=== PATIENT | male | born 1950 | race Caucasian/White ===

== ENCOUNTER → 2017-01-01 | Outpatient (CLI) | payer BC ==
[~2017-01-01] MED LIST: ASPI81TA21 PO; ATEN-173 PO; LITH300T2 PO; NITR0.4S UT; SIMV40TA4 PO
[2017-01-01 09:48] LABS: BLOOD UREA NITROGEN 15 mg/dl (7-18)
== END | disposition home or self-care (01) ==
LOC: C.LAB1850 08:12
PROVIDERS: ATTEND Internal Medicine Cardiovascular Disease
DX: R97.20 Elevated prostate specific antigen [PSA] (principal); Z51.81 Encounter for therapeutic drug level monitoring; Z79.899 Other long term (current) drug therapy

== ENCOUNTER → 2017-08-20 | Day surgery (SDC) | payer BC ==
[2017-07-25 10:05] VITALS: Ht 180.3 cm; Wt 113.6 kg
[~2017-08-20] VITALS: Ht 180.3 cm; Wt 113.6 kg
[~2017-08-20] MED LIST changes: +500ML BSS 0.3ML EPI 1:1000PF IRRIG ONE; +ACETAMINOPHEN 325 MG TAB PO PRN; +AMVISC PLUS 0.8ML SYRINGE INT OCU ONE; -ATEN-173 PO; +ATROPINE SULFATE 0.1 MG/ML 5ML SYR IV PRN; +AcetaZOLAMIDE 250 MG TAB ONE; +BETAXOLOL HCL 0.25% OP SUSP PER DROP CHARGE OPR SCH; +BRIMONIDINE TART 0.2% OP SOLN PER DROP CHARGE ONE; +BRIMONIDINE TARTRATE 0.2% 5ML ONE; +BSS FLUSH ONE; +ENDOCOAT 0.85ML SYRINGE INT OCU ONE; +EpHEDrine SULFATE INJ 50 MG/ML AMP IV PRN; +EpINEphrine INJ 1MG/ML AMP 1 MG/ML AMP ONE; +LACTATED RINGER'S 1000ML 500 ML IV SCH; +LIDOCAINE 4% OP SOLN DROP CHARGE ONE; +LIDOCAINE 4% OP SOLN DROP CHARGE OPR SCH; +LIDOCAINE HCL 1% MPF 2 ML VIAL ONE; +MIDAZOLAM HCL 1 MG/ML 2ML VIAL ONE; +MIX: 4ML BSS 1ML EPI 1:1000 PF INSTIL ONE; +MOXIFLOXACIN OPH SOLN PER DROP CHARGE ONE; +OCUCOAT 1 ML SOLN IO ONE; +POVIDONE-IODINE OP SOLN 30 ML BTL ONE; +PROPARACAINE 0.5% OP SOLN PER DROP CHARGE OPR SCH; +TOBRAMYCIN/DEXAMETHASONE OPH OINT PER APPLN CHARGE ONE
[2017-08-20] MEDS: PHENYLEPHRINE HCL 2.5% OP SOLN PER DROP CHARGE OPR SCH ×2 (06:37→06:42)
[2017-08-20] MEDS: CYCLOPENTOLATE HCL 1% OP SOLN PER DROP CHARGE OPR SCH ×2 (06:39→06:45)
[2017-08-20] MEDS: TROPICAMIDE 1% OP SOLN PER DROP CHARGE OPR SCH ×2 (06:39→06:44)
[2017-08-20] MEDS: MOXIFLOXACIN OPH SOLN PER DROP CHARGE OPR SCH ×2 (06:41→06:47)
--- NOTE | 2017-08-20 06:43 | History & Physical Bridge - SC ---
H&P Re-Evaluation Bridge Note: I have examined the patient, reviewed the History & Physical and in the interval since the performance of the History & Physical I have noted the following changes of clinical significance: No changes noted
--- NOTE | 2017-08-20 07:18 | [facility] Operative Report ---
Operative Report Date of Service Aug 20, 2017. Operative Report 1. PREOPERATIVE DIAGNOSIS: Senile nuclear cataract, right eye. 2. POSTOPERATIVE DIAGNOSIS: Senile nuclear cataract, right eye. 3. PROCEDURE: Phacoemulsification of right cataract with posterior chamber lens implant, type Dino, model SN6AT4, power +14.5 diopters. ANESTHESIA: Local standby. SURGEON: Dr. Biggs. COMPLICATIONS: None. OPERATING TIME: 10 minutes. 4. OPERATION AND FINDINGS: DESCRIPTION OF PROCEDURE: The right pupil was dilated. The anesthetic was administered using a topical technique. The right eye was prepped and draped. A speculum was placed. A clear corneal incision was formed. The chamber was filled with Amvisc Plus and Endocoat. Epinephrine solution was used. A paracentesis was placed. A capsulorrhexis was performed. The nucleus was hydrodissected. The lens was removed with phacoemulsification. Time was 3.51 seconds. The aspiration unit was used to remove the cortex. The capsule was filled with Amvisc Plus. The lens implant was folded and placed into the capsule. The lens implant was rotated to the correct position. The incision was hydrated. The Amvisc was aspirated. The wound was secure. The chamber was deep. The pupil was round. Brimonidine, TobraDex ointment and Vigamox solution were placed. The speculum was removed. The patient was returned to the Recovery Room in stable condition. I attest to the content of the Intraoperative Record and any orders documented therein. Any exceptions are noted below. The scribe's documentation has been prepared in my presence, under my direction and personally reviewed by me in its entirety. I confirm that the note above accurately reflects all work, treatment, procedures, and medical decision making performed by me. I personally scribed for Manuelito Biggs M.D. ([email or web address]) on 08/20/17 at 07:18. Electronically submitted by Bernie CIFUENTES).
--- NOTE | 2017-08-20 07:20 | Discharge Instructions-SurgCtr ---
Discharge Instructions Date of Service Aug 20, 2017. Visit Reason for Visit: Cataract Right Eye Discharge Discharge Diagnosis / Problem: lens implant right eye Discharge Goals Goal(s): Improve function Activity Recommendations Activity Limitations: resume your previous activity Lifting Limitations: no more than 10 pounds Exercise/Sports Limitations: gradually increase as tolerated May Resume Sexual Activity: when tolerated Shower/Bathe: tomorrow Driving or Machine Use: resume 1 day after discharge Anesthesia . Post Anesthesia Instructions: If you have had General Anesthesia or IV Sedation: * Do not drive today. * Resume driving when surgeon permits. * Do not make important decisions or sign legal documents today. * Call surgeon for: 1. Temperature elevations greater than 101 degrees F. 2. Uncontrollable pain. 3. Excessive bleeding. 4. Persistent nausea and vomiting. 5. Medication intolerance (nausea, vomiting or rash). * For nausea and vomiting use only clear liquids such as: tea, soda, bouillon until nausea subsides, then gradually increase diet as tolerated. * If you have any concerns or questions, call your surgeon's office. If physician is unavailable and it is an emergency, call 911 or go to the nearest emergency room. . Instructions / Follow-Up Instructions / Follow-Up ACTIVITY RECOMMENDATIONS: * Light activities. * Mild irritation and blurred vision are common for the first few days. * You may walk outside, read, watch television. * Redness around the white part of the eye is common. MEDICATIONS: Resume previous medications unless instructed otherwise by your surgeon. * Take white Diamox (Acetazolamide) tablet at 1 pm today. Start all eye drops at 1 pm today: * Eye drops (today and tomorrow): Prednisone - one drop in operative eye every 3 hours while awake Ofloxacin - one drop in operative eye every 3 hours while awake SPECIAL CARE INSTRUCTIONS: * Tape plastic shield over eye to sleep at night. Call your doctor at with any concerns or problems. FOLLOW UP VISIT: Follow-up with Dr Biggs at [facility] as scheduled. Diet Recommendations Home Diet: no limitations Procedures Procedures Performed: Right Cataract Phacoemulsification With Intraocular Lens Implant; Toric Lens Pending Studies Studies pending at discharge: no Medical Emergencies . Who to Call and When: Medical Emergencies: If at any time you feel your situation is an emergency, please call 911 immediately. . Non-Emergent Contact Non-Emergency issues call your: [employer] Dipper Call Non-Emergent contact if: your pain is not controlled [phone] . . "Provider Documentation" section prepared by Manuelito Biggs. .
[2017-08-20 07:26] VITALS: TEMP 36.9
--- NOTE | 2017-08-20 07:42 | Anesthesia Progress Nt - [facility] ---
Anesthesia Post Op Note Date & Time Aug 20, 2017 at 07:41 Vital Signs Pain Intensity: 0 Vital Signs Past 12 Hours Date Time Temp Pulse Resp B/P (MAP) Pulse Ox O2 Delivery O2 Flow Rate FiO2 08/20/17 06:27 36.3 52 18 170/89 (116) 96 Room Air Notes Mental Status: alert / awake / arousable, participated in evaluation Pt Amnestic to Procedure: Yes Nausea / Vomiting: adequately controlled Pain: adequately controlled Airway Patency, RR, SpO2: stable & adequate BP & HR: stable & adequate Hydration State: stable & adequate Anesthetic Complications: no major complications apparent
[2017-08-20 07:57] VITALS: BP 152/72; PULSE 60; O2SAT 97
== END | disposition home or self-care (01) ==
LOC: X.SURG 06:11
PROVIDERS: ATTEND Specialist
DX: H25.11 Age-related nuclear cataract, right eye (principal); I10 Essential (primary) hypertension; G47.33 Obstructive sleep apnea (adult) (pediatric); J44.9 Chronic obstructive pulmonary disease, unspecified; E66.9 Obesity, unspecified; Z68.35 Body mass index [BMI] 35.0-35.9, adult; Z79.82 Long term (current) use of aspirin; Z87.891 Personal history of nicotine dependence; Z90.89 Acquired absence of other organs; Z98.890 Other specified postprocedural states

== ENCOUNTER → 2017-09-10 | Day surgery (SDC) | payer BC ==
[2017-08-25 10:22] VITALS: BMI 35.0
[2017-08-29 09:36] VITALS: Ht 180.3 cm; Wt 113.6 kg
[~2017-09-10] VITALS: Ht 180.3 cm; Wt 113.6 kg
[~2017-09-10] MED LIST changes: +AMLO2.5T PO; +ATOR-24 PO; -AcetaZOLAMIDE 250 MG TAB ONE; +AcetaZOLAMIDE 250 MG TAB PO SCH; +BETAXOLOL HCL 0.25% OP SUSP PER DROP CHARGE OPL SCH; -BETAXOLOL HCL 0.25% OP SUSP PER DROP CHARGE OPR SCH; -BRIMONIDINE TARTRATE 0.2% 5ML ONE; +CYCLOPENTOLATE HCL 1% OP SOLN PER DROP CHARGE OPL SCH; +LIDOCAINE 4% OP SOLN DROP CHARGE OPL SCH; -LIDOCAINE 4% OP SOLN DROP CHARGE OPR SCH; +MOXIFLOXACIN OPH SOLN PER DROP CHARGE OPL SCH; +PHENYLEPHRINE HCL 2.5% OP SOLN PER DROP CHARGE OPL SCH; +PROPARACAINE 0.5% OP SOLN PER DROP CHARGE OPL SCH; -PROPARACAINE 0.5% OP SOLN PER DROP CHARGE OPR SCH; +TROPICAMIDE 1% OP SOLN PER DROP CHARGE OPL SCH
[2017-09-10] MEDS: PHENYLEPHRINE HCL 2.5% OP SOLN PER DROP CHARGE OPL SCH ×2 (09:40→09:45)
[2017-09-10] MEDS: TROPICAMIDE 1% OP SOLN PER DROP CHARGE OPL SCH ×2 (09:41→09:46)
[2017-09-10] MEDS: CYCLOPENTOLATE HCL 1% OP SOLN PER DROP CHARGE OPL SCH ×2 (09:42→09:47)
[2017-09-10] MEDS: MOXIFLOXACIN OPH SOLN PER DROP CHARGE OPL SCH ×2 (09:43→09:53)
--- NOTE | 2017-09-10 10:50 | [facility] Operative Report ---
Operative Report Date of Service Sep 10, 2017. Operative Report 1. PREOPERATIVE DIAGNOSIS: Senile nuclear cataract, left eye. 2. POSTOPERATIVE DIAGNOSIS: Senile nuclear cataract, left eye. 3. PROCEDURE: Phacoemulsification of left cataract with posterior chamber lens implant, type Dino, model SN6AT3, power +15 diopters. ANESTHESIA: Local standby. SURGEON: Dr. Biggs. COMPLICATIONS: None. OPERATING TIME: 10 minutes. 4. OPERATION AND FINDINGS: DESCRIPTION OF PROCEDURE: The left pupil was dilated. The anesthetic was administered using a topical technique. The left eye was prepped and draped. A speculum was placed. A clear corneal incision was formed. The chamber was filled with Amvisc Plus and Endocoat. Epinephrine solution was used. A paracentesis was placed. A capsulorrhexis was performed. The nucleus was hydrodissected. The lens was removed with phacoemulsification. Time was 1.25 seconds. The aspiration unit was used to remove the cortex. The capsule was filled with Amvisc Plus. The lens implant was folded and placed into the capsule. The lens implant was rotated to the correct position. The incision was hydrated. The Amvisc was aspirated. The wound was secure. The chamber was deep. The pupil was round. Brimonidine, TobraDex ointment and Vigamox solution were placed. The speculum was removed. The patient was returned to the Recovery Room in stable condition. I attest to the content of the Intraoperative Record and any orders documented therein. Any exceptions are noted below. The scribe's documentation has been prepared in my presence, under my direction and personally reviewed by me in its entirety. I confirm that the note above accurately reflects all work, treatment, procedures, and medical decision making performed by me. I personally scribed for Manuelito Biggs M.D. ([email or web address]) on 09/10/17 at 10:50. Electronically submitted by Bernie Driver ([email or web address]).
--- NOTE | 2017-09-10 10:54 | Discharge Instructions-SurgCtr ---
Discharge Instructions Date of Service Sep 10, 2017. Visit Reason for Visit: Cataract Left Eye Discharge Discharge Diagnosis / Problem: lens implant left eye Discharge Goals Goal(s): Improve function Activity Recommendations Activity Limitations: resume your previous activity Lifting Limitations: no more than 10 pounds Exercise/Sports Limitations: gradually increase as tolerated May Resume Sexual Activity: when tolerated Shower/Bathe: tomorrow Driving or Machine Use: resume 1 day after discharge Anesthesia . Post Anesthesia Instructions: If you have had General Anesthesia or IV Sedation: * Do not drive today. * Resume driving when surgeon permits. * Do not make important decisions or sign legal documents today. * Call surgeon for: 1. Temperature elevations greater than 101 degrees F. 2. Uncontrollable pain. 3. Excessive bleeding. 4. Persistent nausea and vomiting. 5. Medication intolerance (nausea, vomiting or rash). * For nausea and vomiting use only clear liquids such as: tea, soda, bouillon until nausea subsides, then gradually increase diet as tolerated. * If you have any concerns or questions, call your surgeon's office. If physician is unavailable and it is an emergency, call 911 or go to the nearest emergency room. . Instructions / Follow-Up Instructions / Follow-Up ACTIVITY RECOMMENDATIONS: * Light activities. * Mild irritation and blurred vision are common for the first few days. * You may walk outside, read, watch television. * Redness around the white part of the eye is common. MEDICATIONS: Resume previous medications unless instructed otherwise by your surgeon. * Take white Diamox (Acetazolamide) tablet at 2 pm today. Start all eye drops at 2 pm today: * Eye drops (today and tomorrow): Prednisone - one drop in operative eye every 3 hours while awake Ofloxacin - one drop in operative eye every 3 hours while awake SPECIAL CARE INSTRUCTIONS: * Tape plastic shield over eye to sleep at night. Call your doctor at with any concerns or problems. FOLLOW UP VISIT: Follow-up with Dr Biggs at [facility] as scheduled. Diet Recommendations Home Diet: no limitations Procedures Procedures Performed: Left Cataract Phacoemulsification With Intraocular Lens Implant; Toric Lens Pending Studies Studies pending at discharge: no Medical Emergencies . Who to Call and When: Medical Emergencies: If at any time you feel your situation is an emergency, please call 911 immediately. . Non-Emergent Contact Non-Emergency issues call your: Front End Java Developer Call Non-Emergent contact if: your pain is not controlled [phone] . . "Provider Documentation" section prepared by Manuelito Biggs. .
[2017-09-10 11:06] VITALS: TEMP 36.6
--- NOTE | 2017-09-10 11:17 | Anesthesia Progress Nt - [facility] ---
Anesthesia Post Op Note Date & Time Sep 10, 2017 at 11:17 Vital Signs Pain Intensity: 0 Vital Signs Past 12 Hours Date Time Temp Pulse Resp B/P (MAP) Pulse Ox O2 Delivery O2 Flow Rate FiO2 09/10/17 11:06 36.6 62 16 138/90 (106) 95 Room Air 09/10/17 09:25 36.4 42 20 131/68 (89) 96 Room Air Notes Mental Status: alert / awake / arousable, participated in evaluation Pt Amnestic to Procedure: Yes Nausea / Vomiting: adequately controlled Pain: adequately controlled Airway Patency, RR, SpO2: stable & adequate BP & HR: stable & adequate Hydration State: stable & adequate Anesthetic Complications: no major complications apparent
[2017-09-10 11:25] VITALS: BP 132/80; PULSE 42; O2SAT 98
== END | disposition home or self-care (01) ==
LOC: X.SURG 09:05
PROVIDERS: ATTEND Specialist
DX: H25.12 Age-related nuclear cataract, left eye (principal); I10 Essential (primary) hypertension; E66.9 Obesity, unspecified

== ENCOUNTER → 2017-10-07 | Outpatient (CLI) | payer BC ==
[~2017-10-07] MED LIST changes: -500ML BSS 0.3ML EPI 1:1000PF IRRIG ONE; -ACETAMINOPHEN 325 MG TAB PO PRN; -AMVISC PLUS 0.8ML SYRINGE INT OCU ONE; -ATROPINE SULFATE 0.1 MG/ML 5ML SYR IV PRN; -AcetaZOLAMIDE 250 MG TAB PO SCH; -BETAXOLOL HCL 0.25% OP SUSP PER DROP CHARGE OPL SCH; -BRIMONIDINE TART 0.2% OP SOLN PER DROP CHARGE ONE; -BSS FLUSH ONE; -CYCLOPENTOLATE HCL 1% OP SOLN PER DROP CHARGE OPL SCH; -ENDOCOAT 0.85ML SYRINGE INT OCU ONE; -EpHEDrine SULFATE INJ 50 MG/ML AMP IV PRN; -EpINEphrine INJ 1MG/ML AMP 1 MG/ML AMP ONE; -LACTATED RINGER'S 1000ML 500 ML IV SCH; -LIDOCAINE 4% OP SOLN DROP CHARGE ONE; -LIDOCAINE 4% OP SOLN DROP CHARGE OPL SCH; -LIDOCAINE HCL 1% MPF 2 ML VIAL ONE; -MIDAZOLAM HCL 1 MG/ML 2ML VIAL ONE; -MIX: 4ML BSS 1ML EPI 1:1000 PF INSTIL ONE; -MOXIFLOXACIN OPH SOLN PER DROP CHARGE ONE; -MOXIFLOXACIN OPH SOLN PER DROP CHARGE OPL SCH; -OCUCOAT 1 ML SOLN IO ONE; -PHENYLEPHRINE HCL 2.5% OP SOLN PER DROP CHARGE OPL SCH; -POVIDONE-IODINE OP SOLN 30 ML BTL ONE; -PROPARACAINE 0.5% OP SOLN PER DROP CHARGE OPL SCH; -SIMV40TA4 PO; -TOBRAMYCIN/DEXAMETHASONE OPH OINT PER APPLN CHARGE ONE; -TROPICAMIDE 1% OP SOLN PER DROP CHARGE OPL SCH
[2017-10-07 13:04] LABS: BASO % 0.5 %; BASO ABS # 0.04 K/uL (0-0.2); EOS % 2.1 %; EOS ABS # 0.16 K/uL (0-0.5); HEMATOCRIT 40.1 % (42-52); HEMOGLOBIN 14.5 g/dL (14.0-18.0); IG# 0.03 K/uL (0.00-0.02); LYMPH % 15.3 %; LYMPH ABS # 1.18 K/uL (1.2-3.4); MEAN CELL VOLUME 89.9 fL (80-100); MEAN CORPUSCULAR HEMOGLOBIN 32.5 pg (25-34); MEAN CORPUSCULAR HGB CONC 36.2 g/dl (32-36); MEAN PLATELET VOLUME 10.3 fL (7.4-10.4); MONO % 9.9 %; MONO ABS # 0.76 K/uL (0.11-0.59); NEUT % 71.8 %; NEUT ABS # 5.52 K/uL (1.4-6.5); PLATELET COUNT 145 K/uL (130-400); RED CELL DISTRIBUTION WIDTH CV 13.4 % (11.5-14.5); RED CELL DISTRIBUTION WIDTH SD 44.2 fL (36.4-46.3); WHITE BLOOD COUNT 7.69 K/uL (4.8-10.8)
[2017-10-07 13:31] LABS: ALBUMIN 3.7 gm/dl (3.4-5.0); ALT/SGPT 48 U/L (12-78); BLOOD UREA NITROGEN 17 mg/dl (7-18); CALCIUM 8.3 mg/dl (8.5-10.1); CARBON DIOXIDE 21 mmol/L (21-32); CREATININE 0.98 mg/dl (0.60-1.40); GLUCOSE 101 mg/dl (70-99); POTASSIUM 3.9 mmol/L (3.5-5.1); SODIUM 140 mmol/L (136-145)
[2017-10-07 13:42] LABS: ALKALINE PHOSPHATASE 71 U/L (45-117); AST/SGOT 24 U/L (15-37); TOTAL PROTEIN 7.5 gm/dl (6.4-8.2)
== END | disposition home or self-care (01) ==
LOC: C.LABBC 11:04
PROVIDERS: ATTEND Psychiatry & Neurology Psychiatry
DX: F31.76 Bipolar disorder, in full remission, most recent episode depressed (principal)

== ENCOUNTER → 2017-11-14 | Outpatient (CLI) | payer BC ==
[~2017-11-14] MED LIST changes: +ASPI-319 PO; -ASPI81TA21 PO
--- NOTE | 2017-11-14 12:32 | DIAGNOSTIC IMAGING REPORT ---
RIGHT GROIN ULTRASOUND CLINICAL HISTORY: Melanoma. Palpable right groin abnormality. COMPARISON STUDY: No previous studies for comparison. FINDINGS: Targeted sonography of the right groin revealed several benign-appearing inguinal lymph nodes that measure up to 1.6 x 0.9 x 0.6 cm. Each lymph node demonstrated a thin cortex with fatty hilum. IMPRESSION: Several morphologically benign right inguinal lymph nodes. Clinical follow up to ensure stability is recommended. If progressive enlargement, repeat ultrasound is recommended. Electronically signed by: Benton Moreno M.D. 11/14/2017 12:31 PM Dictated Date/Time: 11/14/2017 12:29 PM
== END | disposition home or self-care (01) ==
LOC: C.ULTR 12:03
PROVIDERS: ATTEND Dermatology
DX: R59.9 Enlarged lymph nodes, unspecified (principal); Z85.820 Personal history of malignant melanoma of skin

== ENCOUNTER 2019-05-10 18:51 | Inpatient (IN) ==
[2019-05-10] MEDS ORDERED: fentaNYL citrate 100 MCG/2 ML VIAL IV STA (19:25)
[2019-05-10] MEDS ORDERED: ONDANSETRON INJ 2 MG/ML 2 ML VIAL IV STA (19:25)
[2019-05-10 20:40] LABS: Basophils # (auto) 0.03 K/uL (0-0.2); Basophils % (auto) 0.3 %; Eosinophils # (auto) 0.15 K/uL (0-0.5); Eosinophils % (auto) 1.3 %; Hematocrit (blood only) 39.4 % (42-52); Hemoglobin 13.7 g/dL (14.0-18.0); Immature Granulocytes # (auto) 0.05 K/uL (0.00-0.02); Immature Granulocytes % (auto) 0.4 %; Lymphocytes # (auto) 1.37 K/uL (1.2-3.4); Mean Corpuscular Hemoglobin 31.9 pg (25-34); Mean Corpuscular Hgb Conc 34.8 g/dL (32-36); Mean Corpuscular Volume 91.6 fL (80-100); Mean Platelet Volume 10.7 fL (7.4-10.4); Monocytes # (auto) 0.81 K/uL (0.11-0.59); Monocytes % (auto) 7.1 %; Neutrophils # (auto) 9.03 K/uL (1.4-6.5); Neutrophils % (auto) 78.9 %; Platelet Count 145 K/uL (130-400); RDW Coefficient of Variation 14.1 % (11.5-14.5); RDW Standard Deviation 46.4 fL (36.4-46.3); White Blood Count 11.44 K/uL (4.8-10.8)
[2019-05-10 21:00] LABS: Albumin Level 3.8 gm/dl (3.4-5.0); BUN Creatinine Ratio 12.6 (10-20); Calcium 8.9 mg/dl (8.5-10.1); Creatinine Clr Calc Pharmacy 78.5 ml/min; Est GFR (African American) 75.1; Est GFR (Non-African American) 64.8
[2019-05-10 21:10] LABS: Bilirubin,Total 0.8 mg/dl (0.2-1); Globulin 3.9 gm/dl (2.5-4.0); Total Protein 7.7 gm/dl (6.4-8.2); Troponin I 0.149 ng/ml (0-0.045)
[2019-05-10] MEDS ORDERED: NITROGLYCERIN SL 0.4 MG/TAB TAB SL STA ×3 (21:18→22:26)
[2019-05-10] MEDS ORDERED: NITROGLYCERIN 2% OINTMENT 30GM TUBE EXT ONE (21:18)
[2019-05-10] MEDS ORDERED: ASPIRIN 81 MG CHEW PO STA (21:20)
--- NOTE | 2019-05-10 21:22 | XRay Report ---
SINGLE VIEW CHEST CLINICAL HISTORY: Atypical chest pain. FINDINGS: An AP, portable, upright chest radiograph is compared to study dated 02/11/2019. The examina tion is degraded by portable technique and patient rotation. The heart is enlarged noting atheroscl erotic calcification of the thoracic aorta. There is pulmonary vascular congestion. There is bibasila r atelectasis. No large pleural effusion or pneumothorax is seen. The skeletal structures are osteope felipe. The bony thorax is grossly intact. IMPRESSION: Cardiomegaly with evidence of congestive failure. Electronically signed by: Saad Garcia M.D. 05/10/2019 9:21 PM
[2019-05-10] MEDS ORDERED: METOPROLOL TARTRATE 25 MG TAB PO STA (22:13)
[2019-05-10] MEDS ORDERED: Heparin IV Low Dose WITH Bolus IV STA (22:13)
[2019-05-10] MEDS ORDERED: HEPARIN SODIUM/DEXTROSE 25,000 UNITS/500 ML BAG IV SCH (22:15)
[2019-05-10] MEDS ORDERED: TICAGRELOR 90 MG TAB PO ONE (22:29)
[2019-05-10] MEDS ORDERED: MoRPHine SULFATE 2 MG/ML CARP IV STA ×2 (22:33→23:44)
[2019-05-10 23:18] LABS: Partial Thromboplastin Time 26.9 Seconds (21.0-31.0)
[2019-05-10] MEDS ORDERED: HEPARIN SOD (PORCINE) 1000 UNIT/ML 10 ML VIAL ONE (23:35)
[2019-05-10] MEDS ORDERED: METOPROLOL TARTRATE 1 MG/ML VIAL IV STA (23:51)
--- NOTE | 2019-05-11 | Emergency Department Note ---
Entered by Qing Morris acting as a scribe for History of Present Illness General Chief complaint: Shortness of Breath/Dyspnea Stated complaint: ANGINA, SOB Source: patient History of Present Illness Provider complaint: Chest Pain Onset (ago): day(s) 1 Location: chest (Middle) Maximum Pain Intensity: 3 Quality: + dull and + other (Tightness) Exacerbated By: + movement (Exertion) Associated symptoms: + shortness of breath; no cough and no fever/chills The patient is a 68 year old male who presents to the Emergency Room with complaints of dull middle chest pain that began this morning. The patient states the pain is exacerbated by exertion and he notes the pain in his chest also feels very tight. The patient reports being short of breath even when at rest. The patient denies experiencing a cough or fever/chills. The patient notes that he took Nitro and Aspirin today. He states that the nitro will help for about an hour but then the pain will come back. He states that he took about 10-15 nitroglycerin tablets today. He currently rates his pain a 1 out of 10 in severity. He also saw his office system analyst recently who increased his isosorbide to 60 mg. He denies being on a beta-bennett because he was told that his heart rate went too low. He also has a history of frequent PVCs and recently had a Holter monitor but does not know the results. Home Medications Home Medications Medication Instructions Recorded Confirmed Type amlodipine 2.5 mg tablet 2.5 mg PO QAM #90 tab 02/09/19 05/10/19 History aspirin 81 mg tablet,delayed 81 mg PO QAM tab 02/09/19 05/10/19 History release atorvastatin 40 mg tablet 40 mg PO QAM #1 tab 02/09/19 05/10/19 History finasteride 5 mg tablet 5 mg PO QAM #30 tab 02/09/19 05/10/19 History lithium carbonate ER 300 mg 300 mg PO BID tab 02/09/19 05/10/19 History tablet,extended release tamsulosin 0.4 mg capsule 0.4 mg PO HS #30 cap 02/09/19 05/10/19 History isosorbide mononitrate 60 mg PO QAM 05/10/19 05/10/19 History nitroglycerin 0.4 mg SL ONCE PRN 05/10/19 05/10/19 History Allergies Allergy/AdvReac Type Severity Reaction Status Date / Time No Known Allergies Allergy Verified 05/10/19 19:34 Past Med/Surg History Medical History Obstructive sleep apnea Obesity Inhibited sexual excitement HTN (hypertension) (Chronic) Hyperglycemia Gross hematuria (Resolved) Former smoker Elevated PSA Diverticulosis Depression CAD in [place] artery (Chronic) Bipolar I disorder, single manic episode (Chronic) Benign prostatic hyperplasia with urinary obstruction Angina, class II Surgical History History of surgery on arm S/P cardiac catheterization Family History Mother Hypertension Other Cardiac disorder Social History Preferred Language: Gabonese Communication Ability: Effective Visual Impairment: No Limitations Hearing Ability: Normal marital status: current occupational status: retired Feels Safe at Home: Yes Smoking Status: Never smoker Hx Alcohol Use: Yes Review of Systems See HPI for pertinent positives & negatives. and A total of 10 systems reviewed and were otherwise negative Physical Exam Vital Signs Vital Signs - 24 hr 05/10/19 19:00 05/10/19 19:13 05/10/19 19:30 Temperature 36.4 C L Temperature Source Oral Sepsis Recent Fever Within 48 Hours No Sepsis Action Taken by Nursing No Action Required Pulse Rate 98 H 72 70 Pulse Rate [Right Finger] Pulse Rate from SpO2 Sensor 36 L Pulse Rhythm Regular Pulse Rhythm [Right Finger] Pulse Strength Normal Respiratory Rate 20 9 L 15 Respiratory Effort / Characteristics Non-Labored Spontaneous Respiratory Depth Normal Respiratory Pattern Regular Blood Pressure 170/105 H Blood Pressure [Right Arm] Blood Pressure Mean 126 Blood Pressure Mean [Right Arm] Blood Pressure Position Sitting Blood Pressure Position [Right Arm] Pulse Oximetry 100 95 Oxygen Delivery Method Room Air 05/10/19 19:51 05/10/19 20:00 05/10/19 20:08 Temperature Temperature Source Sepsis Recent Fever Within 48 Hours Sepsis Action Taken by Nursing Pulse Rate 74 Pulse Rate [Right Finger] Pulse Rate from SpO2 Sensor Pulse Rhythm Pulse Rhythm [Right Finger] Pulse Strength Respiratory Rate 21 Respiratory Effort / Characteristics Respiratory Depth Respiratory Pattern Blood Pressure Blood Pressure [Right Arm] Blood Pressure Mean Blood Pressure Mean [Right Arm] Blood Pressure Position Blood Pressure Position [Right Arm] Pulse Oximetry 93 95 Oxygen Delivery Method Room Air Room Air 05/10/19 20:30 05/10/19 20:45 05/10/19 20:55 Temperature Temperature Source Sepsis Recent Fever Within 48 Hours Sepsis Action Taken by Nursing Pulse Rate 75 71 Pulse Rate [Right Finger] 74 Pulse Rate from SpO2 Sensor 58 L Pulse Rhythm Pulse Rhythm [Right Finger] Regular Pulse Strength Respiratory Rate 19 25 H 20 Respiratory Effort / Characteristics Respiratory Depth Normal Respiratory Pattern Blood Pressure 156/61 H Blood Pressure [Right Arm] 155/61 H Blood Pressure Mean 92 Blood Pressure Mean [Right Arm] 92 Blood Pressure Position Blood Pressure Position [Right Arm] Lying Pulse Oximetry 85 L 94 Oxygen Delivery Method Room Air 05/10/19 21:00 05/10/19 21:34 05/10/19 21:41 Temperature Temperature Source Sepsis Recent Fever Within 48 Hours Sepsis Action Taken by Nursing Pulse Rate 76 80 76 Pulse Rate [Right Finger] Pulse Rate from SpO2 Sensor Pulse Rhythm Pulse Rhythm [Right Finger] Pulse Strength Respiratory Rate 21 22 17 Respiratory Effort / Characteristics Respiratory Depth Respiratory Pattern Blood Pressure 159/77 H Blood Pressure [Right Arm] Blood Pressure Mean 104 Blood Pressure Mean [Right Arm] Blood Pressure Position Blood Pressure Position [Right Arm] Pulse Oximetry Oxygen Delivery Method 05/10/19 21:50 05/10/19 22:00 05/10/19 22:04 Temperature Temperature Source Sepsis Recent Fever Within 48 Hours Sepsis Action Taken by Nursing Pulse Rate 73 71 75 Pulse Rate [Right Finger] Pulse Rate from SpO2 Sensor Pulse Rhythm Pulse Rhythm [Right Finger] Pulse Strength Respiratory Rate 20 24 19 Respiratory Effort / Characteristics Respiratory Depth Respiratory Pattern Blood Pressure 162/82 H 164/90 H Blood Pressure [Right Arm] Blood Pressure Mean 108 114 Blood Pressure Mean [Right Arm] Blood Pressure Position Blood Pressure Position [Right Arm] Pulse Oximetry Oxygen Delivery Method 05/10/19 23:05 05/10/19 23:46 Temperature Temperature Source Sepsis Recent Fever Within 48 Hours Sepsis Action Taken by Nursing Pulse Rate 72 Pulse Rate [Right Finger] 74 Pulse Rate from SpO2 Sensor Pulse Rhythm Pulse Rhythm [Right Finger] Pulse Strength Respiratory Rate 22 18 Respiratory Effort / Characteristics Respiratory Depth Respiratory Pattern Blood Pressure 163/73 H Blood Pressure [Right Arm] 137/93 Blood Pressure Mean 103 Blood Pressure Mean [Right Arm] 107 Blood Pressure Position Blood Pressure Position [Right Arm] Lying Pulse Oximetry 96 Oxygen Delivery Method Room Air Constitutional: Vital signs reviewed. Eyes: Pupils are equal round reactive to light. Conjunctiva are noninjected. ENT: Pharynx is clear without erythema or exudate. Mucous membranes are moist. Neck supple without meningeal signs. Respiratory: Clear to auscultation bilaterally. Breath sounds are equal bilaterally. Cardiovascular: Regular rate and regularly irregular rhythm consistent with bigeminy. No rubs or gallops. GI: Soft, nondistended and nontender. Bowel sounds are present. Musculoskeletal: No peripheral edema. No lower extremity tenderness. Integumentary: No cyanosis. Neurological: The patient is awake and alert. No focal deficits. Psychiatric: Normal affect. Course 1909: Past medical records reviewed. The patient was evaluated in room B12A. A complete history and physical exam was performed. 2007: I reevaluated the patient and he still does not have IV access. The patient is waiting for the IV team. 2116: I reevaluated the patient and he still has 1/10 chest pain. 2119: I spoke with Dr. Early- Cardiology about the patient's case and he recommends giving him some nitro to try and get him pain free. If the patient's pain does not subside he wants the patient to go to the roofing laborer. He agreed with heparin. 2139: I reevaluated the patient and his pain is now a .5/10. 2153: I reevaluated the patient and his pain is now a 1/10. He was given his 3rd nitroglycerin. 4: I spoke with Dr. Early again and he said to give him low presser 25 orally and to check a 2nd Troponin and start the Heparin. 2218: I spoke with Dr. Adele Cruz- Hospitalist about the patient's case and she will accept the patient for further evaluation. 2229: I spoke with Dr. Early again and he spoke directly to Dr. Adele Cruz about the patient's case. Administered Medications Heparin Sodium/Dextrose (Heparin Sodium/Dextrose) 25,000 units in 500 mls @ 20 mls/hr IV .Q24H [facility]; Protocol Stop: 06/09/19 22:14 Last Admin: 05/10/19 23:54 Dose: 1,000 units/hr, 20 mls/hr Documented by: [id number] Cosigned by: [id number] Discontinued Medications Aspirin (Aspirin Chew) 324 mg PO NOW STA Stop: 05/10/19 21:21 Last Admin: 05/10/19 21:31 Dose: 324 mg Documented by: [id number] Fentanyl Citrate (Fentanyl Citrate) 50 mcg IV NOW STA Stop: 05/10/19 19:26 Last Admin: 05/10/19 20:56 Dose: 50 mcg Documented by: [id number] Heparin Sodium (Porcine) (Heparin Iv Bolus) Confirm Administered Dose 10,000 units .ROUTE .STK-MED ONE Stop: 05/10/19 23:36 Last Admin: 05/10/19 23:53 Dose: 4,000 units Documented by: [id number] Cosigned by: [id number] Heparin Sodium/Dextrose () 1 ea IV NOW STA; Protocol Stop: 05/10/19 22:14 Last Admin: 05/10/19 23:54 Dose: Not Given Documented by: [id number] Metoprolol Tartrate (Lopressor) 25 mg PO NOW STA Stop: 05/10/19 22:14 Last Admin: 05/10/19 22:34 Dose: 25 mg Documented by: [id number] Morphine Sulfate (Morphine Sulfate) 2 mg IV NOW STA Stop: 05/10/19 22:34 Last Admin: 05/10/19 22:38 Dose: 2 mg Documented by: [id number] Nitroglycerin (Nitrostat) 0.4 mg SL NOW STA Stop: 05/10/19 21:19 Last Admin: 05/10/19 21:32 Dose: 0.4 mg Documented by: [id number] Nitroglycerin (Nitro-Bid 2%) 1 inch EXT NOW ONE Stop: 05/10/19 21:19 Last Admin: 05/10/19 21:31 Dose: 1 inch Documented by: [id number] Nitroglycerin (Nitrostat) 0.4 mg SL NOW STA Stop: 05/10/19 21:57 Last Admin: 05/10/19 21:54 Dose: 0.4 mg Documented by: [id number] Nitroglycerin (Nitrostat) 0.4 mg SL NOW STA Stop: 05/10/19 22:27 Last Admin: 05/10/19 21:43 Dose: 0.4 mg Documented by: [id number] Ondansetron HCl (Zofran) 4 mg IV NOW STA Stop: 05/10/19 19:26 Last Admin: 05/10/19 20:56 Dose: 4 mg Documented by: [id number] Ticagrelor (Brilinta) 180 mg PO ONE ONE Stop: 05/10/19 22:30 Last Admin: 05/10/19 22:38 Dose: 180 mg Documented by: [id number] Medical Decision Making Differential Diagnosis Differential diagnosis includes: Unstable angina, ME, GERD, Pleurisy, Pneumonia. Medical Records Attestation: I reviewed the patient's medical records. The patient was seen by cardiology on May 04 and has a known history of borderline occlusive CAD and his Nitro was increased. Warehouse Forklift Operator said if patient's symptoms progressed they would consider catheterization. Cardiology also notes that the patient has had frequent ventricular ectopy. Home Medications Current Medication List: was personally reviewed by me Laboratory Data Attestation: I reviewed the patient's lab results. Result diagrams: 05/10/19 20:20 05/10/19 20:20 Lab Results 05/10/19 05/10/19 05/10/19 Range/Units 20:20 20:20 22:23 WBC 11.44 H (4.8-10.8) K/uL RBC 4.30 L (4.7-6.1) M/uL Hgb 13.7 L (14.0-18.0) g/dL Hct 39.4 L (42-52) % MCV 91.6 (80-100) fL MCH 31.9 (25-34) pg MCHC 34.8 (32-36) g/dL RDW Std Deviation 46.4 H (36.4-46.3) fL RDW Coeff of Marie 14.1 (11.5-14.5) % Plt Count 145 (130-400) K/uL MPV 10.7 H (7.4-10.4) fL Immature Gran % (Auto) 0.4 % Neut % (Auto) 78.9 % Lymph % (Auto) 12.0 % [place] % (Auto) 7.1 % Eos % (Auto) 1.3 % Baso % (Auto) 0.3 % Immature Gran # (Auto) 0.05 H (0.00-0.02) K/uL Neut # (Auto) 9.03 H (1.4-6.5) K/uL Lymph # (Auto) 1.37 (1.2-3.4) K/uL [place] # (Auto) 0.81 H (0.11-0.59) K/uL Eos # (Auto) 0.15 (0-0.5) K/uL Baso # (Auto) 0.03 (0-0.2) K/uL APTT (21.0-31.0) Seconds PTT Ratio Sodium 139 (136-145) mmol/L Potassium 4.0 (3.5-5.1) mmol/L Chloride 108 H (98-107) mmol/L Carbon Dioxide 22 (21-32) mmol/L Anion Gap 9.0 (3-11) BUN 14 (7-18) mg/dl Creatinine 1.14 (0.6-1.4) mg/dl Est Cr Clr Drug Dosing 78.5 ml/min Est GFR ( Amer) 75.1 Est GFR (Non-Af Amer) 64.8 BUN/Creatinine Ratio 12.6 (10-20) Glucose 114 H (70-99) mg/dl Calcium 8.9 (8.5-10.1) mg/dl Total Bilirubin 0.8 (0.2-1) mg/dl AST 24 (15-37) U/L ALT 39 (12-78) U/L Alkaline Phosphatase 78 (45-117) U/L Troponin I 0.149 H* 0.180 H* (0-0.045) ng/ml Total Protein 7.7 (6.4-8.2) gm/dl Albumin 3.8 (3.4-5.0) gm/dl Globulin 3.9 (2.5-4.0) gm/dl Albumin/Globulin Ratio 1.0 (0.9-2) 05/10/19 Range/Units 22:56 WBC (4.8-10.8) K/uL RBC (4.7-6.1) M/uL Hgb (14.0-18.0) g/dL Hct (42-52) % MCV (80-100) fL MCH (25-34) pg MCHC (32-36) g/dL RDW Std Deviation (36.4-46.3) fL RDW Coeff of Marie (11.5-14.5) % Plt Count (130-400) K/uL MPV (7.4-10.4) fL Immature Gran % (Auto) % Neut % (Auto) % Lymph % (Auto) % [place] % (Auto) % Eos % (Auto) % Baso % (Auto) % Immature Gran # (Auto) (0.00-0.02) K/uL Neut # (Auto) (1.4-6.5) K/uL Lymph # (Auto) (1.2-3.4) K/uL [place] # (Auto) (0.11-0.59) K/uL Eos # (Auto) (0-0.5) K/uL Baso # (Auto) (0-0.2) K/uL APTT 26.9 (21.0-31.0) Seconds PTT Ratio 1.0 Sodium (136-145) mmol/L Potassium (3.5-5.1) mmol/L Chloride (98-107) mmol/L Carbon Dioxide (21-32) mmol/L Anion Gap (3-11) BUN (7-18) mg/dl Creatinine (0.6-1.4) mg/dl Est Cr Clr Drug Dosing ml/min Est GFR ( Amer) Est GFR (Non-Af Amer) BUN/Creatinine Ratio (10-20) Glucose (70-99) mg/dl Calcium (8.5-10.1) mg/dl Total Bilirubin (0.2-1) mg/dl AST (15-37) U/L ALT (12-78) U/L Alkaline Phosphatase (45-117) U/L Troponin I (0-0.045) ng/ml Total Protein (6.4-8.2) gm/dl Albumin (3.4-5.0) gm/dl Globulin (2.5-4.0) gm/dl Albumin/Globulin Ratio (0.9-2) Imaging Data Radiologist's Impression: Radiology results as stated below per my review and the radiologist's interpretation: SINGLE VIEW CHEST CLINICAL HISTORY: Atypical chest pain. FINDINGS: An AP, portable, upright chest radiograph is compared to study dated 02/11/2019. The examination is degraded by portable technique and patient rotation. The heart is enlarged noting atherosclerotic calcification of the thoracic aorta. There is pulmonary vascular congestion. There is bibasilar atelectasis. No large pleural effusion or pneumothorax is seen. The skeletal structures are osteopenic. The bony thorax is grossly intact. IMPRESSION: Cardiomegaly with evidence of congestive failure. Electronically signed by: Saad Garcia M.D. 05/10/2019 9:21 PM ECG Data Attestation: I personally reviewed and interpreted this ECG as follows: Indication: chest pain Rate (beats per minute): 78 Rhythm: sinus rhythm Findings: + other (Bigeminy) and + LBBB Comparison ECG Date: from (10/2015) Change: no significant change Additional Comments: Repeat EKG done at 20:21: Sinus rhythm with a rate of 78. Frequent PVC's. LBBB. No significant change from EKG done on 05/10/2019 at 19:09. Blood Pressure Blood Pressure Findings: Elevated blood pressure Blood Pressure Disposition: further management by hospitalist TEVIN Guo I did evaluate the patient as noted above. The patient is presenting with chest pain intermittently all day. He took about 10-15 nitroglycerin tablets as well as his increased dose of isosorbide. He currently states he has a 1 out of 10 chest pain. As noted above he was seen by cardiology recently and it was mentioned that he would likely require a cath if he had worsening chest discomfort. IV access was established. The patient was placed on a continuous manager monitoring. I did treat him with IV fentanyl and Zofran. I did order and personally review the patient's 12-lead EKG as described above. He has bigeminy and a left bundle branch block which is old. I did order and personally reviewed the images of the patient's chest x-ray as described above. Chest x- ray demonstrates cardiomegaly without failure. I did order and review the patient's blood work as noted in the electronic medical record. He has mild anemia. White count is slightly elevated. Electrolytes are unremarkable. His troponin is elevated at 0.149. I did reassess patient. He is still having chest discomfort. I did discuss the case with the office system analyst on-call who recommended treating it with nitroglycerin as well as beta-blockers and heparin. I did order an IV heparin drip with bolus. I also treat the patient with nitroglycerin sublingually x3 and nitroglycerin paste 1 inch to the anterior chest wall. He was also given aspirin and metoprolol 25 mg orally. The patient continued to have chest pain he rated about a 1 out of 10 in severity. I talked to cardiology again who stated he would recommend aggressive blood pressure control and IV morphine. He did talk to Dr. Ashley who stated that he would likely take him to the Steam Setter tonight should his chest pain did not go away. Repeat troponin was 0.180. I did discuss the case with Dr. Cruz who then assumed care of the patient. Impression & Plan Non-ST elevation ME (NSTEMI) Critical Care Time Critical Care Time: Yes Total Critical Care Time: 40 I have personally spent approximately 40 minutes of critical care time in the direct management of this patient. This includes bedside care, interpretation of diagnostic studies, and testing, discussion with consultants, patient, and family members, and other required patient management activities. This approxima te 40 minutes is in excess of all separately billable procedures. Discharge Plan Visit Data Chief Complaint: Shortness of Breath/Dyspnea Stated Complaint: ANGINA, SOB ED Provider: Vinod Olivo Discharge Problem: Non-ST elevation ME (NSTEMI) Forms Stand Alone Forms: My [facility] Prescriptions Prescriptions: No Action amlodipine 2.5 mg tablet 2.5 mg PO QAM Qty: 90 RF: 0 aspirin 81 mg tablet,delayed release (DR/EC) 81 mg PO QAM RF: 0 atorvastatin 40 mg tablet 40 mg PO QAM Qty: 1 RF: 0 finasteride 5 mg tablet 5 mg PO QAM Qty: 30 RF: 0 lithium carbonate 300 mg tablet extended release 300 mg PO BID RF: 0 tamsulosin 0.4 mg capsule 0.4 mg PO HS Qty: 30 RF: 0 isosorbide mononitrate 30 mg tablet extended release 24 hr 60 mg PO QAM RF: 0 nitroglycerin 0.4 mg tablet, sublingual 0.4 mg SL ONCE PRN (Reason: Chest Pain) RF: 0 The scribe's documentation has been prepared under my direction and personally reviewed by me in its entirety. I confirm that the note above accurately reflec ts all work, treatment, procedures, and medical decision making performed by me.
[2019-05-11] MEDS ORDERED: MoRPHine SULFATE 2 MG/ML CARP IV PRN (01:25)
[2019-05-11] MEDS ORDERED: NITROGLYCERIN SL 0.4 MG/TAB TAB SL PRN ×2 (01:25)
--- NOTE | 2019-05-11 01:39 | History & Physical Report ---
Date of Service May 11, 2019 Assessment & Plan (1) Non-ST elevation DE (NSTEMI): 68-year-old male with past medical history of CAD, hypertension, bipolar, BPH presents with worsening anginal symptoms over the past week. Found in the emergency room to have an NSTEMI. Case was discussed with on-call die maker. The patient was started on a heparin drip and symptoms were controlled with nitroglycerin, morphine and blood pressure control. Considering resolution of chest pain, the patient was admitted to PCU with plan to be evaluated by garment parts cutter machine in the morning. NSTEMI, unstable angina Consult cardiology, appreciate recommendations Admit to PCU, EKG with chest pain, notify physician patient has chest pain Continue heparin drip, nitro, blood pressure control Continue home atorvastatin, amlodipine, aspirin, Imdur BPH Continue finasteride, continue tamsulosin Bipolar Continue lithium CODE STATUSfull Dietn.p.o. DVT prophylaxisheparin drip (2) Obstructive sleep apnea: (3) HTN (hypertension): (4) CAD in [place] artery: (5) Bipolar I disorder, single manic episode: (6) Benign prostatic hyperplasia with urinary obstruction: (7) Depression: History of Present Illness Primary Care Provider: Zeke Ellison MD 68-year-old male with past medical history of CAD, hypertension, bipolar, BPH presents with worsening anginal symptoms over the past week. Patient states that he is recently had fluctuations in heart rate, with bradycardia and his metoprolol was recently discontinued. He describes having daily anginal symptoms, requiring a couple nitro per day and an increase in his imdur. Prior to the recent increase in anginal symptoms, the patient would have a couple episodes throughout the month. He describes being deconditioned at baseline, but over the past week he has had an increase in shortness of breath with ambulation. He has a known history of coronary disease with stent placement in the late . Allergies Allergy/AdvReac Type Severity Reaction Status Date / Time No Known Allergies Allergy Verified 05/10/19 19:34 Home Medications Home Medications Medication Instructions Recorded Confirmed Type amlodipine 2.5 mg tablet 2.5 mg PO QAM #90 tab 02/09/19 05/10/19 History aspirin 81 mg tablet,delayed 81 mg PO QAM tab 02/09/19 05/10/19 History release atorvastatin 40 mg tablet 40 mg PO QAM #1 tab 02/09/19 05/10/19 History finasteride 5 mg tablet 5 mg PO QAM #30 tab 02/09/19 05/10/19 History lithium carbonate ER 300 mg 300 mg PO BID tab 02/09/19 05/10/19 History tablet,extended release tamsulosin 0.4 mg capsule 0.4 mg PO HS #30 cap 02/09/19 05/10/19 History isosorbide mononitrate 60 mg PO QAM 05/10/19 05/10/19 History nitroglycerin 0.4 mg SL ONCE PRN 05/10/19 05/10/19 History Past Med/Surg History Medical History Obstructive sleep apnea Obesity Inhibited sexual excitement HTN (hypertension) (Chronic) Hyperglycemia Gross hematuria (Resolved) Former smoker Elevated PSA Diverticulosis Depression CAD in [place] artery (Chronic) Bipolar I disorder, single manic episode (Chronic) Benign prostatic hyperplasia with urinary obstruction Angina, class II Surgical History History of surgery on arm S/P cardiac catheterization Family History Mother Hypertension Other Cardiac disorder Social History Preferred Language: [place] Communication Ability: Effective Visual Impairment: No Limitations Hearing Ability: Normal Cad Design Engineer Required: No Beliefs That Will Affect Care: None marital status: Current Living Situation: Spouse current occupational status: retired Other Information That Helps Us Care for You: No Feels Safe at Home: Yes Safety Concerns: Feels Safe At This Time Smoking Status: Former smoker Do You Dip or Chew Tobacco: No ; Second Hand Exposure: No ; Hx Alcohol Use: Yes Alcohol type: beer, wine and hard liquor Hx Substance Use: No Review of Systems Constitutional: no fever, no chills and no sweats Eyes: no worsening vision Ear, Nose, Mouth, Throat: no ear pain, no nasal congestion, no sinus pain/pressure and no sore throat Respiratory: + dyspnea and + dyspnea on exertion; no cough and no chest congestion Cardiovascular: + chest pain; no palpitations and no edema Gastrointestinal: no abdominal pain, no nausea, no vomiting and no diarrhea/loose stools Genitourinary: no dysuria and no urinary hesitancy Physical Exam Constitutional: WD/WN, vitals as above Eyes: PERRL, conjunctivae normal, anicteric sclerae ENMT: external ear and nose normal, oropharynx normal Neck: trachea midline, no thyromegaly Respiratory: normal respiratory effort, lungs clear to auscultation Cardiovascular: RRR, no murmur, no edema Gastrointestinal (Abdomen): normal bowel sounds, soft, nontender, no hepatosplenomegaly Musculoskeletal: no cyanosis or clubbing, extremities motor strength 5/5 Skin: no rashes, warm and dry Neurologic: PERRL, EOMI, accommodation nl, no face palsy, no dysarthria Psychiatric: A+Ox3, euthymic affect Results & Data Vital Signs (Past 12 Hours) Vital Signs Temp Pulse Pulse Resp BP BP Pulse Ox 05/11/19 01:00 57 L 16 05/11/19 00:30 57 L 20 05/11/19 00:18 60 58 L 24 128/80 128/80 05/11/19 00:00 65 19 137/93 05/10/19 23:46 69 74 22 137/93 137/93 96 05/10/19 23:30 69 23 05/10/19 23:05 72 22 163/73 H 05/10/19 22:04 75 19 164/90 H 05/10/19 22:00 71 24 05/10/19 21:50 73 20 162/82 H 05/10/19 21:41 76 17 159/77 H 05/10/19 21:34 80 22 05/10/19 21:00 76 21 05/10/19 20:55 74 20 155/61 H 94 05/10/19 20:45 71 25 H 156/61 H 85 L 05/10/19 20:30 75 19 05/10/19 20:08 95 05/10/19 20:00 74 21 05/10/19 19:51 93 05/10/19 19:30 70 15 05/10/19 19:13 72 9 L 95 05/10/19 19:00 36.4 C L 98 H 20 170/105 H 100 Code Status & VTE Plan Code Status Full code VTE Prophylaxis Plan VTE Prophylaxis will be ordered: Yes Supervising Physician Co-Signing Physician Notes Patient seen and examined, chart reviewed, case discussed with Dr. Felix and I agree with his assessment and plan as documented above. Briefly, patient is a 68yo C male with history of CAD s/p LAD stent with nearly occlusive CAD presenting with CP. +Troponin On exam he is afebrile, bradycardic and HTN at times Skin - warm, dry, intact HEENT - NC/AT, PERRL, MMM, Neck supple, no JVD Heart - +S1/S2, regularly irregular, bradycardic Lungs - diminished in bases Abd - obsese, soft, NT/ND Ext - warm, well perfused, 2+ pulses, no edema Labs and images reviewed, +troponin Assessment/Plan: 68yo C male with CAD s/p stent, nearly occluseive CAD presenting with symptoms consistent with UA, +troponin, NSTEMI. Patient presently CP free after receiving Nitro, BP more appropriately controlled -Admit to PCU, telemetry monitoring -Heparin gtt -Received Brillinta load in ER, Metoprolol and ASA -Morphine PRN -NPO for cath today (urgent if CP returns) -Check CXR and BNP for persistent SOB which started after patient went to the bathroom -Consider Lasix pending results of above -He remains CP free. HD stable. No respiratory distress. Adequate oxygenation on 2L NC -Remainder of plan as above PG Care Time/CCT Total # of Minutes Spent Total Time Spent with Patient: Total time spent is greater than 50% in coordination of care (as documented) at patient's floor/unit and/or counseling patient: Resident Activity Tracking Resident Involvement: Resident Care Provided Care Provided: Adult Hospital Medicine
[2019-05-11 04:56] LABS: Basophils # (auto) 0.02 K/uL (0-0.2); Basophils % (auto) 0.1 %; Eosinophils % (auto) 0.7 %; Hematocrit (blood only) 38.9 % (42-52); Hemoglobin 13.7 g/dL (14.0-18.0); Immature Granulocytes # (auto) 0.05 K/uL (0.00-0.02); Immature Granulocytes % (auto) 0.4 %; Lymphocytes % (auto) 11.9 %; Mean Corpuscular Hgb Conc 35.2 g/dL (32-36); Mean Corpuscular Volume 90.9 fL (80-100); Mean Platelet Volume 10.7 fL (7.4-10.4); Monocytes # (auto) 1.07 K/uL (0.11-0.59); Neutrophils # (auto) 10.57 K/uL (1.4-6.5); Neutrophils % (auto) 78.9 %; Platelet Count 152 K/uL (130-400); RDW Coefficient of Variation 14.3 % (11.5-14.5); RDW Standard Deviation 46.9 fL (36.4-46.3); Red Blood Count 4.28 M/uL (4.7-6.1); White Blood Count 13.41 K/uL (4.8-10.8)
[2019-05-11 05:09] LABS: Partial Thromboplastin Ratio 1.3; Partial Thromboplastin Time 36.5 Seconds (21.0-31.0)
[2019-05-11 05:37] LABS: Calcium 8.6 mg/dl (8.5-10.1); Creatinine Clr Calc Pharmacy 71.3 ml/min; Est GFR (African American) 67.2; Potassium 4.3 mmol/L (3.5-5.1)
[2019-05-11] MEDS ORDERED: HEPARIN (PORCINE) 1000 UNIT/ML 10 ML (CATH LAB USE ONLY) ONE (06:28)
[2019-05-11] MEDS ORDERED: NiCARDipine HCL INJ 2.5 MG/ML 10 ML AMP ONE (06:28)
[2019-05-11] MEDS ORDERED: fentaNYL citrate 100 MCG/2 ML VIAL ONE (06:29)
[2019-05-11] MEDS ORDERED: MIDAZOLAM HCL 1 MG/ML 2ML VIAL ONE (06:30)
[2019-05-11] MEDS ORDERED: NITROGLYCERIN/D5W 100MCG/ML 20ML SYR ONE (06:30)
[2019-05-11 06:45] LABS: Partial Thromboplastin Ratio 1.3; Partial Thromboplastin Time 34.1 Seconds (21.0-31.0)
[2019-05-11] MEDS ORDERED: INFLUENZA ADMINISTRATION CHARGE ONE (08:00)
[2019-05-11] MEDS ORDERED: INFLUENZA VACCINE HIGH DOSE 65+ 0.5 ML SYR IM ONE (08:00)
[2019-05-11] MEDS ORDERED: FUROSEMIDE 40 MG/4 ML VIAL IV ONE (08:32)
--- NOTE | 2019-05-11 08:53 | Cardiology Consultation ---
Date of Consultation May 11, 2019 Assessment & Plan (1) Non-ST elevation NC (NSTEMI): 2. Acute systolic heart failure 3. Hypertension 4. Bipolar disease Patient here with NSTEMI in the setting of known multivessel disease and prior positive stress test showing a large amount of inferior lateral ischemia. Recommend proceeding with cardiac catheterization to further assess coronary anatomy. Discussed risk, benefits, alternatives of procedure with patient and willing to proceed. Loaded with ticagrelor overnight. Plan to perform via left radial artery. History of Present Illness Attending Physician: Etienne Diggs History of Present Illness Mr. Vanegas is a 68-year-old man with a history of coronary artery disease post remote LAD stenting, known severe LAD disease on last cath 2007 managed medically, hypertension, bipolar disease admitted with NSTEMI. Patient is followed by Dr. Ellison as an outpatient. Most recent cardiac imaging in December 2018 at which time nuclear SPECT showed a small amount of apical ischemia and a large amount of inferolateral ischemia. EF 41% with inferolateral hypokinesis. Has been on increasing antianginal since that time. Yesterday developed stuttering chest pain requiring 10-15 nitroglycerin throughout the day. Upon arrival to ED hypertensive to the 150s given sublingual nitroglycerin, topical nitrates, metoprolol, heparin, Brilinta and chest pain-free. This morning endorsed increasing shortness of breath. Initial troponin 0 0.149, this morning 7.91. Allergies Allergy/AdvReac Type Severity Reaction Status Date / Time No Known Allergies Allergy Verified 05/10/19 19:34 Home Medications Home Medications Medication Instructions Recorded Confirmed Type amlodipine 2.5 mg tablet 2.5 mg PO QAM #90 tab 02/09/19 05/10/19 History aspirin 81 mg tablet,delayed 81 mg PO QAM tab 02/09/19 05/10/19 History release atorvastatin 40 mg tablet 40 mg PO QAM #1 tab 02/09/19 05/10/19 History finasteride 5 mg tablet 5 mg PO QAM #30 tab 02/09/19 05/10/19 History lithium carbonate ER 300 mg 300 mg PO BID tab 02/09/19 05/10/19 History tablet,extended release tamsulosin 0.4 mg capsule 0.4 mg PO HS #30 cap 02/09/19 05/10/19 History isosorbide mononitrate 60 mg PO QAM 05/10/19 05/10/19 History nitroglycerin 0.4 mg SL ONCE PRN 05/10/19 05/10/19 History Patient History Medical History Obstructive sleep apnea Obesity Inhibited sexual excitement HTN (hypertension) (Chronic) Hyperglycemia Gross hematuria (Resolved) Former smoker Elevated PSA Diverticulosis Depression CAD in [place] artery (Chronic) Bipolar I disorder, single manic episode (Chronic) Benign prostatic hyperplasia with urinary obstruction Angina, class II Surgical History History of surgery on arm S/P cardiac catheterization Family History Mother Hypertension Other Cardiac disorder Social History Preferred Language: [place] Communication Ability: Effective Visual Impairment: No Limitations Hearing Ability: Normal Boiling House Hand Required: No Beliefs That Will Affect Care: None marital status: Current Living Situation: Spouse current occupational status: retired Other Information That Helps Us Care for You: No Feels Safe at Home: Yes Safety Concerns: Feels Safe At This Time Smoking Status: Former smoker Do You Dip or Chew Tobacco: No ; Second Hand Exposure: No ; Hx Alcohol Use: Yes Alcohol type: beer, wine and hard liquor Hx Substance Use: No Review of Systems Review of Systems: All systems reviewed & are unremarkable except as noted in HPI & below Physical Exam Physical Exam: General: Comfortable, no acute distress Eyes: Sclerae anicteric, extraocular movements intact HENT: Oropharynx clear mucous membranes moist Lungs: Crackles at bases bilaterally Cardiac: Regular rate and rhythm, no murmur Vascular: 2+ radial on left Abdomen: Soft, nontender, positive bowel sounds Extremities: Well perfused, trace edema, signs of chronic venous stasis. Post traumatic accident to right upper extremity with healed surgical scar. Skin: No rashes or lesions. Neuro: Nonfocal Psych: Alert orient x3, normal affect and mood Results & Data Vital Signs (Past 12 Hours) Vital Signs Temp Pulse Pulse Resp BP BP BP 05/11/19 04:18 58 L 20 136/81 05/11/19 03:55 97.5 F L 58 L 18 96/49 L 05/11/19 02:06 58 L 05/11/19 01:36 97.7 F 60 16 116/73 05/11/19 01:00 57 L 16 05/11/19 00:30 57 L 20 05/11/19 00:18 60 58 L 24 128/80 128/80 05/11/19 00:00 65 19 137/93 05/10/19 23:46 69 74 22 137/93 137/93 05/10/19 23:30 69 23 05/10/19 23:05 72 22 163/73 H 05/10/19 22:04 75 19 164/90 H 05/10/19 22:00 71 24 05/10/19 21:50 73 20 162/82 H 05/10/19 21:41 76 17 159/77 H 05/10/19 21:34 80 22 05/10/19 21:00 76 21 05/10/19 20:55 74 20 155/61 H Pulse Ox 05/11/19 04:18 96 05/11/19 03:55 95 05/11/19 02:06 05/11/19 01:36 95 05/11/19 01:00 05/11/19 00:30 05/11/19 00:18 05/11/19 00:00 05/10/19 23:46 96 05/10/19 23:30 05/10/19 23:05 05/10/19 22:04 05/10/19 22:00 05/10/19 21:50 05/10/19 21:41 05/10/19 21:34 05/10/19 21:00 05/10/19 20:55 94 PG Care Time/CCT Total # of Minutes Spent Total Time Spent with Patient: Total time spent is greater than 50% in coordination of care (as documented) at patient's floor/unit and/or counseling patient:
--- NOTE | 2019-05-11 08:54 | Pre Anesthesia Assessment ---
Date of Service May 11, 2019 Pre Sedation Assessment Vital Signs Temp Pulse Pulse Resp BP BP BP 05/11/19 08:49 97.7 F 53 L 22 129/74 05/11/19 04:18 58 L 20 136/81 05/11/19 03:55 97.5 F L 58 L 18 96/49 L 05/11/19 02:06 58 L 05/11/19 01:36 97.7 F 60 16 116/73 05/11/19 01:00 57 L 16 05/11/19 00:30 57 L 20 05/11/19 00:18 60 58 L 24 128/80 128/80 05/11/19 00:00 65 19 137/93 05/10/19 23:46 69 74 22 137/93 137/93 05/10/19 23:30 69 23 05/10/19 23:05 72 22 163/73 H 05/10/19 22:04 75 19 164/90 H 05/10/19 22:00 71 24 05/10/19 21:50 73 20 162/82 H 05/10/19 21:41 76 17 159/77 H 05/10/19 21:34 80 22 05/10/19 21:00 76 21 05/10/19 20:55 74 20 155/61 H 05/10/19 20:45 71 25 H 156/61 H 05/10/19 20:30 75 19 05/10/19 20:08 05/10/19 20:00 74 21 05/10/19 19:51 05/10/19 19:30 70 15 05/10/19 19:13 72 9 L 05/10/19 19:00 97.5 F L 98 H 20 170/105 H Pulse Ox 05/11/19 08:49 94 05/11/19 04:18 96 05/11/19 03:55 95 05/11/19 02:06 05/11/19 01:36 95 05/11/19 01:00 05/11/19 00:30 05/11/19 00:18 05/11/19 00:00 05/10/19 23:46 96 05/10/19 23:30 05/10/19 23:05 05/10/19 22:04 05/10/19 22:00 05/10/19 21:50 05/10/19 21:41 05/10/19 21:34 05/10/19 21:00 05/10/19 20:55 94 05/10/19 20:45 85 L 05/10/19 20:30 05/10/19 20:08 95 05/10/19 20:00 05/10/19 19:51 93 05/10/19 19:30 05/10/19 19:13 95 05/10/19 19:00 100 Cardiovascular RRR, no murmur, no edema Respiratory normal respiratory effort, lungs clear to auscultation Pre-Sedation Airway Assessment Smoking Status: Former smoker Hx Sleep Apnea: No Hx Difficult Intubation: No Short, Thick Neck: No Thyromental Distance: > or= 3.5 Finger Breadths Oral Cavity: + WNL Mallampati Class: III ASA: ASA4 Procedure Planning Contraindications for Sedation: none Current Medications Reviewed: Yes Notes The planned sedation has been discussed with the patient. Informed Consent was obtained. I have identified the patient, determined the appropriateness of sedation and have assessed the patient immediately prior to the procedure. All medicine(s) and interventions are by my order.
--- NOTE | 2019-05-11 08:55 | Post Anesthesia Assessment ---
Date of Service May 11, 2019 Post Sedation Assessment Vital Signs Temp Pulse Pulse Resp BP BP BP 05/11/19 08:49 97.7 F 53 L 22 129/74 05/11/19 04:18 58 L 20 136/81 05/11/19 03:55 97.5 F L 58 L 18 96/49 L 05/11/19 02:06 58 L 05/11/19 01:36 97.7 F 60 16 116/73 05/11/19 01:00 57 L 16 05/11/19 00:30 57 L 20 05/11/19 00:18 60 58 L 24 128/80 128/80 05/11/19 00:00 65 19 137/93 05/10/19 23:46 69 74 22 137/93 137/93 05/10/19 23:30 69 23 05/10/19 23:05 72 22 163/73 H 05/10/19 22:04 75 19 164/90 H 05/10/19 22:00 71 24 05/10/19 21:50 73 20 162/82 H 05/10/19 21:41 76 17 159/77 H 05/10/19 21:34 80 22 05/10/19 21:00 76 21 05/10/19 20:55 74 20 155/61 H 05/10/19 20:45 71 25 H 156/61 H 05/10/19 20:30 75 19 05/10/19 20:08 05/10/19 20:00 74 21 05/10/19 19:51 05/10/19 19:30 70 15 05/10/19 19:13 72 9 L 05/10/19 19:00 97.5 F L 98 H 20 170/105 H Pulse Ox 05/11/19 08:49 94 05/11/19 04:18 96 05/11/19 03:55 95 05/11/19 02:06 05/11/19 01:36 95 05/11/19 01:00 05/11/19 00:30 05/11/19 00:18 05/11/19 00:00 05/10/19 23:46 96 05/10/19 23:30 05/10/19 23:05 05/10/19 22:04 05/10/19 22:00 05/10/19 21:50 05/10/19 21:41 05/10/19 21:34 05/10/19 21:00 05/10/19 20:55 94 05/10/19 20:45 85 L 05/10/19 20:30 05/10/19 20:08 95 05/10/19 20:00 05/10/19 19:51 93 05/10/19 19:30 05/10/19 19:13 95 05/10/19 19:00 100 Recovery Score Activity: Moves 4 extremities Respiration: Deep Breath/Cough Circulation: +/-20% PreAnes Value Oxygen Saturation: > 92% On Room Air Discharge Sedation Level of Care: Fast Track Phase II Post Sedation Plan On clinical assessment, the patient appears to have tolerated the sedation without complications. Patient is recovering as anticipated. Patient will continue to be monitored by nursing and may be discharged when sedation discharge criteria are met per below protocol. Upon Completions of procedure and additional 15 minutes continue every 5 minute vital signs and the P.A.R. score; then discharge to a Phase I or Fast Track to Phase II per the following guidelines: * Discharge Patient to appropriate Phase II area if PAR is 8 or greater or return to pre- procedure baseline. The post - procedure orders will be as directed. * If PAR score is less than 8 or not return to pre-procedure baseline then patient will follow Phase I monitoring till PAR is reached for Phase II. The Phase I may be done in procedure room or may call to secure a Phase I area. * If naloxone or flumazenil are used for reversal, hold in Phase I for continued monitoring from when last reversal dose was given for a minimum of 60 minutes or longer pending the nurse and/or physician discretion of patient condition before discharge to Phase II. Please call the Sedation Physician to re-evaluate and complete post-note for discharge to Phase II area. Do NOT discharge from procedure sedation or Phase 1 until post- sedation evaluation note is complete by procedure /sedation MD Sedation Discharge Instructions to be given to the patient at discharge to home.
--- NOTE | 2019-05-11 09:13 | Cardiac Catheterization ---
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 Cardiac Status Clinical evaluation leading to the procedure CAD Presenation: Non STEMI Anginal Classification: CCS IV Heart Failure: NYHA Class: CCS III Cardiogenic Shock within 24 Hours: No Cardiac Arrest within 24 Hours: No Imaging Studies Past 6 Months: Yes Stress Studies Past 6 Months: Yes Stress Testing w/SPECT MPI: Yes - Positive and Risk/Extent of Ischemia (High) Diagnostic Physicians Name: Robert Ashley MD Status: Urgent Closure Device Percutaneous Entry Location: Radial Closure Device: Radial Band Recommendations: Medical Therapy and/or Counseling PCI Indication: PCI for high risk Non-BC Lesion Segment Name: OM2 Culprit Artery: Yes Stenosis Prior to Rx (%): 95 Chronic Total Occlusion: No IVUS: No FFR: No Pre-Procedure IVELISSE Flow: 3 Previously Treated Lesion: No Lesion Complexity: High/C Lesion Length (mm): 30 Thrombus Present: No Bifurcation Lesion: Yes Guidewire Across Lesion: Stenosis Post-Procedure (%): 90 Post-Procedure IVELISSE Flow: 3 Devices(s) Deployed: No Yes Intraprocedure Events Significant Disection: No Perforation: No Cardiac Cath Procedure Full Procedure Date May 11, 2019 Pre-Procedure Diagnosis Pre-Procedure Diagnosis: Non STEMI AUC Score AUC Score: 8 Post-Procedure Diagnosis Post-Procedure Diagnosis: Severe CAD, Unsuccessful PCI and Elevated Intracardiac Pressures Procedure(s) Performed Procedure(s) Performed: Coronary Angiography and PTCA Peripheral Edp Equipment Operator Robert Ashley MD Housecleaner(s) Kelsey Estimated Blood Loss Estimated Blood Loss: 15 Medication(s) Medication(s): Fentanyl, Heparin, Lidocaine 1%, Nicardipine, Nitroglycerin and Versed Summary of Findings Indication: High risk NSTEMI, prior positive stress test Access: 6 Fr left radial artery Catheters: JL4, JR 4, EBU 3.75 Findings: LM -large caliber vessel without significant disease. LAD -moderate caliber vessel, patent proximal stent with 40 to 50% diffuse in- stent restenosis, 40% mid segment disease. Distal LAD small vessel with 95+% diffuse disease beginning in the early portion of the vessel just after takeoff of second septal. LAD wraps around apex. Small third diagonal with 90% proximal stenosis Circumflex -dominant, large caliber vessel, proximal 20%, distal 40-50 % prior to left PDA. Large OM 2 diffuse 90+% disease extending across takeoff of the inferior branch. Inferior branch with 95% ostial stenosis. RCA -small, nondominant, 80 to 90% proximal stenosis LVEDP -33 OM 2 in particular inferior branch thought to be likely culprit for acute presentation. PCI attempted. -- PCI -- Antithrombotic therapy: Heparin Procedure: LM cannulated with EBU 3.75 Whisper wire passed across lesion into distal OM 2 Whisper wire passed across lesion into inferior branch off OM 2 OM 2 lesion predilated with 2.5 compliant balloon. Distal aspect OM 2 after inferior branch would not expand to balloon inflation to high atmospheres Inferior branch of OM 2 dilated with 2.5 balloon and expanded appropriately Attempted to dilate distal OM 2 with NC balloon but unable to pass balloon. Post procedure IVELISSE-3 flow throughout OM 2 and inferior branch. Severe residual distal OM 2 stenosis. No apparent cardiac complications. Arterial Closure: TR band Summary: 1. Severe multi-vessel coronary artery disease -Patent proximal LAD stent with 40% in-stent restenosis, diffuse 95+% small mid to distal LAD. Small third diagonal with 90% proximal stenosis Diffuse 90+% OM 2 disease with 95% ostial stenosis of the inferior branch of OM 2 Small nondominant RCA with 80% proximal stenosis 2. Elevated intracardiac filling pressure 3. PTCA of OM 2. Unsuccessful expansion of calcified, distal aspect despite balloon inflation to high atmospheres. -PTCA of inferior branch of OM 2 with minimal residual stenosis Recommendations: To PCU for continued monitoring Loaded previously with ticagrelor 180mg twice daily and will continue Trend troponin until peak Check echocardiogram IV diuresis Further discussion regarding options for long-term management, continued medical therapy versus PCI with atherectomy versus consideration of CABG. Hemodynamics Rest Ao:: 130/63/87 Final Ao: 131/75/98 LV: 137/33 Recommendations Recommendations: Medical Therapy and/or Counseling Specimens Specimens: None Radiation Exposure (mGy) 3853 Contrast (mls) 150 Fluids (cc crystalloids) Fluids (cc crystalloids): 126 Drains Drains: none Anesthesia moderate Procedural Complication(s) None Disposition PCU I attest to the content of the Intraoperative Record and any orders documented therein. Any exceptions are noted below.
[2019-05-11] MEDS: ASPIRIN 81 MG ECTAB PO SCH (10:10)
[2019-05-11] MEDS: ATORVASTATIN 40 MG TAB PO SCH (10:10)
[2019-05-11] MEDS: ISOSORBIDE MONO EXTENDED REL 30 MG TABCR PO SCH (10:10)
[2019-05-11] MEDS: FINASTERIDE 5 MG TAB PO SCH (10:11)
[2019-05-11] MEDS: AMLODIPINE BESYLATE 5 MG TAB PO SCH (10:11)
[2019-05-11] MEDS: METOPROLOL TARTRATE 25 MG TAB PO SCH (10:11)
[2019-05-11] MEDS: LITHIUM CARBONATE SLOW REL 300 MG TAB PO SCH ×2 (10:11→20:32)
[2019-05-11] MEDS: TICAGRELOR 90 MG TAB PO SCH ×2 (13:10→21:03)
--- NOTE | 2019-05-11 13:14 | XRay Report ---
XR chest 1V portable CLINICAL HISTORY: sob dyspnea COMPARISON STUDY: 05/10/2019 FINDINGS: Stable cardiomegaly. Unchanging parenchymal and bronchovascular prominence consistent with a component of mild congestive failure. This is similar to minimally improved compared to the prior s tudy. Diaphragms are smooth. IMPRESSION: Congestive heart failure minimally improved from the prior study. The above report was generated using voice recognition software. It may contain grammatical, syntax or spelling errors. Electronically signed by: Ricky Worley M.D. 05/11/2019 1:13 PM
[2019-05-11] MEDS: TAMSULOSIN HCL 0.4 MG CAP PO SCH (20:32)
[2019-05-11] MEDS ORDERED: TICAGRELOR 90 MG TAB PO SCH (21:00)
[2019-05-12] MEDS: AMLODIPINE BESYLATE 5 MG TAB PO SCH (07:54)
[2019-05-12] MEDS: LITHIUM CARBONATE SLOW REL 300 MG TAB PO SCH ×2 (07:54→20:12)
[2019-05-12] MEDS: METOPROLOL TARTRATE 25 MG TAB PO SCH (07:54)
[2019-05-12] MEDS: ISOSORBIDE MONO EXTENDED REL 30 MG TABCR PO SCH (07:54)
[2019-05-12] MEDS: FINASTERIDE 5 MG TAB PO SCH (07:55)
[2019-05-12] MEDS: TICAGRELOR 90 MG TAB PO SCH ×2 (07:55→20:13)
[2019-05-12] MEDS: ASPIRIN 81 MG ECTAB PO SCH (07:55)
[2019-05-12] MEDS: ATORVASTATIN 40 MG TAB PO SCH (07:55)
[2019-05-12 14:24] LABS: BUN Creatinine Ratio 16.6 (10-20); Calcium 8.4 mg/dl (8.5-10.1); Est GFR (African American) 69.2; Est GFR (Non-African American) 59.7; Potassium 3.6 mmol/L (3.5-5.1)
--- NOTE | 2019-05-12 16:19 | Cardiology Progress Note ---
Date of Service May 12, 2019 Assessment & Plan (1) Non-ST elevation DC (NSTEMI): 2. Acute systolic heart failure/ischemic cardiomyopathy EF 30 to 35% with inferolateral akinesis 3. Hypertension 4. Bipolar disease 5. Bradycardia Patient chest pain-free overnight. Troponin peaked. -1800 yesterday with stable renal function Well-perfused today with mild residual congestion and persistent rest symptoms Continue IV diuresis with 40 IV Lasix today. Continue aspirin, ticagrelor Continue current metoprolol Replace amlodipine with lisinopril Continue high intensity statin We will review coronary angiography images with [facility] cardiac surgery/interventional cardiology. Suspect likely not a candidate for bypass due to diminutive LAD. Likely will require complex PCI with atherectomy. Per patient preference, goal will be to treat acute heart failure, titrate guideline directed medical therapy/antianginal therapy and arrange intervention as an outpatient pending clinical course. Subjective No recurrent chest pain. Still endorses shortness of breath at rest worse when lying flat. Able to walk the halls earlier today felt better afterwards. -1800 yesterday. Renal function stable. Review of Systems Review of Systems: All systems reviewed & are unremarkable except as noted in HPI & below Physical Exam Physical Exam: General: Comfortable, no acute distress HEENT: Sclerae anicteric, mucous membranes moist Lungs: Few crackles at bases bilaterally Cardiac: Regular rate and rhythm, no murmurs. Unable to assess JVD Abdomen: Soft, nontender, nondistended, positive bowel sounds. Extremities: Warm, well perfused, no edema. Left radial artery pulse intact. Skin: No rashes or lesions. Neuro: Nonfocal Psych: Alert orient x3, normal affect and mood Results & Data Vital Signs (Past 12 Hours) Vital Signs Temp Pulse Pulse Resp BP BP Pulse Ox 05/12/19 15:29 98.1 F 53 L 19 101/65 97 05/12/19 12:07 98.4 F 51 L 95/58 L 05/12/19 08:03 98.1 F 64 18 131/73 97 05/12/19 08:00 65 PG Care Time/CCT Total # of Minutes Spent Total Time Spent with Patient: Total time spent is greater than 50% in coordination of care (as documented) at patient's floor/unit and/or counseling patient:
[2019-05-12] MEDS ORDERED: FUROSEMIDE 40 MG in SYRINGE 0 ML IV ONE (16:30)
[2019-05-12] MEDS ORDERED: FUROSEMIDE 40 MG/4 ML VIAL IV STA (17:28)
[2019-05-12] MEDS ORDERED: POTASSIUM CHLORIDE 20 MEQ TABCR PO STA (17:29)
[2019-05-12] MEDS: TAMSULOSIN HCL 0.4 MG CAP PO SCH (20:12)
--- NOTE | 2019-05-12 23:28 | Hospitalist Progress Note ---
Date of Service May 12, 2019 Assessment & Plan (1) Non-ST elevation DC (NSTEMI): 68-year-old male with past medical history of CAD, hypertension, bipolar, BPH presents with worsening anginal symptoms over the past week. Found in the emergency room to have an NSTEMI. Case was discussed with on-call law writer. The patient was started on a heparin drip and symptoms were controlled with nitroglycerin, morphine and blood pressure control. Considering resolution of chest pain, the patient was admitted to PCU with plan to be evaluated by physician support coordinator in the morning. NSTEMI, unstable angina Consult cardiology, appreciate recommendations Admit to PCU, EKG with chest pain, notify physician patient has chest pain Continue heparin drip, nitro, blood pressure control Continue home atorvastatin, amlodipine, aspirin, Imdur -Top peaked above 30. CODE STATUSfull Dietn.p.o. DVT prophylaxisheparin drip (2) Acute systolic (congestive) heart failure: Due to problem one. Iscemic cardiomyopathy. EF 35% recommend to continue lasix. will need to be careful with patient being on lithium. may require switching to different med for psych conditon due to lasix possible interaction Patient is off oxygen. will monitor. (3) Obstructive sleep apnea: continue home treatment. (4) HTN (hypertension): B/P appears at goal. will continue amlodipine lisinopril (5) CAD in [place] artery: On aspirin, isosorbide metorporolol (6) Bipolar I disorder, single manic episode: Bipolar Continue lithium (7) Benign prostatic hyperplasia with urinary obstruction: BPH Continue finasteride, continue tamsulosin (8) Depression: continue lithium Subjective Patient reports feeling better. He currently denies any chest pain. He also reports that he is breathing better. Patient states that he required oxygen via NC earlier, but now is tolerating room air. Patient currently denies orthopnea. Review of Systems Review of Systems: All systems reviewed & are unremarkable except as noted in HPI & below Physical Exam Physical Exam: Constitutional: WD/WN, vitals as above Eyes: PERRL, conjunctivae normal, anicteric sclerae ENMT: external ear and nose normal, oropharynx normal Neck: trachea midline, no thyromegaly Respiratory: normal respiratory effort, lungs clear to auscultation Cardiovascular: RRR, no murmur, no edema Gastrointestinal (Abdomen): normal bowel sounds, soft, nontender, no hepatosplenomegaly Musculoskeletal: no cyanosis or clubbing, extremities motor strength 5/5 Skin: no rashes, warm and dry Neurologic: PERRL, EOMI, accommodation nl, no face palsy, no dysarthria Psychiatric: A+Ox3, euthymic affect Results & Data Vital Signs (Past 12 Hours) Vital Signs Temp Pulse Resp BP Pulse Ox 05/12/19 19:23 36.5 C 62 19 109/72 93 05/12/19 15:29 36.7 C 53 L 19 101/65 97 05/12/19 12:07 36.9 C 51 L 95/58 L PG Care Time/CCT Total # of Minutes Spent Total Time Spent with Patient: Total time spent is greater than 50% in coordination of care (as documented) at patient's floor/unit and/or counseling patient:
[2019-05-13 07:17] LABS: BUN Creatinine Ratio 19.9 (10-20); Calcium 8.6 mg/dl (8.5-10.1); Creatinine Clr Calc Pharmacy 73.8 ml/min; Est GFR (African American) 71.3; Est GFR (Non-African American) 61.5; Potassium 3.7 mmol/L (3.5-5.1)
[2019-05-13] MEDS ORDERED: FUROSEMIDE 40 MG/4 ML VIAL IV STA (08:55)
--- NOTE | 2019-05-13 08:59 | Cardiology Progress Note ---
Date of Service May 13, 2019 Assessment & Plan (1) Non-ST elevation [place] (NSTEMI): 2. Acute systolic heart failure/ischemic cardiomyopathy EF 30 to 35% with inferolateral akinesis 3. Hypertension 4. Bipolar disease 5. Bigeminy, bradycardia Patient remains chest pain-free. Recent congestion is improved, but mild persistent dyspnea at rest Responded well to IV Lasix, renal function stable Continue IV diuresis with 40 IV Lasix today. Goal net -1 L today. Additional IV Lasix afternoon if urine output limited. Continue aspirin, ticagrelor Continue current metoprolol and lisinopril Continue high intensity statin We will review coronary angiography images with [facility] cardiac surgery/interventional cardiology. Suspect likely not a candidate for bypass due to diminutive LAD. Likely will require complex PCI with atherectomy. Per patient preference, goal will be to treat acute heart failure, titrate guideline directed medical therapy/antianginal therapy and arrange intervention as an outpatient pending clinical course. Hopeful can be transition to maintenance diuretics tomorrow with possible discharge in the next day or 2. Subjective No recurrent chest pain. Breathing slightly improved today. Good urine output after afternoon IV Lasix. +300 for the day Renal function stable Telemetryprimarily in bigeminy Review of Systems Review of Systems: All systems reviewed & are unremarkable except as noted in HPI & below Physical Exam Physical Exam: General: Comfortable, looks well HEENT: Sclerae anicteric, mucous membranes moist Lungs: Few crackles at bases, no wheezes Cardiac: Bigeminy, bradycardic, no murmurs unable to assess JVD Abdomen: Soft, nontender, nondistended, positive bowel sounds. Extremities: Warm, well perfused, no edema. 2+ radial pulses Skin: No rashes or lesions. Neuro: Nonfocal Psych: Alert orient x3, normal affect and mood Results & Data Vital Signs (Past 12 Hours) Vital Signs Temp Pulse Resp BP BP Pulse Ox 05/13/19 08:49 97.5 F L 62 14 125/59 L 94 05/13/19 03:55 97.7 F 59 L 20 121/54 L 98 05/12/19 23:25 97.7 F 89 18 122/49 L 96 PG Care Time/CCT Total # of Minutes Spent Total Time Spent with Patient: Total time spent is greater than 50% in coordination of care (as documented) at patient's floor/unit and/or counseling patient:
[2019-05-13] MEDS ORDERED: lisinopriL 5 MG TAB PO SCH (09:00)
[2019-05-13] MEDS ORDERED: METOPROLOL TARTRATE 25 MG TAB PO SCH (09:15)
[2019-05-13] MEDS ORDERED: FUROSEMIDE 40 MG in SYRINGE 0 ML IV ONE (09:15)
[2019-05-13] MEDS: TICAGRELOR 90 MG TAB PO SCH (09:30)
[2019-05-13] MEDS: ASPIRIN 81 MG ECTAB PO SCH (09:31)
[2019-05-13] MEDS: ISOSORBIDE MONO EXTENDED REL 30 MG TABCR PO SCH (09:31)
[2019-05-13] MEDS: ATORVASTATIN 40 MG TAB PO SCH (09:32)
[2019-05-13] MEDS: LITHIUM CARBONATE SLOW REL 300 MG TAB PO SCH (09:32)
[2019-05-13] MEDS: FINASTERIDE 5 MG TAB PO SCH (09:33)
[2019-05-13 11:47] VITALS: TEMP 97.7; O2SAT 97
[2019-05-13 11:59] VITALS: PULSE 59
[2019-05-13 12:57] VITALS: BP 125/59
--- NOTE | 2019-05-19 14:38 | Discharge Summary ---
Date of Service May 13, 2019 Admission HPI Per Admitting Provider 68-year-old male with past medical history of CAD, hypertension, bipolar, BPH presents with worsening anginal symptoms over the past week. Patient states that he is recently had fluctuations in heart rate, with bradycardia and his metoprolol was recently discontinued. He describes having daily anginal symptoms, requiring a couple nitro per day and an increase in his imdur. Prior to the recent increase in anginal symptoms, the patient would have a couple episodes throughout the month. He describes being deconditioned at baseline, but over the past week he has had an increase in shortness of breath with ambu lation. He has a known history of coronary disease with stent placement in the late . Principal Diagnosis NSTEMI Discharge Exam Constitutional: WD/WN, vitals as above Eyes: PERRL, conjunctivae normal, anicteric sclerae ENMT: external ear and nose normal, oropharynx normal Neck: trachea midline, no thyromegaly Respiratory: normal respiratory effort, lungs clear to auscultation Cardiovascular: RRR, no murmur, no edema Gastrointestinal (Abdomen): normal bowel sounds, soft, nontender, no hepatosplenomegaly Musculoskeletal: no cyanosis or clubbing, extremities motor strength 5/5 Skin: no rashes, warm and dry Neurologic: PERRL, EOMI, accommodation nl, no face palsy, no dysarthria Psychiatric: A+Ox3, euthymic affect Discharge Data Allergies Allergy/AdvReac Type Severity Reaction Status Date / Time No Known Allergies Allergy Verified 05/10/19 19:34 Consultations 05/10/19 21:20 ED Decision to Admit Stat 05/11/19 01:25 Consult Cardiology Routine Consult Case Management - Discharge Planning Routine Procedures Performed Operation Date: 05/11/19 06:45 Actual Procedures p Cath, Left with Cors and Vent - Leighton Ashley MD s Cineradiography w/Routine Exam - Leighton Ashley MD s POBA SGL Vessel - Leighton Ashley MD Ordered Studies 05/11/19 06:44 CL Cath Imgs for PACS use only Urgent Hospital Course (1) Non-ST elevation [place] (NSTEMI): 68-year-old male with past medical history of CAD, hypertension, bipolar, BPH presents with worsening anginal symptoms over the past week. Found in the emergency room to have an NSTEMI. Case was discussed with on-call washing tub operator. The patient was started on a heparin drip and symptoms were controlled with nitroglycerin, morphine and blood pressure control. Considering resolution of chest pain, the patient was admitted to PCU with plan to be evaluated by counselor nurses' association in the morning. NSTEMI, unstable angina Consult cardiology, appreciate recommendations Admit to PCU, EKG with chest pain, notify physician patient has chest pain Continue heparin drip, nitro, blood pressure control Continue home atorvastatin, amlodipine, aspirin, Imdur -Trop peaked above 30. 2. Acute systolic heart failure/ischemic cardiomyopathy EF 30 to 35% with inferolateral akinesis On day of discharge, patient was chest free, asymptomatic. He had responded to IV lasix. Continue aspirin, ticagrelor Continue current metoprolol and lisinopril Continue high intensity statin -Continue with PO LASIX as an outpatient. Had discussion with cardiology who was ok with discharging patient today. Patient was also in agreement. We will review coronary angiography images with [facility] cardiac surgery/interventional cardiology. Suspect likely not a candidate for bypass due to diminutive LAD. Likely will require complex PCI with atherectomy. Per patient preference, goal will be to treat acute heart failure, titrate guideline directed medical therapy/antianginal therapy and arrange intervention as an outpatient pending clinical course. CODE STATUSfull Dietn.p.o. DVT prophylaxisheparin drip (2) Acute systolic (congestive) heart failure: Due to problem one. Acute systolic heart failure/ischemic cardiomyopathy EF 30 to 35% with inferolateral akinesis recommend to continue lasix. will need to be careful with patient being on lithium. may require switching to different med for psych conditon due to lasix possible interaction Patient is off oxygen. will discharge patient and check lithium leel in about 1 week. Patient states his lithium level has been decreased as his stress levels in his life has decreased given that he no longer works. He states he ay consider stopping the lithium (3) Obstructive sleep apnea: continue home treatment. (4) HTN (hypertension): B/P appears at goal. will continue amlodipine lisinopril (5) CAD in [place] artery: On aspirin, isosorbide metorporolol (6) Bipolar I disorder, single manic episode: Bipolar Continue lithium (7) Benign prostatic hyperplasia with urinary obstruction: BPH Continue finasteride, continue tamsulosin (8) Depression: continue lithium Total Time Total Time Spent Total Time Spent (In Minutes): 34 Total Time Includes: Examination of the Patient, Discharge Planning and Medication Reconciliation Discharge Plan Discharge Items Patient Disposition: Home - Self-Care Reason For Visit: NSTEMI, UNSTABLE ANGINA Discharge Diagnosis: NSTEMI Activity: Resume your previous activity Non-emergency contact: Primary Care Provider Call non-emergency contact if: you have any medication questions Follow-up/Referrals: Zeke Ellison MD [Primary Care Provider] - (Please, follow up at the [facility] Cardiology Office with Dr. Ellison. *A nurse will contact you with the appointment information. If you have any questions, call the office at [phone].) Shayan Kebede MD [Family Provider] - 05/21/19 8:00 am (Please, follow up with Dr. Kebede on FridayMay 21 at 8:00 am. *If you need to change this appointment, call the office at [phone].) Diet: Regular and Heart Healthy Addtl Attending Provider Instructions: Recommend followup with cardiology within 1 month. Also recommend PCP followup within 1-2 weeks Followup with Heart failure clinic within 1-2 weeks. recommend to do blood work: bmp and lithium level in 5 days. Pending Studies at Discharge: No Stand-Alone Forms: My [facility] [employer], Smoking Cessation Medications and DC Order Prescriptions: New Brilinta 90 mg Tablet 90 mg PO BID Qty: 60 RF: 0 lisinopril 5 mg tablet 5 mg PO QAM Qty: 30 RF: 0 metoprolol tartrate 25 mg Tablet 37.5 mg PO QAM Qty: 45 RF: 0 potassium chloride 10 mEq tablet extended release 10 meq PO DAILY Qty: 30 RF: 0 Continued aspirin 81 mg tablet,delayed release (DR/EC) 81 mg PO QAM RF: 0 atorvastatin 40 mg tablet 40 mg PO QAM Qty: 1 RF: 0 finasteride 5 mg tablet 5 mg PO QAM Qty: 30 RF: 0 lithium carbonate 300 mg tablet extended release 300 mg PO BID RF: 0 tamsulosin 0.4 mg capsule 0.4 mg PO HS Qty: 30 RF: 0 isosorbide mononitrate 30 mg tablet extended release 24 hr 60 mg PO QAM RF: 0 nitroglycerin 0.4 mg tablet, sublingual 0.4 mg SL ONCE PRN (Reason: Chest Pain) RF: 0 Discontinued amlodipine 2.5 mg tablet 2.5 mg PO QAM Qty: 90 RF: 0 No Action furosemide 40 mg tablet 20 mg PO DAILY Qty: 30 RF: 0 Discharge Orders: Discharge Order (Routine); Ordered 05/13/19 Ordered By: Etienne Venegas/Other Patient Handouts: Ticagrelor Oral tablet, Metoprolol Tartrate Oral tablet, Lisinopril Oral tablet, Furosemide Oral tablet, Heart Failure Admission Data Admit Date/Time: 05/11/19 00:47 Attending Provider: Etienne Diggs Admit Provider: Shayan Felix Primary Care Provider: Zeke Ellison Other Providers: Anitra Cruz Alexander W. Other Interventions: Discharge Summary Assessment (RN) Last Done: 05/13/19 12:54 DC Date/Time DO NOT enter until pt leaves facility: 05/13/19 14:13
== END 2019-05-13 14:13 | disposition home or self-care (01) | DRG 250 ==
LOC: ED 18:51 → 2S 05-11 00:47 → SUATTDRO 05-11 00:47 → 2S 05-11 01:05

== ENCOUNTER 2021-11-06 10:11 | Inpatient (IN) ==
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
--- NOTE | 2021-11-06 11:45 | Communication Note ---
Date of Service: November 06, 2021 Pt presents for colonoscopy as o/p. Pt has sig. CAD Hx.upkeep mechanic shows pt. in & out of complete HB. Printed several rhythm strips. Discussed w/ Dr Mitchell, he agrees w/ my decision to cancel case and consult hospitalist to admit pt and have cardiology consulted.
[2021-11-06] MEDS ORDERED: ONDANSETRON INJ 2 MG/ML 2 ML VIAL IV PRN (11:56)
[2021-11-06] MEDS ORDERED: ACETAMINOPHEN 325 MG TAB PO PRN (11:56)
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
[2021-11-06] MEDS ORDERED: NITROGLYCERIN SL 0.4 MG/TAB TAB SL PRN (12:11)
[2021-11-06 13:20] LABS: Basophils # (auto) 0.02 K/uL (0-0.2); Basophils % (auto) 0.2 %; Eosinophils # (auto) 0.11 K/uL (0-0.5); Eosinophils % (auto) 1.3 %; Hematocrit (blood only) 43.8 % (42-52); Hemoglobin 15.6 g/dL (14.0-18.0); Immature Granulocytes # (auto) 0.01 K/uL (0.00-0.02); Immature Granulocytes % (auto) 0.1 %; Lymphocytes # (auto) 1.21 K/uL (1.2-3.4); Lymphocytes % (auto) 14.3 %; Mean Corpuscular Hemoglobin 33.3 pg (25-34); Mean Corpuscular Hgb Conc 35.6 g/dL (32-36); Mean Corpuscular Volume 93.4 fL (80-100); Mean Platelet Volume 9.9 fL (7.4-10.4); Monocytes # (auto) 0.77 K/uL (0.11-0.59); Monocytes % (auto) 9.1 %; Neutrophils # (auto) 6.36 K/uL (1.4-6.5); Platelet Count 148 K/uL (130-400); RDW Coefficient of Variation 13.7 % (11.5-14.5); RDW Standard Deviation 46.8 fL (36.4-46.3); Red Blood Count 4.69 M/uL (4.7-6.1); White Blood Count 8.48 K/uL (4.8-10.8)
--- NOTE | 2021-11-06 14:15 | XRay Report ---
XR chest 1V portable HISTORY: 71 years-old Male evaluate for effusion, opacities, screening pre COMPARISON: Chest and rib radiographs 09/01/2019 TECHNIQUE: Portable AP view of the chest FINDINGS: Cardiomediastinal and hilar silhouettes are within normal limits. Atherosclerosis of the thoracic aor ta. No pneumothorax, pleural effusion, airspace consolidation or overt pulmonary edema. Degenerative changes of the shoulders and spine. IMPRESSION: No acute process. ACT 112: Negative or not required by law. The above report was generated using voice recognition software. It may contain grammatical, syntax o r spelling errors. Electronically signed by: Christiano Kraft M.D. 11/06/2021 2:13 PM
--- NOTE | 2021-11-06 14:22 | Electrocardiogram Report ---
Test Reason : Blood Pressure : / mmHG Vent. Rate : 061 BPM Atrial Rate : 061 BPM P-R Int : 194 ms QRS Dur : 166 ms QT Int : 462 ms P-R-T Axes : 061 023 157 degrees QTc Int : 465 ms Sinus rhythm with frequent Premature ventricular complexes Left bundle branch block Abnormal ECG When compared with ECG of 13-MAY-2019 06:31, T wave inversion less evident in Inferior leads QT has shortened Confirmed by Robert Mitchell ([id number]) on 11/06/2021 2:22:36 PM Referred By: Michele Jones Confirmed By:Golden Mitchell
[2021-11-06 15:53] LABS: Troponin I High Sensitivity 25.5 pg/ml (0-20)
[2021-11-06 16:11] LABS: BUN Creatinine Ratio 15.4 (10-20); Calcium 9.4 mg/dl (8.5-10.1); Creatinine Clr Calc Pharmacy 79.6 ml/min; Est GFR (African American) 82.2 ml/min; Est GFR (Non-African American) 70.9 ml/min; Potassium 4.7 mmol/L (3.5-5.1)
--- NOTE | 2021-11-06 16:37 | XCELERA ---
[id number]
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
[2021-11-06 18:19] LABS: Magnesium 2.4 mg/dl (1.7-2.4)
[2021-11-06] MEDS: VALSARTAN/SACUBITRIL 51/49 MG TAB PO SCH (20:02)
[2021-11-06] MEDS: TICAGRELOR 90 MG TAB PO SCH (20:02)
[2021-11-07 06:29] LABS: Basophils # (auto) 0.02 K/uL (0-0.2); Basophils % (auto) 0.3 %; Eosinophils # (auto) 0.17 K/uL (0-0.5); Eosinophils % (auto) 2.2 %; Hematocrit (blood only) 40.7 % (42-52); Hemoglobin 14.5 g/dL (14.0-18.0); Immature Granulocytes # (auto) 0.01 K/uL (0.00-0.02); Immature Granulocytes % (auto) 0.1 %; Lymphocytes # (auto) 1.56 K/uL (1.2-3.4); Lymphocytes % (auto) 19.8 %; Mean Corpuscular Hemoglobin 32.9 pg (25-34); Mean Corpuscular Hgb Conc 35.6 g/dL (32-36); Mean Corpuscular Volume 92.3 fL (80-100); Monocytes # (auto) 0.91 K/uL (0.11-0.59); Monocytes % (auto) 11.5 %; Neutrophils # (auto) 5.22 K/uL (1.4-6.5); Neutrophils % (auto) 66.1 %; Platelet Count 148 K/uL (130-400); RDW Coefficient of Variation 13.4 % (11.5-14.5); RDW Standard Deviation 45.4 fL (36.4-46.3); Red Blood Count 4.41 M/uL (4.7-6.1); White Blood Count 7.89 K/uL (4.8-10.8)
[2021-11-07 06:48] LABS: Albumin Level 3.6 gm/dl (3.4-5.0); BUN Creatinine Ratio 18.4 (10-20); Calcium 8.4 mg/dl (8.5-10.1); Creatinine Clr Calc Pharmacy 83.8 ml/min; Est GFR (African American) 88.3 ml/min; Est GFR (Non-African American) 76.2 ml/min; Phosphorus 3.8 mg/dl (2.5-4.9); Potassium 3.7 mmol/L (3.5-5.1)
[2021-11-07] MEDS: ISOSORBIDE MONO EXTENDED REL 30 MG TABCR PO SCH (08:03)
[2021-11-07] MEDS: TICAGRELOR 90 MG TAB PO SCH ×2 (08:03→20:46)
[2021-11-07] MEDS: ATORVASTATIN 40 MG TAB PO SCH (08:03)
[2021-11-07] MEDS: VALSARTAN/SACUBITRIL 51/49 MG TAB PO SCH ×2 (08:03→20:46)
[2021-11-07] MEDS: ASPIRIN 81 MG ECTAB PO SCH (08:03)
[2021-11-07] MEDS: FINASTERIDE 5 MG TAB PO SCH (08:03)
[2021-11-07 11:00] LABS: Lyme Ab IgG w/WB Rflx Negative (Negative); Lyme Ab IgM w/WB Rflx Negative (Negative)
--- NOTE | 2021-11-07 11:23 | Pre Anesthesia Assessment ---
Date of Service November 07, 2021 Pre Sedation Assessment Vital Signs Temp Pulse Pulse Resp BP BP Pulse Ox 11/07/21 07:25 36.5 C 34 L 19 110/75 96 11/07/21 03:49 36.6 C 56 L 16 111/69 97 11/07/21 00:00 36.5 C 60 16 126/73 97 11/06/21 23:04 67 11/06/21 19:41 36.5 C 65 16 121/70 97 11/06/21 17:46 79 11/06/21 15:33 36.4 C L 58 L 18 11/06/21 14:43 36.4 C L 43 L 18 114/69 98 Cardiovascular + regular rate Pre-Sedation Airway Assessment Smoking Status: Former smoker Hx Sleep Apnea: No Hx Difficult Intubation: No Short, Thick Neck: No Thyromental Distance: > or= 3.5 Finger Breadths Mallampati Class: II Procedure Planning Contraindications for Sedation: none Current Medications Reviewed: Yes Notes The planned sedation has been discussed with the patient. Informed Consent was obtained. I have identified the patient, determined the appropriateness of sedation and have assessed the patient immediately prior to the procedure. All medicine(s) and interventions are by my order.
[2021-11-07] MEDS ORDERED: MIDAZOLAM HCL 5 MG/ML 1 ML VIAL ONE (11:30)
[2021-11-07] MEDS ORDERED: LIDOCAINE 1% LOCAL 20 ML VIAL ONE (11:31)
[2021-11-07] MEDS ORDERED: fentaNYL citrate 100 MCG/2 ML VIAL ONE (11:31)
[2021-11-07] MEDS ORDERED: VANCOMYCIN HCL 1000MG/20ML VIAL ONE (11:31)
[2021-11-07] MEDS ORDERED: WATER, STERILE FOR INJ 10 ML VIAL ONE (11:31)
[2021-11-07] MEDS ORDERED: ceFAZolin 330 MG/ML 1 GM VIAL ONE (11:31)
[2021-11-07] MEDS ORDERED: BUPIVACAINE 0.25% 30 ML VIAL ONE (11:31)
[2021-11-07] MEDS ORDERED: oxyCODONE HCL IR 5 MG TAB (IMMEDIATE RELEASE) PO PRN (13:08)
--- NOTE | 2021-11-07 13:08 | Post Anesthesia Assessment ---
Date of Service November 07, 2021 Post Sedation Assessment Vital Signs Temp Pulse Pulse Resp BP BP Pulse Ox 11/07/21 11:11 27 L 16 126/40 L 96 11/07/21 07:25 36.5 C 34 L 19 110/75 96 11/07/21 03:49 36.6 C 56 L 16 111/69 97 11/07/21 00:00 36.5 C 60 16 126/73 97 11/06/21 23:04 67 11/06/21 19:41 36.5 C 65 16 121/70 97 11/06/21 17:46 79 11/06/21 15:33 36.4 C L 58 L 18 11/06/21 14:43 36.4 C L 43 L 18 114/69 98 Recovery Score Activity: Moves 4 extremities Respiration: Deep Breath/Cough Circulation: +/-20% PreAnes Value Consciousness: Fully Awake Oxygen Saturation: > 92% On Room Air Discharge Sedation Level of Care: Fast Track Phase II Post Sedation Plan On clinical assessment, the patient appears to have tolerated the sedation with out complications. Patient is recovering as anticipated. Patient will continue to be monitored by nursing and may be discharged when sedation discharge criteria are met per below protocol. Upon Completions of procedure up to 15 minutes continue every 5 minute vital signs and the P.A.R. score; then discharge to a Phase I or Fast Track to Phase II per the following guidelines: * Discharge Patient to appropriate Phase II area if PAR is 8 or greater or return to pre- procedure baseline. The post - procedure orders will be as directed. * If PAR score is less than 8 or not return to pre-procedure baseline then patient will follow Phase I monitoring till PAR is reached for Phase II. The Phase I may be done in procedure room or may call to secure a Phase I area. * If naloxone or flumazenil are used for reversal, hold in Phase I for continued monitoring from when last reversal dose was given for a minimum of 60 minutes or longer pending the nurse and/or physician discretion of patient condition before discharge to Phase II. Please call the Sedation Physician to re-evaluate and complete post-note for discharge to Phase II area. Do NOT discharge from procedure sedation or Phase 1 until post- sedation evaluation note is complete by procedure /sedation MD Sedation Discharge Instructions to be given to the patient at discharge to home.
--- NOTE | 2021-11-07 13:08 | Electrophysiology Report ---
Date of Service November 07, 2021 Electrophysiology Procedure Electrophysiology Procedure Report Procedure performed: Implantation of dual-chamber permanent pacemaker with left bundle pacing lead Staff supervisor opening and picking: Robert Mitchell MD Indication: The patient is a 71-year-old gentleman with a history of conduction disease who presented for routine procedure yesterday and was noted to have transient periods of complete heart block. He was felt to be a good candidate for permanent pacemaker due to symptomatic nonreversible AV node dysfunction. Procedure in detail: The patient was informed of the risks benefits and alternatives to the intended procedure and she wished to proceed. He was taken to the electrophysiology suite in a fasting state. A preoperative antibiotic had been administered. The patient was monitored electrocardiographically throughout today's procedure and conscious sedation was administered per protocol. The left upper pectoral area is prepped and draped in usual sterile fashion. This area was anesthetized using subcutaneous administration of a xylocaine solution. An incision was made at this site and carried down to the prepectoralis fascia using sharp dissection. Electrocautery was also employed for dissection as well as for hemostasis. A device pocket was fashioned tissues above the pectoralis muscle. Limited left axillary venography was then performed in order to identify the target vessel. Subsequent to this maneuver the left axillary vein was accessed using modified Seldinger technique. The first guidewire was used to facilitate passage of a venous sheath and then a guiding catheter for placement of the right ventricular lead on the interventricular septum. Pace mapping was performed and the lead was advanced into place. The guiding catheter was subsequently removed. The second guidewire was used to facilitate passage of a sheath for placement of the right atrial lead. This was performed on fluoroscopic guidance. Adequate sensing and threshold parameters were obtained prior to active fixation of this lead to the endocardial surface. The proximal portion of the leads were then sutured to the prepectoralis fascia using nonabsorbable suture. The device pocket was irrigated with antibiotic solution. The leads were then attached to the device. The device and leads were then placed in the pocket and pocket was closed in 3 layers of absorbable suture. Steri-Strips and sterile dressing were applied. The device was tested noninvasively prior to conclusion the procedure. The patient tolerated procedure well there no immediate complications. Equipment used: New pulse generator: [employer] Model number: [id number] serial number [id number] Right atrial lead: [employer]. Model number: [id number] serial number [id number] Right ventricular lead: [employer]. Model number: 3830 serial number [id number] Measured data: Right atrial lead: P waves measured 0.8 mV. Pacing threshold was 2.75 V at 0.4 ms with a pacing impedance of 513 ohms Right ventricular lead: R waves measured 8.3 mV. Pacing threshold was 0.5 V at 0.4 ms with a pacing impedance of 912 ohms Impression: Successful implantation of dual-chamber permanent pacemaker with left bundle pacing lead [facility] Electrophysiology codes Pacing Procedure 1: Pacin Insert/Replace Pacer A & V PG Moderate Sedation Codes Moderate Sedation Codes Procedure 1: Sedation/Anesthesia: 37731 Mod Sedation by the same physician;Init15 Min Child Age 5 & Up Procedure 2: Sedation/Anesthesia: 60457 Mod Sedation by the same physician; Ea Azeregnhem50 Minutes
--- NOTE | 2021-11-07 15:42 | Electrocardiogram Report ---
Test Reason : Blood Pressure : / mmHG Vent. Rate : 056 BPM Atrial Rate : 056 BPM P-R Int : 206 ms QRS Dur : 168 ms QT Int : 486 ms P-R-T Axes : 069 036 178 degrees QTc Int : 468 ms Sinus bradycardia with frequent Premature ventricular complexes in a pattern of bigeminy Left bundle branch block Abnormal ECG When compared with ECG of 06-NOV-2021 10:54, No significant change was found Confirmed by Robert Mitchell ([id number]) on 11/07/2021 3:41:36 PM Referred By: Yoel Shah Confirmed By:Golden Mitchell
--- NOTE | 2021-11-07 16:19 | Hospitalist Progress Note ---
Date of Service November 07, 2021 Assessment & Plan (1) Third degree heart block: Plan: Presented with asymptomatic 3rd degree HB for preop for a colonoscopy on the day of admission Lyme titer negative, high sensitivity trop minimally elevated x 2 at Was not on beta bennett at time of admission-previously stopped for bradycardia Now s/p PPM with Dr. Mitchell on 11/07, doing well post-op plan for CXR and pacer interrogation in the AM tylenol and oxycodone prn pain (2) HTN (hypertension): Plan: BPs controlled continue home ENtresto, isosorbide (3) CAD in upper [place] artery: Plan: with h/o LAD stent, otherwise inoperable disease, previous ischemic CM which is now resolved continue ASA, Brilinta, atorvastatin, Entresto is not on beta bennett due to previous bradycardia, but now may be able ot add this on with pacer in place (4) Heart failure with reduced ejection fraction: Plan: See above, now resolved, EF here on ECHO normal with mild , AI (5) Bipolar I disorder, single manic episode: Plan: not on meds (6) Benign prostatic hyperplasia with urinary obstruction: Plan: Continue finasteride, watch for retention post op Plan: DVT poroph-SCDs Dispo-continued stay on PCU, likely dc to home tomorrow if doing well Admission and Anticipated Discharge Date Admission Date: November 06, 2021 Subjective Pt seen after return from pacer placement. Denies pain anywhere, no SOB, no nausea. He ate since the procedure. Has been moving his bowels regularly, making urine. Has no concerns. ECG reviewed after pacer placement and is AV paced. Review of Systems Review of Systems: All systems reviewed & are unremarkable except as noted in HPI & below Physical Exam Constitutional: WD/WN, vitals as above Eyes: + anicteric sclerae Neck: trachea midline, no thyromegaly Respiratory: normal respiratory effort, lungs clear to auscultation Cardiovascular: RRR, no murmur, no edema Chest (Breasts): Chest: + pacemaker (left anterior chest wall with dressing c/d/i) Gastrointestinal (Abdomen): normal bowel sounds, soft, nontender, no hepatosplenomegaly Musculoskeletal: Extremities: + extremities abnormal to inspection (right fo rearm scarring,muscle atrophy), no cyanosis and no clubbing Skin: no rashes, warm and dry Neurologic: moves all extremities, + focal motor deficit (right hand weakness due to previous injury) and awake Psychiatric: A+Ox3, euthymic affect Lymphatic: no lymphedema Results & Data Results & Data ([facility]) Vital Signs (Past 12 Hours) Vital Signs Temp Pulse Resp BP BP Pulse Ox 11/07/21 15:23 36.6 C 80 19 95/56 L 99 11/07/21 14:20 36.7 C 78 20 100/68 97 11/07/21 13:43 63 16 89/65 L 96 11/07/21 13:30 78 16 97/65 L 96 11/07/21 13:10 75 16 112/68 95 11/07/21 13:08 36.8 C 79 20 100/68 97 11/07/21 11:11 27 L 16 126/40 L 96 11/07/21 07:25 36.5 C 34 L 19 110/75 96 Laboratory Results 11/07/21 11/07/21 11/07/21 Range/Units Unknown 09:59 09:59 WBC (4.8-10.8) K/uL RBC (4.7-6.1) M/uL Hgb (14.0-18.0) g/dL Hct (42-52) % MCV (80-100) fL MCH (25-34) pg MCHC (32-36) g/dL RDW Std Deviation (36.4-46.3) fL RDW Coeff of Marie (11.5-14.5) % Plt Count (130-400) K/uL MPV (7.4-10.4) fL Immature Gran % (Auto) % Neut % (Auto) % Lymph % (Auto) % Rogers % (Auto) % Eos % (Auto) % Baso % (Auto) % Neut # (Auto) (1.4-6.5) K/uL Lymph # (Auto) (1.2-3.4) K/uL Rogers # (Auto) (0.11-0.59) K/uL Eos # (Auto) (0-0.5) K/uL Baso # (Auto) (0-0.2) K/uL Immature Gran # (Auto) (0.00-0.02) K/uL Sodium (136-145) mmol/L Potassium (3.5-5.1) mmol/L Chloride (98-107) mmol/L Carbon Dioxide (21-32) mmol/L Anion Gap (3-11) BUN (6-23) mg/dl Creatinine (0.6-1.4) mg/dl Est Cr Clr Drug Dosing ml/min Est GFR ( Amer) ml/min Est GFR (Non-Af Amer) ml/min BUN/Creatinine Ratio (10-20) Glucose (70-99(Fasting)) mg/dl Calcium (8.5-10.1) mg/dl Phosphorus (2.5-4.9) mg/dl Magnesium (1.7-2.4) mg/dl Troponin I High Sens 21.6 H (0-20) pg/ml Albumin (3.4-5.0) gm/dl Lyme Disease IgG Ab Negative (Negative) Lyme Disease IgM Ab Negative (Negative) SARS-CoV-2, RNA, NAAT NEGATIVE (NEGATIVE) 11/07/21 11/07/21 11/06/21 Range/Units 05:35 05:35 13:04 WBC 7.89 (4.8-10.8) K/uL RBC 4.41 L (4.7-6.1) M/uL Hgb 14.5 (14.0-18.0) g/dL Hct 40.7 L (42-52) % MCV 92.3 (80-100) fL MCH 32.9 (25-34) pg MCHC 35.6 (32-36) g/dL RDW Std Deviation 45.4 (36.4-46.3) fL RDW Coeff of Marie 13.4 (11.5-14.5) % Plt Count 148 (130-400) K/uL MPV 10.0 (7.4-10.4) fL Immature Gran % (Auto) 0.1 % Neut % (Auto) 66.1 % Lymph % (Auto) 19.8 % Rogers % (Auto) 11.5 % Eos % (Auto) 2.2 % Baso % (Auto) 0.3 % Neut # (Auto) 5.22 (1.4-6.5) K/uL Lymph # (Auto) 1.56 (1.2-3.4) K/uL Rogers # (Auto) 0.91 H (0.11-0.59) K/uL Eos # (Auto) 0.17 (0-0.5) K/uL Baso # (Auto) 0.02 (0-0.2) K/uL Immature Gran # (Auto) 0.01 (0.00-0.02) K/uL Sodium 139 (136-145) mmol/L Potassium 3.7 D (3.5-5.1) mmol/L Chloride 111 H (98-107) mmol/L Carbon Dioxide 22 (21-32) mmol/L Anion Gap 6 (3-11) BUN 18 (6-23) mg/dl Creatinine 0.98 (0.6-1.4) mg/dl Est Cr Clr Drug Dosing 83.8 ml/min Est GFR ( Amer) 88.3 ml/min Est GFR (Non-Af Amer) 76.2 ml/min BUN/Creatinine Ratio 18.4 (10-20) Glucose 95 (70-99(Fasting)) mg/dl Calcium 8.4 L (8.5-10.1) mg/dl Phosphorus 3.8 (2.5-4.9) mg/dl Magnesium 2.4 (1.7-2.4) mg/dl Troponin I High Sens (0-20) pg/ml Albumin 3.6 (3.4-5.0) gm/dl Lyme Disease IgG Ab (Negative) Lyme Disease IgM Ab (Negative) SARS-CoV-2, RNA, NAAT (NEGATIVE) PG Care Time/CCT Total # of Minutes Spent Total Time Spent with Patient: Total time spent is greater than 50% in coordination of care (as documented) at patient's floor/unit and/or counseling patient: Coding Level of Care Code 14004 Subseq Hosp Care Lvl 3 Diagnoses Third degree heart block I44.2 HTN (hypertension) I10 CAD in upper [place] artery I25.10 Heart failure with reduced ejection fraction I50.20 Bipolar I disorder, single manic episode F30.9 Benign prostatic hyperplasia with urinary obstruction N40.1; N13.8
[2021-11-07] MEDS: ceFAZolin 1000MG 1,000 MG/7.5 ML SYR IV SCH (20:56)
--- NOTE | 2021-11-07 22:27 | Communication Note ---
Date of Service: November 07, 2021 Notified by nursing of HR 160s-160s. Called telemetry. Patient was in svt for 7 minutes but broke out of it. Now 80s paced. Checking Mg, K. Brief episode SVT. broke after vagal maneuver (bearing down). Patient has not yet restarted beta blockade.
[2021-11-08 00:48] LABS: Calcium 8.5 mg/dl (8.5-10.1); Est GFR (African American) 75.9 ml/min; Est GFR (Non-African American) 65.5 ml/min
[2021-11-08] MEDS: ceFAZolin 1000MG 1,000 MG/7.5 ML SYR IV SCH (03:01)
[2021-11-08 07:44] LABS: Basophils # (auto) 0.03 K/uL (0-0.2); Basophils % (auto) 0.3 %; Eosinophils # (auto) 0.16 K/uL (0-0.5); Eosinophils % (auto) 1.7 %; Hematocrit (blood only) 42.5 % (42-52); Hemoglobin 15.2 g/dL (14.0-18.0); Immature Granulocytes # (auto) 0.02 K/uL (0.00-0.02); Immature Granulocytes % (auto) 0.2 %; Lymphocytes # (auto) 1.25 K/uL (1.2-3.4); Lymphocytes % (auto) 13.1 %; Mean Corpuscular Hemoglobin 32.9 pg (25-34); Mean Corpuscular Hgb Conc 35.8 g/dL (32-36); Mean Platelet Volume 10.1 fL (7.4-10.4); Monocytes # (auto) 1.09 K/uL (0.11-0.59); Monocytes % (auto) 11.4 %; Neutrophils % (auto) 73.3 %; Platelet Count 160 K/uL (130-400); RDW Coefficient of Variation 13.5 % (11.5-14.5); RDW Standard Deviation 44.5 fL (36.4-46.3); Red Blood Count 4.62 M/uL (4.7-6.1); White Blood Count 9.55 K/uL (4.8-10.8)
[2021-11-08] MEDS: TICAGRELOR 90 MG TAB PO SCH ×2 (08:04→20:08)
[2021-11-08] MEDS: FINASTERIDE 5 MG TAB PO SCH (08:04)
[2021-11-08] MEDS: ASPIRIN 81 MG ECTAB PO SCH (08:04)
[2021-11-08] MEDS: ATORVASTATIN 40 MG TAB PO SCH (08:04)
[2021-11-08] MEDS: VALSARTAN/SACUBITRIL 51/49 MG TAB PO SCH ×2 (08:04→20:08)
[2021-11-08] MEDS: ISOSORBIDE MONO EXTENDED REL 30 MG TABCR PO SCH (08:04)
[2021-11-08 08:11] LABS: Albumin Level 3.9 gm/dl (3.4-5.0); BUN Creatinine Ratio 16.5 (10-20); Calcium 8.7 mg/dl (8.5-10.1); Creatinine Clr Calc Pharmacy 84.7 ml/min; Est GFR (African American) 89.4 ml/min; Est GFR (Non-African American) 77.1 ml/min; Phosphorus 2.9 mg/dl (2.5-4.9)
--- NOTE | 2021-11-08 09:45 | XRay Report ---
XR chest 2V PA/lateral CLINICAL HISTORY: EXACT TIME ORDERED Evaluate for pneumothorax and l TECHNIQUE: 2 views of the chest were obtained. Comparison: Comparison is made to chest radiograph 11/06/2021 FINDINGS: Dual lead pacemaker is seen. Calcified aortic knob is seen. The lungs are clear. No evidence of pleur al effusion or pneumothorax. IMPRESSION: Interval placement of dual-lead pacemaker without evidence of pneumothorax. ACT 112: Negative or not required by law. Electronically signed by: Sherman Waldrop M.D. 11/08/2021 9:43 AM
--- NOTE | 2021-11-08 11:55 | Discharge Summary ---
Date of Service November 08, 2021 Admission HPI Per Admitting Provider The patient is a 71-year-old male with a past medical history including angina class II, dysphagia, erectile dysfunction, bradycardia, hypertension, CAD in [place] artery, HFrEF, hyperglycemia, obesity, BPH with LUTS and bipolar 1 disorder. He presents as noted above. Patient was recently seen by his courtroom deputy or calendar clerk, and had his metoprolol discontinued. He thinks he may have had an episode of angina a few days ago, but is experiencing no symptoms at this time. Plans to admit patient to telemetry, check CBC, chemistry profile, PT/PT/INR/troponin/lithium levels, and consult cardiology for possible pacer. Discharge Exam Constitutional WD/WN, vitals as above Eyes + anicteric sclerae Neck trachea midline, no thyromegaly Respiratory normal respiratory effort, lungs clear to auscultation Cardiovascular RRR, no murmur, no edema Chest (Breasts) Chest: + pacemaker (left anterior chest wall with dressing c/d/i) Gastrointestinal (Abdomen) normal bowel sounds, soft, nontender, no hepatosplenomegaly Musculoskeletal Extremities: + extremities abnormal to inspection (right forearm scarring,muscle atrophy), no cyanosis and no clubbing Skin no rashes, warm and dry Neurologic moves all extremities, + focal motor deficit (right hand weakness due to previous injury) and awake Psychiatric A+Ox3, euthymic affect Lymphatic no lymphedema Discharge Data Allergies Allergy/AdvReac Type Severity Reaction Status Date / Time No Known Drug Allergies Allergy Verified 11/01/21 14:40 Consultations 11/06/21 12:06 Consult Cardiology Routine Procedures Performed Operation Date: 11/06/21 10:50 <No data on this case meets the specified criteria> Operation Date: 11/07/21 11:00 Actual Procedures p Pacer with A/V Leads (Dual) - Robert Mitchell MD s Venogram Extremity Unilateral - Robert Mitchell MD Ordered Studies 11/07/21 07:30 EP Lab Images for PACS ONCE Hospital Course (1) Third degree heart block: Presented with asymptomatic 3rd degree HB for preop for a colonoscopy on the day of admission Lyme titer negative, high sensitivity trop minimally elevated x 2 at Was not on beta bennett at time of admission-previously stopped for bradycardia Now s/p PPM with Dr. Mitchell on 11/07, doing well post-op plan for CXR and pacer interrogation in the AM tylenol and oxycodone prn pain (2) HTN (hypertension): BPs controlled continue home ENtresto, isosorbide (3) CAD in [place] artery: with h/o LAD stent, otherwise inoperable disease, previous ischemic CM which is now resolved continue ASA, Brilinta, atorvastatin, Entresto is not on beta bennett due to previous bradycardia, but now may be able ot add this on with pacer in place (4) Heart failure with reduced ejection fraction: See above, now resolved, EF here on ECHO normal with mild , AI (5) Bipolar I disorder, single manic episode: not on meds (6) Benign prostatic hyperplasia with urinary obstruction: Continue finasteride, watch for retention post op DVT poroph-SCDs Dispo-continued stay on PCU, likely dc to home tomorrow if doing well Discharge Plan Discharge Items Patient Disposition: Home - Self-Care Reason For Visit: 3RD DEGREE HEART BLOCK Discharge Diagnosis: 3rd degree/Complete Heart Block, status post permanent pacemaker Condition on Discharge: Good Activity: As commented below Lifting: Wait until after follow-up appointment Bathing: Keep incision dry Exercise Comment: Do not raise your left arm above your head Non-emergency contact: Primary Care Provider and Front Desk Officer Call non-emergency contact if: you have any medication questions and your symptoms worsen Follow-up/Referrals: Frederic Pena, [Primary Care Provider] - Diet: Heart Healthy Addtl Attending Provider Instructions: You were admitted for a complete heart block and had a pacemaker placed to keep your heart rate from dropping too low. You were restarted on your metoprolol to keep you from having a rapid heart rate as well. Please keep an eye on your blood pressures once daily at home. As long as the top number stays above 90 and you are not feeling lightheaded, you can keep taking the metoprolol. Please follow up with Dr. Mitchell within 1 week-this appointment will be scheduled for you. Please also follow up with your PCP within 1-2 weeks. Pending Studies at Discharge: No Stand-Alone Forms: My [facility] Medications and DC Order Prescriptions: New acetaminophen 325 mg Tablet 650 mg PO Q4H PRN (Reason: pain) Qty: 30 RF: 0 metoprolol succinate 25 mg Tablet Extended Release 24 Hr 25 mg PO QAM Qty: 30 RF: 0 Continued Brilinta 90 mg tablet 90 mg PO BID Qty: 180 RF: 3 isosorbide mononitrate 30 mg tablet extended release 24 hr 90 mg PO QAM Qty: 270 RF: 3 Sutab 1.479-0.188- 0.225 gram tablet See Rx Instructions .Route .COMPLEX Qty: 24 RF: 0 aspirin 81 mg tablet,delayed release (DR/EC) 81 mg PO QAM RF: 0 Entresto 49-51 mg tablet 1 tab PO BID Qty: 180 RF: 3 sildenafil 100 mg tablet 100 mg PO DAILY PRN (Reason: sexual activity) Qty: 18 RF: 5 atorvastatin 40 mg tablet 40 mg PO QAM Qty: 90 RF: 3 nitroglycerin 0.4 mg tablet, sublingual 0.4 mg SL ONCE PRN (Reason: Chest Pain) Qty: 25 RF: 5 finasteride 5 mg tablet 5 mg PO QAM RF: 0 Admission Data Admit Date/Time: 11/06/21 11:58 Attending Provider: Celine Hamm Admit Provider: Yoel Shah Primary Care Provider: Frederic Pena Other Providers: Robert Mitchell Coding Diagnoses Third degree heart block I44.2 HTN (hypertension) I10 CAD in [place] artery I25.10 Heart failure with reduced ejection fraction I50.20 Bipolar I disorder, single manic episode F30.9 Benign prostatic hyperplasia with urinary obstruction N40.1; N13.8
[2021-11-08] MEDS: METOPROLOL SUCC 25MG EXT REL TAB PO SCH (13:02)
--- NOTE | 2021-11-08 13:06 | Hospitalist Progress Note ---
Date of Service November 08, 2021 Assessment & Plan (1) Third degree heart block: Plan: Presented with asymptomatic 3rd degree HB for preop for a colonoscopy on the day of admission Lyme titer negative, high sensitivity trop minimally elevated x 2 at Was not on beta bennett at time of admission-previously stopped for bradycardia Now s/p PPM with Dr. 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 daily and continue observation on telemetry to see if this helps to decrease the episodes Could consider adding amiodarone as a temporizing measure to ablation if ep isodes persist despite starting beta-bennett (3) CAD in tribal artery: Plan: with h/o LAD stent, otherwise inoperable disease, previous ischemic CM which is now resolved continue ASA, Brilinta, atorvastatin, Entresto Was not on beta bennett due to previous bradycardia, but now adding back on as above With angina as above associated with prolonged SVT (4) HTN (hypertension): Plan: BPs controlled to low normal continue home ENtresto, isosorbide, and adding on metoprolol as above (5) Heart failure with reduced ejection fraction: Plan: See above, now resolved, EF here on ECHO normal with mild , AI (6) Bipolar I disorder, single manic episode: Plan: not on meds (7) Benign prostatic hyperplasia with urinary obstruction: Plan: Continue finasteride, watch for retention post op-none noted Plan: DVT poroph-SCDs Dispo-continued stay on PCU, likely dc to home tomorrow if doing well Admission and Anticipated Discharge Date Admission Date: November 06, 2021 Subjective Patient is feeling well, had some SVT overnight which he felt as palpitations and then had another episode just as I was about to discharge him today but did go on for several minutes and caused him some angina. The angina went away when the tachycardia improved. I discussed his care with [employer] at the bedside. Otherwise, he is eating and drinking, making urine, no other complaints. Decision was made to cancel the discharge after recurrent SVT caused angina. Starting beta bennett and will continue to observe on tele. Review of Systems Review of Systems: All systems reviewed & are unremarkable except as noted in HPI & below Physical Exam Constitutional: WD/WN, vitals as above Eyes: + anicteric sclerae Neck: trachea midline, no thyromegaly Respiratory: normal respiratory effort, lungs clear to auscultation Cardiovascular: RRR, no murmur, no edema Chest (Breasts): Chest: + pacemaker (left anterior chest wall with dressing c/d/i) Gastrointestinal (Abdomen): normal bowel sounds, soft, nontender, no hepatosplenomegaly Musculoskeletal: Extremities: + extremities abnormal to inspection (right forearm scarring,muscle atrophy), no cyanosis and no clubbing Skin: no rashes, warm and dry Neurologic: moves all extremities, + focal motor deficit (right hand weakness due to previous injury) and awake Psychiatric: A+Ox3, euthymic affect Lymphatic: no lymphedema Results & Data Results & Data ([facility]) Vital Signs (Past 12 Hours) Vital Signs Temp Pulse Resp BP Pulse Ox 11/08/21 11:13 36.5 C 80 19 107/58 L 95 11/08/21 06:43 36.8 C 79 18 106/66 95 11/08/21 03:01 36.9 C 80 16 116/75 95 Laboratory Results 11/08/21 11/08/21 11/08/21 Range/Units 08:17 07:05 07:05 WBC 9.55 (4.8-10.8) K/uL RBC 4.62 L (4.7-6.1) M/uL Hgb 15.2 (14.0-18.0) g/dL Hct 42.5 (42-52) % MCV 92.0 (80-100) fL MCH 32.9 (25-34) pg MCHC 35.8 (32-36) g/dL RDW Std Deviation 44.5 (36.4-46.3) fL RDW Coeff of Marie 13.5 (11.5-14.5) % Plt Count 160 (130-400) K/uL MPV 10.1 (7.4-10.4) fL Immature Gran % (Auto) 0.2 % Neut % (Auto) 73.3 % Lymph % (Auto) 13.1 % [place] % (Auto) 11.4 % Eos % (Auto) 1.7 % Baso % (Auto) 0.3 % Neut # (Auto) 7.00 H (1.4-6.5) K/uL Lymph # (Auto) 1.25 (1.2-3.4) K/uL [place] # (Auto) 1.09 H (0.11-0.59) K/uL Eos # (Auto) 0.16 (0-0.5) K/uL Baso # (Auto) 0.03 (0-0.2) K/uL Immature Gran # (Auto) 0.02 (0.00-0.02) K/uL Sodium 135 L (136-145) mmol/L Potassium 3.9 (3.5-5.1) mmol/L Chloride 108 H (98-107) mmol/L Carbon Dioxide 19 L (21-32) mmol/L Anion Gap 8 (3-11) BUN 16 (6-23) mg/dl Creatinine 0.97 (0.6-1.4) mg/dl Est Cr Clr Drug Dosing 84.7 ml/min Est GFR ( Amer) 89.4 ml/min Est GFR (Non-Af Amer) 77.1 ml/min BUN/Creatinine Ratio 16.5 (10-20) Glucose 116 H (70-99(Fasting)) mg/dl Calcium 8.7 (8.5-10.1) mg/dl Phosphorus 2.9 (2.5-4.9) mg/dl Magnesium (1.7-2.4) mg/dl Albumin 3.9 (3.4-5.0) gm/dl 11/08/21 Range/Units 00:06 WBC (4.8-10.8) K/uL RBC (4.7-6.1) M/uL Hgb (14.0-18.0) g/dL Hct (42-52) % MCV (80-100) fL MCH (25-34) pg MCHC (32-36) g/dL RDW Std Deviation (36.4-46.3) fL RDW Coeff of Marie (11.5-14.5) % Plt Count (130-400) K/uL MPV (7.4-10.4) fL Immature Gran % (Auto) % Neut % (Auto) % Lymph % (Auto) % [place] % (Auto) % Eos % (Auto) % Baso % (Auto) % Neut # (Auto) (1.4-6.5) K/uL Lymph # (Auto) (1.2-3.4) K/uL [place] # (Auto) (0.11-0.59) K/uL Eos # (Auto) (0-0.5) K/uL Baso # (Auto) (0-0.2) K/uL Immature Gran # (Auto) (0.00-0.02) K/uL Sodium 137 (136-145) mmol/L Potassium 4.0 (3.5-5.1) mmol/L Chloride 107 (98-107) mmol/L Carbon Dioxide 23 (21-32) mmol/L Anion Gap 7 (3-11) BUN 20 (6-23) mg/dl Creatinine 1.11 (0.6-1.4) mg/dl Est Cr Clr Drug Dosing 74.0 ml/min Est GFR ( Amer) 75.9 ml/min Est GFR (Non-Af Amer) 65.5 ml/min BUN/Creatinine Ratio 18.0 (10-20) Glucose 107 H (70-99(Fasting)) mg/dl Calcium 8.5 (8.5-10.1) mg/dl Phosphorus (2.5-4.9) mg/dl Magnesium 2.0 (1.7-2.4) mg/dl Albumin (3.4-5.0) gm/dl Diagnostic Findings Chest x-ray image personally reviewed: Chest X-Ray 11/08/21 07:00 XR chest 2V PA/lateral CLINICAL HISTORY: EXACT TIME ORDERED Evaluate for pneumothorax and l TECHNIQUE: 2 views of the chest were obtained. Comparison: Comparison is made to chest radiograph 11/06/2021 FINDINGS: Dual lead pacemaker is seen. Calcified aortic knob is seen. The lungs are clear. No evidence of pleural effusion or pneumothorax. IMPRESSION: Interval placement of dual-lead pacemaker without evidence of pneumothorax. ACT 112: Negative or not required by law. Electronically signed by: Sherman Waldrop M.D. 11/08/2021 9:43 AM PG Care Time/CCT Total # of Minutes Spent Total Time Spent with Patient: Total time spent is greater than 50% in coordination of care (as documented) at patient's floor/unit and/or counseling patient: Coding Level of Care Code 38965 Subseq Hosp Care Lvl 3 Diagnoses Third degree heart block I44.2 HTN (hypertension) I10 CAD in tribal artery I25.10 Heart failure with reduced ejection fraction I50.20 Bipolar I disorder, single manic episode F30.9 Benign prostatic hyperplasia with urinary obstruction N40.1; N13.8 SVT (supraventricular tachycardia) I47.1
--- NOTE | 2021-11-08 14:12 | Cardiology Progress Note ---
Date of Service November 08, 2021 Assessment & Plan (1) Third degree heart block: (2) Bradycardia: (3) HTN (hypertension): (4) Aortic stenosis: (5) SVT (supraventricular tachycardia): Plan: 1. Third-degree heart block: He underwent successful implantation of a dual- chamber permanent pacemaker. Normal device function. He will need to keep the wound dry for a week. He can leave the Steri-Strips intact and removed the outer bulky dressing tomorrow morning. He should refrain from lifting left arm above the shoulder behind the neck for 6 weeks. 2. Aortic stenosis: Very mild. No symptoms. 3. Coronary artery disease: He has some symptoms of angina with sustained high heart rates associated with his SVT. We will reinstitute his beta blockade. Continue other aggressive secondary prevention. 4. SVT: The patient has a wide complex tachycardia that starts spontaneously. He seems unaware of the tachy arrhythmia, but with an extended episode lasting a few minutes he does develop some typical angina. 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 This was deduced with intracardiac tracings, program stimulation for initiation and vagal maneuvers such as carotid massage and Valsalva for termination. While this is generally a benign phenomenon, the high heart rates associated with the SVT do cause angina in this individual with known significant coronary disease. As such, we have elected to reinstitute his beta blockade and we will titrate the dose depending on recurrent symptoms and blood pressure. Admission and Anticipated Discharge Date Admission Date: November 06, 2021 Subjective Saw the patient this morning that again this afternoon. He did have a few episodes of tachycardia last evening in this afternoon. He was only aware of some chest discomfort that he characterizes angina. Minimal pain at the implant site. No other symptoms. Review of Systems Review of Systems: Per HPI Physical Exam Physical Exam: Evaluation of the device implant site did not reveal any evidence of hematoma. No significant erythema. Dry blood but no active bleeding. Results & Data ([facility]) Vital Signs (Past 12 Hours) Vital Signs Temp Pulse Resp BP Pulse Ox 11/08/21 11:13 36.5 C 80 19 107/58 L 95 11/08/21 06:43 36.8 C 79 18 106/66 95 11/08/21 03:01 36.9 C 80 16 116/75 95 Laboratory Results Abnormal Lab Results 0411/08/21 11/08/21 00:06 07:05 07:05 WBC 9.55 RBC 4.62 L Hgb 15.2 Hct 42.5 MCV 92.0 MCH 32.9 MCHC 35.8 RDW Std Deviation 44.5 RDW Coeff of Marie 13.5 Plt Count 160 MPV 10.1 Immature Gran % (Auto) 0.2 Neut % (Auto) 73.3 Lymph % (Auto) 13.1 [place] % (Auto) 11.4 Eos % (Auto) 1.7 Baso % (Auto) 0.3 Neut # (Auto) 7.00 H Lymph # (Auto) 1.25 [place] # (Auto) 1.09 H Eos # (Auto) 0.16 Baso # (Auto) 0.03 Immature Gran # (Auto) 0.02 Sodium 137 135 L Potassium 4.0 Chloride 107 108 H Carbon Dioxide 23 19 L Anion Gap 7 8 BUN 20 16 Creatinine 1.11 0.97 Est Cr Clr Drug Dosing 74.0 84.7 Est GFR ( Amer) 75.9 89.4 Est GFR (Non-Af Amer) 65.5 77.1 BUN/Creatinine Ratio 18.0 16.5 Glucose 107 H 116 H Calcium 8.5 8.7 Phosphorus 2.9 Magnesium 2.0 Albumin 3.9 11/08/21 08:17 WBC RBC Hgb Hct MCV MCH MCHC RDW Std Deviation RDW Coeff of Marie Plt Count MPV Immature Gran % (Auto) Neut % (Auto) Lymph % (Auto) [place] % (Auto) Eos % (Auto) Baso % (Auto) Neut # (Auto) Lymph # (Auto) [place] # (Auto) Eos # (Auto) Baso # (Auto) Immature Gran # (Auto) Sodium Potassium 3.9 Chloride Carbon Dioxide Anion Gap BUN Creatinine Est Cr Clr Drug Dosing Est GFR ( Amer) Est GFR (Non-Af Amer) BUN/Creatinine Ratio Glucose Calcium Phosphorus Magnesium Albumin Diagnostic Findings Chest x-ray demonstrated good lead position without pneumothorax Device interrogation revealed normal function of both atrial ventricular leads. PG Care Time/CCT Total # of Minutes Spent Total Time Spent with Patient: Total time spent is greater than 50% in coordination of care (as documented) at patient's floor/unit and/or counseling patient: Coding Level of Care Code 63298 Subseq Hosp Care Lvl 3 Diagnoses Third degree heart block I44.2 Bradycardia R00.1 HTN (hypertension) I10 Aortic stenosis I35.0 SVT (supraventricular tachycardia) I47.1
--- NOTE | 2021-11-08 17:56 | Electrocardiogram Report ---
Test Reason : Blood Pressure : / mmHG Vent. Rate : 082 BPM Atrial Rate : 234 BPM P-R Int : 186 ms QRS Dur : 158 ms QT Int : 430 ms P-R-T Axes : 000 132 095 degrees QTc Int : 502 ms AV dual-paced rhythm Abnormal ECG When compared with ECG of 07-NOV-2021 07:32, Electronic ventricular pacemaker has replaced Sinus rhythm Confirmed by Robert Mitchell ([id number]) on 11/08/2021 5:56:21 PM Referred By: Yoel Shah Confirmed By:Golden Mitchell
--- NOTE | 2021-11-08 18:00 | Electrocardiogram Report ---
Test Reason : Blood Pressure : / mmHG Vent. Rate : 080 BPM Atrial Rate : 076 BPM P-R Int : 182 ms QRS Dur : 164 ms QT Int : 380 ms P-R-T Axes : 000 134 109 degrees QTc Int : 438 ms AV dual-paced rhythm Abnormal ECG When compared with ECG of 07-NOV-2021 16:07, (unconfirmed) Vent. rate has decreased BY 2 BPM Confirmed by Robert Mitchell ([id number]) on 11/08/2021 5:59:41 PM Referred By: Yoel Shah Confirmed By:Golden Mitchell
--- NOTE | 2021-11-08 18:01 | Electrocardiogram Report ---
Test Reason : Blood Pressure : / mmHG Vent. Rate : 080 BPM Atrial Rate : 080 BPM P-R Int : 184 ms QRS Dur : 158 ms QT Int : 440 ms P-R-T Axes : 000 133 108 degrees QTc Int : 507 ms AV dual-paced rhythm with occasional PVCs Abnormal ECG When compared with ECG of 07-NOV-2021 22:04, (unconfirmed) No significant change was found Confirmed by Robert Mitchell ([id number]) on 11/08/2021 6:01:22 PM Referred By: Yoel Shah Confirmed By:Golden Mitchell
[2021-11-08] MEDS ORDERED: METOPROLOL TARTRATE 1 MG/ML VIAL IV STA (23:36)
[2021-11-08] MEDS ORDERED: POTASSIUM CHLORIDE CRTAB 20 MEQ TABCR PO STA (23:36)
--- NOTE | 2021-11-08 23:40 | Communication Note ---
Date of Service: November 08, 2021 Informed of afib since 2229. Current rate 99. New onset afib? Repleting K w/ 20meq PO. Providing 1 dose of IV metoprolol. Reviewed AM labs. Chadsvasc 4. Day shift to determine if anticoagulation appropriate. Defer to cardiology as had recent pacemaker placement.
[2021-11-09] MEDS: FINASTERIDE 5 MG TAB PO SCH (08:09)
[2021-11-09] MEDS: VALSARTAN/SACUBITRIL 51/49 MG TAB PO SCH (08:09)
[2021-11-09] MEDS: ASPIRIN 81 MG ECTAB PO SCH (08:09)
[2021-11-09] MEDS: ATORVASTATIN 40 MG TAB PO SCH (08:09)
[2021-11-09] MEDS: TICAGRELOR 90 MG TAB PO SCH (08:10)
[2021-11-09] MEDS: METOPROLOL SUCC 25MG EXT REL TAB PO SCH (08:10)
[2021-11-09] MEDS: ISOSORBIDE MONO EXTENDED REL 30 MG TABCR PO SCH (08:10)
[2021-11-09 08:25] LABS: Basophils # (auto) 0.03 K/uL (0-0.2); Basophils % (auto) 0.3 %; Eosinophils # (auto) 0.19 K/uL (0-0.5); Eosinophils % (auto) 1.7 %; Hematocrit (blood only) 45.1 % (42-52); Hemoglobin 16.3 g/dL (14.0-18.0); Immature Granulocytes # (auto) 0.03 K/uL (0.00-0.02); Immature Granulocytes % (auto) 0.3 %; Lymphocytes # (auto) 1.74 K/uL (1.2-3.4); Lymphocytes % (auto) 15.6 %; Mean Corpuscular Hemoglobin 33.2 pg (25-34); Mean Corpuscular Hgb Conc 36.1 g/dL (32-36); Mean Corpuscular Volume 91.9 fL (80-100); Mean Platelet Volume 9.9 fL (7.4-10.4); Monocytes # (auto) 1.26 K/uL (0.11-0.59); Monocytes % (auto) 11.3 %; Neutrophils % (auto) 70.8 %; Platelet Count 161 K/uL (130-400); RDW Coefficient of Variation 13.4 % (11.5-14.5); RDW Standard Deviation 45.1 fL (36.4-46.3); Red Blood Count 4.91 M/uL (4.7-6.1); White Blood Count 11.15 K/uL (4.8-10.8)
[2021-11-09 09:01] LABS: BUN Creatinine Ratio 13.8 (10-20); Creatinine Clr Calc Pharmacy 75.6 ml/min; Est GFR (African American) 77.6 ml/min; Magnesium 2.1 mg/dl (1.7-2.4); Phosphorus 2.6 mg/dl (2.5-4.9); Potassium 4.2 mmol/L (3.5-5.1)
--- NOTE | 2021-11-09 12:12 | Electrocardiogram Report ---
Test Reason : Blood Pressure : / mmHG Vent. Rate : 107 BPM Atrial Rate : 078 BPM P-R Int : 000 ms QRS Dur : 164 ms QT Int : 342 ms P-R-T Axes : 000 001 179 degrees QTc Int : 456 ms Atrial fibrillation with rapid ventricular response with occasional ventricular-paced complexes Left bundle branch block Abnormal ECG When compared with ECG of 08-NOV-2021 12:44, (unconfirmed) Premature ventricular complexes are no longer Present Vent. rate has increased BY 34 BPM Confirmed by Robert Mitchell ([id number]) on 11/09/2021 12:11:46 PM Referred By: Yoel Shah Confirmed By:Golden Mitchell
--- NOTE | 2021-11-09 12:13 | Electrocardiogram Report ---
Test Reason : Blood Pressure : / mmHG Vent. Rate : 073 BPM Atrial Rate : 070 BPM P-R Int : 186 ms QRS Dur : 158 ms QT Int : 414 ms P-R-T Axes : 102 -40 108 degrees QTc Int : 456 ms AV dual-paced rhythm with occasional Premature ventricular complexes Abnormal ECG When compared with ECG of 08-NOV-2021 05:30, Premature ventricular complexes are now Present Vent. rate has decreased BY 7 BPM Confirmed by Robert Mitchell ([id number]) on 11/09/2021 12:13:07 PM Referred By: Yoel Shah Confirmed By:Golden Mitchell
--- NOTE | 2021-11-09 13:34 | Cardiology Progress Note ---
Date of Service November 09, 2021 Assessment & Plan (1) Third degree heart block: (2) Bradycardia: (3) HTN (hypertension): (4) Aortic stenosis: (5) SVT (supraventricular tachycardia): (6) Atrial fibrillation: Plan: 1. Third-degree heart block: He underwent successful implantation of a dual- chamber permanent pacemaker. Normal device function. He will need to keep the wound dry for a week. He can leave the Steri-Strips intact and removed the outer bulky dressing tomorrow morning. He should refrain from lifting left arm above the shoulder behind the neck for 6 weeks. 2. Aortic stenosis: Very mild. No symptoms. 3. Coronary artery disease: He has some symptoms of angina with sustained high heart rates associated with his SVT. We will reinstitute his beta blockade. Continue other aggressive secondary prevention. 4. SVT: No recurrent SVT. 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 We restarted his metoprolol yesterday. With his development of atrial fibrillation will also start amiodarone. 5. Atrial fibrillation: Unclear if he has been having occult atrial fibrillation all along or if this was precipitated by the device implant. Did not appear to be very symptomatic from the atrial fibrillation. This is likely due to the lower heart rates than the SVT. No symptoms suggestive of angina. In the hopes that this is related to the implant, I think a short course of amiodarone would be reasonable. We can stop this in a few weeks and monitor him for recurrences through his device. He can continue on his current dose of metoprolol. More metoprolol would be a good option as well, but I am worried that his blood pressures are on the lower side and we may elicit more orthostatic symptoms. With respect to anticoagulation, he had a long enough episode of atrial fibrillation that he should be prescribed anticoagulation. I think any of the novel agents would suffice. He should stop his aspirin and continue Brilinta. He should not start anticoagulation until FridayNovember 11. This would reduce his chance of developing hematoma at the implant site. Admission and Anticipated Discharge Date Admission Date: November 06, 2021 Subjective This morning patient claimed he feeling well. Very minor tenderness at the device implant site with palpation. He did not report any palpitations last night. He did not have any chest pain last night with his documented arrhythmia. No dizziness or lightheadedness. Review of Systems Review of Systems: Per HPI Physical Exam Physical Exam: The patient is alert and oriented. Mood and affect appeared normal. He answered all questions appropriately. HEENT: Pupils are equal and reactive to light and accommodation. Extraocular movements are intact. The sclerae are anicteric. Neuro: Cranial nerves intact Lungs: Normal respiratory effort Chest: Device implant site without evidence of active bleeding, hematoma or erythema. Extremities: There was no evidence of hypoperfusion. Skin: I did not appreciate any rashes on examination today. Results & Data ([facility]) Vital Signs (Past 12 Hours) Vital Signs Temp Pulse Pulse Resp BP Pulse Ox 11/09/21 11:46 36.6 C 75 18 97/61 L 97 11/09/21 07:29 36.6 C 80 17 118/76 98 11/09/21 05:00 105/61 11/09/21 04:45 36.8 C 82 16 83/52 L 96 Laboratory Results Abnormal Lab Results 11/09/21 11/09/21 07:53 07:53 WBC 11.15 H RBC 4.91 Hgb 16.3 Hct 45.1 MCV 91.9 MCH 33.2 MCHC 36.1 H RDW Std Deviation 45.1 RDW Coeff of Marie 13.4 Plt Count 161 MPV 9.9 Immature Gran % (Auto) 0.3 Neut % (Auto) 70.8 Lymph % (Auto) 15.6 Delta % (Auto) 11.3 Eos % (Auto) 1.7 Baso % (Auto) 0.3 Neut # (Auto) 7.90 H Lymph # (Auto) 1.74 [place] # (Auto) 1.26 H Eos # (Auto) 0.19 Baso # (Auto) 0.03 Immature Gran # (Auto) 0.03 H Sodium 137 Potassium 4.2 Chloride 107 Carbon Dioxide 23 Anion Gap 7 BUN 15 Creatinine 1.09 Est Cr Clr Drug Dosing 75.6 Est GFR ( Amer) 77.6 Est GFR (Non-Af Amer) 67.0 BUN/Creatinine Ratio 13.8 Glucose 136 H Calcium 9.0 Phosphorus 2.6 Magnesium 2.1 Albumin 4.0 PG Care Time/CCT Total # of Minutes Spent Total Time Spent with Patient: Total time spent is greater than 50% in coordination of care (as documented) at patient's floor/unit and/or counseling patient: Coding Level of Care Code None Diagnoses Third degree heart block I44.2 Bradycardia R00.1 HTN (hypertension) I10 Aortic stenosis I35.0 SVT (supraventricular tachycardia) I47.1 Atrial fibrillation I48.91
[2021-11-09] MEDS ORDERED: AMIODARONE 200 MG TAB PO SCH (13:40)
--- NOTE | 2021-11-09 13:52 | Discharge Summary ---
Date of Service November 09, 2021 Discharge Exam WD/WN, vitals as above Eyes: + anicteric sclerae Neck: trachea midline, no thyromegaly Respiratory: normal respiratory effort, lungs clear to auscultation Cardiovascular: RRR, no murmur, no edema Chest (Breasts): Chest: + pacemaker (left anterior chest wall with dressing c/d/i) Gastrointestinal (Abdomen): normal bowel sounds, soft, nontender, no hepatosplenomegaly Musculoskeletal: Extremities: + extremities abnormal to inspection (right forearm scarring,muscle atrophy), no cyanosis and no clubbing Skin: no rashes, warm and dry Neurologic: moves all extremities, + focal motor deficit (right hand weakness due to previous injury) and awake Psychiatric: A+Ox3, euthymic affect Lymphatic: no lymphedema Discharge Data Allergies Allergy/AdvReac Type Severity Reaction Status Date / Time No Known Drug Allergies Allergy Verified 11/01/21 14:40 Consultations 11/06/21 12:06 Consult Cardiology Routine Procedures Performed Operation Date: 11/06/21 10:50 <No data on this case meets the specified criteria> Operation Date: 11/07/21 11:00 Actual Procedures p Pacer with A/V Leads (Dual) - Robert Mitchell MD s Venogram Extremity Unilateral - Robert Mitchell MD Ordered Studies 11/07/21 07:30 EP Lab Images for PACS ONCE Hospital Course (1) Third degree heart block: Presented with asymptomatic 3rd degree HB for preop for a colonoscopy on the day of admission Lyme titer negative, high sensitivity trop minimally elevated x 2 at Was not on beta bennett at time of admission-previously stopped for bradycardia Now s/p PPM with Dr. Mitchell on 11/07, doing well post-op but with recurrent SVT as below causing angina Postop chest x-ray negative tylenol and oxycodone prn pain although he is not requiring anything at this point (2) SVT (supraventricular tachycardia): Had several episodes of SVT lasting 3 to 7 minutes in the last 24 hours with rates in the 160s, which is causing angina with known underlying severe CAD These episodes resolve with vagal maneuvers and carotid massage Cardiology was able to induce the episodes with manipulation of the pacemaker and thinks it is AVNRT It is a wide-complex tachycardia due to underlying LBBB but is not ventricular tachycardia -Start Toprol-XL 25 mg p.o. daily and continue observation on telemetry to see if this helps to decrease the episodes Could consider adding amiodarone as a temporizing measure to ablation if episodes persist despite starting beta-bennett (3) CAD in [place] artery: with h/o LAD stent, otherwise inoperable disease, previous ischemic CM which is now resolved continue ASA, Brilinta, atorvastatin, Entresto Was not on beta bennett due to previous bradycardia, but now adding back on as above With angina as above associated with prolonged SVT (4) HTN (hypertension): BPs controlled to low normal continue home ENtresto, isosorbide, and adding on metoprolol as above (5) Heart failure with reduced ejection fraction: See above, now resolved, EF here on ECHO normal with mild , AI (6) Bipolar I disorder, single manic episode: not on meds (7) Benign prostatic hyperplasia with urinary obstruction: Continue finasteride, watch for retention post op-none noted DVT poroph-SCDs Dispo-continued stay on PCU, likely dc to home tomorrow if doing well Discharge Plan Discharge Items Patient Disposition: Home - Self-Care Reason For Visit: 3RD DEGREE HEART BLOCK Discharge Diagnosis: 3rd degree/Complete Heart Block, status post permanent pacemaker Condition on Discharge: Good Activity: As commented below Lifting: Wait until after follow-up appointment Bathing: Keep incision dry Exercise Comment: Do not raise your left arm above your head Non-emergency contact: Primary Care Provider and Mental Health Tech Call non-emergency contact if: you have any medication questions and your symptoms worsen Follow-up/Referrals: Frederic Pena, [Primary Care Provider] - Diet: Heart Healthy Addtl Attending Provider Instructions: You were admitted for a complete heart block and had a pacemaker placed to keep your heart rate from dropping too low. You were restarted on your metoprolol to keep you from having a rapid heart rate as well. Please keep an eye on your blood pressures once daily at home. As long as the top number stays above 90 and you are not feeling lightheaded, you can keep taking the metoprolol. You then developed Supraventricular tachycardia (SVT) and Atrial flutter. You will be started on amiodarone 400mg twice a day x 10 days, then decrease down to 200mg once daily. This is a medication that helps to keep you from going into these fast arrhythmias. You will also be started on a blood thinner to prevent stroke that can be caused by atrial flutter. This blood thinner is called Jeny jaren and is to be taken twice a day. Please do not start taking the Eliquis until Friday11/11/21. You should STOP taking your aspirin once you start taking the Eliquis because you should not be on three blood thinners at the same time. Please follow up with Dr. Mitchell within 1 week-this appointment will be scheduled for you. Please also follow up with your PCP within 1-2 weeks. Pending Studies at Discharge: No Stand-Alone Forms: My [facility] Medications and DC Order Prescriptions: New acetaminophen 325 mg Tablet 650 mg PO Q4H PRN (Reason: pain) Qty: 30 RF: 0 metoprolol succinate 25 mg Tablet Extended Release 24 Hr 25 mg PO QAM Qty: 30 RF: 0 amiodarone 200 mg Tablet 400 mg PO BIDM Qty: 60 RF: 0 Eliquis 5 mg tablet 5 mg PO BID Qty: 60 RF: 0 Continued Brilinta 90 mg tablet 90 mg PO BID Qty: 180 RF: 3 isosorbide mononitrate 30 mg tablet extended release 24 hr 90 mg PO QAM Qty: 270 RF: 3 Sutab 1.479-0.188- 0.225 gram tablet See Rx Instructions .Route .COMPLEX Qty: 24 RF: 0 Entresto 49-51 mg tablet 1 tab PO BID Qty: 180 RF: 3 sildenafil 100 mg tablet 100 mg PO DAILY PRN (Reason: sexual activity) Qty: 18 RF: 5 atorvastatin 40 mg tablet 40 mg PO QAM Qty: 90 RF: 3 nitroglycerin 0.4 mg tablet, sublingual 0.4 mg SL ONCE PRN (Reason: Chest Pain) Qty: 25 RF: 5 finasteride 5 mg tablet 5 mg PO QAM RF: 0 Discontinued aspirin 81 mg tablet,delayed release (DR/EC) 81 mg PO QAM RF: 0 Discharge Orders: Discharge Order (Routine); Ordered 11/09/21 Ordered By: Celine Hamm Admission Data Admit Date/Time: 11/06/21 11:58 Attending Provider: Celine Hamm Admit Provider: Yoel Shah Primary Care Provider: Frederic Pena Other Providers: Robert Mitchell Coding Diagnoses Third degree heart block I44.2 SVT (supraventricular tachycardia) I47.1 CAD in [place] artery I25.10 HTN (hypertension) I10 Heart failure with reduced ejection fraction I50.20 Bipolar I disorder, single manic episode F30.9 Benign prostatic hyperplasia with urinary obstruction N40.1; N13.8
== END 2021-11-09 14:25 | disposition home or self-care (01) | DRG 243 ==
LOC: ENDO 10:11 → 2S 11:58 → SUATTDRO 11:58

== ENCOUNTER 2022-09-17 12:06 | Observation (INO) ==
[2022-09-17] MEDS ORDERED: SODIUM CHLORIDE 0.9% 500 ML IV ONE (12:43)
--- NOTE | 2022-09-17 13:03 | XRay Report ---
XR chest 1V portable CLINICAL HISTORY: Chest pain, nonspecific TECHNIQUE: Single frontal radiograph of the chest was obtained. Comparison: Comparison is made to chest radiograph 11/08/2021 FINDINGS: Dual lead pacemaker is seen. Cardiomegaly is noted. The lungs are clear. No evidence of pleural effus ion or pneumothorax. IMPRESSION: No acute chest disease. ACT 112: Negative or not required by law. Electronically signed by: Sherman Waldrop M.D. 09/17/2022 1:02 PM
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
--- NOTE | 2022-09-17 13:17 | CT Scan Report ---
CT cervical spine wo con CLINICAL HISTORY: neck pain TECHNIQUE: Multidetector row helical CT of the cervical spine was performed without administration of intravenous contrast. Coronal and sagittal reformations were obtained. Automated dose lowering techn iques and/or adjustment according to patient size were utilized for this exam. Comparison: Comparison is made to CT cervical spine 09/01/2019 FINDINGS: No acute fractures or subluxations are identified. Degenerative changes are seen in the visualized sp ine. The alignment is normal. Soft tissues are unremarkable. IMPRESSION: Degenerative changes without evidence of acute bony injury. ACT 112: Negative or not required by law. Electronically signed by: Sherman Waldrop M.D. 09/17/2022 1:15 PM
--- NOTE | 2022-09-17 13:22 | CT Scan Report ---
CT head/brain wo con CLINICAL HISTORY: blue Technique: Contiguous axial CT images of the head were acquired from the base of the skull to the myra sandi without intravenous contrast administration. Images were viewed in brain, subdural and bone [facility] . Automated dose lowering techniques and/or adjustment according to patient size were utilized for this exam. Comparison: Comparison is made to CT head 09/01/2019 Findings: Areas of decreased attenuation are present in the periventricular and subcortical white matter bilate rally consistent with small vessel ischemic disease. Generalized cerebral atrophy with commensurate e nlargement of the ventricles, sulci, and cisterns is also present. There is no acute intracranial hem orrhage or evidence of acute territorial infarction. No shift of the midline structures, mass effect, or extra-axial abnormalities are shown. Atherosclerotic calcifications are present in the intracran ial segments of the internal carotid arteries. Right maxillary sinus disease is seen. The orbits appear normal. There are no acute fractures of the calvaria or scalp swelling. Impression: No acute intracranial hemorrhage, no evidence of acute territorial infarction or other acute intracra nial disease process. ACT 112: Negative or not required by law. Electronically signed by: Sherman Waldrop M.D. 09/17/2022 1:21 PM
[2022-09-17 13:35] LABS: Basophils # (auto) 0.04 K/uL (0-0.2); Basophils % (auto) 0.4 %; Eosinophils # (auto) 0.17 K/uL (0-0.50); Eosinophils % (auto) 1.9 %; Hematocrit (blood only) 38.5 % (42.0-52.0); Hemoglobin 13.2 g/dl (14.0-18.0); Immature Granulocytes # (auto) 0.04 K/uL (0.01-0.20); Immature Granulocytes % (auto) 0.4 %; Lymphocytes # (auto) 0.79 K/uL (1.2-3.4); Lymphocytes % (auto) 8.8 %; Mean Corpuscular Hemoglobin 31.8 pg (25.0-34.0); Mean Corpuscular Hgb Conc 34.3 g/dL (32.0-36.0); Mean Corpuscular Volume 92.8 fL (80.0-100.0); Mean Platelet Volume 9.8 fL (9.4-12.4); Monocytes # (auto) 0.71 K/uL (0.11-0.59); Monocytes % (auto) 7.9 %; Neutrophils % (auto) 80.6 %; Platelet Count 142 K/uL (130-400); RDW Coefficient of Variation 13.6 % (11.5-14.5); RDW Standard Deviation 46.4 fL (36.4-46.3); Red Blood Count 4.15 M/uL (4.70-6.10); White Blood Count 8.95 K/ul (4.8-10.8)
[2022-09-17 13:45] LABS: Troponin I High Sensitivity 12.2 pg/ml (0-20)
[2022-09-17 13:47] LABS: Albumin Globulin Ratio 1.3 (0.9-2); BUN Creatinine Ratio 25.2 (10-20); Bilirubin,Total 0.9 mg/dl (0.2-1.0); Calcium 9.1 mg/dl (8.5-10.1); Creatinine Clr Calc Pharmacy 73.5 ml/min; Est GFR (African American) 72.8 ml/min; Est GFR (Non-African American) 62.8 ml/min; Globulin 3.1 gm/dl (2.5-4.0); Potassium 4.3 mmol/L (3.5-5.1); Total Protein 7.1 gm/dl (6.0-8.3)
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
--- NOTE | 2022-09-17 14:49 | Electrocardiogram Report ---
Test Reason : Blood Pressure : / mmHG Vent. Rate : 076 BPM Atrial Rate : 076 BPM P-R Int : 320 ms QRS Dur : 170 ms QT Int : 436 ms P-R-T Axes : 000 003 167 degrees QTc Int : 490 ms Atrial-paced rhythm with prolonged AV conduction Left bundle branch block Abnormal ECG When compared with ECG of 08-NOV-2021 23:39, Electronic atrial pacemaker has replaced Electronic ventricular pacemaker Confirmed by Manuelito Bertrand ([id number]) on 09/17/2022 2:49:08 PM Referred By: REFERRED SELF Confirmed By:Manuelito Bertrand
[2022-09-17] MEDS ORDERED: ACETAMINOPHEN 500 MG TAB PO STA (14:53)
[2022-09-17] MEDS ORDERED: ONDANSETRON INJ 2 MG/ML 2 ML VIAL IV PRN (16:18)
[2022-09-17] MEDS ORDERED: PHARMACIST DISCHARGE MED REC CONSULT PRN (18:20)
--- NOTE | 2022-09-17 20:05 | XRay Report ---
XR shoulder LT min 2V routine CLINICAL HISTORY: ?left axillary nerve injury ?underlying bone # COMPARISON: None FINDINGS: Dual lead left subclavian pacer is partially imaged. Alignment of the left shoulder is juhi tomic. There is no acute fracture. There is no osseous lesion. Moderate AC joint osteoarthritis is pr esent. IMPRESSION: 1. No acute fracture or dislocation within the left shoulder. 2. Moderate osteoarthritis of the left acromioclavicular joint. ACT 112: Negative or not required by law. Electronically signed by: Benton Moreno M.D. 09/17/2022 8:03 PM
[2022-09-17] MEDS: VALSARTAN/SACUBITRIL 51/49 MG TAB PO SCH (20:26)
[2022-09-17] MEDS: METOPROLOL SUCC 25MG EXT REL TAB PO SCH (20:27)
[2022-09-17] MEDS: TICAGRELOR 90 MG TAB PO SCH (20:27)
[2022-09-17] MEDS ORDERED: SERTRALINE HCL 50 MG TABLET PO SCH (21:00)
[2022-09-17] MEDS ORDERED: SERTRALINE HCL 100 MG TABLET PO SCH (21:00)
[2022-09-17] MEDS ORDERED: TAMSULOSIN HCL 0.4 MG CAP PO SCH (21:00)
[2022-09-17] MEDS: ACETAMINOPHEN 325 MG TAB PO PRN (23:02)
[2022-09-17] MEDS ORDERED: DICLOFENAC SOD 1% GEL 100 GM TUBE EXT PRN (23:38)
[2022-09-18] MEDS: ACETAMINOPHEN 325 MG TAB PO PRN (06:02)
[2022-09-18 06:36] LABS: Basophils # (auto) 0.02 K/uL (0-0.2); Basophils % (auto) 0.2 %; Eosinophils # (auto) 0.09 K/uL (0-0.50); Hematocrit (blood only) 35.9 % (42.0-52.0); Hemoglobin 12.8 g/dl (14.0-18.0); Immature Granulocytes # (auto) 0.03 K/uL (0.01-0.20); Immature Granulocytes % (auto) 0.3 %; Lymphocytes # (auto) 0.75 K/uL (1.2-3.4); Lymphocytes % (auto) 8.7 %; Mean Corpuscular Hemoglobin 32.2 pg (25.0-34.0); Mean Corpuscular Hgb Conc 35.7 g/dL (32.0-36.0); Mean Corpuscular Volume 90.4 fL (80.0-100.0); Mean Platelet Volume 9.9 fL (9.4-12.4); Monocytes # (auto) 0.78 K/uL (0.11-0.59); Monocytes % (auto) 9.1 %; Neutrophils # (auto) 6.91 K/uL (1.40-6.50); Neutrophils % (auto) 80.7 %; Platelet Count 137 K/uL (130-400); RDW Coefficient of Variation 13.3 % (11.5-14.5); RDW Standard Deviation 44.4 fL (36.4-46.3); Red Blood Count 3.97 M/uL (4.70-6.10); White Blood Count 8.58 K/ul (4.8-10.8)
[2022-09-18 06:56] LABS: BUN Creatinine Ratio 22.8 (10-20); Calcium 8.8 mg/dl (8.5-10.1); Chol HDL Ratio 2.6 (0-5); Est GFR (African American) 85.1 ml/min; Est GFR (Non-African American) 73.4 ml/min
[2022-09-18] MEDS: TICAGRELOR 90 MG TAB PO SCH (07:02)
[2022-09-18] MEDS: VALSARTAN/SACUBITRIL 51/49 MG TAB PO SCH (07:02)
[2022-09-18] MEDS: METOPROLOL SUCC 25MG EXT REL TAB PO SCH (07:02)
[2022-09-18 08:12] LABS: Estimated Average Glucose 105 mg/dl; Hemoglobin A1C 5.3 % (4.5-5.6)
[2022-09-18] MEDS ORDERED: FINASTERIDE 5 MG TAB PO SCH (09:00)
[2022-09-18] MEDS ORDERED: ATORVASTATIN 40 MG TAB PO SCH (09:00)
[2022-09-18] MEDS ORDERED: ASPIRIN 81 MG ECTAB PO SCH (09:00)
[2022-09-18] MEDS ORDERED: ISOSORBIDE MONO EXTENDED REL 30 MG TABCR PO SCH (09:00)
--- NOTE | 2022-09-18 12:21 | Hospitalist Progress Note ---
Date of Service September 18, 2022 Assessment & Plan (1) Left-sided weakness: Plan: Patient still unable to actively abduct his left shoulder, but able to do it passively Denies tingling sensation shoulder x ray did not suggest dislocation or fracture, only signs of osteo aarthritis Occurred after initial fall. Possibly concerning for TIA. Brain MRI, neck mri pending (2) HTN (hypertension): Plan: Continue home meds, metoprolol succinate, Entresto (3) Aortic stenosis: (4) CAD in [place] artery: Plan: Continue aspirin, Brillinta, metoprolol, ISMN, Entresto, atorvastatin Plan VTE Prophylaxis - dual antiplatelets, will defer further anticoagulation on admission Diet - heart healthy Disposition - observation status to med/tele Admission and Anticipated Discharge Date Admission Date: September 17, 2022 Subjective patient seen and examined, still unable to actively elevate his left shoulder Review of Systems Review of Systems: All systems reviewed are negative, apart from the ones contained in the history. Physical Exam Physical Exam: The patient is awake, alert and oriented 3, well developed and well nourished, normocephalic and atraumatic, lying in bed and in no acute distress. HEENT--PERRL, EOMI, mucous membranes and oropharynx mildly dry Neck--supple. No JVD. No bruits. Thyroid normal, trachea midline, no adenopathy. Heart--normal S1 and S2. No murmurs, rubs or gallops. Lungs--clear bilaterally, no respiratory distress, no accessory muscle use. Abdomen--normal bowel sounds and soft. Mild epigastric and left sided abdominal pain Extremities--no cyanosis or clubbing. No edema. Dermatologic--normal skin turgor, normal color, no abnormal lymph nodes, no rash. Neurologic--cranial nerves II through XII grossly intact. unable to actively abduct left shoulder Rheumatologic--normal range of motion. Psychiatric--normal affect. Results & Data Results & Data ([facility]) Vital Signs (Past 12 Hours) Vital Signs Temp Pulse Pulse Resp BP Pulse Ox O2 Del Method 09/18/22 08:00 97.9 F 75 18 123/79 96 Room Air 09/18/22 06:56 79 09/18/22 04:13 98.1 F 74 18 117/75 95 Room Air PG Care Time/CCT Total # of Minutes Spent Total Time Spent with Patient: Total time spent is greater than 50% in coordination of care (as documented) at patient's floor/unit and/or counseling patient: Coding Level of Care Code 35456 SUB INP/OBS CARE 2/35MIN Diagnoses Left-sided weakness R53.1 HTN (hypertension) I10 Aortic stenosis I35.0 CAD in [place] artery I25.10 Time Spent (min) 35
--- NOTE | 2022-09-18 12:47 | Magnetic Resonance Report ---
MR brain wo con HISTORY: 71 years-old Male left sided weakness acute strokelike symptoms COMPARISON: Head CT 09/17/2022 TECHNIQUE: Multiplanar multisequence MRI of the brain was obtained without the use of IV contrast. FINDINGS: No restricted diffusion. Midline structures appear unremarkable. Partially empty sella. Degenerative changes of the imaged cervical spine. No acute intracranial hemorrhage, midline shift, abnormal extra axial collection, hydrocephalus or in tracranial mass. No pathologic blooming artifact. Mild involutional changes with mild to moderate T2/ FLAIR hyperintense foci throughout the white matter. Cerebral venous sinuses and major arterial flow voids appear patent. Skull, orbits and soft tissues are unremarkable. Prior bilateral lens repair. Mi ld polypoid mucosal thickening of the right ethmoid and maxillary sinuses with small right maxillary air-fluid level. IMPRESSION: 1. No acute intracranial abnormality. No acute or subacute infarct. 2. Involutional changes with chronic microvascular ischemic disease. 3. Mild paranasal sinus disease. ACT 112: Negative or not required by law. The above report was generated using voice recognition software. It may contain grammatical, syntax o r spelling errors. Electronically signed by: Christiano Kraft M.D. 09/18/2022 12:44 PM
--- NOTE | 2022-09-18 13:11 | Magnetic Resonance Report ---
CLINICAL HISTORY: left upper extremity weakness TECHNIQUE: MRI of the cervical spine is performed utilizing various T1 and T2 sequences in the axial and sagittal planes. IV contrast was not administered for this examination. Comparison: Comparison is made to cervical spine 09/09/2022 FINDINGS: The alignment is anatomical. C2-C3: Mild posterior osteophyte formation results in mild bilateral neuroforaminal stenosis without significant canal stenosis. C3-C4: Posterior osteophyte and degenerative changes result in moderate right neuroforaminal stenosis and moderate canal stenosis, AP diameter 7 mm. C4-C5: Posterior osteophyte formation is seen with mild canal stenosis and severe right and moderate left neural foraminal stenosis. C5-C6: Unremarkable. C6-C7: Unremarkable. C7-T1: Unremarkable. The spinal ligaments are intact, without evidence of disruption or abnormal signal intensity. The spi nal cord is normal in signal intensity and there is no evidence of cord edema. There is no evidence o f an extradural, intradural, extramedullary or intramedullary lesion. Visualized soft tissues are nor mal. Visualized brain parenchyma is normal. IMPRESSION: Degenerative changes with up to moderate canal stenosis, AP diameter 7 mm, and severe right and moder ate left neural foraminal stenosis. ACT 112: Negative or not required by law. Electronically signed by: Sherman Waldrop M.D. 09/18/2022 1:09 PM
--- NOTE | 2022-09-18 13:48 | XCELERA ---
[id number]
[2022-09-18] MEDS ORDERED: KETOROLAC TROMETHAMINE 15 MG/ML VIAL IV ONE (14:50)
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
--- NOTE | 2022-09-18 17:53 | Discharge Summary ---
Date of Service September 18, 2022 Admission HPI Per Admitting Provider Robert Vanegas is a 71 year old male who presents to the ER following a fall. He was at a friends house and missed a step whil coming down stairs. Hit his head on the sideboard next to the stairs. Fall @ 10:30am. He initially felt ok afterwards although a little foggy in his head. When he went home however he felt a left sided weakness with left sided facial droop. No change in vision, speech or hearing. His left sided weakness has since improved. On trying to ambulate in the ER he reports still feeling unsteady on his feet although he puts this down to his neck muscles feeling sore. No change in sensation. Principal Diagnosis possible rotator cuff injury Discharge Exam The patient is awake, alert and oriented 3, well developed and well nourished, normocephalic and atraumatic, lying in bed and in no acute distress. HEENT--PERRL, EOMI, mucous membranes and oropharynx mildly dry Neck--supple. No JVD. No bruits. Thyroid normal, trachea midline, no adenopathy. Heart--normal S1 and S2. No murmurs, rubs or gallops. Lungs--clear bilaterally, no respiratory distress, no accessory muscle use. Abdomen--normal bowel sounds and soft. Mild epigastric and left sided abdominal pain Extremities--no cyanosis or clubbing. No edema. Dermatologic--normal skin turgor, normal color, no abnormal lymph nodes, no r trin[place]. Neurologic--cranial nerves II through XII grossly intact. unable to actively abduct left shoulder Rheumatologic--normal range of motion. Psychiatric--normal affect. Discharge Data Allergies Allergy/AdvReac Type Severity Reaction Status Date / Time No Known Drug Allergies Allergy Unknown Verified 09/17/22 15:25 Consultations 09/17/22 13:55 ED Decision to Admit Stat 09/18/22 02:56 Consult Orthopedic Surgery Routine Ordered Studies 09/17/22 12:43 CT cervical spine wo con Stat CT head/brain wo con Stat 09/18/22 00:00 MR cervical spine wo con Urgent 09/18/22 15:13 MR brain wo con Routine Hospital Course (1) Left-sided weakness: Patient still unable to actively abduct his left shoulder, but able to do it passively Denies tingling sensation shoulder x ray did not suggest dislocation or fracture, only signs of osteoaarthritis Occurred after initial fall. Possibly concerning for TIA. Brain MRI, neck mri did not show any acute pathology Evaluated by Ortho, who thinks patient may have had a rotator cuff damage following his fall Patient declined shoulder MRI and opted for outpatient PT instead He asked to be discharged to follow up with PT (2) HTN (hypertension): Continue home meds, metoprolol succinate, Entresto (3) Aortic stenosis: (4) CAD in [place] artery: Continue aspirin, Brillinta, metoprolol, ISMN, Entresto, atorvastatin Plan VTE Prophylaxis - dual antiplatelets, will defer further anticoagulation on admission Diet - heart healthy Disposition - observation status to med/tele Total Time Total Time Spent Total Time Spent (In Minutes): 35 Discharge Plan Discharge Items Patient Disposition: Home - Self-Care Reason For Visit: FALL,PRESYNCOPE Discharge Diagnosis: Fall, possible rotator cuff injury Activity: Per Instructions section Non-emergency contact: Primary Care Provider Call non-emergency contact if: you have any medication questions and your symptoms worsen Follow-up/Referrals: Frederic Pena DO [Primary Care Provider] - Diet: Regular Addtl Attending Provider Instructions: Please schedule outpatient physical therapy visits for your shoulder weakness Pending Studies at Discharge: No Stand-Alone Forms: My [employer], Smoking Cessation Medications and DC Order Prescriptions: Continued atorvastatin 40 mg tablet 40 mg PO QAM Qty: 90 3RF Brilinta 90 mg tablet 90 mg PO BID Qty: 180 3RF isosorbide mononitrate 30 mg tablet extended release 24 hr 90 mg PO QAM Qty: 270 3RF Entresto 49-51 mg tablet 1 tab PO BID Qty: 180 3RF sildenafil 100 mg tablet 100 mg PO DAILY PRN (Reason: sexual activity) Qty: 18 5RF Rx Instructions: administer 30 minutes to 4 hours before activity> Stop Isordil 48 hours before using. finasteride 5 mg tablet 5 mg PO DAILY Qty: 90 3RF tamsulosin 0.4 mg capsule 0.4 mg PO HS Qty: 90 3RF metoprolol succinate 25 mg tablet extended release 24 hr 25 mg PO BID Qty: 180 3RF nitroglycerin 0.4 mg tablet, sublingual 0.4 mg SL ONCE PRN (Reason: Chest Pain) Qty: 25 5RF Rx Instructions: Can take before exercising also. aspirin 81 mg Tablet,Delayed Release (Dr/Ec) 81 mg PO DAILY sertraline 100 mg tablet 100 mg PO QPM Rx Instructions: Take with 50mg tablet for 150mg total dose. sertraline 50 mg tablet 50 mg PO QPM Rx Instructions: Take with 100mg tablet for 150mg total dose. Discharge Orders: Discharge Order (Routine); Ordered 09/18/22 Ordered By: Leila Gooden Admission Data Admit Date/Time: 09/17/22 14:41 Attending Provider: Leila Gooden Admit Provider: John Dawkins Primary Care Provider: Frederic Pena Other Providers: John Dawkins ; Hiram Garcia Coding Level of Care Code 44928 INP/OBS DISCH >30 MIN Diagnoses Left-sided weakness R53.1 HTN (hypertension) I10 Aortic stenosis I35.0 CAD in [place] artery I25.10 Time Spent (min) 35
== END 2022-09-18 18:24 | disposition home or self-care (01) ==
LOC: ED 12:06 → 2W 12:06 → SUATTDRO 14:41 → 2W 16:35

== ENCOUNTER 2024-07-29 07:01 | Observation (INO) ==
--- NOTE | 2024-07-29 08:12 | History & Physical Report ---
Date of Service July 29, 2024 Assessment & Plan (1) Cardiomyopathy: (2) Pacemaker: Plan 1. Plan BiV ICD upgrade. History of Present Illness Chief Complaint: dyspnea Primary Care Provider: Frederic Pena DO Patient with PAF and an ischemic CM. History of CHB and 100% pacing lately. Here for ICD upgrade and addition of CS lead. Allergies Allergy/AdvReac Type Severity Reaction Status Date / Time No Known Drug Allergies Allergy Unknown Verified 07/29/24 07:41 Home Medications Medication Instructions Recorded Confirmed Type aspirin 81 mg tablet,delayed 81 mg PO QAM 09/17/22 07/29/24 History release atorvastatin 40 mg tablet 40 mg PO QAM #90 tabs 08/07/23 07/29/24 Rx potassium chloride 20 mEq 20 meq PO DAILY PRN Edema #90 tabs 08/07/23 07/29/24 Rx tablet,extended release sertraline 100 mg tablet 100 mg PO QPM #90 tabs 08/07/23 07/29/24 Rx sacubitril 24 mg-valsartan 26 mg 1 tab PO BID #180 tabs 09/11/23 07/29/24 Rx tablet (Entresto) empagliflozin 10 mg tablet 10 mg PO DAILY #90 tabs 09/12/23 07/29/24 Rx (Jardiance) finasteride 5 mg tablet 5 mg PO DAILY #90 tabs 09/30/23 07/29/24 Rx sildenafil 100 mg tablet 100 mg PO DAILY PRN sexual 10/09/23 07/29/24 Rx activity #18 tabs nitroglycerin 0.4 mg sublingual 0.4 mg sublingual ONCE PRN Chest 12/16/23 07/29/24 Rx tablet Pain #25 tabs sertraline 50 mg tablet See Rx Instructions .Route 02/09/24 07/29/24 Rx .COMPLEX #90 tabs tamsulosin 0.4 mg capsule (Flomax) 0.4 mg PO HS #90 caps 03/04/24 07/29/24 Rx pantoprazole 40 mg tablet,delayed 40 mg PO DAILY #30 tabs 05/21/24 07/29/24 Rx release apixaban 5 mg tablet (Eliquis) 5 mg PO BID #60 tabs 06/07/24 07/29/24 Rx ferrous sulfate 325 mg (65 mg 325 mg PO Q OTHER DAY #30 tabs 07/20/24 07/29/24 Rx iron) tablet furosemide 40 mg tablet (Lasix) 40 mg PO DAILY PRN Edema #90 tabs 07/26/24 07/29/24 Rx metoprolol succinate 25 mg 25 mg PO BID #180 tabs 07/26/24 07/29/24 Rx tablet,extended release 24 hr Past Med/Surg History Problem List (Updated 04/13/24 @ 10:04 by Frederic Pena, DO) Cardiomyopathy HTN (hypertension) (Chronic) CAD in [place] artery (Chronic) Pacemaker Medtronic > placed for heart block > placed October 2021 > follows with Dr. Ellison > last checked approx 8 mos ago HFrEF (heart failure with reduced ejection fraction) Paroxysmal A-fib Lymphopenia Mild lymphopenia since 2021. PCP monitoring with q6m CBC Parageusia Esophageal dysphagia Erectile dysfunction Abnormal TSH Orthostatic hypotension Paralysis of right upper extremity Bilateral arm weakness H/O cervical spinal arthrodesis (~09/2022) hx of central cord syndrome s/p fall with c2-6 laminectomy and arthrodesis performed at [facility] [place], see NSG Notes > ROM limited all directions Obesity Benign prostatic hyperplasia with urinary obstruction Elevated PSA Followed by Urology Bipolar I disorder, single manic episode (Chronic) Depression Medical History History of COVID-19 PAF (paroxysmal atrial fibrillation) Paralysis of right upper extremity SVT (supraventricular tachycardia) Third degree heart block Colon cancer screening On anticoagulant therapy Bradycardia Dysphagia Heart failure with reduced ejection fraction Non-ST elevation [place] (NSTEMI) (04/2019) Obstructive sleep apnea Former smoker Diverticulosis Angina, class II Surgical History History of open reduction and internal fixation (ORIF) procedure History of wisdom tooth extraction History of bilateral cataract extraction History of heart artery stent (~1997) H/O colonoscopy History of PTCA (04/2019) S/P tonsillectomy S/P cardiac catheterization History of surgery on arm Family History Mother Hypertension Aunt Breast cancer Brother Myocardial infarction Other Cardiac disorder No family history of adverse response to anesthesia Denies family history of Ovarian cancer Prostate cancer Colorectal cancer Social History Smoking Status: Former smoker Tobacco Type: Cigarettes Age Started Using Tobacco: 17; Age Quit Using Tobacco: 67; packs per day: 1; Second Hand Exposure: No; Do You Dip or Chew Tobacco: No; Hx Alcohol Use: No Hx Substance Use: No Preferred Language: Ethiopian Communication Ability: Effective Visual Impairment: Limited Hearing Ability: Normal Orchid Superintendent Required: No Beliefs That Will Affect Care: None marital status: Current Living Situation: Spouse Current Living Situation Comment: Daughter current occupational status: retired 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 answered all questions Normal respiratory effort Regular rhythm. Normal rate Results & Data Results & Data Vital Signs (Past 12 Hours) Vital Signs Pulse Resp BP Pulse Ox O2 Del Method 07/29/24 07:20 82 14 90/59 L 95 Room Air
--- NOTE | 2024-07-29 08:13 | Pre Anesthesia Assessment ---
Date of Service July 29, 2024 Pre Sedation Assessment Vital Signs Pulse Resp BP Pulse Ox O2 Del Method 07/29/24 07:20 82 14 90/59 L 95 Room Air Cardiovascular + regular rate and + regular rhythm Respiratory + respiratory effort normal Pre-Sedation Airway Assessment Smoking Status: Former smoker Hx Sleep Apnea: No Hx Difficult Intubation: No Short, Thick Neck: No Thyromental Distance: > or= 3.5 Finger Breadths Oral Cavity: + WNL Mallampati Class: III ASA: ASA3 NPO Status Date of Last Intake of Fluids: 07/28/24 Time of Last Intake of Fluids: 22:00 Date of Last Intake of Solid Food: 07/28/24 Time of Last Intake of Solid Foods: 22:00 Procedure Planning Contraindications for Sedation: none Current Medications Reviewed: Yes Notes The planned sedation has been discussed with the patient. Informed Consent was obtained. I have identified the patient, determined the appropriateness of sedation and have assessed the patient immediately prior to the procedure. All medicine(s) and interventions are by my order.
[2024-07-29] MEDS: LIDOCAINE 1% LOCAL 20 ML VIAL ONE ×3 (08:53→10:13)
[2024-07-29] MEDS: WATER, STERILE FOR INJ 10 ML VIAL ONE (08:53)
[2024-07-29] MEDS: BUPIVACAINE 0.25% PF 30 ML VIAL ONE (08:53)
[2024-07-29] MEDS: VANCOMYCIN HCL 1000MG/20ML VIAL ONE (08:53)
[2024-07-29] MEDS: ceFAZolin 330 MG/ML 1 GM VIAL ONE (08:54)
[2024-07-29] MEDS: MIDAZOLAM HCL 5 MG/ML 1 ML VIAL ONE (10:13)
[2024-07-29] MEDS: fentaNYL citrate PF 100 MCG/2 ML VIAL ONE (10:13)
[2024-07-29] MEDS ORDERED: oxyCODONE HCL IR 5 MG TAB (IMMEDIATE RELEASE) PO PRN (10:23)
--- NOTE | 2024-07-29 10:23 | Post Anesthesia Assessment ---
Date of Service July 29, 2024 Post Sedation Assessment Vital Signs Pulse Resp BP Pulse Ox O2 Del Method 07/29/24 07:20 82 14 90/59 L 95 Room Air Recovery Score Activity: Moves 4 extremities Respiration: Deep Breath/Cough Circulation: +/-20% PreAnes Value Consciousness: Arouseable (by name) Oxygen Saturation: O2 needed for >90% Discharge Sedation Level of Care: Fast Track Phase II Post Sedation Plan On clinical assessment, the patient appears to have tolerated the sedation without complications. Patient is recovering as anticipated. Patient will continue to be monitored by nursing and may be discharged when sedation discharge criteria are met per below protocol. Upon Completions of procedure up to 15 minutes continue every 5 minute vital signs and the P.A.R. score; then discharge to a Phase I or Fast Track to Phase II per the following guidelines: * Discharge Patient to appropriate Phase II area if PAR is 8 or greater or return to pre- procedure baseline. The post - procedure orders will be as directed. * If PAR score is less than 8 or not return to pre-procedure baseline then patient will follow Phase I monitoring till PAR is reached for Phase II. The Phase I may be done in procedure room or may call to secure a Phase I area. * If naloxone or flumazenil are used for reversal, hold in Phase I for continued monitoring from when last reversal dose was given for a minimum of 60 minutes or longer pending the nurse and/or physician discretion of patient condition before discharge to Phase II. Please call the Sedation Physician to re-evaluate and complete post-note for discharge to Phase II area. Do NOT discharge from procedure sedation or Phase 1 until post- sedation evaluation note is complete by procedure /sedation MD Sedation Discharge Instructions to be given to the patient at discharge to home.
--- NOTE | 2024-07-29 10:23 | Electrophysiology Report ---
Date of Service July 29, 2024 Electrophysiology Procedure Electrophysiology Procedure Report Procedure performed: Upgrade of dual-chamber pacemaker to biventricular ICD Staff weir fisher: Robert Mitchell MD Indication: The patient is a 73-year-old gentleman with a history of high degree AV block who previously undergone implantation of a dual-chamber permanent pacemaker with a left bundle pacing lead. However, since implant he has not had a significant decline in overall LV function and now has an ejection fraction of 20 to 25% despite guideline directed medical therapy. He has not had revascularization in the past 90 days nor suffered myocardial infarction in the past 40 days. He has [place] Heart Association class II-III symptoms and anticipated longevity greater than 1 year. Based on this information is felt to be a good candidate for an ICD as primary prevention and sudden cardiac . An upgrade to a biventricular device was suggested by the presence of 100% ventricular pacing and decline in LV function. Shared decision-making was employed prior to deciding on an implant. Procedure detail: The patient was informed Hang benefits and alternatives to the intended procedure. He understood and wished to proceed. He was taken to the electrophysiology suite in a fasting state. Preoperative antibiotic was administered. The patient was monitored electrocardiography throughout today's procedure and sedation was administered per protocol. The area over the previously implanted device was prepped and draped in usual sterile fashion. A left subclavian venogram was then performed in order to identify the subclavian vein and patency suitable for the addition of 2 leads. Once this was accomplished the area over the previously implanted device was anesthetized using subcutaneous ministration of a lidocaine and Marcaine solution. An incision was made at the site and carried down the previously implanted device using a PlasmaBlade. PlasmaBlade was also employed for dissection as well as for hemostasis. The previously implanted device and leads were then freed from her surrounding scar tissue. Using a micropuncture kit the left axillary vein was subsequently accessed twice using modified Seldinger technique. Guidewires were advanced into the superior vena cava under fluoroscopic guidance. A sheath was placed over guidewire and used to facilitate passage of an ICD lead to the right ventricular apex under fluoroscopic guidance. Adequate sensing and threshold parameters were obtained prior to active fixation of this lead to the endocardial surface. The proximal portion lead was then sutured to prepectoralis fat using nonabsorbable suture. A sheath was placed over the remaining guidewire and used to facilitate passage of a guiding catheter for engagement of the coronary sinus. The patient's coronary sinus anatomy was such that it faced anteriorly and needed to be approached in a posterior fashion for cannulation. Multiple attempts were made to cannulate the coronary sinus including the use of an inner guide and a guide liner catheter. While the coronary sinus could easily be wired using a Glidewire, regardless of the amount of support no catheter could be advanced into the coronary sinus. At this point additional attempts were abandoned. The catheter and sheath were removed and the resulting venotomy was sutured closed with a pursestring silk suture. The device pocket was irrigated with an antibiotic solution. The leads were detached from the old device and attached to a new device. The device and leads were then placed back in the pocket and the pocket was closed in 3 layers absorbable suture. Steri-Strips and sterile dressing were applied. The device was tested noninvasively prior to inclusion the procedure. The patient tolerated the procedure well. There were no immediate complications. Equipment used: Explanted pulse generator: Rat Poisoner [employer]. Model number W1DR01 serial number [id number] New pulse generator: Rat Poisoner [employer] model number DTPA 2 D4 serial number [id number] Retained right atrial lead: Rat Poisoner Medtronic. Model #5076 serial number [id number] Retained left bundle pacing lead: Rat Poisoner Medtronic. Model #3830 serial [id number] New RV apical ICD lead: Rat Poisoner [employer]. Model number 6935M serial number [id number] Measured data: Right atrium: P waves measured 1.3 mV. Pacing threshold 0.75 V at 0.4 ms with a pacing impedance of 418 ohms RV apical lead: R waves measured 13.1 mV. Pacing threshold was 0.5 V at 0.4 ms with a pacing appearance of 475 ohms Left bundle pacing lead: R waves measured 10 mV. Pacing threshold was 0.5 V at 0.4 ms with a pacing impedance of 494 ohms Impression: Successful upgrade of dual-chamber pacemaker to biventricular ICD Unable to successfully advance equipment into the coronary sinus due to unusual anatomy Retained left bundle pacing lead in the LV position MNPG Electrophysiology codes ICD Procedure 1: ICD: 98168 Multi ICD implant, chronic leads Procedure 2: ICD: 12514 Insert/replace leads, single
[2024-07-29] MEDS ORDERED: ACETAMINOPHEN 500 MG TAB PO PRN (11:11)
--- NOTE | 2024-07-29 16:43 | Electrocardiogram Report ---
Test Reason : Blood Pressure : */* mmHG Vent. Rate : 75 BPM Atrial Rate : 75 BPM P-R Int : 128 ms QRS Dur : 180 ms QT Int : 508 ms P-R-T Axes : * -65 109 degrees QTcB Int : 567 ms AV dual-paced rhythm Abnormal ECG When compared with ECG of 08-Dec-2023 11:06, Vent. rate has decreased by 6 bpm Confirmed by Zeke Ellsion ([id number]) on 07/29/2024 4:42:57 PM Referred By: Robert Mitchell Confirmed By: Zeke Ellison
[2024-07-29] MEDS: ceFAZolin 1000MG 1,000 MG/7.5 ML SYR IV ONE (17:52)
[2024-07-29] MEDS: METOPROLOL SUCC 25MG EXT REL TAB PO SCH (20:08)
[2024-07-29] MEDS: TAMSULOSIN HCL 0.4 MG CAP PO SCH (20:16)
[2024-07-29] MEDS: SERTRALINE HCL 100 MG TABLET PO SCH (20:16)
[2024-07-29] MEDS: SERTRALINE HCL 50 MG TABLET PO SCH (20:16)
[2024-07-29] MEDS: VALSARTAN/SACUBITRIL 26/24MG TAB PO SCH (20:16)
[2024-07-30 08:18] VITALS: RESP 18
--- NOTE | 2024-07-30 09:18 | XRay Report ---
XR chest 2V PA/lateral CLINICAL HISTORY: EXACT TIME ORDERED Evaluate for pneumothorax and l COMPARISON STUDY: 10/12/2022 FINDINGS: There has been interval placement of left pacemaker/AICD. There is no pneumothorax. There i s mild cardiomegaly with mild pulmonary vascular congestion. There are small bilateral pleural effusi ons and associated lung base consolidation, left greater than right. IMPRESSION: 1. No pneumothorax. 2. CHF with bilateral pleural effusions and associated lung base consolidation. ACT 112: Negative or not required by law. Electronically signed by: Guillaume Smith M.D. 07/30/2024 9:17 AM
[2024-07-30] MEDS: PANTOprazole 40 MG TAB PO SCH (09:24)
[2024-07-30] MEDS: ASPIRIN 81 MG ECTAB PO SCH (09:24)
[2024-07-30] MEDS: ATORVASTATIN 40 MG TAB PO SCH (09:24)
[2024-07-30] MEDS: FUROSEMIDE 40 MG TAB PO SCH (09:24)
[2024-07-30] MEDS: EMPAGLIFLOZIN 10 MG TAB PO SCH (09:25)
--- NOTE | 2024-07-30 09:32 | Discharge Summary ---
Date of Service July 30, 2024 Admission HPI Per Admitting Provider Patient with PAF and an ischemic CM. History of CHB and 100% pacing lately. Here for ICD upgrade and addition of CS lead. Principal Diagnosis Cardiomyopathy Discharge Exam On the day of discharge the patient was feeling well. Evaluation of the device implant site revealed the absence of a hematoma, erythema or drainage. No significant ecchymosis. Discharge Data Allergies Allergy/AdvReac Type Severity Reaction Status Date / Time No Known Drug Allergies Allergy Unknown Verified 07/29/24 07:41 Procedures Performed Operation Date: 07/29/24 08:00 Actual Procedures s Venogram, Unilateral - Robert Mitchell MD p Insertion ICD w/Existing Dual - Robert Mitchell MD Ordered Studies 07/29/24 06:45 EP Lab Images for PACS ONCE Hospital Course (1) Cardiomyopathy: Plan 1. Cardiomyopathy: On day of admission the patient underwent implantation of a biventricular ICD employing the previously implanted left bundle lead in a new RV apical ICD lead. The coronary sinus could not be engaged due to anatomy. With the day of discharge the device was functioning normally. X-ray demonstrated stable lead position without pneumothorax. Total Time Total Time Spent Total Time Spent (In Minutes): 20 Discharge Plan Discharge Items Patient Disposition: Home - Self-Care Reason For Visit: ICD UPGRADE Discharge Diagnosis: Cardiomyopathy Activity: Resume your previous activity Activity Comment: No lifting left arm above shoulder behind neck for 6 weeks Lifting: No more than 10 pounds Lifting Comment: No lifting more than 10 lb with the left arm. Bathing: Keep incision dry Bathing Comment: Keep wound dry and Steri-Strips intact until follow-up next w quechan Sexual Activity: When tolerated Exercise/Sports: Rest today Driving/Machine Use: Resume 1 day after discharge Non-emergency contact: Commercial Engineer Call non-emergency contact if: your symptoms worsen, you have a fever, your wound has increased redness, your wound has increased drainage and your wound pain has increased Follow-up/Referrals: Frederic Pena DO [Primary Care Provider] - Diet: Heart Healthy Addtl Attending Provider Instructions: Do not resume Eliquis until tomorrow morning, 07/31/2024 Pending Studies at Discharge: No Stand-Alone Forms: My [employer], Smoking Cessation Medications and DC Order Prescriptions: Continued atorvastatin 40 mg tablet 40 mg PO QAM Qty: 90 3RF potassium chloride 20 mEq tablet extended release 20 meq PO DAILY PRN (Reason: Edema) Qty: 90 3RF Rx Instructions: Take 1 tablet by mouth along with Lasix. Use daily until breathing is at baseline then use together as needed. sertraline 100 mg tablet 100 mg PO QPM Qty: 90 3RF Rx Instructions: Take with 50mg tablet for 150mg total dose. Entresto 24-26 mg tablet 1 tab PO BID Qty: 180 3RF Jardiance 10 mg tablet 10 mg PO DAILY Qty: 90 3RF sildenafil 100 mg tablet 100 mg PO DAILY PRN (Reason: sexual activity) Qty: 18 5RF Rx Instructions: administer 30 minutes to 4 hours before activity> Stop Isordil 48 hours before using. nitroglycerin 0.4 mg tablet, sublingual 0.4 mg SL ONCE PRN (Reason: Chest Pain) Qty: 25 5RF Rx Instructions: Can take before exercising also. sertraline 50 mg tablet See Rx Instructions .ROUTE .COMPLEX Qty: 90 1RF Dose Instruction: take 1 tablet by mouth once daily Rx Instructions: take 1 tablet by mouth once daily tamsulosin [Flomax] 0.4 mg capsule 0.4 mg PO HS Qty: 90 1RF pantoprazole 40 mg tablet,delayed release (DR/EC) 40 mg PO DAILY Qty: 30 5RF ferrous sulfate 325 mg (65 mg iron) tablet 325 mg PO Q OTHER DAY Qty: 30 0RF furosemide [Lasix] 40 mg tablet 40 mg PO DAILY PRN (Reason: Edema) Qty: 90 0RF Rx Instructions: Take 1 tablet by mouth along with potassium. Use together daily until breathing is at baseline then use together as needed. metoprolol succinate 25 mg tablet extended release 24 hr 25 mg PO BID Qty: 180 3RF finasteride 5 mg tablet 5 mg PO DAILY Qty: 90 3RF Eliquis 5 mg tablet 5 mg PO BID Qty: 60 2RF aspirin 81 mg Tablet,Delayed Release (Dr/Ec) 81 mg PO QAM Discharge Orders: Discharge Order (Routine); Ordered 07/30/24 Ordered By: Robert Mitchell Admission Data Admit Date/Time: 07/29/24 08:29 Attending Provider: Robert Mitchell Admit Provider: Robert Mitchell Primary Care Provider: Frederic Pena Other Interventions: Discharge Summary Assessment (RN) Last Done: 07/30/24 10:38 Coding Level of Care Code 94129 IN/OBS DISCH 30 MIN/LESS Diagnoses Cardiomyopathy I42.9
[2024-07-30] MEDS: FINASTERIDE 5 MG TAB PO SCH (10:33)
[2024-07-30 10:48] VITALS: BP 95/58; PULSE 75; TEMP 97.2; O2SAT 99
== END 2024-07-30 11:20 | disposition home or self-care (01) ==
LOC: EP 07:01 → 4W 07:01

== ENCOUNTER 2024-09-25 18:17 | Inpatient (IN) ==
--- NOTE | 2024-09-25 18:44 | Emergency Department Note ---
Impression & Plan Ambulatory dysfunction ADMIT ED Provider Note HPI: History obtained from patient. 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 Patient states that he has had the symptoms for about the past 3 months and they are getting worse. Patient states he is not able to get up and go to the bathroom any he has been having incontinence of urine and stool. Patient states that he has extreme difficulty getting up to his feet but when he is able to get up to his feet he does ambulate around the house. Patient presents with his who states that she is having difficulty taking care of him at home and they are interested in placement. On arrival here to the ED the patient is hypotensive at 89/68, he is hemodynamically stable otherwise and saturating well on room air. ROS: - Per HPI Differential Diagnosis: Sepsis, physical deconditioning acute on chronic, infected ulceration of the foot, acute kidney injury/acute dehydration, critical electrolyte abnormalities, amongst other potential pathologies. *Outpatient medications and allergy history reviewed. PE: General: Alert HEENT: Normocephalic, trachea midline Eyes: Extraocular eye movement is intact, no scleral erythema Pulmonary: Clear to auscultation bilaterally, no wheezing Cardio: Regular rate and rhythm GI: Abdomen is soft to palpation : No suprapubic tenderness MSK: Chronic deformity of right upper extremity, otherwise no evidence of trauma or malformation of the extremities, no edema Skin: No evidence of rash Neuro: Alert, no focal deficits Psychiatric: Cooperative INDEPENDENT INTERPRETATIONS: secured entrance monitor: (As interpreted by myself): - An order was placed for continuous cardiac monitoring - Patient was noted to be in paced rhythm with a rate of 80 EKG: (As interpreted by myself): Rate: 84 Rhythm: Paced rhythm Intervals: QRS 160 ms, QTc [address] changes: No ST elevation Time: 1824 Chest x-ray: (As interpreted by myself): Possible right lower lobe infiltrate versus atelectasis Medical Decision Making: IV was established and lab work obtained, patient was placed on monitoring analyst. Lab work shows no leukocytosis, hemoglobin is stable at 11.1, platelet count is normal, CMP does not show any evidence of any critical findings. Troponin is negative, EKG shows a paced rhythm. Chest x-ray shows questionable infiltrate in the right lower lobe, patient otherwise does not appear to be septic, he has no fever, denies a recent cough. Patient's states that she is having difficulty taking care of him at home, patient states that he believes he would benefit from inpatient rehab, I also think this would be a reasonable plan for him at this point. I did discuss the patient's presentation with the on-call hospitalist, Dr. Shah, will defer possible IV antibiotics for pneumonia to the inpatient service following our discussion. Patient was in agreement for admission for placement given his ambulatory issues at home and difficulty with activities of daily living. He was admitted in stable condition. Consultants/Discussions held with other healthcare providers: -Hospitalist, Dr. Shah Disposition discussion held by myself with: -Patient and patient's Diagnosis: 1. Ambulatory dysfunction, acute on chronic 2. Generalized weakness 3. Inability to accomplish activities of daily living independently Disposition: Admission Ricky Fitzpatrick DO Emergency Medicine Past Med/Surg History Problem List (Updated 09/25/24 @ 22:33 by Ricky Fitzpatrick DO) Ambulatory dysfunction (Acute) Acute kidney injury Pleural effusion Generalized weakness Pneumonia Wide-complex tachycardia Presence of biventricular AICD Cardiomyopathy HTN (hypertension) (Chronic) CAD in [place] (Chronic) Pacemaker Medtronic > placed for heart block > placed October 2021 > follows with Dr. Ellison > last checked approx 8 mos ago HFrEF (heart failure with reduced ejection fraction) Paroxysmal A-fib Lymphopenia Mild lymphopenia since 2021. PCP monitoring with q6m CBC Parageusia Esophageal dysphagia Erectile dysfunction Abnormal TSH Orthostatic hypotension Paralysis of right upper extremity Bilateral arm weakness H/O cervical spinal arthrodesis (~09/2022) hx of central cord syndrome s/p fall with c2-6 laminectomy and arthrodesis performed at [facility], see NSG Notes > ROM limited all directions Obesity Benign prostatic hyperplasia with urinary obstruction Elevated PSA Followed by Urology Bipolar I disorder, single manic episode (Chronic) Depression Medical History History of COVID-19 PAF (paroxysmal atrial fibrillation) Paralysis of right upper extremity SVT (supraventricular tachycardia) Third degree heart block Colon cancer screening On anticoagulant therapy Bradycardia Dysphagia Heart failure with reduced ejection fraction Non-ST elevation [place] (NSTEMI) (04/2019) Obstructive sleep apnea Former smoker Diverticulosis Angina, class II Surgical History History of open reduction and internal fixation (ORIF) procedure History of wisdom tooth extraction History of bilateral cataract extraction History of heart artery stent (~1997) H/O colonoscopy History of PTCA (04/2019) S/P tonsillectomy S/P cardiac catheterization History of surgery on arm Family History Mother Hypertension Aunt Breast cancer Brother Myocardial infarction Other Cardiac disorder No family history of adverse response to anesthesia Denies family history of Ovarian cancer Prostate cancer Colorectal cancer Social History Smoking Status: Former smoker Tobacco Type: Cigarettes Age Started Using Tobacco: 17; Age Quit Using Tobacco: 67; packs per day: 1; Second Hand Exposure: No; Do You Dip or Chew Tobacco: No; Hx Alcohol Use: No Hx Substance Use: No Preferred Language: Citizen Of [place] Communication Ability: Effective Visual Impairment: Limited Hearing Ability: Normal Readiness Paraprofessional Required: No Beliefs That Will Affect Care: None marital status: Current Living Situation: Spouse Current Living Situation Comment: Daughter current occupational status: retired 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 Feels Safe at Home: Yes Childhood Exposure to Second-Hand Smoke: No Diet: low salt caffeine: No Dental Care, Regularly: Yes Physical Activity Frequency: 3-4 Times per Week Seatbelt Use: always Sunscreen Use: Yes Do you think of yourself as: straight/heterosexual Assistive Devices: Glasses Allergies Allergies Allergy/AdvReac Type Severity Reaction Status Date / Time No Known Drug Allergies Allergy Unknown Verified 09/25/24 21:08 Home Meds Home Medications Medication Instructions Recorded Confirmed aspirin 81 mg tablet,delayed 81 mg PO QAM 09/17/22 09/25/24 release sertraline 50 mg tablet 50 mg PO DAILY 09/25/24 09/25/24 Previous Rx's Medication Instructions Recorded potassium chloride 20 mEq 20 meq PO DAILY PRN Edema #90 tabs 08/07/23 tablet,extended release finasteride 5 mg tablet 5 mg PO DAILY #90 tabs 09/30/23 sildenafil 100 mg tablet 100 mg PO DAILY PRN sexual 10/09/23 activity #18 tabs nitroglycerin 0.4 mg sublingual 0.4 mg sublingual ONCE PRN Chest 12/16/23 tablet Pain #25 tabs pantoprazole 40 mg tablet,delayed 40 mg PO DAILY #30 tabs 05/21/24 release ferrous sulfate 325 mg (65 mg 325 mg PO Q OTHER DAY #30 tabs 07/20/24 iron) tablet furosemide 40 mg tablet (Lasix) 40 mg PO DAILY PRN Edema #90 tabs 07/26/24 metoprolol succinate 25 mg 25 mg PO BID #180 tabs 07/26/24 tablet,extended release 24 hr apixaban 5 mg tablet (Eliquis) 5 mg PO BID #60 tabs 08/23/24 atorvastatin 40 mg tablet 40 mg PO QAM #90 tabs 08/23/24 empagliflozin 10 mg tablet 10 mg PO DAILY #90 tabs 08/23/24 (Jardiance) sacubitril 24 mg-valsartan 26 mg 1 tab PO BID #180 tabs 08/23/24 tablet (Entresto) sertraline 100 mg tablet 100 mg PO QPM #90 tabs 08/23/24 tamsulosin 0.4 mg capsule (Flomax) 0.4 mg PO HS #90 caps 08/23/24 Results & Data (ED) Vital Signs Vital Signs - 24 hr 09/25/24 18:22 09/25/24 18:25 09/25/24 18:30 Temperature 36.3 C L Temperature Source Oral Pulse Rate 85 74 74 Pulse Rate [Left Finger] Pulse Rhythm Respiratory Rate 16 21 Respiratory Effort / Characteristics Non-Labored Spontaneous Respiratory Depth Normal Blood Pressure 89/68 L 92/63 L Blood Pressure [Right Arm] Blood Pressure Mean 75 72 Blood Pressure Mean [Right Arm] Blood Pressure Position Sitting Pulse Oximetry 98 97 Oxygen Delivery Method Room Air Room Air Sepsis Recent Fever Within 48 Hours No Sepsis New/Unexplained Change in Mental Status N/A Sepsis Action Taken by Nursing No Action Required Pulse Oximetry Post Tiitration 09/25/24 18:40 09/25/24 18:40 09/25/24 19:21 Temperature Temperature Source Pulse Rate 85 Pulse Rate [Left Finger] 68 Pulse Rhythm Regular Respiratory Rate 20 18 Respiratory Effort / Characteristics Respiratory Depth Blood Pressure Blood Pressure [Right Arm] 94/64 L Blood Pressure Mean Blood Pressure Mean [Right Arm] 74 Blood Pressure Position Pulse Oximetry 97 97 Oxygen Delivery Method Room Air Room Air Room Air Sepsis Recent Fever Within 48 Hours Sepsis New/Unexplained Change in Mental Status Sepsis Action Taken by Nursing Pulse Oximetry Post Tiitration 97 09/25/24 19:30 09/25/24 19:45 09/25/24 21:07 Temperature Temperature Source Pulse Rate Pulse Rate [Left Finger] 75 75 78 Pulse Rhythm Respiratory Rate 19 19 19 Respiratory Effort / Characteristics Respiratory Depth Blood Pressure Blood Pressure [Right Arm] 91/61 L 90/67 L 93/67 L Blood Pressure Mean Blood Pressure Mean [Right Arm] 71 74 75 Blood Pressure Position Pulse Oximetry 96 97 100 Oxygen Delivery Method Room Air Room Air Room Air Sepsis Recent Fever Within 48 Hours Sepsis New/Unexplained Change in Mental Status Sepsis Action Taken by Nursing Pulse Oximetry Post Tiitration 09/25/24 21:22 Temperature Temperature Source Pulse Rate Pulse Rate [Left Finger] 77 Pulse Rhythm Respiratory Rate 24 Respiratory Effort / Characteristics Respiratory Depth Blood Pressure Blood Pressure [Right Arm] 90/64 L Blood Pressure Mean Blood Pressure Mean [Right Arm] 72 Blood Pressure Position Pulse Oximetry 94 Oxygen Delivery Method Room Air Sepsis Recent Fever Within 48 Hours Sepsis New/Unexplained Change in Mental Status Sepsis Action Taken by Nursing Pulse Oximetry Post Tiitration Laboratory Data 09/25/24 18:26 09/25/24 18:26 Lab Results 09/25/24 09/25/24 Range/Units 18:26 21:05 WBC 7.28 (4.8-10.8) K/ul RBC 4.34 L (4.70-6.10) M/uL Hgb 11.1 L (14.0-18.0) g/dl Hct 37.4 L (42.0-52.0) % MCV 86.2 (80.0-100.0) fL MCH 25.6 (25.0-34.0) pg MCHC 29.7 L (32.0-36.0) g/dL RDW Std Deviation 64.8 H (36.4-46.3) fL RDW Coeff of Marie 20.6 H (11.5-14.5) % Plt Count 172 (130-400) K/uL MPV 11.6 (9.4-12.4) fL Immature Gran % (Auto) 0.4 % Neut % (Auto) 84.9 % Lymph % (Auto) 5.8 % [place] % (Auto) 8.0 % Eos % (Auto) 0.8 % Baso % (Auto) 0.1 % Neut # (Auto) 6.18 (1.40-6.50) K/uL Lymph # (Auto) 0.42 L (1.20-3.40) K/uL [place] # (Auto) 0.58 (0.11-0.59) K/uL Eos # (Auto) 0.06 (0.00-0.50) K/uL Baso # (Auto) 0.01 (0.00-0.20) K/uL Immature Gran # (Auto) 0.03 (0.01-0.20) K/uL Anisocytosis Present Tear Drop Cells 1+ Ovalocytes 1+ Sodium 140 (136-145) mmol/L Potassium 3.9 (3.5-5.1) mmol/L Chloride 109 H (98-107) mmol/L Carbon Dioxide 26 (21-32) mmol/L Anion Gap 5 (3-11) BUN 48 H (6-23) mg/dl Creatinine 1.35 (0.6-1.4) mg/dl Est Cr Clr Drug Dosing 54.7 ml/min eGFR 54.75 BUN/Creatinine Ratio 35.6 H (10-20) Glucose 104 H (70-99(Fasting)) mg/dl Calcium 9.4 (8.6-10.3) mg/dl Magnesium 2.6 H (1.7-2.4) mg/dl Total Bilirubin 0.8 (0.2-1.0) mg/dl Direct Bilirubin 0.3 H (0-0.2) mg/dl AST 17 (13-39) U/L ALT 11 (7-52) U/L Alkaline Phosphatase 64 (34-104) U/L Troponin I High Sens 15.9 (0-20) pg/ml Total Protein 7.6 (6.0-8.3) gm/dl Albumin 3.8 (3.4-5.0) gm/dl Urine Color Yellow Urine Appearance Clear (Clear) Urine pH 5.0 (4.5-7.5) Ur Specific [place] 1.018 (1.000-1.030) Urine Protein Negative (Negative) Urine Glucose (UA) 3+ H (Negative) Urine Ketones Negative (Negative) Urine Blood Negative (Negative) Urine Nitrite Negative (Negative) Urine Bilirubin Negative (Negative) Urine Urobilinogen Negative (Negative) Ur Leukocyte Esterase Negative (Negative) Administered Medications Guaifenesin (Guaifenesin 600 Mg Tabcr) 600 mg PO Q12 [facility] Stop: 10/25/24 20:59 Last Admin: 09/25/24 21:48 Dose: 600 mg Documented By: STEFFANIEK Discontinued Medications Sodium Chloride (Nss) 500 mls @ 999 mls/hr IV .Q31M PADMINI Stop: 09/25/24 19:15 Last Infusion: 09/25/24 19:22 Dose: Infused Documented By: Admin: 09/25/24 18:52 Dose: 999 mls/hr Documented By: GISELA Sodium Chloride (Nss) 1,000 mls @ 80 mls/hr IV .[id number] [facility] Stop: 09/26/24 09:29 Last Admin: 09/25/24 21:47 Dose: Not Given Documented By: FELISHA Piperacillin Sod/Tazobactam Sod (Zosyn) 4.5 gm in 100 mls @ 200 mls/hr IV NOW STA; Protocol Stop: 09/25/24 21:32 Last Infusion: 09/25/24 21:40 Dose: Infused Documented By: Admin: 09/25/24 21:23 Dose: 200 mls/hr Documented By: FELISHA Imaging Data Radiologist's Impression: Chest X-Ray 09/25/24 18:40 HISTORY: Weakness. TECHNIQUE: Portable AP radiograph of the chest COMPARISON: Chest radiograph dated 07/30/2024. FINDINGS: Moderate left and small right pleural effusions. Patchy lower lung airspace opacities. No pneumothorax. Cardiomegaly. Left-sided aortic arch. Midline trachea. Left subclavian approach dual-lead pacer. No acute osseous abnormality. Included upper abdomen is unremarkable. IMPRESSION: 1. Moderate left and small right pleural effusions. 2. Nonspecific patchy lower lung opacities could represent atelectasis or pneumonia. 3. Cardiomegaly with mild vascular congestion, which could represent CHF. Electronically signed by Kieran Montague 09-25-2024 7:05 PM Discharge Plan Visit Data Chief Complaint: Weakness ED Provider: Ricky Fitzpatrick Discharge Problem: Ambulatory dysfunction Forms Stand Alone Forms: My [facility] [employer] Prescriptions Prescriptions: No Action potassium chloride 20 mEq tablet extended release 20 meq PO DAILY PRN (Reason: Edema) Qty: 90 3RF Rx Instructions: Take 1 tablet by mouth along with Lasix. Use daily until breathing is at baseline then use together as needed. sildenafil 100 mg tablet 100 mg PO DAILY PRN (Reason: sexual activity) Qty: 18 5RF Rx Instructions: administer 30 minutes to 4 hours before activity> Stop Isordil 48 hours before using. nitroglycerin 0.4 mg tablet, sublingual 0.4 mg SL ONCE PRN (Reason: Chest Pain) Qty: 25 5RF Rx Instructions: Can take before exercising also. pantoprazole 40 mg tablet,delayed release (DR/EC) 40 mg PO DAILY Qty: 30 5RF ferrous sulfate 325 mg (65 mg iron) tablet 325 mg PO Q OTHER DAY Qty: 30 0RF furosemide [Lasix] 40 mg tablet 40 mg PO DAILY PRN (Reason: Edema) Qty: 90 0RF Rx Instructions: Take 1 tablet by mouth along with potassium. Use together daily until breathing is at baseline then use together as needed. metoprolol succinate 25 mg tablet extended release 24 hr 25 mg PO BID Qty: 180 3RF Eliquis 5 mg tablet 5 mg PO BID Qty: 60 2RF atorvastatin 40 mg tablet 40 mg PO QAM Qty: 90 3RF Entresto 24-26 mg tablet 1 tab PO BID Qty: 180 3RF Jardiance 10 mg tablet 10 mg PO DAILY Qty: 90 3RF sertraline 100 mg tablet 100 mg PO QPM Qty: 90 3RF Rx Instructions: TAKE WITH 50MG = 15OMG DAILY IN THE PM tamsulosin [Flomax] 0.4 mg capsule 0.4 mg PO HS Qty: 90 1RF finasteride 5 mg tablet 5 mg PO DAILY Qty: 90 3RF aspirin 81 mg Tablet,Delayed Release (Dr/Ec) 81 mg PO QAM sertraline 50 mg tablet 50 mg PO DAILY Rx Instructions: TAKE WITH 100MG = 150MG DAILY. Referrals Referrals: Frederic Pena, [Primary Care Provider] -
[2024-09-25] MEDS: SODIUM CHLORIDE 0.9% 500 ML IV SCH ×2 (18:52→23:40)
--- NOTE | 2024-09-25 19:06 | XRay Report ---
HISTORY: Weakness. TECHNIQUE: Portable AP radiograph of the chest COMPARISON: Chest radiograph dated 07/30/2024. FINDINGS: Moderate left and small right pleural effusions. Patchy lower lung airspace opacities. No pneumothorax. Cardiomegaly. Left-sided aortic arch. Midline trachea. Left subclavian approach dual-lead pacer. No acute osseous abnormality. Included upper abdomen is unremarkable. IMPRESSION: 1. Moderate left and small right pleural effusions. 2. Nonspecific patchy lower lung opacities could represent atelectasis or pneumonia. 3. Cardiomegaly with mild vascular congestion, which could represent CHF. Electronically signed by Kieran Montague 09-25-2024 7:05 PM
[2024-09-25 19:30] LABS: Albumin Level 3.8 gm/dl (3.4-5.0); BUN Creatinine Ratio 35.6 (10-20); Bilirubin Direct 0.3 mg/dl (0-0.2); Bilirubin,Total 0.8 mg/dl (0.2-1.0); Calcium 9.4 mg/dl (8.6-10.3); Creatinine Clr Calc Pharmacy 54.7 ml/min; Magnesium 2.6 mg/dl (1.7-2.4); Potassium 3.9 mmol/L (3.5-5.1); Total Protein 7.6 gm/dl (6.0-8.3)
[2024-09-25 19:36] LABS: Troponin I High Sensitivity 15.9 pg/ml (0-20)
[2024-09-25 19:44] LABS: Basophils # (auto) 0.01 K/uL (0.00-0.20); Basophils % (auto) 0.1 %; Eosinophils # (auto) 0.06 K/uL (0.00-0.50); Eosinophils % (auto) 0.8 %; Hematocrit (blood only) 37.4 % (42.0-52.0); Hemoglobin 11.1 g/dl (14.0-18.0); Immature Granulocytes # (auto) 0.03 K/uL (0.01-0.20); Immature Granulocytes % (auto) 0.4 %; Lymphocytes # (auto) 0.42 K/uL (1.20-3.40); Lymphocytes % (auto) 5.8 %; Mean Corpuscular Hemoglobin 25.6 pg (25.0-34.0); Mean Corpuscular Hgb Conc 29.7 g/dL (32.0-36.0); Mean Corpuscular Volume 86.2 fL (80.0-100.0); Mean Platelet Volume 11.6 fL (9.4-12.4); Monocytes # (auto) 0.58 K/uL (0.11-0.59); Neutrophils # (auto) 6.18 K/uL (1.40-6.50); Neutrophils % (auto) 84.9 %; Platelet Count 172 K/uL (130-400); RDW Coefficient of Variation 20.6 % (11.5-14.5); RDW Standard Deviation 64.8 fL (36.4-46.3); Red Blood Count 4.34 M/uL (4.70-6.10); White Blood Count 7.28 K/ul (4.8-10.8)
[2024-09-25 20:03] LABS: Anisocytosis Present; Ovalocytes 1+; Tear Drop Cells 1+
[2024-09-25] MEDS ORDERED: ALBUT/IPRATROP 3MG/0.5MG NEB 3 ML VIAL NEB PRN (20:57)
--- NOTE | 2024-09-25 21:09 | History & Physical Report ---
Date of Service September 25, 2024 Assessment & Plan (1) Pneumonia: (2) Generalized weakness: (3) Pleural effusion: (4) HFrEF (heart failure with reduced ejection fraction): (5) Acute kidney injury: Plan The patient is a 73-year-old male with a past medical history including wide-complex tachycardia status post recent cardioversion, presence of biventricular AICD, ischemic cardiomyopathy, hypertension, CAD, HFrEF 20-25%, paroxysmal atrial fibrillation, orthostatic hypotension, paralysis of right upper extremity, bilateral arm weakness, obesity, BPH and LUTS, bipolar 1 disorder, and depression. The patient presents to the emergency department with multiple issues as noted, and has been progressive over the past 3 to 4 months. He does note a more recent issue with shortness of breath and dyspnea on exertion. He has been utilizing furosemide at the direction of the heart fa ilure clinic, when he feels he needs to have additional diuresis. In addition, he had been having issues with an approximate 10 pound weight gain, for which she had been using increasing doses of Lasix. He reports that he had also been eating less, and thinks he may have given himself an issue with decreased protein intake and fatigue on that basis. He notes also a recent issue with fecal incontinence, approximately 1 time daily, where he is unable to tell he is having loose stools. He does report being on antibiotic within the past few months. #Pneumonia right greater than left/bilateral parapneumonic effusions, left greater than right Zosyn 4.5 g IV every 8 hours Mucinex 600 mg p.o. every 12 hours DuoNebs every 2 hours as needed #Bilateral foot lesions/abrasions- Potential for progression Consult wound care #Acute kidney injury- Creatinine 1.35 with base 1.14 Patient has been using additional furosemide recently Temporarily hold furosemide Status post 500 mL normal saline bolus in the ED Give additional 500 mL normal saline at 80 mL/h #CAD/hypertension/ischemic cardiomyopathy/atrial fibrillation- Continue Eliquis, aspirin, metoprolol succinate Hold furosemide, empagliflozin Continue Entresto #BPH with LUTS/urinary retention- Patient noted to have 200 cc postvoid residual Continue tamsulosin, finasteride UA from straight cath looks negative #Generalized weakness/deconditioning- PT as an outpatient Consult PT/OT, question need for inpatient rehab #Chronic medical conditions: GERD-continue pantoprazole Hyperlipidemia-continue atorvastatin Depression-continue sertraline History of Present Illness Chief Complaint: The patient presents to the emergency department with complaint of progressive generalized weakness, difficulty with ambulation, recent falls at home, urinary retention, occasional loose stools, and need for home health, and/or inpatient rehab. Primary Care Provider: Frederic Pena DO The patient is a 73-year-old male with a past medical history including wide- complex tachycardia status post recent cardioversion, presence of biventricular AICD, ischemic cardiomyopathy, hypertension, CAD, HFrEF 20-25%, paroxysmal atrial fibrillation, orthostatic hypotension, paralysis of right upper extremity , bilateral arm weakness, obesity, BPH and LUTS, bipolar 1 disorder, and depression. The patient presents to the emergency department with multiple issues as noted, and has been progressive over the past 3 to 4 months. He does note a more recent issue with shortness of breath and dyspnea on exertion. He has been utilizing furosemide at the direction of the heart failure clinic, when he feels he needs to have additional diuresis. Allergies Allergy/AdvReac Type Severity Reaction Status Date / Time No Known Drug Allergies Allergy Unknown Verified 09/25/24 21:08 Home Medications Medication Instructions Recorded Confirmed Type aspirin 81 mg tablet,delayed 81 mg PO QAM 09/17/22 09/25/24 History release potassium chloride 20 mEq 20 meq PO DAILY PRN Edema #90 tabs 08/07/23 09/25/24 Rx tablet,extended release finasteride 5 mg tablet 5 mg PO DAILY #90 tabs 09/30/23 09/25/24 Rx sildenafil 100 mg tablet 100 mg PO DAILY PRN sexual 10/09/23 09/25/24 Rx activity #18 tabs nitroglycerin 0.4 mg sublingual 0.4 mg sublingual ONCE PRN Chest 12/16/23 09/25/24 Rx tablet Pain #25 tabs pantoprazole 40 mg tablet,delayed 40 mg PO DAILY #30 tabs 05/21/24 09/25/24 Rx release ferrous sulfate 325 mg (65 mg 325 mg PO Q OTHER DAY #30 tabs 07/20/24 09/25/24 Rx iron) tablet furosemide 40 mg tablet (Lasix) 40 mg PO DAILY PRN Edema #90 tabs 07/26/24 09/25/24 Rx metoprolol succinate 25 mg 25 mg PO BID #180 tabs 07/26/24 09/25/24 Rx tablet,extended release 24 hr apixaban 5 mg tablet (Eliquis) 5 mg PO BID #60 tabs 08/23/24 09/25/24 Rx atorvastatin 40 mg tablet 40 mg PO QAM #90 tabs 08/23/24 09/25/24 Rx empagliflozin 10 mg tablet 10 mg PO DAILY #90 tabs 08/23/24 09/25/24 Rx (Jardiance) sacubitril 24 mg-valsartan 26 mg 1 tab PO BID #180 tabs 08/23/24 09/25/24 Rx tablet (Entresto) sertraline 100 mg tablet 100 mg PO QPM #90 tabs 08/23/24 09/25/24 Rx tamsulosin 0.4 mg capsule (Flomax) 0.4 mg PO HS #90 caps 08/23/24 09/25/24 Rx sertraline 50 mg tablet 50 mg PO DAILY 09/25/24 09/25/24 History Past Med/Surg History Problem List (Updated 09/25/24 @ 22:07 by Yoel Shah MD) Acute kidney injury Pleural effusion Generalized weakness Pneumonia Wide-complex tachycardia Presence of biventricular AICD Cardiomyopathy HTN (hypertension) (Chronic) CAD in [place] artery (Chronic) Pacemaker Medtronic > placed for heart block > placed October 2021 > follows with Dr. Ellison > last checked approx 8 mos ago HFrEF (heart failure with reduced ejection fraction) Paroxysmal A-fib Lymphopenia Mild lymphopenia since 2021. PCP monitoring with q6m CBC Parageusia Esophageal dysphagia Erectile dysfunction Abnormal TSH Orthostatic hypotension Paralysis of right upper extremity Bilateral arm weakness H/O cervical spinal arthrodesis (~09/2022) hx of central cord syndrome s/p fall with c2-6 laminectomy and arthrodesis performed at [facility] [place], see NSG Notes > ROM limited all directions Obesity Benign prostatic hyperplasia with urinary obstruction Elevated PSA Followed by Urology Bipolar I disorder, single manic episode (Chronic) Depression Medical History History of COVID-19 PAF (paroxysmal atrial fibrillation) Paralysis of right upper extremity SVT (supraventricular tachycardia) Third degree heart block Colon cancer screening On anticoagulant therapy Bradycardia Dysphagia Heart failure with reduced ejection fraction Non-ST elevation OR (NSTEMI) (04/2019) Obstructive sleep apnea Former smoker Diverticulosis Angina, class II Surgical History History of open reduction and internal fixation (ORIF) procedure History of wisdom tooth extraction History of bilateral cataract extraction History of heart artery stent (~1997) H/O colonoscopy History of PTCA (04/2019) S/P tonsillectomy S/P cardiac catheterization History of surgery on arm Family History Mother Hypertension Aunt Breast cancer Brother Myocardial infarction Other Cardiac disorder No family history of adverse response to anesthesia Denies family history of Ovarian cancer Prostate cancer Colorectal cancer Social History Smoking Status: Former smoker Tobacco Type: Cigarettes Age Started Using Tobacco: 17; Age Quit Using Tobacco: 67; packs per day: 1; Second Hand Exposure: No; Do You Dip or Chew Tobacco: No; Hx Alcohol Use: No Hx Substance Use: No Preferred Language: Bahamian Communication Ability: Effective Visual Impairment: Limited Hearing Ability: Normal Financial Rep Required: No Beliefs That Will Affect Care: None marital status: Current Living Situation: Spouse Current Living Situation Comment: Daughter current occupational status: retired 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 Feels Safe at Home: Yes Childhood Exposure to Second-Hand Smoke: No Diet: low salt caffeine: No Dental Care, Regularly: Yes Physical Activity Frequency: 3-4 Times per Week Seatbelt Use: always Sunscreen Use: Yes Do you think of yourself as: straight/heterosexual Assistive Devices: Glasses Review of Systems Review of Systems: The patient denies chest pain, palpitations, sore throat, fevers, chills, sweats, nausea, vomiting, diarrhea , constipation, abdominal pain, pelvic pain, blood in urine or stool, dysuria, urinary frequency or urgency, lightheadedness, dizziness, headache, memory loss, loss of consciousness, rash, abnormal bruising or bleeding, generalized arthralgias or myalgias, back or neck pain, or night sweats. The review of systems is otherwise negative other than for that already noted above, and at least 10 systems have been reviewed. Physical Exam Physical Exam: The patient is awake, alert and oriented 3, well developed and well nourished, normocephalic and atraumatic, lying in bed and in no acute distress. HEENT--PERRL, EOMI, mucous membranes and oropharynx dry. Neck--supple. No JVD. No bruits. Thyroid normal, trachea midline, no adenopathy. Heart--irregular rate and rhythm. No murmurs, rubs or gallops. Lungs--clear bilaterally, no respiratory distress, no accessory muscle use. Abdomen--normal bowel sounds and soft. Nontender. Nondistended, no hernias or ma sses, no organomegaly. Extremities--no cyanosis or clubbing. No edema. There are good distal pulses b/l. Dermatologic--multiple surface abrasions on feet bilaterally which Neurologic--no change from previous Rheumatologic--as before, as noted on extensive PT reports Psychiatric--normal affect. Results & Data Results & Data Vital Signs (Past 12 Hours) Vital Signs Temp Pulse Pulse Resp BP BP Pulse Ox 09/25/24 21:07 78 19 93/67 L 100 09/25/24 19:45 75 19 90/67 L 97 09/25/24 19:30 75 19 91/61 L 96 09/25/24 19:21 68 18 94/64 L 97 09/25/24 18:40 09/25/24 18:40 85 20 97 09/25/24 18:30 74 21 92/63 L 97 09/25/24 18:25 36.3 C L 74 16 89/68 L 98 09/25/24 18:22 85 O2 Del Method 09/25/24 21:07 Room Air 09/25/24 19:45 Room Air 09/25/24 19:30 Room Air 09/25/24 19:21 Room Air 09/25/24 18:40 Room Air 09/25/24 18:40 Room Air 09/25/24 18:30 Room Air 09/25/24 18:25 Room Air 09/25/24 18:22 Laboratory Results Laboratory Results WBC 7.28 K/ul (4.8-10.8) 09/25/24 18:26 RBC 4.34 M/uL (4.70-6.10) L 09/25/24 18:26 Hgb 11.1 g/dl (14.0-18.0) L 09/25/24 18:26 Hct 37.4 % (42.0-52.0) L 09/25/24 18: MCV 86.2 fL (80.0-100.0) 09/25/24 18: MCH 25.6 pg (25.0-34.0) 09/25/24 18: MCHC 29.7 g/dL (32.0-36.0) L 09/25/24 18: RDW Std Deviation 64.8 fL (36.4-46.3) H 09/25/24 18: RDW Coeff of Marie 20.6 % (11.5-14.5) H 09/25/24 18: Plt Count 172 K/uL (130-400) 09/25/24 18: MPV 11.6 fL (9.4-12.4) 09/25/24 18:26 Immature Gran % (Auto) 0.4 % 09/25/24 18:26 Neut % (Auto) 84.9 % 09/25/24 18:26 Lymph % (Auto) 5.8 % 09/25/24 18:26 [place] % (Auto) 8.0 % 09/25/24 18:26 Eos % (Auto) 0.8 % 09/25/24 18:26 Baso % (Auto) 0.1 % 09/25/24 18:26 Neut # (Auto) 6.18 K/uL (1.40-6.50) 09/25/24 18:26 Lymph # (Auto) 0.42 K/uL (1.20-3.40) L 09/25/24 18:26 [place] # (Auto) 0.58 K/uL (0.11-0.59) 09/25/24 18:26 Eos # (Auto) 0.06 K/uL (0.00-0.50) 09/25/24 18:26 Baso # (Auto) 0.01 K/uL (0.00-0.20) 09/25/24 18:26 Immature Gran # (Auto) 0.03 K/uL (0.01-0.20) 09/25/24 18:26 Anisocytosis Present 09/25/24 18:26 Tear Drop Cells 1+ 09/25/24 18:26 Ovalocytes 1+ 09/25/24 18:26 Sodium 140 mmol/L (136-145) 09/25/24 18:26 Potassium 3.9 mmol/L (3.5-5.1) 09/25/24 18:26 Chloride 109 mmol/L (98-107) H 09/25/24 18:26 Carbon Dioxide 26 mmol/L (21-32) 09/25/24 18:26 Anion Gap 5 (3-11) 09/25/24 18:26 BUN 48 mg/dl (6-23) H 09/25/24 18:26 Creatinine 1.35 mg/dl (0.6-1.4) 09/25/24 18:26 Est Cr Clr Drug Dosing 54.7 ml/min 09/25/24 18:26 eGFR 54.75 09/25/24 18:26 BUN/Creatinine Ratio 35.6 (10-20) H 09/25/24 18:26 Glucose 104 mg/dl (70-99(Fasting)) H 09/25/24 18:26 Calcium 9.4 mg/dl (8.6-10.3) 09/25/24 18:26 Magnesium 2.6 mg/dl (1.7-2.4) H 09/25/24 18:26 Total Bilirubin 0.8 mg/dl (0.2-1.0) 09/25/24 18:26 Direct Bilirubin 0.3 mg/dl (0-0.2) H 09/25/24 18:26 AST 17 U/L (13-39) 09/25/24 18:26 ALT 11 U/L (7-52) 09/25/24 18:26 Alkaline Phosphatase 64 U/L (34-104) 09/25/24 18:26 Troponin I High Sens 15.9 pg/ml (0-20) 09/25/24 18:26 Total Protein 7.6 gm/dl (6.0-8.3) 09/25/24 18:26 Albumin 3.8 gm/dl (3.4-5.0) 09/25/24 18:26 Urine Color Yellow 09/25/24 21:05 Urine Appearance Clear (Clear) 09/25/24 21:05 Urine pH 5.0 (4.5-7.5) 09/25/24 21:05 Ur Specific Gilbert 1.018 (1.000-1.030) 09/25/24 21:05 Urine Protein Negative (Negative) 09/25/24 21:05 Urine Glucose (UA) 3+ (Negative) H 09/25/24 21:05 Urine Ketones Negative (Negative) 09/25/24 21:05 Urine Blood Negative (Negative) 09/25/24 21:05 Urine Nitrite Negative (Negative) 09/25/24 21:05 Urine Bilirubin Negative (Negative) 09/25/24 21:05 Urine Urobilinogen Negative (Negative) 09/25/24 21:05 Ur Leukocyte Esterase Negative (Negative) 09/25/24 21:05 Impressions Chest X-Ray 09/25/24 18:40 HISTORY: Weakness. TECHNIQUE: Portable AP radiograph of the chest COMPARISON: Chest radiograph dated 07/30/2024. FINDINGS: Moderate left and small right pleural effusions. Patchy lower lung airspace opacities. No pneumothorax. Cardiomegaly. Left-sided aortic arch. Midline trachea. Left subclavian approach dual-lead pacer. No acute osseous abnormality. Included upper abdomen is unremarkable. IMPRESSION: 1. Moderate left and small right pleural effusions. 2. Nonspecific patchy lower lung opacities could represent atelectasis or pneumonia. 3. Cardiomegaly with mild vascular congestion, which could represent CHF. Electronically signed by Kieran Montague 09-25-2024 7:05 PM Code Status & VTE Plan Code Status Full code VTE Prophylaxis Plan VTE Prophylaxis will be ordered: Yes PG Care Time/CCT Total # of Minutes Spent Total Time Spent with Patient: Total time spent is greater than 50% in coordination of care (as documented) at patient's floor/unit and/or counseling patient: Coding Level of Care Code 09854 INT INP/OBS CARE 3/75MIN Diagnoses Pneumonia J18.9 Generalized weakness R53.1 Pleural effusion J90 HFrEF (heart failure with reduced ejection fraction) I50.20 Acute kidney injury N17.9
[2024-09-25 21:19] LABS: Appearance Urine Clear (Clear); Bilirubin Urine Negative (Negative); Blood Urine Negative (Negative); Color Urine Yellow; Glucose Urine UA 3+ (Negative); Ketones Urine Negative (Negative); Leukocyte Esterase Urine Negative (Negative); Nitrite Urine Negative (Negative); Protein Urine Negative (Negative); Specific Gravity Urine 1.018 (1.000-1.030); Urobilinogen Urine Negative (Negative)
[2024-09-25] MEDS: 4.5GM X1 IV STA (21:23)
[2024-09-25] MEDS: SODIUM CHLORIDE 0.9% 1,000 ML IV SCH (21:47)
[2024-09-25] MEDS: guaiFENesin 600 MG TABCR PO SCH (21:48)
[2024-09-25] MEDS ORDERED: ACETAMINOPHEN 325 MG TAB PO PRN (23:23)
[2024-09-25] MEDS ORDERED: ONDANSETRON INJ 2 MG/ML 2 ML VIAL IV PRN (23:23)
[2024-09-26] MEDS: NYSTATIN POWDER 15GM BTL EXT PRN (01:28)
[2024-09-26] MEDS: PIPERACILLIN/TAZOBACTAM 4.5 GM/100 ML BAG IV SCH (04:17)
[2024-09-26] MEDS ORDERED: 0.2 MICRON FILTER SET 1 EACH IV STA (04:47)
[2024-09-26] MEDS ORDERED: AMIODARONE IV BOLUS & DRIP IV STA (04:47)
[2024-09-26] MEDS ORDERED: STAT IV Infusion **Titration per Protocol STA ×3 (04:47→14:02)
[2024-09-26] MEDS: AMIODARONE / D5W 150 MG/100 ML BAG IV STA ×2 (04:57→05:50)
[2024-09-26] MEDS: AMIODARONE / D5W 360 MG/200 ML BAG IV ONE (05:09)
[2024-09-26] MEDS: AMIODARONE 150MG / 100ML D5W IV ONE (05:15)
--- NOTE | 2024-09-26 05:38 | Communication Note ---
Date of Service: September 26, 2024 S/O: Patient with observed wide complex tachycardia, going in and out of it, from 4:05 am until at least 4:50 am. Nurse had taken EKG's and the length of time was confirmed by the account technician. Patient without symptoms of palpitations, CP, dyspnea, or worsening dizziness throughout the entire time. Patient w/ Hx of wide complex tachycardia also, having been implanted with a biventricular ICD on 07/29/24. During this process the patient's MAP was ~ 60-65. Also during this process, it was also noted that after the Bey catheter had been placed earlier this morning, the urine draining into the bag was bloody. A/P: A 150 mg bolus of amiodarone was ordered, followed by a second bolus of amiodarone after the patient continued to periodically go into a wide complex tachycardia while a second peripheral line was being placed. After the administration of the second amiodarone bolus, an amiodarone drip was started. 25 mg of albumin was given along with a 250-mL NSS bolus to help support the patient's BP. Can consider maintenance fluids if patient's MAP continues to get worse. Due to patient's bloody urine, his Eliquis should be continued to be temporarily held.
[2024-09-26] MEDS ORDERED: 0.2 MICRON FILTER SET 1 EACH IV ONE (05:41)
[2024-09-26] MEDS: SODIUM CHLORIDE 0.9% 250 ML IV ONE (05:51)
[2024-09-26] MEDS: ALBUMIN 25% 25 GM/100 ML VIAL IV ONE (06:23)
[2024-09-26 06:24] LABS: Basophils # (auto) 0.03 K/uL (0.00-0.20); Basophils % (auto) 0.4 %; Eosinophils # (auto) 0.06 K/uL (0.00-0.50); Eosinophils % (auto) 0.9 %; Hematocrit (blood only) 33.4 % (42.0-52.0); Hemoglobin 10.3 g/dl (14.0-18.0); Immature Granulocytes # (auto) 0.02 K/uL (0.01-0.20); Immature Granulocytes % (auto) 0.3 %; Lymphocytes # (auto) 0.34 K/uL (1.20-3.40); Lymphocytes % (auto) 5.1 %; Mean Corpuscular Hemoglobin 26.6 pg (25.0-34.0); Mean Corpuscular Hgb Conc 30.8 g/dL (32.0-36.0); Mean Corpuscular Volume 86.3 fL (80.0-100.0); Mean Platelet Volume 11.1 fL (9.4-12.4); Monocytes # (auto) 0.54 K/uL (0.11-0.59); Neutrophils # (auto) 5.72 K/uL (1.40-6.50); Neutrophils % (auto) 85.3 %; Platelet Count 143 K/uL (130-400); RDW Coefficient of Variation 20.9 % (11.5-14.5); RDW Standard Deviation 65.5 fL (36.4-46.3); Red Blood Count 3.87 M/uL (4.70-6.10); White Blood Count 6.71 K/ul (4.8-10.8)
[2024-09-26 06:43] LABS: Albumin Level 3.4 gm/dl (3.4-5.0); BUN Creatinine Ratio 36.1 (10-20); Bilirubin,Total 0.9 mg/dl (0.2-1.0); Calcium 8.7 mg/dl (8.6-10.3); Globulin 3.3 gm/dl (2.5-4.0); Magnesium 2.4 mg/dl (1.7-2.4); Potassium 3.7 mmol/L (3.5-5.1); Total Protein 6.7 gm/dl (6.0-8.3)
[2024-09-26 06:47] LABS: Anisocytosis Present; Echinocytes 1+; Ovalocytes 1+; Polychromasia 1+
[2024-09-26 06:50] LABS: Troponin I High Sensitivity 17.3 pg/ml (0-20)
[2024-09-26 06:59] LABS: INR 1.3 (0.9-1.1); Partial Thromboplastin Ratio 1.3; Partial Thromboplastin Time 36 Seconds (21-31); Prothrombin Time 13.6 Seconds (9.0-12.0); Thyroid Stimulating Hormone 1.014 uIu/ml (0.300-4.500)
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
[2024-09-26] MEDS ORDERED: DOBUTamine 1000 MG/250ML D5W IV SCH (11:15)
[2024-09-26] MEDS: DOBUTamine / D5W 1,000 MG/250 ML BAG IV SCH (11:30)
[2024-09-26] MEDS: AMIODARONE / D5W 360 MG/200 ML BAG IV SCH (11:31)
--- NOTE | 2024-09-26 12:10 | Communication Note ---
Date of Service: September 26, 2024 Discussed case with cardiology. They feel that the patient is appropriate to be maintained on the floor. They can attempt dobutamine which can be managed on telemetry. Communicated to the primary service. Critical care available to assist if needed. Formal consult not conducted. Coding Level of Care Code None
--- NOTE | 2024-09-26 13:21 | Hospitalist Progress Note ---
Date of Service September 26, 2024 Assessment & Plan (1) Pneumonia: (2) Generalized weakness: (3) Pleural effusion: (4) HFrEF (heart failure with reduced ejection fraction): (5) Acute kidney injury: Plan The patient is a 73-year-old male with a past medical history including wide-complex tachycardia status post recent cardioversion, presence of biventricular AICD, ischemic cardiomyopathy, hypertension, CAD, HFrEF 20-25%, paroxysmal atrial fibrillation, orthostatic hypotension, paralysis of right upper extremity, bilateral arm weakness, obesity, BPH and LUTS, bipolar 1 disorder, and depression. The patient presents to the emergency department with multiple issues as noted, and has been progressive over the past 3 to 4 months. He does note a more recent issue with shortness of breath and dyspnea on exertion. He has been utilizing furosemide at the direction of the [facility], when he feels he needs to have additional diuresis. In addition, he had been having issues with an approximate 10 pound weight gain, for which she had been using increasing doses of Lasix. He reports that he had also been eating less, and thinks he may have given himself an issue with decreased protein intake and fatigue on that basis. He notes also a recent issue with fecal incontinence, approximately 1 time daily, where he is unable to tell he is having loose stools. He does report being on antibiotic within the past few months. #Dyspnea on exertion Initially thought to be pneumonia with parapneumonic effusion. The patient was started on IV antibiotics and was given IV fluid boluses overnight When I looked at the chest x-ray today, it appears to be pulmonary congestion with bilateral pleural effusion IV fluids discontinued The patient is most likely in acute systolic CHF with cardiogenic shock #Acute systolic CHF/cardiogenic shock/ischemic cardiomyopathy with an EF of 20% Patient has a baseline EF of 20% Echocardiogram pending today. But furnace builder informed me that it could be very low at 15% Patient most likely has CHF exacerbation with dyspnea on exertion, orthopnea, bilateral pleural effusion His blood pressure is a little soft for large doses of Lasix Procurement Analyst involved The decision is to start him on dobutamine drip along with Lasix May continue Zosyn for the time being but may discontinue it soon once a diagnosis is more clear The patient is most likely going into end-stage heart failure. Palliative care should be consulted during this hospital stay Dobutamine drip can be given in PCU. Will hold off on transferring the patient to the ICU for now. Case was discussed with the furnace builder several times #Hematuria Eliquis is being held Bey catheter in place Most likely traumatic due to Bey catheter insertion Monitor H&H Blood consent obtained and in chart #Bilateral foot lesions/abrasions- Potential for progression Consult wound care #Acute kidney injury- Creatinine 1.35 on admission with base 1.14 Currently stable at 1.2 Patient was given Lasix today as he appears to be fluid overloaded Will monitor renal function closely #CAD/hypertension/ischemic cardiomyopathy/atrial fibrillation- Continue metoprolol succinate Aspirin and Eliquis held due to hematuria Hold furosemide, empagliflozin Continue Entresto #BPH with LUTS/urinary retention- Patient noted to have 200 cc postvoid residual Continue tamsulosin, finasteride UA from straight cath looks negative #Generalized weakness/deconditioning- PT as an outpatient Consult PT/OT, question need for inpatient rehab #Chronic medical conditions: GERD-continue pantoprazole Hyperlipidemia-continue atorvastatin Depression-continue sertraline Admission and Anticipated Discharge Date Admission Date: September 25, 2024 Subjective Patient was seen and examined at 10:30 AM. I was informed by the nurse that the patient was hypotensive. Came to the bedside immediately. Overnight, the patient had wide-complex tachycardia for which he was started on amiodarone drip after 2 boluses. Continues on high-dose amiodarone. The patient is not symptomatic with his hypotension. He does not complain of dizziness. He is able to talk to me. His blood pressure runs low in the 80s to 90s range usually, but not in the 70s range. Also, overnight he started having hematuria. Eliquis is on hold. He was given IV fluid and he is starting to get short of breath and orthopneic. He got albumin as well. Review of Systems Review of Systems: All systems reviewed & are unremarkable except as noted in Subjective Physical Exam Physical Exam: General: Awake, conversant Heart: S1, S2/regular rate and rhythm, no murmur rubs or gallops Lungs: Crackles bilaterally. Normal effort Abdomen: Soft/nontender/nondistended. No hepatosplenomegaly Extremities: No clubbing/cyanosis. No edema Behavior: Appropriate, cooperative Results & Data Results & Data Vital Signs (Past 12 Hours) Vital Signs Temp Pulse Pulse Resp BP BP BP 09/26/24 13:15 80/44 L 09/26/24 13:12 70/41 L 69/44 L 09/26/24 13:00 75 22 74/48 L 09/26/24 12:45 75 22 72/46 L 09/26/24 12:31 76 23 75/51 L 09/26/24 12:18 75 22 09/26/24 12:15 74/49 L 09/26/24 12:13 75 23 75/48 L 09/26/24 12:13 75 23 75/48 L 09/26/24 12:02 75 20 83/59 L 09/26/24 11:57 77 23 09/26/24 11:42 75 23 09/26/24 11:31 83/59 L 09/26/24 11:31 83/59 L 09/26/24 11:31 83/59 L 09/26/24 11:31 83/59 L 09/26/24 11:31 83/59 L 09/26/24 11:31 83/59 L 09/26/24 11:31 83/59 L 09/26/24 11:31 83/59 L 09/26/24 11:31 83/59 L 09/26/24 11:31 83/59 L 09/26/24 11:31 83/59 L 09/26/24 11:31 83/59 L 09/26/24 11:15 89/65 L 09/26/24 11:15 89/65 L 09/26/24 11:15 89/65 L 09/26/24 11:15 89/65 L 09/26/24 11:15 89/65 L 09/26/24 11:15 75 23 09/26/24 11:00 92/62 L 09/26/24 11:00 92/62 L 09/26/24 10:54 89/61 L 09/26/24 10:54 89/61 L 09/26/24 10:54 77 12 09/26/24 10:52 84/66 L 09/26/24 10:48 84/66 L 09/26/24 10:48 84/66 L 09/26/24 10:48 84/66 L 09/26/24 10:46 75 20 95/62 L 09/26/24 10:45 75 13 09/26/24 10:45 95/62 L 09/26/24 10:39 75 23 09/26/24 10:32 77 24 79/54 L 09/26/24 10:30 79/54 L 09/26/24 10:30 79/54 L 09/26/24 10:30 79/54 L 09/26/24 10:30 79/54 L 09/26/24 10:27 75 25 H 09/26/24 10:27 78/53 L 09/26/24 10:27 78/53 L 09/26/24 10:18 75 24 09/26/24 10:15 75/53 L 09/26/24 10:07 26 H 72/52 L 09/26/24 10:06 77/55 L 09/26/24 09:30 75 19 83/61 L 09/26/24 09:00 74 18 86/64 L 09/26/24 08:45 76 25 H 09/26/24 07:39 36.3 C L 09/26/24 07:28 09/26/24 07:24 75 20 82/58 L 09/26/24 05:03 91/62 L 09/26/24 04:37 105 H 20 82/58 L 09/26/24 03:22 36.8 C 77 22 92/57 L 09/26/24 01:30 75 Pulse Ox O2 Del Method O2 Flow Rate 09/26/24 13:15 09/26/24 13:12 09/26/24 13:00 98 Nasal Cannula 2 09/26/24 12:45 99 Nasal Cannula 2 09/26/24 12:31 09/26/24 12:18 09/26/24 12:15 09/26/24 12:13 09/26/24 12:13 09/26/24 12:02 98 Nasal Cannula 2 09/26/24 11:57 09/26/24 11:42 09/26/24 11:31 09/26/24 11:31 09/26/24 11:31 09/26/24 11:31 09/26/24 11:31 09/26/24 11:31 09/26/24 11:31 09/26/24 11:31 09/26/24 11:31 09/26/24 11:31 09/26/24 11:31 09/26/24 11:31 09/26/24 11:15 09/26/24 11:15 09/26/24 11:15 09/26/24 11:15 09/26/24 11:15 09/26/24 11:15 100 09/26/24 11:00 09/26/24 11:00 09/26/24 10:54 09/26/24 10:54 09/26/24 10:54 09/26/24 10:52 09/26/24 10:48 09/26/24 10:48 09/26/24 10:48 09/26/24 10:46 96 Room Air 09/26/24 10:45 91 09/26/24 10:45 09/26/24 10:39 98 09/26/24 10:32 96 Nasal Cannula 2 09/26/24 10:30 09/26/24 10:30 09/26/24 10:30 09/26/24 10:30 09/26/24 10:27 09/26/24 10:27 09/26/24 10:27 09/26/24 10:18 100 09/26/24 10:15 09/26/24 10:07 98 Nasal Cannula 2 09/26/24 10:06 09/26/24 09:30 97 Room Air 09/26/24 09:00 09/26/24 08:45 09/26/24 07:39 09/26/24 07:28 Room Air 09/26/24 07:24 98 Room Air 09/26/24 05:03 09/26/24 04:37 99 Room Air 09/26/24 03:22 97 Room Air 09/26/24 01:30 Laboratory Results Abnormal lab results 09/25/24 09/25/24 09/26/24 Range/Units 18:26 21:05 06:06 RBC 4.34 L 3.87 L (4.70-6.10) M/uL Hgb 11.1 L 10.3 L (14.0-18.0) g/dl Hct 37.4 L 33.4 L (42.0-52.0) % MCHC 29.7 L 30.8 L (32.0-36.0) g/dL RDW Std Deviation 64.8 H 65.5 H (36.4-46.3) fL RDW Coeff of Marie 20.6 H 20.9 H (11.5-14.5) % Lymph # (Auto) 0.42 L 0.34 L (1.20-3.40) K/uL PT 13.6 H (9.0-12.0) Seconds INR 1.3 H (0.9-1.1) APTT 36 H (21-31) Seconds Chloride 109 H 110 H (98-107) mmol/L BUN 48 H 44 H (6-23) mg/dl BUN/Creatinine Ratio 35.6 H 36.1 H (10-20) Glucose 104 H 103 H (70-99(Fasting)) mg/dl Magnesium 2.6 H (1.7-2.4) mg/dl Direct Bilirubin 0.3 H (0-0.2) mg/dl Urine Glucose (UA) 3+ H (Negative) Diagnostic Findings Chest X-Ray 09/25/24 18:40 HISTORY: Weakness. TECHNIQUE: Portable AP radiograph of the chest COMPARISON: Chest radiograph dated 07/30/2024. FINDINGS: Moderate left and small right pleural effusions. Patchy lower lung airspace opacities. No pneumothorax. Cardiomegaly. Left-sided aortic arch. Midline trachea. Left subclavian approach dual-lead pacer. No acute osseous abnormality. Included upper abdomen is unremarkable. IMPRESSION: 1. Moderate left and small right pleural effusions. 2. Nonspecific patchy lower lung opacities could represent atelectasis or pneumonia. 3. Cardiomegaly with mild vascular congestion, which could represent CHF. Electronically signed by Kieran Montague 09-25-2024 7:05 PM PG Care Time/CCT Total # of Minutes Spent Total Time Spent with Patient: Total time spent is greater than 50% in coordination of care (as documented) at patient's floor/unit and/or counseling patient: Coding Level of Care Code 06030 SUB INP/OBS CARE 2/35MIN Diagnoses Pneumonia J18.9 Generalized weakness R53.1 Pleural effusion J90 HFrEF (heart failure with reduced ejection fraction) I50.20 Acute kidney injury N17.9
[2024-09-26] MEDS: DOPamine / D5W 400 MG/250 ML BAG IV SCH (14:11)
--- NOTE | 2024-09-26 14:30 | Critical Care Consultation ---
Date of Consultation September 26, 2024 Assessment & Plan (1) Cardiomyopathy: (2) Acute decompensated heart failure: (3) Acute kidney injury: Plan Impression: 73-year-old male with acute decompensated heart failure due to ischemic cardiomyopathy. He is not a candidate for revascularization nor is he candidate for LVAD. He is anemic. He does demonstrate Some mild renal insufficiency. Recommendations: 1. Extensive discussion held with cardiology at the bedside as well as with the charge nurse. Patient is quite clear that he does not want aggressive interventions performed including central line, arterial line, or transfer to the ICU. He wants to be maintained in his current room. He is requesting meeting with palliative care which is reasonable. After discussion with the fun house operator, we can offer him dopamine which is nontitratable. This will be ordered by cardiology to see if this offers him a clinical benefit. I do not see evidence of pneumonia and will defer antimicrobial agents to the primary service. Will see if blood pressure support offers him the ability to pursue diuresis. Should the patient's clinical condition change or his desire to pursue aggressive interventions change, we would be happy to assist in managing him in the ICU. At this point in time given his desire to meet with palliative care and not pursue aggressive interventions he is most appropriate to be maintained on the floor. Discussed extensively with cardiology. Thanks for the opportunity participating the care of this patient. Feel free to contact us with questions or concerns History of Present Illness Attending Physician: Mal Ritter MD History of Present Illness Asked by hospitalist and cardiology to evaluate this patient with end-stage cardiomyopathy and progressive heart failure. History is obtained from discussion with the patient as well as review of the electronic medical record and discussion with cardiology. Patient is a 73-year-old male followed by Dr. Smith in the cardiology clinic. He has a biventricular AICD and an ischemic cardiomyopathy with a EF of 20 to 25%. He has known coronary disease which is not amenable to intervention. He was evaluated previously for an LVAD at [facility] but was not felt to be a candidate. This was over 5 years ago. He is followed in the heart failure clinic and was last seen the last week of August. He presented to the emergency room complaining of a 10 pound weight gain and increasing shortness of breath. He had some fecal incontinence as well. He was felt to have pneumonia and treated with Zosyn. He also had a worsening of his kidney function. Diuretics were held. Early this morning patient was noted to have salvos of PVCs. Patient was asymptomatic. Blood pressure was low. He had some hematuria. He was bolused on amiodarone. Albumin and normal saline were also given. Cardiology was consulted today. Initially the waterproofer helper felt that he could be managed on the floor with an attempt at a dobutamine holiday. He was placed on dobutamine but unfortunately his blood pressure failed to improve and actually decreased somewhat. Despite this the patient remained relatively asymptomatic. Critical care was consulted due to potential need for additional vasopressors. I arrived to assess the patient with cardiology in the room. Discussions to be held with the patient and the family. He declined additional invasive interventions including central line, or arterial line and did not want to be transferred to the ICU. He understands the gravity of his situation. After discussion with cardiology he elected to change his CODE STATUS to DO NOT INTUBATE DO NOT RESUSCITATE. Nurses on the floor are comfortable attempting nontitratable dopamine to see if this offers him any significant benefit with regards to improved renal perfusion and potentially diuresis. The patient has requested to meet with palliative care. Allergies Allergy/AdvReac Type Severity Reaction Status Date / Time No Known Drug Allergies Allergy Unknown Verified 09/25/24 21:08 Home Medications Medication Instructions Recorded Confirmed Type aspirin 81 mg tablet,delayed 81 mg PO QAM 09/17/22 09/25/24 History release potassium chloride 20 mEq 20 meq PO DAILY PRN Edema #90 tabs 08/07/23 09/25/24 Rx tablet,extended release finasteride 5 mg tablet 5 mg PO DAILY #90 tabs 09/30/23 09/25/24 Rx sildenafil 100 mg tablet 100 mg PO DAILY PRN sexual 10/09/23 09/25/24 Rx activity #18 tabs nitroglycerin 0.4 mg sublingual 0.4 mg sublingual ONCE PRN Chest 12/16/23 09/25/24 Rx tablet Pain #25 tabs pantoprazole 40 mg tablet,delayed 40 mg PO DAILY #30 tabs 05/21/24 09/25/24 Rx release ferrous sulfate 325 mg (65 mg 325 mg PO Q OTHER DAY #30 tabs 07/20/24 09/25/24 Rx iron) tablet furosemide 40 mg tablet (Lasix) 40 mg PO DAILY PRN Edema #90 tabs 07/26/24 09/25/24 Rx metoprolol succinate 25 mg 25 mg PO BID #180 tabs 07/26/24 09/25/24 Rx tablet,extended release 24 hr apixaban 5 mg tablet (Eliquis) 5 mg PO BID #60 tabs 08/23/24 09/25/24 Rx atorvastatin 40 mg tablet 40 mg PO QAM #90 tabs 08/23/24 09/25/24 Rx empagliflozin 10 mg tablet 10 mg PO DAILY #90 tabs 08/23/24 09/25/24 Rx (Jardiance) sacubitril 24 mg-valsartan 26 mg 1 tab PO BID #180 tabs 08/23/24 09/25/24 Rx tablet (Entresto) sertraline 100 mg tablet 100 mg PO QPM #90 tabs 08/23/24 09/25/24 Rx tamsulosin 0.4 mg capsule (Flomax) 0.4 mg PO HS #90 caps 08/23/24 09/25/24 Rx sertraline 50 mg tablet 50 mg PO DAILY 09/25/24 09/25/24 History Patient History Medical History History of COVID-19 PAF (paroxysmal atrial fibrillation) Paralysis of right upper extremity SVT (supraventricular tachycardia) Third degree heart block Colon cancer screening On anticoagulant therapy Bradycardia Dysphagia Heart failure with reduced ejection fraction Non-ST elevation IA (NSTEMI) (04/2019) Obstructive sleep apnea Former smoker Diverticulosis Angina, class II Surgical History History of open reduction and internal fixation (ORIF) procedure History of wisdom tooth extraction History of bilateral cataract extraction History of heart artery stent (~1997) H/O colonoscopy History of PTCA (04/2019) S/P tonsillectomy S/P cardiac catheterization History of surgery on arm Family History Mother Hypertension Aunt Breast cancer Brother Myocardial infarction Other Cardiac disorder No family history of adverse response to anesthesia Denies family history of Ovarian cancer Prostate cancer Colorectal cancer Social History Smoking Status: Former smoker Tobacco Type: Cigarettes Age Started Using Tobacco: 17; Age Quit Using Tobacco: 67; packs per day: 1; Second Hand Exposure: No; Do You Dip or Chew Tobacco: No; Hx Alcohol Use: Yes Alcohol type: hard liquor Alcohol Intake Frequency: 2-4 x/Month Hx Substance Use: No Preferred Language: Maori Communication Ability: Effective Visual Impairment: Limited Hearing Ability: Normal Neurosurgical Physician Assistant Required: No Beliefs That Will Affect Care: None marital status: Current Living Situation: Spouse Current Living Situation Comment: Daughter current occupational status: retired 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 No additions or deletions Physical Exam Constitutional: WD/WN, vitals as above Neck: trachea midline, no thyromegaly Respiratory: no respiratory distress, no labored breathing and not tachypneic Auscultation: + diminished lung sounds and + crackles Cardiovascular: Paced rhythm. S1-S2. Positive murmur. Significant edema Gastrointestinal (Abdomen): normal bowel sounds, soft, nontender, no hepatosplenomegaly Musculoskeletal: Extremities: extremities normal to inspection Skin: no rashes, warm and dry Neurologic: Nonfocal exam Lymphatic: no cervical lymphadenopathy Results & Data Results & Data Vital Signs (Past 12 Hours) Vital Signs Temp Pulse Pulse Resp BP BP BP 09/26/24 13:57 78 09/26/24 13:30 75 69/48 L 09/26/24 13:15 80/44 L 09/26/24 13:15 80/44 L 09/26/24 13:12 70/41 L 69/44 L 09/26/24 13:10 69/44 L 09/26/24 13:00 74/48 L 09/26/24 13:00 75 22 74/48 L 09/26/24 12:45 72/46 L 09/26/24 12:45 75 22 72/46 L 09/26/24 12:31 76 23 75/51 L 09/26/24 12:30 75/51 L 09/26/24 12:18 75 22 09/26/24 12:15 74/49 L 09/26/24 12:13 75 23 75/48 L 09/26/24 12:13 75 23 75/48 L 09/26/24 12:02 75 20 83/59 L 09/26/24 11:57 77 23 09/26/24 11:42 75 23 09/26/24 11:31 83/59 L 09/26/24 11:31 83/59 L 09/26/24 11:31 83/59 L 09/26/24 11:31 83/59 L 09/26/24 11:31 83/59 L 09/26/24 11:31 83/59 L 09/26/24 11:31 83/59 L 09/26/24 11:31 83/59 L 09/26/24 11:31 83/59 L 09/26/24 11:31 83/59 L 09/26/24 11:31 83/59 L 09/26/24 11:31 83/59 L 09/26/24 11:15 89/65 L 09/26/24 11:15 89/65 L 09/26/24 11:15 89/65 L 09/26/24 11:15 89/65 L 09/26/24 11:15 89/65 L 09/26/24 11:15 75 23 09/26/24 11:00 92/62 L 09/26/24 11:00 92/62 L 09/26/24 10:54 89/61 L 09/26/24 10:54 89/61 L 09/26/24 10:54 77 12 09/26/24 10:52 84/66 L 09/26/24 10:48 84/66 L 09/26/24 10:48 84/66 L 09/26/24 10:48 84/66 L 09/26/24 10:46 75 20 95/62 L 09/26/24 10:45 75 13 09/26/24 10:45 95/62 L 09/26/24 10:39 75 23 09/26/24 10:32 77 24 79/54 L 09/26/24 10:30 79/54 L 09/26/24 10:30 79/54 L 09/26/24 10:30 79/54 L 09/26/24 10:30 79/54 L 09/26/24 10:27 75 25 H 09/26/24 10:27 78/53 L 09/26/24 10:27 78/53 L 09/26/24 10:18 75 24 09/26/24 10:15 75/53 L 09/26/24 10:07 26 H 72/52 L 09/26/24 10:06 77/55 L 09/26/24 09:30 75 19 83/61 L 09/26/24 09:00 74 18 86/64 L 09/26/24 08:45 76 25 H 09/26/24 07:57 76 09/26/24 07:39 36.3 C L 09/26/24 07:28 09/26/24 07:24 75 20 82/58 L 09/26/24 05:03 91/62 L 09/26/24 04:37 105 H 20 82/58 L 09/26/24 03:22 36.8 C 77 22 92/57 L 09/26/24 01:30 75 Pulse Ox O2 Del Method O2 Flow Rate 09/26/24 13:57 09/26/24 13:30 09/26/24 13:15 09/26/24 13:15 09/26/24 13:12 09/26/24 13:10 09/26/24 13:00 09/26/24 13:00 98 Nasal Cannula 2 09/26/24 12:45 09/26/24 12:45 99 Nasal Cannula 2 09/26/24 12:31 09/26/24 12:30 09/26/24 12:18 09/26/24 12:15 09/26/24 12:13 09/26/24 12:13 09/26/24 12:02 98 Nasal Cannula 2 09/26/24 11:57 09/26/24 11:42 09/26/24 11:31 09/26/24 11:31 09/26/24 11:31 09/26/24 11:31 09/26/24 11:31 09/26/24 11:31 09/26/24 11:31 09/26/24 11:31 09/26/24 11:31 09/26/24 11:31 09/26/24 11:31 09/26/24 11:31 09/26/24 11:15 09/26/24 11:15 09/26/24 11:15 09/26/24 11:15 09/26/24 11:15 09/26/24 11:15 100 09/26/24 11:00 09/26/24 11:00 09/26/24 10:54 09/26/24 10:54 09/26/24 10:54 09/26/24 10:52 09/26/24 10:48 09/26/24 10:48 09/26/24 10:48 09/26/24 10:46 96 Room Air 09/26/24 10:45 91 09/26/24 10:45 09/26/24 10:39 98 09/26/24 10:32 96 Nasal Cannula 2 09/26/24 10:30 09/26/24 10:30 09/26/24 10:30 09/26/24 10:30 09/26/24 10:27 09/26/24 10:27 09/26/24 10:27 09/26/24 10:18 100 09/26/24 10:15 09/26/24 10:07 98 Nasal Cannula 2 09/26/24 10:06 09/26/24 09:30 97 Room Air 09/26/24 09:00 09/26/24 08:45 09/26/24 07:57 09/26/24 07:39 09/26/24 07:28 Room Air 09/26/24 07:24 98 Room Air 09/26/24 05:03 09/26/24 04:37 99 Room Air 09/26/24 03:22 97 Room Air 09/26/24 01:30 Critical Care Results & Data Vital Signs (Past 12 Hours) Vital Signs Temp Pulse Pulse Resp BP BP BP 09/26/24 14:15 75/43 L 09/26/24 14:00 67/46 L 09/26/24 13:57 78 09/26/24 13:45 82/44 L 09/26/24 13:30 75 69/48 L 09/26/24 13:15 80/44 L 09/26/24 13:15 80/44 L 09/26/24 13:12 70/41 L 69/44 L 09/26/24 13:10 69/44 L 09/26/24 13:00 74/48 L 09/26/24 13:00 75 22 74/48 L 09/26/24 12:45 72/46 L 09/26/24 12:45 75 22 72/46 L 09/26/24 12:31 76 23 75/51 L 09/26/24 12:30 75/51 L 09/26/24 12:18 75 22 09/26/24 12:15 74/49 L 09/26/24 12:13 75 23 75/48 L 09/26/24 12:13 75 23 75/48 L 09/26/24 12:02 75 20 83/59 L 09/26/24 11:57 77 23 09/26/24 11:42 75 23 09/26/24 11:31 83/59 L 09/26/24 11:31 83/59 L 09/26/24 11:31 83/59 L 09/26/24 11:31 83/59 L 09/26/24 11:31 83/59 L 09/26/24 11:31 83/59 L 09/26/24 11:31 83/59 L 09/26/24 11:31 83/59 L 09/26/24 11:31 83/59 L 09/26/24 11:31 83/59 L 09/26/24 11:31 83/59 L 09/26/24 11:31 83/59 L 09/26/24 11:15 89/65 L 09/26/24 11:15 89/65 L 09/26/24 11:15 89/65 L 09/26/24 11:15 89/65 L 09/26/24 11:15 89/65 L 09/26/24 11:15 75 23 09/26/24 11:00 92/62 L 09/26/24 11:00 92/62 L 09/26/24 10:54 89/61 L 09/26/24 10:54 89/61 L 09/26/24 10:54 77 12 09/26/24 10:52 84/66 L 09/26/24 10:48 84/66 L 09/26/24 10:48 84/66 L 09/26/24 10:48 84/66 L 09/26/24 10:46 75 20 95/62 L 09/26/24 10:45 75 13 09/26/24 10:45 95/62 L 09/26/24 10:39 75 23 09/26/24 10:32 77 24 79/54 L 09/26/24 10:30 79/54 L 09/26/24 10:30 79/54 L 09/26/24 10:30 79/54 L 09/26/24 10:30 79/54 L 09/26/24 10:27 75 25 H 09/26/24 10:27 78/53 L 09/26/24 10:27 78/53 L 09/26/24 10:18 75 24 09/26/24 10:15 75/53 L 09/26/24 10:07 26 H 72/52 L 09/26/24 10:06 77/55 L 09/26/24 09:30 75 19 83/61 L 09/26/24 09:00 74 18 86/64 L 09/26/24 08:45 76 25 H 09/26/24 07:57 76 09/26/24 07:39 36.3 C L 09/26/24 07:28 09/26/24 07:24 75 20 82/58 L 09/26/24 05:03 91/62 L 09/26/24 04:37 105 H 20 82/58 L 09/26/24 03:22 36.8 C 77 22 92/57 L 09/26/24 01:30 75 Pulse Ox O2 Del Method O2 Flow Rate 09/26/24 14:15 09/26/24 14:00 09/26/24 13:57 09/26/24 13:45 09/26/24 13:30 09/26/24 13:15 09/26/24 13:15 09/26/24 13:12 09/26/24 13:10 09/26/24 13:00 09/26/24 13:00 98 Nasal Cannula 2 09/26/24 12:45 09/26/24 12:45 99 Nasal Cannula 2 09/26/24 12:31 09/26/24 12:30 09/26/24 12:18 09/26/24 12:15 09/26/24 12:13 09/26/24 12:13 09/26/24 12:02 98 Nasal Cannula 2 09/26/24 11:57 09/26/24 11:42 09/26/24 11:31 09/26/24 11:31 09/26/24 11:31 09/26/24 11:31 09/26/24 11:31 09/26/24 11:31 09/26/24 11:31 09/26/24 11:31 09/26/24 11:31 09/26/24 11:31 09/26/24 11:31 09/26/24 11:31 09/26/24 11:15 09/26/24 11:15 09/26/24 11:15 09/26/24 11:15 09/26/24 11:15 09/26/24 11:15 100 09/26/24 11:00 09/26/24 11:00 09/26/24 10:54 09/26/24 10:54 09/26/24 10:54 09/26/24 10:52 09/26/24 10:48 09/26/24 10:48 09/26/24 10:48 09/26/24 10:46 96 Room Air 09/26/24 10:45 91 09/26/24 10:45 09/26/24 10:39 98 09/26/24 10:32 96 Nasal Cannula 2 09/26/24 10:30 09/26/24 10:30 09/26/24 10:30 09/26/24 10:30 09/26/24 10:27 09/26/24 10:27 09/26/24 10:27 09/26/24 10:18 100 09/26/24 10:15 09/26/24 10:07 98 Nasal Cannula 2 09/26/24 10:06 09/26/24 09:30 97 Room Air 09/26/24 09:00 09/26/24 08:45 09/26/24 07:57 09/26/24 07:39 09/26/24 07:28 Room Air 09/26/24 07:24 98 Room Air 09/26/24 05:03 09/26/24 04:37 99 Room Air 09/26/24 03:22 97 Room Air 09/26/24 01:30 Lab & Micro Results (Past 24 Hours) RBC 3.87 M/uL (4.70-6.10) L 09/26/24 WBC 6.71 K/ul (4.8-10.8) 09/26/24 Hgb 10.3 g/dl (14.0-18.0) L 09/26/24 Hct 33.4 % (42.0-52.0) L 09/26/24 MCV 86.3 fL (80.0-100.0) 09/26/24 MCH 26.6 pg (25.0-34.0) 09/26/24 MCHC 30.8 g/dL (32.0-36.0) L 09/26/24 RDW Standard Deviation 65.5 fL (36.4-46.3) H 09/26/24 RDW Coefficient of Variation 20.9 % (11.5-14.5) H 09/26/24 Plt Count 143 K/uL (130-400) 09/26/24 MPV 11.1 fL (9.4-12.4) 09/26/24 Neutrophils (%) (Auto) 85.3 % 09/26/24 Lymphocytes (%) (Auto) 5.1 % 09/26/24 Monocytes # (Auto) 0.54 K/uL (0.11-0.59) 09/26/24 Eosinophils # (Auto) 0.06 K/uL (0.00-0.50) 09/26/24 Immature Granulocyte % (Auto) 0.3 % 09/26/24 Neutrophils # (Auto) 5.72 K/uL (1.40-6.50) 09/26/24 Lymphocytes # (Auto) 0.34 K/uL (1.20-3.40) L 09/26/24 Monocytes # (Auto) 0.54 K/uL (0.11-0.59) 09/26/24 Eosinophils # (Auto) 0.06 K/uL (0.00-0.50) 09/26/24 Basophils # (Auto) 0.03 K/uL (0.00-0.20) 09/26/24 Immature Granulocyte # (Auto) 0.02 K/uL (0.01-0.20) 5 Polychromasia 1+ 09/26/24 Echinocytes 1+ 09/26/24 Anisocytosis Present 09/26/24 Tear Drop Cells 1+ 09/25/24 Ovalocytes 1+ 09/26/24 Na 143 mmol/L (136-145) 09/26/24 K 3.7 mmol/L (3.5-5.1) 09/26/24 Cl 110 mmol/L (98-107) H 09/26/24 CO2 22 mmol/L (21-32) 09/26/24 Anion Gap 11 (3-11) 09/26/24 BUN 44 mg/dl (6-23) H 09/26/24 Creatinine 1.22 mg/dl (0.6-1.4) 09/26/24 BUN/Creatinine Ratio 36.1 (10-20) H 09/26/24 Glu 103 mg/dl (70-99(Fasting)) H 09/26/24 Ca 8.7 mg/dl (8.6-10.3) 09/26/24 Total Bilirubin 0.9 mg/dl (0.2-1.0) 09/26/24 Direct Bilirubin 0.3 mg/dl (0-0.2) H 09/25/24 AST 14 U/L (13-39) 09/26/24 ALT 9 U/L (7-52) 09/26/24 Alkaline Phosphatase 59 U/L (34-104) 09/26/24 TP 6.7 gm/dl (6.0-8.3) 09/26/24 Albumin 3.4 gm/dl (3.4-5.0) 09/26/24 Globulin 3.3 gm/dl (2.5-4.0) 09/26/24 Albumin/Globulin Ratio 1.0 (0.9-2) 09/26/24 Mg 2.4 mg/dl (1.7-2.4) 09/26/24 06:06 Calcium Level 8.7 mg/dl (8.6-10.3) 09/26/24 06:06 Prothromb Time International Ratio 1.3 (0.9-1.1) H 09/26/24 06 :06 Diagnostic Findings (Past 24 Hours) Chest X-Ray 09/25/24 18:40 HISTORY: Weakness. TECHNIQUE: Portable AP radiograph of the chest COMPARISON: Chest radiograph dated 07/30/2024. FINDINGS: Moderate left and small right pleural effusions. Patchy lower lung airspace opacities. No pneumothorax. Cardiomegaly. Left-sided aortic arch. Midline trachea. Left subclavian approach dual-lead pacer. No acute osseous abnormality. Included upper abdomen is unremarkable. IMPRESSION: 1. Moderate left and small right pleural effusions. 2. Nonspecific patchy lower lung opacities could represent atelectasis or pneumonia. 3. Cardiomegaly with mild vascular congestion, which could represent CHF. Electronically signed by Kieran Montague 09-25-2024 7:05 PM I & O Totals 24 Hours 09/25/24 09/26/24 09/27/24 05:59 06:59 06:59 Intake Total 365.416 / 365.416 Output Total 150 / 150 Balance 215.416 / 215.416 Cumulative 09/25/24 18:13 thru 09/26/24 14:08 Intake Total 2391.250 Output Total 775 Balance 1616.250 RT Ventilator Mngmt (Last Documented) Ventilator Ordered Settings Respiratory Rate 22 09/26/24 13:00 Ventilator - PT Measurements Respiratory Rate 22 Coding Level of Care Code 21918 INT INP/OBS CARE 2/55MIN Diagnoses Ischemic cardiomyopathy I25.5 Cardiomyopathy type: ischemic Acute decompensated heart failure I50.9 Acute kidney injury N17.9 (1) Cardiomyopathy Cardiomyopathy type: ischemic Qualified Code(s): I25.5 - Ischemic cardiomyopathy
[2024-09-26 15:23] LABS: Hematocrit (blood only) 30.3 % (42.0-52.0); Hemoglobin 9.4 g/dl (14.0-18.0)
[2024-09-26] MEDS: FUROSEMIDE 40 MG/4 ML VIAL IV ONE ×2 (15:57→18:24)
--- NOTE | 2024-09-26 16:43 | XCELERA ---
[id number] \\[id number]
--- NOTE | 2024-09-27 05:50 | Electrocardiogram Report ---
Test Reason : Blood Pressure : */* mmHG Vent. Rate : 84 BPM Atrial Rate : 84 BPM P-R Int : 156 ms QRS Dur : 160 ms QT Int : 434 ms P-R-T Axes : 93 -64 105 degrees QTcB Int : 512 ms AV dual-paced rhythm Abnormal ECG When compared with ECG of 27-Aug-2024 10:52, Vent. rate has decreased by 19 bpm AV pacing has replaced wide complex tachycardia Confirmed by Josh Early ([id number]) on 09/27/2024 5:49:56 AM Referred By: REFERRED SELF Confirmed By: Josh Early
[2024-09-27 06:37] LABS: Hematocrit (blood only) 32.7 % (42.0-52.0); Hemoglobin 10.2 g/dl (14.0-18.0); Mean Corpuscular Hemoglobin 26.4 pg (25.0-34.0); Mean Corpuscular Hgb Conc 31.2 g/dL (32.0-36.0); Mean Corpuscular Volume 84.5 fL (80.0-100.0); Mean Platelet Volume 12.2 fL (9.4-12.4); Platelet Count 113 K/uL (130-400); RDW Coefficient of Variation 20.6 % (11.5-14.5); RDW Standard Deviation 63.2 fL (36.4-46.3); Red Blood Count 3.87 M/uL (4.70-6.10); White Blood Count 8.75 K/ul (4.8-10.8)
[2024-09-27 06:47] LABS: Anisocytosis Present; Basophils # (auto) 0.01 K/uL (0.00-0.20); Basophils % (auto) 0.1 %; Eosinophils # (auto) 0.02 K/uL (0.00-0.50); Eosinophils % (auto) 0.2 %; Immature Granulocytes # (auto) 0.05 K/uL (0.01-0.20); Immature Granulocytes % (auto) 0.6 %; Lymphocytes # (auto) 0.41 K/uL (1.20-3.40); Lymphocytes % (auto) 4.7 %; Monocytes % (auto) 10.3 %; Neutrophils # (auto) 7.36 K/uL (1.40-6.50); Neutrophils % (auto) 84.1 %; Ovalocytes 1+; Poikilocytosis Present; Polychromasia 1+
[2024-09-27 06:51] LABS: Albumin Globulin Ratio 1.1 (0.9-2); Albumin Level 3.5 gm/dl (3.4-5.0); BUN Creatinine Ratio 31.3 (10-20); Bilirubin,Total 0.9 mg/dl (0.2-1.0); Calcium 8.6 mg/dl (8.6-10.3); Creatinine Clr Calc Pharmacy 54.8 ml/min; Globulin 3.2 gm/dl (2.5-4.0); Magnesium 2.2 mg/dl (1.7-2.4); Potassium 3.6 mmol/L (3.5-5.1); Total Protein 6.7 gm/dl (6.0-8.3)
[2024-09-27 06:56] LABS: INR 1.3 (0.9-1.1); Partial Thromboplastin Ratio 1.3; Partial Thromboplastin Time 34 Seconds (21-31); Prothrombin Time 13.6 Seconds (9.0-12.0)
--- NOTE | 2024-09-27 08:25 | Palliative Care Consultation ---
Date of Consultation September 27, 2024 Assessment & Plan (1) Palliative care by specialist: Met with pt at bedside, his daughter, brother and sister in law were present for conversation. Pt declined offer of having his spouse join conversation by phone as she was at an appointment with her cardiology team. We met for 38 minutes discussing goals of care and pt values. Introduced Palliative Medicine and explained our role in advanced care planning, symptom management and navigation through the progression of life limiting disease. Patient and/or family were receptive to palliative services for goals of care discussions. Reviewed we are different from hospice, a home health nurse visiting service. (2) Counseling regarding goals of care: patient shared concern that he may not survive this hospitalization. He shared that he had spoken with his restrooms or lounges maid and had been told that his heart is failing and no longer responding to oral medications. He stated that he has been told that because his 'heart vessels are so small surgery is not possible" and that he was told that he cannot have more aggressive diuresis because of his low BP and tachycardia. He shared that he is aware he has no choices, and what is being done now is "just a bandaid". Pt shared that he would like to go home to get affairs in order before he dies. we discussed his dependence of continuous infusion of medications for his BP and tachy dysrhythmias. Discussed concerns that he remains dependent on these infusions and that if stopped, he might within minutes to hours. Discussed that the pt is very ill and in end stage heart failure. Encouraged family to help patient to complete what he could do here in the hospital. Pt also expressed desire to go home long enough to say goodbye to his dogs. I encouraged him that I would try to get approval from nursing supervisor sample to allow dog to visit him here. We discussed options of continuing current course of life prolonging treatments and diagnostics vs transition to comfort directed care and allowing for peaceful natural while assuring comfort. Pt reinforced his desire to continue current level of care, at least until he is able to get financial affairs in order and see his dogs again. Family agreed to assist him with these items. (3) Encounter for end of life education, guidance and counseling: Discussed with pt the nature of heart failure, VT and hypotension and their effects on overall organ function. Pt expressed desire to go for a walk. Shared concern for his safety given his dependence of vasopressor infusion, recurrent VT and ORTEGA. Discussed prognosis with and without vasopressor support. Plan -DNR/DNI but continue current level of care. Pt wants time to "get some affairs in order" and visit with family. He shared understanding that he will likely not survive this hospitalization. -Palliative care will continue to follow for ongoing GOC discussions. History of Present Illness Reason for Consultation: goals of care Requesting Physician: Mal Ritter MD Attending Physician: Mal Ritter MD History of Present Illness Mr. Vanegas is a very pleasant 73y gentleman with PMHx including HFr EF, ischemic cardiomyopathy, severe multivessel CAD (unamenable revascularization in 2019), complete heart block s/p BiV ICD, paroxysmal atrial fibrillation, hypertension, wide-complex tachycardia, orthostatic hypotension, and bipolar disorder, who was admitted on 09/25/2024 with generalized weakness, falls, fecal incontinence, and urinary retention. He was admitted to PCU with PNA and decompensated HFrEF. He is followed by Dr. Ellison (cardiology) and heart failure PA for GDMT/ symptom management. Allergies Allergy/AdvReac Type Severity Reaction Status Date / Time No Known Drug Allergies Allergy Unknown Verified 09/25/24 21:08 Home Medications Medication Instructions Recorded Confirmed Type aspirin 81 mg tablet,delayed 81 mg PO QAM 09/17/22 09/25/24 History release potassium chloride 20 mEq 20 meq PO DAILY PRN Edema #90 tabs 08/07/23 09/25/24 Rx tablet,extended release finasteride 5 mg tablet 5 mg PO DAILY #90 tabs 09/30/23 09/25/24 Rx sildenafil 100 mg tablet 100 mg PO DAILY PRN sexual 10/09/23 09/25/24 Rx activity #18 tabs nitroglycerin 0.4 mg sublingual 0.4 mg sublingual ONCE PRN Chest 12/16/23 09/25/24 Rx tablet Pain #25 tabs pantoprazole 40 mg tablet,delayed 40 mg PO DAILY #30 tabs 05/21/24 09/25/24 Rx release ferrous sulfate 325 mg (65 mg 325 mg PO Q OTHER DAY #30 tabs 07/20/24 09/25/24 Rx iron) tablet furosemide 40 mg tablet (Lasix) 40 mg PO DAILY PRN Edema #90 tabs 07/26/24 09/25/24 Rx metoprolol succinate 25 mg 25 mg PO BID #180 tabs 07/26/24 09/25/24 Rx tablet,extended release 24 hr apixaban 5 mg tablet (Eliquis) 5 mg PO BID #60 tabs 08/23/24 09/25/24 Rx atorvastatin 40 mg tablet 40 mg PO QAM #90 tabs 08/23/24 09/25/24 Rx empagliflozin 10 mg tablet 10 mg PO DAILY #90 tabs 08/23/24 09/25/24 Rx (Jardiance) sacubitril 24 mg-valsartan 26 mg 1 tab PO BID #180 tabs 08/23/24 09/25/24 Rx tablet (Entresto) sertraline 100 mg tablet 100 mg PO QPM #90 tabs 08/23/24 09/25/24 Rx tamsulosin 0.4 mg capsule (Flomax) 0.4 mg PO HS #90 caps 08/23/24 09/25/24 Rx sertraline 50 mg tablet 50 mg PO DAILY 09/25/24 09/25/24 History Patient History Medical History History of COVID-08 May 2022 > not hospitalized PAF (paroxysmal atrial fibrillation) has pacer > follows with Dr. 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 Ellison Obstructive sleep apnea untreated after weight loss > no device Former smoker Diverticulosis Angina, class II Surgical History History of open reduction and internal fixation (ORIF) procedure History of wisdom tooth extraction History of bilateral cataract extraction History of heart artery stent (~1997) H/O colonoscopy History of PTCA (04/2019) S/P tonsillectomy S/P cardiac catheterization History of surgery on arm Family History Mother Hypertension Aunt Breast cancer Brother Myocardial infarction Other Cardiac disorder No family history of adverse response to anesthesia Denies family history of Ovarian cancer Prostate cancer Colorectal cancer Social History Smoking Status: Former smoker Tobacco Type: Cigarettes Age Started Using Tobacco: 17; Age Quit Using Tobacco: 67; packs per day: 1; Second Hand Exposure: No; Do You Dip or Chew Tobacco: No; Hx Alcohol Use: Yes Alcohol type: hard liquor Alcohol Intake Frequency: 2-4 x/Month Hx Substance Use: No Preferred Language: Hebrew Communication Ability: Effective Visual Impairment: Limited Hearing Ability: Normal Wood Gouger Required: No Beliefs That Will Affect Care: None marital status: Current Living Situation: Spouse Current Living Situation Comment: Daughter current occupational status: retired 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 Feels Safe at Home: Yes Childhood Exposure to Second-Hand Smoke: No Diet: low salt caffeine: No Dental Care, Regularly: Yes Physical Activity Frequency: 3-4 Times per Week Seatbelt Use: always Sunscreen Use: Yes Do you think of yourself as: straight/heterosexual Assistive Devices: Cane and Walker Review of Systems Review of Systems: All systems reviewed & are unremarkable except as noted in HPI & below Constitutional: + fatigue, + malaise and + weakness Respiratory: + dyspnea and + dyspnea on exertion Gastrointestinal: + early satiety Neurologic: + generalized weakness Physical Exam Constitutional: + ill appearing, + thin and cooperative Eyes: PERRL, conjunctivae normal, anicteric sclerae ENMT: external ear and nose normal, oropharynx normal Neck: trachea midline, no thyromegaly Respiratory: able to speak in complete sentences and + tachypneic Auscultation: + diminished lung sounds and + crackles Cardiovascular: Extremities: + edema hypotensive on dopamine and amiodarone drips Musculoskeletal: generalized weakness, PERDOMO Skin: no rashes, warm and dry + pallor Neurologic: PERRL, EOMI, accommodation nl, no face palsy, no dysarthria Psychiatric: A+Ox3, euthymic affect Results & Data Vital Signs (Past 12 Hours) Vital Signs Temp Pulse Pulse Resp BP BP Pulse Ox 09/27/24 07:34 36.4 C L 78 25 H 107/61 96 09/27/24 06:30 94/66 L 09/27/24 06:30 94/66 L 09/27/24 06:30 94/66 L 09/27/24 06:30 94/66 L 09/27/24 06:30 94/66 L 09/27/24 06:30 94/66 L 09/27/24 06:30 94/66 L 09/27/24 06:30 75 26 H 94 09/27/24 06:15 75 25 H 94 09/27/24 06:15 94/60 L 09/27/24 06:15 94/60 L 09/27/24 06:15 94/60 L 09/27/24 06:15 94/60 L 09/27/24 06:03 75 25 H 95 09/27/24 06:00 89/60 L 09/27/24 06:00 89/60 L 09/27/24 06:00 89/60 L 09/27/24 06:00 89/60 L 09/27/24 06:00 89/60 L 09/27/24 06:00 89/60 L 09/27/24 06:00 89/60 L 09/27/24 05:57 75 25 H 94 09/27/24 05:45 96/46 L 09/27/24 05:45 96/46 L 09/27/24 05:45 96/46 L 09/27/24 05:45 96/46 L 09/27/24 05:45 96/46 L 09/27/24 05:45 96/46 L 09/27/24 05:42 75 28 H 98 09/27/24 05:30 92/56 L 09/27/24 05:30 92/56 L 09/27/24 05:30 92/56 L 09/27/24 05:30 92/56 L 09/27/24 05:30 92/56 L 09/27/24 05:30 75 29 H 96 09/27/24 05:30 92/56 L 09/27/24 05:30 92/56 L 09/27/24 05:30 92/56 L 09/27/24 05:30 92/56 L 09/27/24 05:15 77 25 H 96 09/27/24 05:15 94/66 L 09/27/24 05:15 94/66 L 09/27/24 05:15 94/66 L 09/27/24 05:15 94/66 L 09/27/24 05:15 94/66 L 09/27/24 05:00 95/65 L 09/27/24 05:00 95/65 L 09/27/24 05:00 95/65 L 09/27/24 04:45 75 26 H 96 09/27/24 04:45 99/68 L 09/27/24 04:45 99/68 L 09/27/24 04:45 99/68 L 09/27/24 04:45 99/68 L 09/27/24 04:45 99/68 L 09/27/24 04:30 98/67 L 09/27/24 04:30 98/67 L 09/27/24 04:30 98/67 L 09/27/24 04:30 98/67 L 09/27/24 04:30 98/67 L 09/27/24 04:30 98/67 L 09/27/24 04:24 74 30 H 95 09/27/24 04:15 92/63 L 09/27/24 04:15 92/63 L 09/27/24 04:15 92/63 L 09/27/24 04:15 92/63 L 09/27/24 04:15 92/63 L 09/27/24 04:15 92/63 L 09/27/24 04:15 92/63 L 09/27/24 04:09 75 25 H 94 09/27/24 04:00 92/62 L 09/27/24 04:00 92/62 L 09/27/24 04:00 92/62 L 09/27/24 04:00 92/62 L 09/27/24 04:00 92/62 L 09/27/24 04:00 92/62 L 09/27/24 04:00 92/62 L 09/27/24 04:00 92/62 L 09/27/24 04:00 75 27 H 94 09/27/24 03:47 36.4 C L 75 16 99/61 L 95 09/27/24 03:46 99/61 L 09/27/24 03:42 77 14 95 09/27/24 03:30 87/61 L 09/27/24 03:30 87/61 L 09/27/24 03:30 87/61 L 09/27/24 03:30 87/61 L 09/27/24 00:30 91/64 L 09/27/24 00:30 91/64 L 09/27/24 00:30 61 H 96 09/27/24 00:15 94/62 L 09/27/24 00:15 94/62 L 09/27/24 00:15 94/62 L 09/27/24 00:15 94/62 L 09/27/24 00:15 94/62 L 09/27/24 00:15 94/62 L 09/27/24 00:15 94/62 L 09/27/24 00:15 79 25 H 96 09/27/24 00:03 75 28 H 95 09/27/24 00:00 88/59 L 09/27/24 00:00 88/59 L 09/27/24 00:00 88/59 L 09/27/24 00:00 88/59 L 09/27/24 00:00 83 09/26/24 23:54 75 25 H 95 09/26/24 23:45 84/55 L 09/26/24 23:45 84/55 L 09/26/24 23:45 84/55 L 09/26/24 23:45 84/55 L 09/26/24 23:31 36.6 C 75 25 H 105/67 96 09/26/24 23:30 105/67 09/26/24 23:30 105/67 09/26/24 23:30 105/67 09/26/24 23:30 105/67 09/26/24 23:30 105/67 09/26/24 23:18 79 29 H 95 09/26/24 23:15 91/66 L 09/26/24 23:03 74 29 H 95 09/26/24 23:00 94/61 L 09/26/24 23:00 94/61 L 09/26/24 23:00 94/61 L 09/26/24 23:00 79 23 94 09/26/24 23:00 94/61 L 09/26/24 23:00 94/61 L 09/26/24 22:46 96/57 L 09/26/24 22:46 96/57 L 09/26/24 22:46 96/57 L 09/26/24 22:46 96/57 L 09/26/24 22:46 96/57 L 09/26/24 22:45 77 24 94 09/26/24 22:43 09/26/24 22:30 100/63 09/26/24 22:30 100/63 09/26/24 22:30 100/63 09/26/24 22:30 100/63 09/26/24 22:30 100/63 09/26/24 22:24 80 28 H 95 09/26/24 22:17 93/64 L 09/26/24 22:17 93/64 L 09/26/24 22:17 93/64 L 09/26/24 22:17 93/64 L 09/26/24 22:12 108 H 36 H 94 09/26/24 22:00 93/56 L 09/26/24 22:00 93/56 L 09/26/24 22:00 93/56 L 09/26/24 22:00 93/56 L 09/26/24 22:00 93/56 L 09/26/24 21:51 82 29 H 89 L 09/26/24 21:45 95/60 L 09/26/24 21:45 95/60 L 09/26/24 21:45 95/60 L 09/26/24 21:45 95/60 L 09/26/24 21:42 81 30 H 89 L 09/26/24 21:30 84/57 L 09/26/24 21:30 84/57 L 09/26/24 21:30 84/57 L 09/26/24 21:30 84/57 L 09/26/24 21:30 84/57 L 09/26/24 21:30 84/57 L 09/26/24 21:30 84/57 L 09/26/24 21:27 108 H 31 H 91 09/26/24 21:15 87/52 L 09/26/24 21:15 87/52 L 09/26/24 21:15 87/52 L 09/26/24 21:15 87/52 L 09/26/24 21:12 81 29 H 88 L 09/26/24 21:03 24 95 09/26/24 21:00 93/66 L 09/26/24 21:00 93/66 L 09/26/24 21:00 93/66 L 09/26/24 21:00 93/66 L 09/26/24 21:00 93/66 L 09/26/24 20:54 81 27 H 95 09/26/24 20:45 79 27 H 95 09/26/24 20:45 94/64 L 09/26/24 20:45 94/64 L 09/26/24 20:45 94/64 L 09/26/24 20:45 94/64 L 09/26/24 20:30 92/67 L 09/26/24 20:30 92/67 L 09/26/24 20:30 92/67 L 09/26/24 20:27 82 27 H 94 O2 Del Method O2 Flow Rate 09/27/24 07:34 High Flow Nasal Cannula 5 09/27/24 06:30 09/27/24 06:30 09/27/24 06:30 09/27/24 06:30 09/27/24 06:30 09/27/24 06:30 09/27/24 06:30 09/27/24 06:30 09/27/24 06:15 09/27/24 06:15 09/27/24 06:15 09/27/24 06:15 09/27/24 06:15 09/27/24 06:03 09/27/24 06:00 09/27/24 06:00 09/27/24 06:00 09/27/24 06:00 09/27/24 06:00 09/27/24 06:00 09/27/24 06:00 09/27/24 05:57 09/27/24 05:45 09/27/24 05:45 09/27/24 05:45 09/27/24 05:45 09/27/24 05:45 09/27/24 05:45 09/27/24 05:42 09/27/24 05:30 09/27/24 05:30 09/27/24 05:30 09/27/24 05:30 09/27/24 05:30 09/27/24 05:30 09/27/24 05:30 09/27/24 05:30 09/27/24 05:30 09/27/24 05:30 09/27/24 05:15 09/27/24 05:15 09/27/24 05:15 09/27/24 05:15 09/27/24 05:15 09/27/24 05:15 09/27/24 05:00 09/27/24 05:00 09/27/24 05:00 09/27/24 04:45 09/27/24 04:45 09/27/24 04:45 09/27/24 04:45 09/27/24 04:45 09/27/24 04:45 09/27/24 04:30 09/27/24 04:30 09/27/24 04:30 09/27/24 04:30 09/27/24 04:30 09/27/24 04:30 09/27/24 04:24 09/27/24 04:15 09/27/24 04:15 09/27/24 04:15 09/27/24 04:15 09/27/24 04:15 09/27/24 04:15 09/27/24 04:15 09/27/24 04:09 09/27/24 04:00 09/27/24 04:00 09/27/24 04:00 09/27/24 04:00 09/27/24 04:00 09/27/24 04:00 09/27/24 04:00 09/27/24 04:00 09/27/24 04:00 09/27/24 03:47 Nasal Cannula 6 09/27/24 03:46 09/27/24 03:42 09/27/24 03:30 09/27/24 03:30 09/27/24 03:30 09/27/24 03:30 09/27/24 00:30 09/27/24 00:30 09/27/24 00:30 09/27/24 00:15 09/27/24 00:15 09/27/24 00:15 09/27/24 00:15 09/27/24 00:15 09/27/24 00:15 09/27/24 00:15 09/27/24 00:15 09/27/24 00:03 09/27/24 00:00 09/27/24 00:00 09/27/24 00:00 09/27/24 00:00 09/27/24 00:00 09/26/24 23:54 09/26/24 23:45 09/26/24 23:45 09/26/24 23:45 09/26/24 23:45 09/26/24 23:31 Nasal Cannula 6 09/26/24 23:30 09/26/24 23:30 09/26/24 23:30 09/26/24 23:30 09/26/24 23:30 09/26/24 23:18 09/26/24 23:15 09/26/24 23:03 09/26/24 23:00 09/26/24 23:00 09/26/24 23:00 09/26/24 23:00 09/26/24 23:00 09/26/24 23:00 09/26/24 22:46 09/26/24 22:46 09/26/24 22:46 09/26/24 22:46 09/26/24 22:46 09/26/24 22:45 09/26/24 22:43 Free Flow/Blow-by 8 09/26/24 22:30 09/26/24 22:30 09/26/24 22:30 09/26/24 22:30 09/26/24 22:30 09/26/24 22:24 09/26/24 22:17 09/26/24 22:17 09/26/24 22:17 09/26/24 22:17 09/26/24 22:12 09/26/24 22:00 09/26/24 22:00 09/26/24 22:00 09/26/24 22:00 09/26/24 22:00 09/26/24 21:51 09/26/24 21:45 09/26/24 21:45 09/26/24 21:45 09/26/24 21:45 09/26/24 21:42 09/26/24 21:30 09/26/24 21:30 09/26/24 21:30 09/26/24 21:30 09/26/24 21:30 09/26/24 21:30 09/26/24 21:30 09/26/24 21:27 09/26/24 21:15 09/26/24 21:15 09/26/24 21:15 09/26/24 21:15 09/26/24 21:12 09/26/24 21:03 09/26/24 21:00 09/26/24 21:00 09/26/24 21:00 09/26/24 21:00 09/26/24 21:00 09/26/24 20:54 09/26/24 20:45 09/26/24 20:45 09/26/24 20:45 09/26/24 20:45 09/26/24 20:45 09/26/24 20:30 09/26/24 20:30 09/26/24 20:30 09/26/24 20:27 Laboratory Results Abnormal lab results 09/27/24 Range/Units 05:50 RBC 3.87 L (4.70-6.10) M/uL Hgb 10.2 L (14.0-18.0) g/dl Hct 32.7 L (42.0-52.0) % MCHC 31.2 L (32.0-36.0) g/dL RDW Std Deviation 63.2 H (36.4-46.3) fL RDW Coeff of Marie 20.6 H (11.5-14.5) % Plt Count 113 L (130-400) K/uL Neut # (Auto) 7.36 H (1.40-6.50) K/uL Lymph # (Auto) 0.41 L (1.20-3.40) K/uL [place] # (Auto) 0.90 H (0.11-0.59) K/uL PT 13.6 H (9.0-12.0) Seconds INR 1.3 H (0.9-1.1) APTT 34 H (21-31) Seconds Chloride 108 H (98-107) mmol/L BUN 42 H (6-23) mg/dl BUN/Creatinine Ratio 31.3 H (10-20) Glucose 117 H (70-99(Fasting)) mg/dl Diagnostic Findings Chest X-Ray 09/25/24 18:40 HISTORY: Weakness. TECHNIQUE: Portable AP radiograph of the chest COMPARISON: Chest radiograph dated 07/30/2024. FINDINGS: Moderate left and small right pleural effusions. Patchy lower lung airspace opacities. No pneumothorax. Cardiomegaly. Left-sided aortic arch. Midline trachea. Left subclavian approach dual-lead pacer. No acute osseous abnormality. Included upper abdomen is unremarkable. IMPRESSION: 1. Moderate left and small right pleural effusions. 2. Nonspecific patchy lower lung opacities could represent atelectasis or pneumonia. 3. Cardiomegaly with mild vascular congestion, which could represent CHF. Electronically signed by Kieran Montague 09-25-2024 7:05 PM Medications Administered Current Inpatient Medications Acetaminophen (Acetaminophen 325 Mg Tab) 650 mg PO Q4H PRN PRN Reason: Pain or Fever Stop: 10/25/24 23:22 Albuterol (Albut/Ipratrop 3mg/0.5mg Neb 3 Ml Vial) 3 ml NEB Q2H PRN; Protocol PRN Reason: dyspnea Stop: 10/25/24 20:56 Furosemide (Furosemide 40 Mg/4 Ml Vial) 40 mg IV BID PADMINI Stop: 10/27/24 11:14 Last Admin: 09/27/24 12:22 Dose: 40 mg Guaifenesin (Guaifenesin 600 Mg Tabcr) 600 mg PO Q12 PADMINI Stop: 10/25/24 20:59 Last Admin: 09/27/24 08:57 Dose: Not Given Amiodarone HCl/Dextrose (Nexterone / D5w) 360 mg in 200 mls @ 16.667 mls/hr IV .Q12H PADMINI Stop: 10/26/24 10:59 Last Admin: 09/27/24 12:22 Dose: 0.5 mg/min, 16.7 mls/hr Dopamine HCl/Dextrose (Dopamine / D5w) 400 mg in 250 mls @ 20.993 mls/hr IV .[id number] PADMINI; Protocol Stop: 10/26/24 14:14 Last Titration: 09/27/24 11:07 Dose: 6 mcg/kg/min, 21 mls/hr Nystatin (Nystatin Powder 15gm Btl) 1 appln EXT DAILY PRN PRN Reason: Rash Stop: 10/26/24 00:27 Last Admin: 09/26/24 01:28 Dose: 1 appln Ondansetron HCl (Ondansetron Inj 2 Mg/Ml 2 Ml Vial) 4 mg IV Q6H PRN PRN Reason: Nausea Stop: 10/25/24 23:22 PG Care Time/CCT Total # of Minutes Spent Total Time Spent with Patient: Total time spent is greater than 50% in coordination of care (as documented) at patient's floor/unit and/or counseling patient: Advanced Care Planning 74517 Advanced Care Planning 30 [place] [address] IN/OBS CONSULT LVL 3,45M Patient Type New History Expanded Problem Focused Exam Expanded Problem Focused Medical Decision Making Moderate Complexity Diagnoses Palliative care by specialist Z51.5 Counseling regarding goals of care Z71.89 Encounter for end of life education, guidance and counseling Additional Codes Advanced Care Planning - 07099 Advanced Care Planning 30 Min: 08411 Advanced Care Planning 30 Min ([id number])
[2024-09-27] MEDS: FUROSEMIDE 40 MG/4 ML VIAL IV SCH (12:22)
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
--- NOTE | 2024-09-27 13:58 | Hospitalist Progress Note ---
Date of Service September 27, 2024 Assessment & Plan (1) Pneumonia: (2) Generalized weakness: (3) Pleural effusion: (4) HFrEF (heart failure with reduced ejection fraction): (5) Acute kidney injury: Plan The patient is a 73-year-old male with a past medical history including wide-complex tachycardia status post recent cardioversion, presence of biventricular AICD, ischemic cardiomyopathy, hypertension, CAD, HFrEF 20-25%, paroxysmal atrial fibrillation, orthostatic hypotension, paralysis of right upper extremity, bilateral arm weakness, obesity, BPH and LUTS, bipolar 1 disorder, and depression. The patient presents to the emergency department with multiple issues as noted, and has been progressive over the past 3 to 4 months. He does note a more recent issue with shortness of breath and dyspnea on exertion. He has been utilizing furosemide at the direction of the heart f ailure clinic, when he feels he needs to have additional diuresis. In addition, he had been having issues with an approximate 10 pound weight gain, for which she had been using increasing doses of Lasix. He reports that he had also been eating less, and thinks he may have given himself an issue with decreased protein intake and fatigue on that basis. He notes also a recent issue with fecal incontinence, approximately 1 time daily, where he is unable to tell he is having loose stools. He does report being on antibiotic within the past few months. #Dyspnea on exertion Initially thought to be pneumonia with parapneumonic effusion. The patient was started on IV antibiotics and was given IV fluid boluses upon admission When I looked at the chest x-ray today, it appears to be pulmonary congestion with bilateral pleural effusion IV fluids discontinued The patient is most likely in acute systolic CHF with cardiogenic shock #Acute systolic CHF/cardiogenic shock/ischemic cardiomyopathy with an EF of 20% Patient has a baseline EF of 20% Echocardiogram shows worsening of EF of 15% Patient most likely has CHF exacerbation with dyspnea on exertion, orthopnea, bilateral pleural effusion [place] Farmer involved Currently the patient is on a dopamine drip and is getting Lasix IV The patient is most likely going into end-stage heart failure. Palliative care involved #Wide-complex tachycardia Patient is on IV amiodarone #Hematuria Eliquis is being held Bey catheter in place Most likely traumatic due to Bey catheter insertion urine is looking clearer today Monitor H&H Blood consent obtained and in chart #Bilateral foot lesions/abrasions- Potential for progression Consult wound care #Acute kidney injury- Creatinine 1.35 on admission with base 1.14 Currently stable Will monitor renal function closely #CAD/hypertension/ischemic cardiomyopathy/atrial fibrillation- Continue metoprolol succinate Aspirin and Eliquis held due to hematuria Hold furosemide, empagliflozin Continue Entresto #BPH with LUTS/urinary retention- Patient noted to have 200 cc postvoid residual Continue tamsulosin, finasteride UA from straight cath looks negative #Generalized weakness/deconditioning- PT as an outpatient Consult PT/OT, question need for inpatient rehab #Chronic medical conditions: GERD-continue pantoprazole Hyperlipidemia-continue atorvastatin Depression-continue sertraline Admission and Anticipated Discharge Date Admission Date: September 25, 2024 Subjective Patient was seen and examined at 11:25 AM. He was accompanied by friends and family in the room. I had a one-on-one conversation with the patient today about his grave prognosis. Patient seems to be aware that his overall condition is declining. He would like to be able to go home and manage his finances but he understands that that may not be possible Review of Systems Review of Systems: All systems reviewed & are unremarkable except as noted in Subjective Physical Exam Physical Exam: General: Awake, conversant Heart: S1, S2/regular rate and rhythm, no murmur rubs or gallops Lungs: Crackles bilaterally. Normal effort Abdomen: Soft/nontender/nondistended. No hepatosplenomegaly Extremities: No clubbing/cyanosis. No edema Behavior: Appropriate, cooperative Results & Data Results & Data Vital Signs (Past 12 Hours) Vital Signs Temp Pulse Pulse Resp BP BP Pulse Ox 09/27/24 10:46 36.6 C 95 H 19 92/65 L 92 09/27/24 08:00 09/27/24 08:00 75 09/27/24 07:34 36.4 C L 78 25 H 107/61 96 09/27/24 06:30 94/66 L 09/27/24 06:30 94/66 L 09/27/24 06:30 94/66 L 09/27/24 06:30 94/66 L 09/27/24 06:30 94/66 L 09/27/24 06:30 94/66 L 09/27/24 06:30 94/66 L 09/27/24 06:30 75 26 H 94 09/27/24 06:15 75 25 H 94 09/27/24 06:15 94/60 L 09/27/24 06:15 94/60 L 09/27/24 06:15 94/60 L 09/27/24 06:15 94/60 L 09/27/24 06:03 75 25 H 95 09/27/24 06:00 89/60 L 09/27/24 06:00 89/60 L 09/27/24 06:00 89/60 L 09/27/24 06:00 89/60 L 09/27/24 06:00 89/60 L 09/27/24 06:00 89/60 L 09/27/24 06:00 89/60 L 09/27/24 05:57 75 25 H 94 09/27/24 05:45 96/46 L 09/27/24 05:45 96/46 L 09/27/24 05:45 96/46 L 09/27/24 05:45 96/46 L 09/27/24 05:45 96/46 L 09/27/24 05:45 96/46 L 09/27/24 05:42 75 28 H 98 09/27/24 05:30 92/56 L 09/27/24 05:30 92/56 L 09/27/24 05:30 92/56 L 09/27/24 05:30 92/56 L 09/27/24 05:30 92/56 L 09/27/24 05:30 75 29 H 96 09/27/24 05:30 92/56 L 09/27/24 05:30 92/56 L 09/27/24 05:30 92/56 L 09/27/24 05:30 92/56 L 09/27/24 05:15 77 25 H 96 09/27/24 05:15 94/66 L 09/27/24 05:15 94/66 L 09/27/24 05:15 94/66 L 09/27/24 05:15 94/66 L 09/27/24 05:15 94/66 L 09/27/24 05:00 95/65 L 09/27/24 05:00 95/65 L 09/27/24 05:00 95/65 L 09/27/24 04:45 75 26 H 96 09/27/24 04:45 99/68 L 09/27/24 04:45 99/68 L 09/27/24 04:45 99/68 L 09/27/24 04:45 99/68 L 09/27/24 04:45 99/68 L 09/27/24 04:30 98/67 L 09/27/24 04:30 98/67 L 09/27/24 04:30 98/67 L 09/27/24 04:30 98/67 L 09/27/24 04:30 98/67 L 09/27/24 04:30 98/67 L 09/27/24 04:24 74 30 H 95 09/27/24 04:15 92/63 L 09/27/24 04:15 92/63 L 09/27/24 04:15 92/63 L 09/27/24 04:15 92/63 L 09/27/24 04:15 92/63 L 09/27/24 04:15 92/63 L 09/27/24 04:15 92/63 L 09/27/24 04:09 75 25 H 94 09/27/24 04:00 92/62 L 09/27/24 04:00 92/62 L 09/27/24 04:00 92/62 L 09/27/24 04:00 92/62 L 09/27/24 04:00 92/62 L 09/27/24 04:00 92/62 L 09/27/24 04:00 92/62 L 09/27/24 04:00 92/62 L 09/27/24 04:00 75 27 H 94 09/27/24 03:47 36.4 C L 75 16 99/61 L 95 09/27/24 03:46 99/61 L 09/27/24 03:42 77 14 95 09/27/24 03:30 87/61 L 09/27/24 03:30 87/61 L 09/27/24 03:30 87/61 L 09/27/24 03:30 87/61 L O2 Del Method O2 Flow Rate 09/27/24 10:46 Nasal Cannula 09/27/24 08:00 Free Flow/Blow-by 7 09/27/24 08:00 09/27/24 07:34 High Flow Nasal Cannula 5 09/27/24 06:30 09/27/24 06:30 09/27/24 06:30 09/27/24 06:30 09/27/24 06:30 09/27/24 06:30 09/27/24 06:30 09/27/24 06:30 09/27/24 06:15 09/27/24 06:15 09/27/24 06:15 09/27/24 06:15 09/27/24 06:15 09/27/24 06:03 09/27/24 06:00 09/27/24 06:00 09/27/24 06:00 09/27/24 06:00 09/27/24 06:00 09/27/24 06:00 09/27/24 06:00 09/27/24 05:57 09/27/24 05:45 09/27/24 05:45 09/27/24 05:45 09/27/24 05:45 09/27/24 05:45 09/27/24 05:45 09/27/24 05:42 09/27/24 05:30 09/27/24 05:30 09/27/24 05:30 09/27/24 05:30 09/27/24 05:30 09/27/24 05:30 09/27/24 05:30 09/27/24 05:30 09/27/24 05:30 09/27/24 05:30 09/27/24 05:15 09/27/24 05:15 09/27/24 05:15 09/27/24 05:15 09/27/24 05:15 09/27/24 05:15 09/27/24 05:00 09/27/24 05:00 09/27/24 05:00 09/27/24 04:45 09/27/24 04:45 09/27/24 04:45 09/27/24 04:45 09/27/24 04:45 09/27/24 04:45 09/27/24 04:30 09/27/24 04:30 09/27/24 04:30 09/27/24 04:30 09/27/24 04:30 09/27/24 04:30 09/27/24 04:24 09/27/24 04:15 09/27/24 04:15 09/27/24 04:15 09/27/24 04:15 09/27/24 04:15 09/27/24 04:15 09/27/24 04:15 09/27/24 04:09 09/27/24 04:00 09/27/24 04:00 09/27/24 04:00 09/27/24 04:00 09/27/24 04:00 09/27/24 04:00 09/27/24 04:00 09/27/24 04:00 09/27/24 04:00 09/27/24 03:47 Nasal Cannula 6 09/27/24 03:46 09/27/24 03:42 09/27/24 03:30 09/27/24 03:30 09/27/24 03:30 09/27/24 03:30 Laboratory Results Abnormal lab results 09/26/24 09/27/24 Range/Units 14:58 05:50 RBC 3.87 L (4.70-6.10) M/uL Hgb 9.4 L 10.2 L (14.0-18.0) g/dl Hct 30.3 L 32.7 L (42.0-52.0) % MCHC 31.2 L (32.0-36.0) g/dL RDW Std Deviation 63.2 H (36.4-46.3) fL RDW Coeff of Marie 20.6 H (11.5-14.5) % Plt Count 113 L (130-400) K/uL Neut # (Auto) 7.36 H (1.40-6.50) K/uL Lymph # (Auto) 0.41 L (1.20-3.40) K/uL [place] # (Auto) 0.90 H (0.11-0.59) K/uL PT 13.6 H (9.0-12.0) Seconds INR 1.3 H (0.9-1.1) APTT 34 H (21-31) Seconds Chloride 108 H (98-107) mmol/L BUN 42 H (6-23) mg/dl BUN/Creatinine Ratio 31.3 H (10-20) Glucose 117 H (70-99(Fasting)) mg/dl PG Care Time/CCT Total # of Minutes Spent Total Time Spent with Patient: Total time spent is greater than 50% in coordination of care (as documented) at patient's floor/unit and/or counseling patient: Coding Level of Care Code 15860 SUB INP/OBS CARE 235MIN Diagnoses Pneumonia J18.9 Generalized weakness R53.1 Pleural effusion J90 HFrEF (heart failure with reduced ejection fraction) I50.20 Acute kidney injury N17.9
--- NOTE | 2024-09-28 06:00 | Electrocardiogram Report ---
Test Reason : Blood Pressure : */* mmHG Vent. Rate : 107 BPM Atrial Rate : * BPM P-R Int : * ms QRS Dur : 176 ms QT Int : 422 ms P-R-T Axes : * 17 204 degrees QTcB Int : 563 ms Wide QRS rhythm Left bundle branch block Abnormal ECG When compared with ECG of 25-Sep-2024 18:24, Wide QRS rhythm has replaced AV dual-paced rhythm Confirmed by Josh Early ([id number]) on 09/28/2024 5:59:48 AM Referred By: REFERRED SELF Confirmed By: Josh Early
[2024-09-28 06:23] LABS: Albumin Level 3.4 gm/dl (3.4-5.0); BUN Creatinine Ratio 30.1 (10-20); Calcium 8.7 mg/dl (8.6-10.3); Creatinine Clr Calc Pharmacy 60.4 ml/min; Globulin 3.3 gm/dl (2.5-4.0); Magnesium 1.9 mg/dl (1.7-2.4); Total Protein 6.7 gm/dl (6.0-8.3)
[2024-09-28 06:34] LABS: Anisocytosis Present; Basophils # (auto) 0.02 K/uL (0.00-0.20); Basophils % (auto) 0.2 %; Echinocytes 1+; Eosinophils # (auto) 0.05 K/uL (0.00-0.50); Eosinophils % (auto) 0.6 %; Hematocrit (blood only) 33.5 % (42.0-52.0); Hemoglobin 10.8 g/dl (14.0-18.0); Immature Granulocytes # (auto) 0.04 K/uL (0.01-0.20); Immature Granulocytes % (auto) 0.5 %; Lymphocytes # (auto) 0.46 K/uL (1.20-3.40); Lymphocytes % (auto) 5.3 %; Mean Corpuscular Hemoglobin 26.5 pg (25.0-34.0); Mean Corpuscular Hgb Conc 32.2 g/dL (32.0-36.0); Mean Corpuscular Volume 82.3 fL (80.0-100.0); Mean Platelet Volume 11.9 fL (9.4-12.4); Monocytes # (auto) 0.94 K/uL (0.11-0.59); Monocytes % (auto) 10.9 %; Neutrophils # (auto) 7.09 K/uL (1.40-6.50); Neutrophils % (auto) 82.5 %; Ovalocytes 1+; Platelet Count 113 K/uL (130-400); RDW Coefficient of Variation 20.6 % (11.5-14.5); RDW Standard Deviation 61.2 fL (36.4-46.3); Red Blood Count 4.07 M/uL (4.70-6.10)
[2024-09-28 06:39] LABS: INR 1.3 (0.9-1.1); Partial Thromboplastin Ratio 1.3; Partial Thromboplastin Time 36 Seconds (21-31); Prothrombin Time 13.9 Seconds (9.0-12.0)
[2024-09-28] MEDS: POTASSIUM CHLORIDE / WTR 10 MEQ/100 ML PLCT IV SCH (07:26)
[2024-09-28] MEDS: POTASSIUM CHLORIDE 20 MEQ/15 ML UDC PO STA (07:30)
--- NOTE | 2024-09-28 12:36 | Hospitalist Progress Note ---
Date of Service September 28, 2024 Assessment & Plan (1) Pneumonia: (2) Generalized weakness: (3) Pleural effusion: (4) HFrEF (heart failure with reduced ejection fraction): (5) Acute kidney injury: Plan The patient is a 73-year-old male with a past medical history including wide-complex tachycardia status post recent cardioversion, presence of biventricular AICD, ischemic cardiomyopathy, hypertension, CAD, HFrEF 20-25%, paroxysmal atrial fibrillation, orthostatic hypotension, paralysis of right upper extremity, bilateral arm weakness, obesity, BPH and LUTS, bipolar 1 disorder, and depression. The patient presents to the emergency department with multiple issues as noted, and has been progressive over the past 3 to 4 months. He does note a more recent issue with shortness of breath and dyspnea on exertion. He has been utilizing furosemide at the direction of the heart f ailure clinic, when he feels he needs to have additional diuresis. In addition, he had been having issues with an approximate 10 pound weight gain, for which she had been using increasing doses of Lasix. He reports that he had also been eating less, and thinks he may have given himself an issue with decreased protein intake and fatigue on that basis. He notes also a recent issue with fecal incontinence, approximately 1 time daily, where he is unable to tell he is having loose stools. He does report being on antibiotic within the past few months. #Acute systolic CHF/cardiogenic shock/ischemic cardiomyopathy with an EF of 20% Patient has a baseline EF of 20% Echocardiogram shows worsening of EF of 15% Initially thought to be pneumonia and was started on antibiotics and IV fluids. However CHF seems to be the reason for his dyspnea on exertion. Now on CHF management. IV fluids and antibiotics discontinued. Patient most likely has CHF exacerbation with dyspnea on exertion, orthopnea, bilateral pleural effusion Drafter (Cad) Electronic involved Currently the patient is on a dopamine drip, amiodarone drip and is getting Lasix 40 mg IV twice daily blood pressure barely holding on the dopamine drip Oxygen requirements increasing The patient is most likely going into end-stage heart failure. Palliative care involved Patient understands the graveness of his condition but wishes to continue current level of care for the time being so he can take care of his financial affairs and spend time with his family and dog before he passes. He understands that he may not be able to make it out of the hospital #Wide-complex tachycardia Patient is on IV amiodarone #Hematuria Eliquis is being held Bey catheter in place Most likely traumatic due to Bey catheter insertion urine is looking clearer today H&H stable Blood consent obtained and in chart #Acute kidney injury- Creatinine 1.35 on admission with base 1.14 Currently stable Will monitor renal function closely #CAD/hypertension/ischemic cardiomyopathy/atrial fibrillation- Continue metoprolol succinate Aspirin and Eliquis held due to hematuria Hold furosemide, empagliflozin Continue Entresto #BPH with LUTS/urinary retention- Patient noted to have 200 cc postvoid residual Continue tamsulosin, finasteride UA from straight cath looks negative #Bilateral foot lesions/abrasions- Potential for progression Wound care consulted but may need to be addressed later #Generalized weakness/deconditioning- PT as an outpatient Canceled PT and OT consult as the patient is not appropriate for their harrison luation at this time #Chronic medical conditions: GERD-hold pantoprazole Hyperlipidemia-Hold atorvastatin Depression-hold sertraline Admission and Anticipated Discharge Date Admission Date: September 25, 2024 Subjective Patient was seen and examined at 11:05 AM. He says that he is not very short of breath. Although oxygen requirements increasing. He spoke to palliative care. He would like to continue current level of care in an attempt to complete his financial affairs. Review of Systems Review of Systems: All systems reviewed & are unremarkable except as noted in Subjective Physical Exam Physical Exam: General: Awake, conversant Heart: S1, S2/regular rate and rhythm, no murmur rubs or gallops Lungs: Crackles bilaterally. Normal effort Abdomen: Soft/nontender/nondistended. No hepatosplenomegaly Extremities: No clubbing/cyanosis. No edema Behavior: Appropriate, cooperative Results & Data Results & Data Vital Signs (Past 12 Hours) Vital Signs Temp Pulse Pulse Resp BP BP Pulse Ox 09/28/24 10:51 36.5 C 77 24 92/62 L 96 09/28/24 08:56 76 09/28/24 08:12 36.3 C L 75 26 H 89/65 L 95 09/28/24 08:11 89/65 L 09/28/24 08:11 89/65 L 09/28/24 08:11 89/65 L 09/28/24 08:11 89/65 L 09/28/24 08:11 95/53 L 09/28/24 08:11 89/65 L 09/28/24 08:11 89/65 L 09/28/24 08:11 89/65 L 09/28/24 08:11 89/65 L 09/28/24 08:11 89/65 L 09/28/24 08:00 09/28/24 08:00 76 26 H 95 09/28/24 08:00 95/53 L 09/28/24 08:00 95/53 L 09/28/24 08:00 95/53 L 09/28/24 08:00 95/53 L 09/28/24 07:00 92/68 L 09/28/24 07:00 92/68 L 09/28/24 07:00 92/68 L 09/28/24 07:00 92/68 L 09/28/24 07:00 92/68 L 09/28/24 07:00 92/68 L 09/28/24 07:00 92/68 L 09/28/24 07:00 92/68 L 09/28/24 07:00 92/68 L 09/28/24 07:00 92/68 L 09/28/24 07:00 92/68 L 09/28/24 07:00 92/68 L 09/28/24 07:00 92/68 L 09/28/24 07:00 92/68 L 09/28/24 07:00 92/68 L 09/28/24 07:00 92/68 L 09/28/24 07:00 92/68 L 09/28/24 07:00 92/68 L 09/28/24 07:00 92/68 L 09/28/24 07:00 92/68 L 09/28/24 07:00 92/68 L 09/28/24 07:00 92/68 L 09/28/24 07:00 92/68 L 09/28/24 07:00 78 23 94 09/28/24 06:12 85 31 H 92 09/28/24 06:00 107/61 09/28/24 06:00 107/61 09/28/24 06:00 107/61 09/28/24 06:00 107/61 09/28/24 06:00 107/61 09/28/24 06:00 107/61 09/28/24 05:54 77 25 H 95 09/28/24 05:00 76 26 H 96 09/28/24 05:00 96/63 L 09/28/24 05:00 96/63 L 09/28/24 05:00 96/63 L 09/28/24 05:00 96/63 L 09/28/24 05:00 96/63 L 09/28/24 05:00 96/63 L 09/28/24 05:00 96/63 L 09/28/24 05:00 96/63 L 09/28/24 05:00 96/63 L 09/28/24 05:00 96/63 L 09/28/24 05:00 96/63 L 09/28/24 05:00 96/63 L 09/28/24 05:00 96/63 L 09/28/24 05:00 96/63 L 09/28/24 05:00 96/63 L 09/28/24 05:00 96/63 L 09/28/24 05:00 96/63 L 09/28/24 05:00 96/63 L 09/28/24 05:00 96/63 L 09/28/24 04:03 77 24 95 09/28/24 04:00 95/66 L 09/28/24 04:00 95/66 L 09/28/24 04:00 95/66 L 09/28/24 04:00 95/66 L 09/28/24 04:00 95/66 L 09/28/24 04:00 95/66 L 09/28/24 04:00 95/66 L 09/28/24 04:00 95/66 L 09/28/24 04:00 95/66 L 09/28/24 04:00 95/66 L 09/28/24 04:00 95/66 L 09/28/24 04:00 95/66 L 09/28/24 04:00 95/66 L 09/28/24 04:00 95/66 L 09/28/24 04:00 95/66 L 09/28/24 04:00 95/66 L 09/28/24 04:00 95/66 L 09/28/24 04:00 95/66 L 09/28/24 04:00 95/66 L 09/28/24 04:00 95/66 L 09/28/24 04:00 95/66 L 09/28/24 03:55 36.8 C 77 18 95/62 L 96 09/28/24 03:00 75 24 96 09/28/24 03:00 102/67 09/28/24 03:00 102/67 09/28/24 03:00 102/67 09/28/24 03:00 102/67 09/28/24 03:00 102/67 09/28/24 03:00 102/67 09/28/24 03:00 102/67 09/28/24 03:00 102/67 09/28/24 03:00 102/67 09/28/24 03:00 102/67 09/28/24 03:00 102/67 09/28/24 03:00 102/67 09/28/24 02:00 91/64 L 09/28/24 02:00 91/64 L 09/28/24 02:00 91/64 L 09/28/24 02:00 91/64 L 09/28/24 02:00 91/64 L 09/28/24 02:00 91/64 L 09/28/24 02:00 91/64 L 09/28/24 02:00 91/64 L 09/28/24 02:00 91/64 L 09/28/24 02:00 91/64 L 09/28/24 02:00 91/64 L 09/28/24 02:00 91/64 L 09/28/24 02:00 91/64 L 09/28/24 02:00 91/64 L 09/28/24 02:00 91/64 L 09/28/24 02:00 91/64 L 09/28/24 02:00 91/64 L 09/28/24 02:00 91/64 L 09/28/24 02:00 91/64 L 09/28/24 02:00 91/64 L 09/28/24 02:00 91/64 L 09/28/24 02:00 91/64 L 09/28/24 02:00 91/64 L 09/28/24 02:00 91/64 L 09/28/24 02:00 91/64 L 09/28/24 02:00 91/64 L 09/28/24 02:00 78 25 H 94 09/28/24 01:03 77 24 95 09/28/24 01:00 94/69 L 09/28/24 01:00 94/69 L 09/28/24 01:00 94/69 L 09/28/24 01:00 94/69 L 09/28/24 01:00 94/69 L 09/28/24 01:00 94/69 L 09/28/24 01:00 94/69 L 09/28/24 01:00 94/69 L 09/28/24 01:00 94/69 L 09/28/24 01:00 94/69 L 09/28/24 01:00 94/69 L 09/28/24 01:00 94/69 L 09/28/24 01:00 94/69 L 09/28/24 01:00 94/69 L 09/28/24 00:42 82 25 H 95 O2 Del Method O2 Flow Rate 09/28/24 10:51 High Flow Nasal Cannula 8 09/28/24 08:56 09/28/24 08:12 Nasal Cannula, High Flow Nasal Cannula 8 09/28/24 08:11 09/28/24 08:11 09/28/24 08:11 09/28/24 08:11 09/28/24 08:11 09/28/24 08:11 09/28/24 08:11 09/28/24 08:11 09/28/24 08:11 09/28/24 08:11 09/28/24 08:00 High Flow Nasal Cannula 8 09/28/24 08:00 09/28/24 08:00 09/28/24 08:00 09/28/24 08:00 09/28/24 08:00 09/28/24 07:00 09/28/24 07:00 09/28/24 07:00 09/28/24 07:00 09/28/24 07:00 09/28/24 07:00 09/28/24 07:00 09/28/24 07:00 09/28/24 07:00 09/28/24 07:00 09/28/24 07:00 09/28/24 07:00 09/28/24 07:00 09/28/24 07:00 09/28/24 07:00 09/28/24 07:00 09/28/24 07:00 09/28/24 07:00 09/28/24 07:00 09/28/24 07:00 09/28/24 07:00 09/28/24 07:00 09/28/24 07:00 09/28/24 07:00 09/28/24 06:12 09/28/24 06:00 09/28/24 06:00 09/28/24 06:00 09/28/24 06:00 09/28/24 06:00 09/28/24 06:00 09/28/24 05:54 09/28/24 05:00 09/28/24 05:00 09/28/24 05:00 09/28/24 05:00 09/28/24 05:00 09/28/24 05:00 09/28/24 05:00 09/28/24 05:00 09/28/24 05:00 09/28/24 05:00 09/28/24 05:00 09/28/24 05:00 09/28/24 05:00 09/28/24 05:00 09/28/24 05:00 09/28/24 05:00 09/28/24 05:00 09/28/24 05:00 09/28/24 05:00 09/28/24 05:00 09/28/24 04:03 09/28/24 04:00 09/28/24 04:00 09/28/24 04:00 09/28/24 04:00 09/28/24 04:00 09/28/24 04:00 09/28/24 04:00 09/28/24 04:00 09/28/24 04:00 09/28/24 04:00 09/28/24 04:00 09/28/24 04:00 09/28/24 04:00 09/28/24 04:00 09/28/24 04:00 09/28/24 04:00 09/28/24 04:00 09/28/24 04:00 09/28/24 04:00 09/28/24 04:00 09/28/24 04:00 09/28/24 03:55 Nasal Cannula 7 09/28/24 03:00 09/28/24 03:00 09/28/24 03:00 09/28/24 03:00 09/28/24 03:00 09/28/24 03:00 09/28/24 03:00 09/28/24 03:00 09/28/24 03:00 09/28/24 03:00 09/28/24 03:00 09/28/24 03:00 09/28/24 03:00 09/28/24 02:00 09/28/24 02:00 09/28/24 02:00 09/28/24 02:00 09/28/24 02:00 09/28/24 02:00 09/28/24 02:00 09/28/24 02:00 09/28/24 02:00 09/28/24 02:00 09/28/24 02:00 09/28/24 02:00 09/28/24 02:00 09/28/24 02:00 09/28/24 02:00 09/28/24 02:00 09/28/24 02:00 09/28/24 02:00 09/28/24 02:00 09/28/24 02:00 09/28/24 02:00 09/28/24 02:00 09/28/24 02:00 09/28/24 02:00 09/28/24 02:00 09/28/24 02:00 09/28/24 02:00 09/28/24 01:03 09/28/24 01:00 09/28/24 01:00 09/28/24 01:00 09/28/24 01:00 09/28/24 01:00 09/28/24 01:00 09/28/24 01:00 09/28/24 01:00 09/28/24 01:00 09/28/24 01:00 09/28/24 01:00 09/28/24 01:00 09/28/24 01:00 09/28/24 01:00 09/28/24 00:42 Laboratory Results Abnormal lab results 09/28/24 Range/Units 05: RBC 4.07 L (4.70-6.10) M/uL Hgb 10.8 L (14.0-18.0) g/dl Hct 33.5 L (42.0-52.0) % RDW Std Deviation 61.2 H (36.4-46.3) fL RDW Coeff of Marie 20.6 H (11.5-14.5) % Plt Count 113 L (130-400) K/uL Neut # (Auto) 7.09 H (1.40-6.50) K/uL Lymph # (Auto) 0.46 L (1.20-3.40) K/uL [place] # (Auto) 0.94 H (0.11-0.59) K/uL PT 13.9 H (9.0-12.0) Seconds INR 1.3 H (0.9-1.1) APTT 36 H (21-31) Seconds Potassium 3.0 L (3.5-5.1) mmol/L BUN 37 H (6-23) mg/dl BUN/Creatinine Ratio 30.1 H (10-20) Glucose 113 H (70-99(Fasting)) mg/dl AST 11 L (13-39) U/L Diagnostic Findings Abnormal lab results 09/28/24 Range/Units 05:25 RBC 4.07 L (4.70-6.10) M/uL Hgb 10.8 L (14.0-18.0) g/dl Hct 33.5 L (42.0-52.0) % RDW Std Deviation 61.2 H (36.4-46.3) fL RDW Coeff of Marie 20.6 H (11.5-14.5) % Plt Count 113 L (130-400) K/uL Neut # (Auto) 7.09 H (1.40-6.50) K/uL Lymph # (Auto) 0.46 L (1.20-3.40) K/uL [place] # (Auto) 0.94 H (0.11-0.59) K/uL PT 13.9 H (9.0-12.0) Seconds INR 1.3 H (0.9-1.1) APTT 36 H (21-31) Seconds Potassium 3.0 L (3.5-5.1) mmol/L BUN 37 H (6-23) mg/dl BUN/Creatinine Ratio 30.1 H (10-20) Glucose 113 H (70-99(Fasting)) mg/dl AST 11 L (13-39) U/L PG Care Time/CCT Total # of Minutes Spent Total Time Spent with Patient: Total time spent is greater than 50% in coordination of care (as documented) at patient's floor/unit and/or counseling patient: Coding Level of Care Code 76259 SUB INP/OBS CARE 235MIN Diagnoses Pneumonia J18.9 Generalized weakness R53.1 Pleural effusion J90 HFrEF (heart failure with reduced ejection fraction) I50.20 Acute kidney injury N17.9
--- NOTE | 2024-09-28 14:08 | Palliative Care Progress Note ---
Date of Service September 28, 2024 Assessment & Plan (1) Palliative care by specialist: Plan: Palliative care will continue to follow for ongoing C discussions and family support. (2) Encounter for end of life education, guidance and counseling: Plan: Met with pt at bedside, no visitors present. Pt shared that he had sent visitors away, "to rest and think". He asked what he should expect to happen, and "how is this going to unfold". He expressed fear of pain or struggle to breathe. Assured pt that given the nature of his illness, he will likely experience progressive hypotension prompting increased confusion and lethargy. Encouraged him that any discmfort he might experience would be treated medically. He questioned timing of . Discussed options of continuing to prolong life with current treatments vs comfort directed care. Pt stated "I am not there yet" and requests continuation of current level of care. Anticipatory guidance offered. Discussed changes pt may move through in the dying process including but not limited to sleeping more, disorientation when awake, restlessness, diminished senses/inability to respond to stimulus although ability to be aware of them remains intact longer, and changes in body temperatures, skin changes/mottling/cyanosis, respiratory pattern changes, and oral secretions. Family verbalized understanding. The goal is to assure a peaceful . When a person facing the end of life rallies, they seem to become "more stable" - may want to talk or even begin taking PO; this phenomenon is usually seen as a sudden burst of energy before . This period of perking up can be accompanied by such a notable change in mental clarity that is often referred to as terminal lucidity. This change in cognition and behavior goes against everything families learn about the physical signs that the end of life is near. It is important to note that evidence-based data is elusive, if nonexistent. Theories support that it may be a search for a final, strong connection. Also, as organs shut down, they can release a steroid like compound that briefly rouses the body - in the specific case of brain tumors, swelling occurs in the confined space of the skull. The edema shrinks as EOL care patients are weaned off food and drink, waking up the brain a bit. Families and caregivers may grasp at what seems to be a turnaround in a loved ones health, however, the EOL Rally is a hallmark pre- sign. It is not uncommon for patients to show improvement before : they may want to talk while others may become res tless or act as if they need to start preparing for a trip. Some patients will become more relaxed yet remain tuned in to what is going on around them, others will show signs of physical stability when, seconds before, they seemed on the verge of letting go. A rally can last for a few moments or even days. Short or long, these temporary improvements can have a profound effect on loved ones who are keeping alfredo. Like a moment of clarity for someone who has dementia, a rally is one last opportunity to connect with a loved one. Each persons experience is unique and impossible to predict with total accuracy. Life is full of questions, and some of them simply are not meant to be answered. Plan continue current level of care, pt would likely transition to [employer]EC[employer] with any further hemodynamic decline. Palliative will continue to follow Admission and Anticipated Discharge Date Admission Date: September 25, 2024 Subjective Met with pt at bedside, no visitors present. He remains awake and oriented x4, but fatigued. He denies any other discomfort. He shared that he expects more visitors after 3pm and is trying to conserve energy and get rest. Review of Systems Review of Systems: All systems reviewed & are unremarkable except as noted in Subjective Constitutional: + fatigue, + malaise and + weakness Respiratory: + dyspnea and + dyspnea on exertion Gastrointestinal: + early satiety Neurologic: + generalized weakness Physical Exam Constitutional: + ill appearing, + thin and cooperative Eyes: PERRL, conjunctivae normal, anicteric sclerae ENMT: external ear and nose normal, oropharynx normal Neck: trachea midline, no thyromegaly Respiratory: able to speak in complete sentences and + tachypneic Auscultation: + diminished lung sounds and + crackles Cardiovascular: Extremities: + edema hypotensive on dopamine and amiodarone drips Musculoskeletal: generalized weakness, PERDOMO Skin: no rashes, warm and dry + pallor Neurologic: PERRL, EOMI, accommodation nl, no face palsy, no dysarthria Psychiatric: A+Ox3, euthymic affect Results & Data Vital Signs (Past 12 Hours) Vital Signs Temp Pulse Pulse Resp BP BP Pulse Ox 09/28/24 13:01 92/63 L 09/28/24 13:00 77 23 96 09/28/24 12:06 76 21 98 09/28/24 12:00 85/56 L 09/28/24 12:00 85/56 L 09/28/24 12:00 85/56 L 09/28/24 11:57 75 29 H 97 09/28/24 11:06 77 26 H 96 09/28/24 11:00 92/65 L 09/28/24 10:57 77 26 H 98 09/28/24 10:51 36.5 C 77 24 92/62 L 96 09/28/24 10:50 92/62 L 09/28/24 10:50 92/62 L 09/28/24 10:50 92/62 L 09/28/24 10:48 78 24 93 09/28/24 10:00 76 25 H 96 09/28/24 10:00 91/66 L 09/28/24 08:56 76 09/28/24 08:12 36.3 C L 75 26 H 89/65 L 95 09/28/24 08:11 89/65 L 09/28/24 08:11 89/65 L 09/28/24 08:11 89/65 L 09/28/24 08:11 89/65 L 09/28/24 08:11 95/53 L 09/28/24 08:11 89/65 L 09/28/24 08:11 89/65 L 09/28/24 08:11 89/65 L 09/28/24 08:11 89/65 L 09/28/24 08:11 89/65 L 09/28/24 08:00 09/28/24 08:00 76 26 H 95 09/28/24 08:00 95/53 L 09/28/24 08:00 95/53 L 09/28/24 08:00 95/53 L 09/28/24 08:00 95/53 L 09/28/24 07:00 92/68 L 09/28/24 07:00 92/68 L 09/28/24 07:00 92/68 L 09/28/24 07:00 92/68 L 09/28/24 07:00 92/68 L 09/28/24 07:00 92/68 L 09/28/24 07:00 92/68 L 09/28/24 07:00 92/68 L 09/28/24 07:00 92/68 L 09/28/24 07:00 92/68 L 09/28/24 07:00 92/68 L 09/28/24 07:00 92/68 L 09/28/24 07:00 92/68 L 09/28/24 07:00 92/68 L 09/28/24 07:00 92/68 L 09/28/24 07:00 92/68 L 09/28/24 07:00 92/68 L 09/28/24 07:00 92/68 L 09/28/24 07:00 92/68 L 09/28/24 07:00 92/68 L 09/28/24 07:00 92/68 L 09/28/24 07:00 92/68 L 09/28/24 07:00 92/68 L 09/28/24 07:00 78 23 94 09/28/24 06:12 85 31 H 92 09/28/24 06:00 107/61 09/28/24 06:00 107/61 09/28/24 06:00 107/61 09/28/24 06:00 107/61 09/28/24 06:00 107/61 09/28/24 06:00 107/61 09/28/24 05:54 77 25 H 95 09/28/24 05:00 76 26 H 96 09/28/24 05:00 96/63 L 09/28/24 05:00 96/63 L 09/28/24 05:00 96/63 L 09/28/24 05:00 96/63 L 09/28/24 05:00 96/63 L 09/28/24 05:00 96/63 L 09/28/24 05:00 96/63 L 09/28/24 05:00 96/63 L 09/28/24 05:00 96/63 L 09/28/24 05:00 96/63 L 09/28/24 05:00 96/63 L 09/28/24 05:00 96/63 L 09/28/24 05:00 96/63 L 09/28/24 05:00 96/63 L 09/28/24 05:00 96/63 L 09/28/24 05:00 96/63 L 09/28/24 05:00 96/63 L 09/28/24 05:00 96/63 L 09/28/24 05:00 96/63 L 09/28/24 04:03 77 24 95 09/28/24 04:00 95/66 L 09/28/24 04:00 95/66 L 09/28/24 04:00 95/66 L 09/28/24 04:00 95/66 L 09/28/24 04:00 95/66 L 09/28/24 04:00 95/66 L 09/28/24 04:00 95/66 L 09/28/24 04:00 95/66 L 09/28/24 04:00 95/66 L 09/28/24 04:00 95/66 L 09/28/24 04:00 95/66 L 09/28/24 04:00 95/66 L 09/28/24 04:00 95/66 L 09/28/24 04:00 95/66 L 09/28/24 04:00 95/66 L 09/28/24 04:00 95/66 L 09/28/24 04:00 95/66 L 09/28/24 04:00 95/66 L 09/28/24 04:00 95/66 L 09/28/24 04:00 95/66 L 09/28/24 04:00 95/66 L 09/28/24 03:55 36.8 C 77 18 95/62 L 96 09/28/24 03:00 75 24 96 09/28/24 03:00 102/67 09/28/24 03:00 102/67 09/28/24 03:00 102/67 09/28/24 03:00 102/67 09/28/24 03:00 102/67 09/28/24 03:00 102/67 09/28/24 03:00 102/67 09/28/24 03:00 102/67 09/28/24 03:00 102/67 09/28/24 03:00 102/67 09/28/24 03:00 102/67 09/28/24 03:00 102/67 09/28/24 02:00 91/64 L 09/28/24 02:00 91/64 L 09/28/24 02:00 91/64 L 09/28/24 02:00 91/64 L 09/28/24 02:00 91/64 L 09/28/24 02:00 91/64 L 09/28/24 02:00 91/64 L 09/28/24 02:00 91/64 L 09/28/24 02:00 91/64 L 09/28/24 02:00 91/64 L 09/28/24 02:00 91/64 L 09/28/24 02:00 91/64 L 09/28/24 02:00 91/64 L 09/28/24 02:00 91/64 L 09/28/24 02:00 91/64 L 09/28/24 02:00 91/64 L 09/28/24 02:00 91/64 L 09/28/24 02:00 91/64 L 09/28/24 02:00 91/64 L 09/28/24 02:00 91/64 L 09/28/24 02:00 91/64 L 09/28/24 02:00 91/64 L 09/28/24 02:00 91/64 L 09/28/24 02:00 91/64 L 09/28/24 02:00 91/64 L 09/28/24 02:00 91/64 L 09/28/24 02:00 78 25 H 94 O2 Del Method O2 Flow Rate 09/28/24 13:01 09/28/24 13:00 09/28/24 12:06 09/28/24 12:00 09/28/24 12:00 09/28/24 12:00 09/28/24 11:57 09/28/24 11:06 09/28/24 11:00 09/28/24 10:57 09/28/24 10:51 High Flow Nasal Cannula 09/28/24 10:50 09/28/24 10:50 09/28/24 10:50 09/28/24 10:48 09/28/24 10:00 09/28/24 10:00 09/28/24 08:56 09/28/24 08:12 Nasal Cannula, High Flow Nasal Cannula 09/28/24 08:11 09/28/24 08:11 09/28/24 08:11 09/28/24 08:11 09/28/24 08:11 09/28/24 08:11 09/28/24 08:11 09/28/24 08:11 09/28/24 08:11 09/28/24 08:11 09/28/24 08:00 High Flow Nasal Cannula 8 09/28/24 08:00 09/28/24 08:00 09/28/24 08:00 09/28/24 08:00 09/28/24 08:00 09/28/24 07:00 09/28/24 07:00 09/28/24 07:00 09/28/24 07:00 09/28/24 07:00 09/28/24 07:00 09/28/24 07:00 09/28/24 07:00 09/28/24 07:00 09/28/24 07:00 09/28/24 07:00 09/28/24 07:00 09/28/24 07:00 09/28/24 07:00 09/28/24 07:00 09/28/24 07:00 09/28/24 07:00 09/28/24 07:00 09/28/24 07:00 09/28/24 07:00 09/28/24 07:00 09/28/24 07:00 09/28/24 07:00 09/28/24 07:00 09/28/24 06:12 09/28/24 06:00 09/28/24 06:00 09/28/24 06:00 09/28/24 06:00 09/28/24 06:00 09/28/24 06:00 09/28/24 05:54 09/28/24 05:00 09/28/24 05:00 09/28/24 05:00 09/28/24 05:00 09/28/24 05:00 09/28/24 05:00 09/28/24 05:00 09/28/24 05:00 09/28/24 05:00 09/28/24 05:00 09/28/24 05:00 09/28/24 05:00 09/28/24 05:00 09/28/24 05:00 09/28/24 05:00 09/28/24 05:00 09/28/24 05:00 09/28/24 05:00 09/28/24 05:00 09/28/24 05:00 09/28/24 04:03 09/28/24 04:00 09/28/24 04:00 09/28/24 04:00 09/28/24 04:00 09/28/24 04:00 09/28/24 04:00 09/28/24 04:00 09/28/24 04:00 09/28/24 04:00 09/28/24 04:00 09/28/24 04:00 09/28/24 04:00 09/28/24 04:00 09/28/24 04:00 09/28/24 04:00 09/28/24 04:00 09/28/24 04:00 09/28/24 04:00 09/28/24 04:00 09/28/24 04:00 09/28/24 04:00 09/28/24 03:55 Nasal Cannula 7 09/28/24 03:00 09/28/24 03:00 09/28/24 03:00 09/28/24 03:00 09/28/24 03:00 09/28/24 03:00 09/28/24 03:00 09/28/24 03:00 09/28/24 03:00 09/28/24 03:00 09/28/24 03:00 09/28/24 03:00 09/28/24 03:00 09/28/24 02:00 09/28/24 02:00 09/28/24 02:00 09/28/24 02:00 09/28/24 02:00 09/28/24 02:00 09/28/24 02:00 09/28/24 02:00 09/28/24 02:00 09/28/24 02:00 09/28/24 02:00 09/28/24 02:00 09/28/24 02:00 09/28/24 02:00 09/28/24 02:00 09/28/24 02:00 09/28/24 02:00 09/28/24 02:00 09/28/24 02:00 09/28/24 02:00 09/28/24 02:00 09/28/24 02:00 09/28/24 02:00 09/28/24 02:00 09/28/24 02:00 09/28/24 02:00 09/28/24 02:00 Laboratory Results Abnormal lab results 09/28/24 Range/Units 05:25 RBC 4.07 L (4.70-6.10) M/uL Hgb 10.8 L (14.0-18.0) g/dl Hct 33.5 L (42.0-52.0) % RDW Std Deviation 61.2 H (36.4-46.3) fL RDW Coeff of Marie 20.6 H (11.5-14.5) % Plt Count 113 L (130-400) K/uL Neut # (Auto) 7.09 H (1.40-6.50) K/uL Lymph # (Auto) 0.46 L (1.20-3.40) K/uL Lincoln # (Auto) 0.94 H (0.11-0.59) K/uL PT 13.9 H (9.0-12.0) Seconds INR 1.3 H (0.9-1.1) APTT 36 H (21-31) Seconds Potassium 3.0 L (3.5-5.1) mmol/L BUN 37 H (6-23) mg/dl BUN/Creatinine Ratio 30.1 H (10-20) Glucose 113 H (70-99(Fasting)) mg/dl AST 11 L (13-39) U/L Diagnostic Findings Chest X-Ray 09/25/24 18:40 HISTORY: Weakness. TECHNIQUE: Portable AP radiograph of the chest COMPARISON: Chest radiograph dated 07/30/2024. FINDINGS: Moderate left and small right pleural effusions. Patchy lower lung airspace opacities. No pneumothorax. Cardiomegaly. Left-sided aortic arch. Midline trachea. Left subclavian approach dual-lead pacer. No acute osseous abnormality. Included upper abdomen is unremarkable. IMPRESSION: 1. Moderate left and small right pleural effusions. 2. Nonspecific patchy lower lung opacities could represent atelectasis or pneumonia. 3. Cardiomegaly with mild vascular congestion, which could represent CHF. Electronically signed by Kieran Montague 09-25-2024 7:05 PM Medications Administered Current Inpatient Medications Acetaminophen (Acetaminophen 325 Mg Tab) 650 mg PO Q4H PRN PRN Reason: Pain or Fever Stop: 10/25/24 23:22 Albuterol (Albut/Ipratrop 3mg/0.5mg Neb 3 Ml Vial) 3 ml NEB Q2H PRN; Protocol PRN Reason: dyspnea Stop: 10/25/24 20:56 Furosemide (Furosemide 40 Mg/4 Ml Vial) 40 mg IV BID [facility] Stop: 10/27/24 11:14 Last Admin: 09/28/24 09:35 Dose: 40 mg Guaifenesin (Guaifenesin 600 Mg Tabcr) 600 mg PO Q12 PADMINI Stop: 10/25/24 20:59 Last Admin: 09/28/24 09:36 Dose: 600 mg Amiodarone HCl/Dextrose (Nexterone / D5w) 360 mg in 200 mls @ 16.667 mls/hr IV .Q12H PADMINI Stop: 10/26/24 10:59 Last Admin: 09/28/24 12:27 Dose: 0.5 mg/min, 16.7 mls/hr Dopamine HCl/Dextrose (Dopamine / D5w) 400 mg in 250 mls @ 20.993 mls/hr IV .[id number] PADMINI; Protocol Stop: 10/26/24 14:14 Last Admin: 09/28/24 10:06 Dose: 6 mcg/kg/min, 21 mls/hr Nystatin (Nystatin Powder 15gm Btl) 1 appln EXT DAILY PRN PRN Reason: Rash Stop: 10/26/24 00:27 Last Admin: 09/26/24 01:28 Dose: 1 appln Ondansetron HCl (Ondansetron Inj 2 Mg/Ml 2 Ml Vial) 4 mg IV Q6H PRN PRN Reason: Nausea Stop: 10/25/24 23:22 PG Care Time/CCT Total # of Minutes Spent Total Time Spent with Patient: Total time spent is greater than 50% in coordination of care (as documented) at patient's floor/unit and/or counseling patient: Coding [place] [address] SUB INP/OBS CARE 2/35MIN Patient Type Established History Problem Focused Exam Problem Focused Medical Decision Making Low Complexity Diagnoses Palliative care by specialist Z51.5 Encounter for end of life education, guidance and counseling
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
[2024-09-29 07:53] LABS: BUN Creatinine Ratio 30.5 (10-20); Calcium 8.6 mg/dl (8.6-10.3); Creatinine Clr Calc Pharmacy 70.3 ml/min; Potassium 3.2 mmol/L (3.5-5.1)
[2024-09-29] MEDS: SPIRONOLACTONE 12.5 MG TAB PO SCH (08:25)
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
--- NOTE | 2024-09-29 09:20 | Palliative Care Progress Note ---
Date of Service September 29, 2024 Assessment & Plan (1) Palliative care by specialist: Plan: Palliative care will continue to follow for ongoing GOC discussions and family support. (2) Encounter for end of life education, guidance and counseling: Plan: reinforced previous discussion of changes pt may move through in the dying process including but not limited to sleeping more, disorientation when awake, restlessness, diminished senses/inability to respond to stimulus although ability to be aware of them remains intact longer, and changes in body temperatures, skin changes/mottling/cyanosis, respiratory pattern changes, and oral secretions. Family verbalized understanding. The goal is to assure a peaceful . 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 Palliative will continue to follow Admission and Anticipated Discharge Date Admission Date: September 25, 2024 Subjective Assessed pt at bedside. He remains dependent on dopamine/amiodarone infusions with most recent BP 89/57. He c/o "slightly worse" SOB on 7L NC. He denies experiencing any of his "typical angina" and shared that he is unclear if his "heart is worse or just the breathing". Discussed use of nitroglycerin vs morphine for relief of dyspnea, noting difficulty balancing hypotension vs comfort. He refused offer of morphine stating that he wishes to keep his mind clear as long as possible. Review of Systems Review of Systems: All systems reviewed & are unremarkable except as noted in Subjective Constitutional: + fatigue, + malaise and + weakness Respiratory: + dyspnea and + dyspnea on exertion Gastrointestinal: + early satiety Neurologic: + generalized weakness Results & Data Vital Signs (Past 12 Hours) Vital Signs Temp Pulse Pulse Resp BP Pulse Ox O2 Del Method 09/29/24 07:31 36.3 C L 77 89/57 L 97 Nasal Cannula, High Flow Nasal Cannula 09/29/24 06:17 92/58 L 09/29/24 03:48 36.6 C 78 18 93/54 L 97 High Flow Nasal Cannula 09/29/24 03:35 88/54 L 09/29/24 01:15 95/56 L 09/29/24 00:00 79 90/52 L 09/28/24 23:36 95/62 L 09/28/24 22:10 36.7 C 78 18 85/54 L 96 Room Air 09/28/24 21:48 77 O2 Flow Rate 09/29/24 07:31 7 09/29/24 06:17 09/29/24 03:48 7 09/29/24 03:35 09/29/24 01:15 09/29/24 00:00 09/28/24 23:36 09/28/24 22:10 09/28/24 21:48 Laboratory Results Abnormal lab results 09/29/24 Range/Units 07:02 Potassium 3.2 L (3.5-5.1) mmol/L BUN 32 H (6-23) mg/dl BUN/Creatinine Ratio 30.5 H (10-20) Glucose 135 H (70-99(Fasting)) mg/dl Diagnostic Findings Chest X-Ray 09/25/24 18:40 HISTORY: Weakness. TECHNIQUE: Portable AP radiograph of the chest COMPARISON: Chest radiograph dated 07/30/2024. FINDINGS: Moderate left and small right pleural effusions. Patchy lower lung airspace opacities. No pneumothorax. Cardiomegaly. Left-sided aortic arch. Midline trachea. Left subclavian approach dual-lead pacer. No acute osseous abnormality. Included upper abdomen is unremarkable. IMPRESSION: 1. Moderate left and small right pleural effusions. 2. Nonspecific patchy lower lung opacities could represent atelectasis or pneumonia. 3. Cardiomegaly with mild vascular congestion, which could represent CHF. Electronically signed by Kieran Montague 09-25-2024 7:05 PM Medications Administered Current Inpatient Medications Acetaminophen (Acetaminophen 325 Mg Tab) 650 mg PO Q4H PRN PRN Reason: Pain or Fever Stop: 10/25/24 23:22 Albuterol (Albut/Ipratrop 3mg/0.5mg Neb 3 Ml Vial) 3 ml NEB Q2H PRN; Protocol PRN Reason: dyspnea Stop: 10/25/24 20:56 Furosemide (Furosemide 40 Mg/4 Ml Vial) 40 mg IV BID PADMINI Stop: 10/27/24 11:14 Last Admin: 09/29/24 08:25 Dose: 40 mg Guaifenesin (Guaifenesin 600 Mg Tabcr) 600 mg PO Q12 PADMINI Stop: 10/25/24 20:59 Last Admin: 09/29/24 08:25 Dose: 600 mg Amiodarone HCl/Dextrose (Nexterone / D5w) 360 mg in 200 mls @ 16.667 mls/hr IV .Q12H PADMINI Stop: 10/26/24 10:59 Last Admin: 09/28/24 23:13 Dose: 0.5 mg/min, 16.7 mls/hr Dopamine HCl/Dextrose (Dopamine / D5w) 400 mg in 250 mls @ 20.993 mls/hr IV .[id number] PADMINI; Protocol Stop: 10/26/24 14:14 Last Admin: 09/29/24 08:25 Dose: 6 mcg/kg/min, 21 mls/hr Nystatin (Nystatin Powder 15gm Btl) 1 appln EXT DAILY PRN PRN Reason: Rash Stop: 10/26/24 00:27 Last Admin: 09/26/24 01:28 Dose: 1 appln Ondansetron HCl (Ondansetron Inj 2 Mg/Ml 2 Ml Vial) 4 mg IV Q6H PRN PRN Reason: Nausea Stop: 10/25/24 23:22 Spironolactone (Spironolactone 12.5 Mg Tab) 12.5 mg PO DAILY [facility] Stop: 10/29/24 08:59 Last Admin: 09/29/24 08:25 Dose: 12.5 mg PG Care Time/CCT Total # of Minutes Spent Total Time Spent with Patient: Total time spent is greater than 50% in coordination of care (as documented) at patient's floor/unit and/or counseling patient: Coding [place] [address] SUB INP/OBS CARE 08/14MIN Patient Type Established History Problem Focused Exam Problem Focused Medical Decision Making Low Complexity Diagnoses Palliative care by specialist Z51.5 Encounter for end of life education, guidance and counseling
[2024-09-29] MEDS: POTASSIUM CHLORIDE CRTAB 20 MEQ TABCR PO STA (17:42)
[2024-09-29] MEDS: AMIODARONE 200 MG TAB PO SCH (17:42)
[2024-09-29] MEDS ORDERED: [UNRECOGNIZED DRUG - REMARK] ONE (19:00)
--- NOTE | 2024-09-29 19:09 | Hospitalist Progress Note ---
Date of Service September 29, 2024 Assessment & Plan (1) Pneumonia: (2) Generalized weakness: (3) Pleural effusion: (4) HFrEF (heart failure with reduced ejection fraction): (5) Acute kidney injury: Plan The patient is a 73-year-old male with a past medical history including wide-complex tachycardia status post recent cardioversion, presence of biventricular AICD, ischemic cardiomyopathy, hypertension, CAD, HFrEF 20-25%, paroxysmal atrial fibrillation, orthostatic hypotension, paralysis of right upper extremity, bilateral arm weakness, obesity, BPH and LUTS, bipolar 1 disorder, and depression. The patient presents to the emergency department with multiple issues as noted, and has been progressive over the past 3 to 4 months. He does note a more recent issue with shortness of breath and dyspnea on exertion. He has been utilizing furosemide at the direction of the heart f ailure clinic, when he feels he needs to have additional diuresis. In addition, he had been having issues with an approximate 10 pound weight gain, for which she had been using increasing doses of Lasix. He reports that he had also been eating less, and thinks he may have given himself an issue with decreased protein intake and fatigue on that basis. He notes also a recent issue with fecal incontinence, approximately 1 time daily, where he is unable to tell he is having loose stools. He does report being on antibiotic within the past few months. #Acute systolic CHF/cardiogenic shock/ischemic cardiomyopathy with an EF of 20% Patient has a baseline EF of 20% Echocardiogram shows worsening of EF of 15% Initially thought to be pneumonia and was started on antibiotics and IV fluids. However CHF seems to be the reason for his dyspnea on exertion. Now on CHF management. IV fluids and antibiotics discontinued. 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 Palliative care involved Patient understands the graveness of his condition but wishes to continue current level of care for the time being so he can take care of his financial affairs and spend time with his family and dog before he passes. He understands that he may not be able to make it out of the hospital #Wide-complex tachycardia Patient is on IV amiodarone #Hematuria Eliquis is being held Bey catheter in place Most likely traumatic due to Bey catheter insertion urine is looking clearer today H&H stable Blood consent obtained and in chart #Acute kidney injury- Creatinine 1.35 on admission with base 1.14 Currently remains stable Will monitor renal function closely #CAD/hypertension/ischemic cardiomyopathy/atrial fibrillation- Continue metoprolol succinate Aspirin and Eliquis held due to hematuria Hold furosemide, empagliflozin Continue Entresto #BPH with LUTS/urinary retention- Patient noted to have 200 cc postvoid residual Continue tamsulosin, finasteride UA from straight cath looks negative #Bilateral foot lesions/abrasions- Potential for progression Wound care consulted but may need to be addressed later #Generalized weakness/deconditioning- PT as an outpatient Canceled PT and OT consult as the patient is not appropriate for their evaluation at this time #Chronic medical conditions: GERD-hold pantoprazole Hyperlipidemia-Hold atorvastatin Depression-hold sertraline Admission and Anticipated Discharge Date Admission Date: September 25, 2024 Subjective SOB improving, Review of Systems Review of Systems: All systems reviewed & are unremarkable except as noted in Subjective Physical Exam Physical Exam: General: Awake, conversant Heart: S1, S2/regular rate and rhythm, no murmur rubs or gallops Lungs: Clear bilaterally. Normal effort Abdomen: Soft/nontender/nondistended. No hepatosplenomegaly Extremities: No clubbing/cyanosis. No edema Behavior: Appropriate, cooperative Results & Data Results & Data Vital Signs (Past 12 Hours) Vital Signs Temp Pulse Pulse Resp BP BP Pulse Ox 09/29/24 14:58 36.7 C 79 24 103/66 100 09/29/24 11:00 35.9 C L 14 93/68 L 92 09/29/24 08:00 82 14 93/68 L 94 09/29/24 08:00 76 09/29/24 08:00 09/29/24 07:31 36.3 C L 77 89/57 L 97 O2 Del Method O2 Flow Rate 09/29/24 14:58 High Flow Nasal Cannula 7 09/29/24 11:00 High Flow Nasal Cannula 7 09/29/24 08:00 High Flow Nasal Cannula 7 09/29/24 08:00 09/29/24 08:00 High Flow Nasal Cannula 8 09/29/24 07:31 Nasal Cannula, High Flow Nasal Cannula 7 PG Care Time/CCT Total # of Minutes Spent Total Time Spent with Patient: Total time spent is greater than 50% in coordination of care (as documented) at patient's floor/unit and/or counseling patient: Coding Level of Care Code 71499 SUB INP/OBS CARE 3/50MIN Diagnoses Pneumonia J18.9 Generalized weakness R53.1 Pleural effusion J90 HFrEF (heart failure with reduced ejection fraction) I50.20 Acute kidney injury N17.9
[2024-09-29] MEDS: AMIODARONE 200 MG TAB PO ONE (19:23)
[2024-09-29 21:51] LABS: Adenovirus F 40/41 PCR Not Detected (NotDetected); Astrovirus PCR Not Detected (NotDetected); Campylobacter PCR Not Detected (NotDetected); Cryptosporidium PCR Not Detected (NotDetected); Cyclospora cayetanensis PCR Not Detected (NotDetected); Entamoeba histolytica PCR Not Detected (NotDetected); Enteroaggregative E.coli(EAEC) Not Detected (NotDetected); Enteropathogenic E.coli (EPEC) Not Detected (NotDetected); Enterotoxigenic E.coli (ETEC) Not Detected (NotDetected); Giardia lamblia PCR Not Detected (NotDetected); Norovirus GI/GII PCR Not Detected (NotDetected); Plesiomonas shigelloides PCR Not Detected (NotDetected); Rotavirus A PCR Not Detected (NotDetected); Salmonella PCR Not Detected (NotDetected); Sapovirus PCR Not Detected (NotDetected); Shiga-like Toxin E.coli (STEC) Not Detected (NotDetected); Shigella/Enteroinvasive E.coli Not Detected (NotDetected); Vibrio cholerae PCR Not Detected (NotDetected); Vibrio species PCR Not Detected (NotDetected); Yersinia enterocolitica PCR Not Detected (NotDetected)
[2024-09-29] MEDS: [UNRECOGNIZED DRUG - REMARK] ONE (21:56)
[2024-09-30 06:40] LABS: Hemoglobin 11.4 g/dl (14.0-18.0); Mean Corpuscular Hemoglobin 26.4 pg (25.0-34.0); Mean Corpuscular Hgb Conc 31.7 g/dL (32.0-36.0); Mean Corpuscular Volume 83.3 fL (80.0-100.0); Mean Platelet Volume 10.9 fL (9.4-12.4); Platelet Count 143 K/uL (130-400); RDW Coefficient of Variation 19.9 % (11.5-14.5); RDW Standard Deviation 60.6 fL (36.4-46.3); Red Blood Count 4.32 M/uL (4.70-6.10); White Blood Count 6.65 K/ul (4.8-10.8)
[2024-09-30 06:52] LABS: BUN Creatinine Ratio 33.3 (10-20); C Reactive Protein 13.09 mg/dl (0-0.5); Calcium 8.5 mg/dl (8.6-10.3); Creatinine Clr Calc Pharmacy 84.3 ml/min; Potassium 3.3 mmol/L (3.5-5.1)
[2024-09-30] MEDS: AMIODARONE 200 MG TAB PO SCH (09:00)
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
--- NOTE | 2024-09-30 10:32 | Palliative Care Progress Note ---
Date of Service September 30, 2024 Assessment & Plan (1) Palliative care by specialist: Plan: Palliative care will continue to follow for ongoing GOC discussions and family support. (2) Encounter for end of life education, guidance and counseling: Plan: reinforced previous discussion of changes pt may move through in the dying process including but not limited to sleeping more, disorientation when awake, restlessness, diminished senses/inability to respond to stimulus although ability to be aware of them remains intact longer, and changes in body temperatures, skin changes/mottling/cyanosis, respiratory pattern changes, and oral secretions. Family verbalized understanding. The goal is to assure a peaceful . Plan continue current level of care, pt would likely transition to PARTS COORDINATOR with any further hemodynamic decline. Palliative will continue to follow loosely, please call with any questions or concerns regarding this consultation. Admission and Anticipated Discharge Date Admission Date: September 25, 2024 Subjective Assessed pt at bedside. NAEON. He remains dependent on dopamine infusion with most recent BP 87/49 (61). Amiodarone transitioned to PO and pt continues to have frequent 5-10s runs of VT. He c/o ORTEGA/ SOB on 7L NC. He denies any other discomfort. No visitors present at bedside, however pt has had large family presence over last several days. Pt shared that his one dog was able to visit yesterday and another dog will be visiting today. He is hopeful for more quality time with family/dogs. Review of Systems Constitutional: + fatigue, + malaise and + weakness Respiratory: + dyspnea and + dyspnea on exertion Gastrointestinal: + early satiety Neurologic: + generalized weakness Physical Exam Constitutional: + ill appearing, + thin and cooperative Eyes: PERRL, conjunctivae normal, anicteric sclerae ENMT: external ear and nose normal, oropharynx normal Neck: trachea midline, no thyromegaly Respiratory: able to speak in complete sentences and + tachypneic Auscultation: + diminished lung sounds and + crackles Cardiovascular: Extremities: + edema hypotensive on dopamine drip with frequent runs of VT and multifocal PVCs Musculoskeletal: generalized weakness, PERDOMO Skin: no rashes, warm and dry + pallor Neurologic: PERRL, EOMI, accommodation nl, no face palsy, no dysarthria Psychiatric: A+Ox3, euthymic affect Results & Data Vital Signs (Past 12 Hours) Vital Signs Temp Pulse Pulse Resp BP BP Pulse Ox 09/30/24 10:19 74/46 L 09/30/24 09:28 76/58 L 09/30/24 09:02 77/54 L 09/30/24 08:00 84 09/30/24 07:20 36.4 C L 120 H 24 86/63 L 96 09/30/24 04:06 94/64 L 09/30/24 03:43 89/61 L 09/30/24 03:32 36.8 C 91 H 18 85/54 L 96 09/30/24 03:01 95/58 L 09/30/24 02:01 111/50 L 09/30/24 01:13 94/60 L 09/30/24 00:02 100/76 09/29/24 23:25 36.5 C 83 16 96/59 L 97 O2 Del Method O2 Flow Rate 09/30/24 10:19 09/30/24 09:28 09/30/24 09:02 09/30/24 08:00 09/30/24 07:20 Nasal Cannula 5 09/30/24 04:06 09/30/24 03:43 09/30/24 03:32 Nasal Cannula 6 09/30/24 03:01 09/30/24 02:01 09/30/24 01:13 09/30/24 00:02 09/29/24 23:25 High Flow Nasal Cannula 3 Laboratory Results Abnormal lab results 09/30/24 Range/Units 05:34 RBC 4.32 L (4.70-6.10) M/uL Hgb 11.4 L (14.0-18.0) g/dl Hct 36.0 L (42.0-52.0) % MCHC 31.7 L (32.0-36.0) g/dL RDW Std Deviation 60.6 H (36.4-46.3) fL RDW Coeff of Marie 19.9 H (11.5-14.5) % Potassium 3.3 L (3.5-5.1) mmol/L BUN 29 H (6-23) mg/dl BUN/Creatinine Ratio 33.3 H (10-20) Glucose 105 H (70-99(Fasting)) mg/dl Calcium 8.5 L (8.6-10.3) mg/dl C-Reactive Protein 13.09 H (0-0.5) mg/dl Diagnostic Findings Chest X-Ray 09/25/24 18:40 HISTORY: Weakness. TECHNIQUE: Portable AP radiograph of the chest COMPARISON: Chest radiograph dated 07/30/2024. FINDINGS: Moderate left and small right pleural effusions. Patchy lower lung airspace opacities. No pneumothorax. Cardiomegaly. Left-sided aortic arch. Midline trachea. Left subclavian approach dual-lead pacer. No acute osseous abnormality. Included upper abdomen is unremarkable. IMPRESSION: 1. Moderate left and small right pleural effusions. 2. Nonspecific patchy lower lung opacities could represent atelectasis or pneumonia. 3. Cardiomegaly with mild vascular congestion, which could represent CHF. Electronically signed by Kieran Montague 09-25-2024 7:05 PM Medications Administered Current Inpatient Medications Acetaminophen (Acetaminophen 325 Mg Tab) 650 mg PO Q4H PRN PRN Reason: Pain or Fever Stop: 10/25/24 23:22 Albuterol (Albut/Ipratrop 3mg/0.5mg Neb 3 Ml Vial) 3 ml NEB Q2H PRN; Protocol PRN Reason: dyspnea Stop: 10/25/24 20:56 Amiodarone HCl (Amiodarone 200 Mg Tab) 400 mg PO BIDM [facility] Stop: 10/03/24 08:01 Last Admin: 09/30/24 09:00 Dose: 400 mg Amiodarone HCl (Amiodarone 200 Mg Tab) 200 mg PO DAILY@0800 [facility] Stop: 11/03/24 07:59 Furosemide (Furosemide 40 Mg/4 Ml Vial) 40 mg IV BID [facility] Stop: 10/27/24 11:14 Last Admin: 09/30/24 08:01 Dose: 40 mg Guaifenesin (Guaifenesin 600 Mg Tabcr) 600 mg PO Q12 [facility] Stop: 10/25/24 20:59 Last Admin: 09/30/24 07:57 Dose: 600 mg Dopamine HCl/Dextrose (Dopamine / D5w) 400 mg in 250 mls @ 20.993 mls/hr IV .[id number] [facility]; Protocol Stop: 10/26/24 14:14 Last Titration: 09/30/24 07:04 Dose: 6 mcg/kg/min, 21 mls/hr Nystatin (Nystatin Powder 15gm Btl) 1 appln EXT DAILY PRN PRN Reason: Rash Stop: 10/26/24 00:27 Last Admin: 09/26/24 01:28 Dose: 1 appln Ondansetron HCl (Ondansetron Inj 2 Mg/Ml 2 Ml Vial) 4 mg IV Q6H PRN PRN Reason: Nausea Stop: 10/25/24 23:22 Spironolactone (Spironolactone 12.5 Mg Tab) 12.5 mg PO DAILY [facility] Stop: 10/29/24 08:59 Last Admin: 09/30/24 07:57 Dose: 12.5 mg PG Care Time/CCT Total # of Minutes Spent Total Time Spent with Patient: Total time spent is greater than 50% in coordination of care (as documented) at patient's floor/unit and/or counseling patient: Coding [place] [address] SUB INP/OBS CARE 08/14MIN Patient Type Established History Problem Focused Exam Problem Focused Medical Decision Making Low Complexity Diagnoses Palliative care by specialist Z51.5 Encounter for end of life education, guidance and counseling
--- NOTE | 2024-09-30 13:17 | Hospitalist Progress Note ---
Date of Service September 30, 2024 Assessment & Plan (1) HFrEF (heart failure with reduced ejection fraction): Plan: Acute on chronic. End-stage. Cardiology consultation and recommendations appreciated. Amiodarone drip has been switched to oral dosing. He remains on a dopamine drip which hopefully can be weaned off today or tomorrow. Unfortunately, his blood pressure remains low. (2) Wide-complex tachycardia: Plan: Being treated with amiodarone. Telemetry. Cardiology consultation and recommendations appreciated (3) Pneumonia: Plan: Ruled out (4) Generalized weakness: Plan: Supportive care. Physical therapy as tolerated (5) Pleural effusion: Plan: Due to underlying CHF. (6) Acute kidney injury: Plan: Likely due to cardiorenal syndrome. Monitor intake and output. Serial labs (7) Paroxysmal A-fib: Plan: Eliquis has been discontinued. Rate controlled. Telemetry (8) Gross hematuria: Plan: Eliquis has been discontinued. Now resolved Plan The patient is reconsidering his decision to go home with hospice realizing that his and daughter cannot provide adequate care for him. More than likely he will remain here with hospice care. Cardiology is attempting to wean off the dopamine drip. Admission and Anticipated Discharge Date Admission Date: September 25, 2024 Subjective Alert and oriented. Pleasant. Cardiology consultation and recommendations appreciated. Amiodarone drip has been switched to oral dosing. Dopamine drip will be weaned off. He is reconsidering his decision to go home with hospice care feeling that his and daughter will not be able to care for him appropriately. Eliquis has been discontinued. His AICD has been turned off by cardiology Review of Systems 2 Review of Systems: Constitutionalno fever or chills ENTno blurred vision, no double vision, no epistaxis, no sore throat Respiratoryno cough, no wheezing. Dyspnea with minimal exertion Cardiacno palpitations, no chest pain, no syncope Lor nausea, vomiting, diarrhea, melena, hematochezia GUno urinary retention, no urinary incontinence, no dysuria, no hematuria Musculoskeletalno joint pain, no muscle tenderness Skinno bruising, no rashes, no pruritus Neurogeneralized weakness. No focal deficits Psychno depression, no anxiety Physical Exam 2 Physical Exam: General-alert and oriented x3, no fever, no chills HEENT-head atraumatic and normocephalic, pupils equal and reactive to light, extraocular muscles intact Neck-no lymphadenopathy or thyromegaly, trachea midline Chest-diminished breath sounds bilaterally. No rales, wheezing or rhonchi Cardiac-regular rate and rhythm, normal S1 and S2 Abdomen-normal bowel sounds, no hepatosplenomegaly Extremities-no cyanosis, clubbing. Mild pitting edema bilateral lower extremities below the knees Neuro-cranial nerves II through XII intact, motor and sensory function within normal limits, strength symmetrical with generalized weakness, no focal deficits Psych-normal affect, normal mood Results & Data Results & Data Vital Signs (Past 12 Hours) Vital Signs Temp Pulse Pulse Resp BP BP Pulse Ox 09/30/24 12:14 36.8 C 84 23 86/43 L 97 09/30/24 10:43 87/49 L 09/30/24 10:26 09/30/24 10:19 74/46 L 09/30/24 09:28 76/58 L 09/30/24 09:02 77/54 L 09/30/24 08:00 84 09/30/24 07:20 36.4 C L 120 H 24 86/63 L 96 09/30/24 04:06 94/64 L 09/30/24 03:43 89/61 L 09/30/24 03:32 36.8 C 91 H 18 85/54 L 96 09/30/24 03:01 95/58 L 09/30/24 02:01 111/50 L 09/30/24 01:13 94/60 L O2 Del Method O2 Flow Rate 09/30/24 12:14 Nasal Cannula, High Flow Nasal Cannula 4 09/30/24 10:43 09/30/24 10:26 Nasal Cannula 5 09/30/24 10:19 09/30/24 09:28 09/30/24 09:02 09/30/24 08:00 09/30/24 07:20 Nasal Cannula 5 09/30/24 04:06 09/30/24 03:43 09/30/24 03:32 Nasal Cannula 6 09/30/24 03:01 09/30/24 02:01 09/30/24 01:13 Laboratory Results 09/30/24 05:34 09/30/24 05:34 PG Care Time/CCT Total # of Minutes Spent Total Time Spent with Patient: Total time spent is greater than 50% in coordination of care (as documented) at patient's floor/unit and/or counseling patient: Coding Level of Care Code 22742 SUB INP/OBS CARE MIN Diagnoses HFrEF (heart failure with reduced ejection fraction) I50.20 Wide-complex tachycardia R00.0 Pneumonia J18.9 Generalized weakness R53.1 Pleural effusion J90 Acute kidney injury N17.9 Paroxysmal A-fib I48.0 Gross hematuria R31.0
[2024-09-30] MEDS: POTASSIUM CHLORIDE CRTAB 20 MEQ TABCR PO STA (16:19)
[2024-10-01] MEDS: POTASSIUM CHLORIDE CRTAB 20 MEQ TABCR PO SCH (08:21)
[2024-10-01 08:41] LABS: BUN Creatinine Ratio 29.8 (10-20); Calcium 8.7 mg/dl (8.6-10.3); Creatinine Clr Calc Pharmacy 87.1 ml/min; Potassium 3.7 mmol/L (3.5-5.1)
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
--- NOTE | 2024-10-01 09:58 | XRay Report ---
XR chest 1V portable CLINICAL HISTORY: CHF COMPARISON STUDY: 09/25/2024 FINDINGS: The patient continues to show cardiomegaly with pulmonary vascular congestion. Bilateral pe rihilar haziness. Bilateral pleural effusions have increased slightly in size. Bibasilar opacities ar e most likely compressive atelectasis. Pacemaker leads remain in place. IMPRESSION: Enlarging bilateral pleural effusions most likely on the basis of CHF ACT 112: Negative or not required by law. Electronically signed by: Autumn Holman M.D. 10/01/2024 9:57 AM
--- NOTE | 2024-10-01 12:47 | Hospitalist Progress Note ---
Date of Service October 01, 2024 Assessment & Plan (1) HFrEF (heart failure with reduced ejection fraction): Plan: Acute on chronic. End-stage. Cardiology consultation and recommendations appreciated. Amiodarone drip has been switched to oral dosing. He remains on a dopamine drip which he is in the process of being weaned off. (2) Wide-complex tachycardia: Plan: Being treated with amiodarone. Telemetry. Cardiology consultation and recommendations appreciated (3) Pneumonia: Plan: Ruled out (4) Generalized weakness: Plan: Supportive care. Physical therapy as tolerated (5) Pleural effusion: Plan: Due to underlying CHF. (6) Acute kidney injury: Plan: Likely due to cardiorenal syndrome. Monitor intake and output. Serial labs (7) Paroxysmal A-fib: Plan: Eliquis has been discontinued. Rate controlled. Telemetry (8) Gross hematuria: Plan: Eliquis has been discontinued. Now resolved Plan The patient is reconsidering his decision to go home with hospice realizing that his and daughter cannot provide adequate care for him. More than likely he will remain here with hospice care. Cardiology is attempting to wean off the dopamine drip. Admission and Anticipated Discharge Date Admission Date: September 25, 2024 Subjective Somnolent but easily arousable. Cardiology entry noted. He is in the process of being weaned off his dopamine drip. Eliquis remains on hold. Chest x-ray will be repeated today, October 01. Review of Systems 2 Review of Systems: Constitutionalno fever or chills ENTno blurred vision, no double vision, no epistaxis, no sore throat Respiratoryno cough, no wheezing. Dyspnea with minimal exertion Cardiacno palpitations, no chest pain, no syncope Lor nausea, vomiting, diarrhea, melena, hematochezia GUno urinary retention, no urinary incontinence, no dysuria, no hematuria Musculoskeletalno joint pain, no muscle tenderness Skinno bruising, no rashes, no pruritus Neurogeneralized weakness. No focal deficits Psychno depression, no anxiety Physical Exam 2 Physical Exam: General-alert and oriented x3, no fever, no chills HEENT-head atraumatic and normocephalic, pupils equal and reactive to light, extraocular muscles intact Neck-no lymphadenopathy or thyromegaly, trachea midline Chest-diminished breath sounds bilaterally. No rales, wheezing or rhonchi Cardiac-regular rate and rhythm, normal S1 and S2 Abdomen-normal bowel sounds, no hepatosplenomegaly Extremities-no cyanosis, clubbing. Mild pitting edema bilateral lower extremities below the knees Neuro-cranial nerves II through XII intact, motor and sensory function within normal limits, strength symmetrical with generalized weakness, no focal deficits Psych-normal affect, normal mood Results & Data Results & Data Vital Signs (Past 12 Hours) Vital Signs Temp Pulse Pulse Resp BP Pulse Ox O2 Del Method 10/01/24 10:37 36.5 C 82 20 93/54 L 96 Nasal Cannula 10/01/24 10:20 80 10/01/24 10:20 Nasal Cannula 10/01/24 07:51 36.5 C 85 16 97/59 L 97 Nasal Cannula 10/01/24 07:09 80 10/01/24 03:14 36.7 C 85 20 90/62 L 93 Nasal Cannula O2 Flow Rate 10/01/24 10:37 10/01/24 10:20 10/01/24 10:20 4 10/01/24 07:51 10/01/24 07:09 10/01/24 03:14 3 Laboratory Results 09/30/24 05:34 10/01/24 07:57 PG Care Time/CCT Total # of Minutes Spent Total Time Spent with Patient: Total time spent is greater than 50% in coordination of care (as documented) at patient's floor/unit and/or counseling patient: Coding Level of Care Code 18596 SUB INP/OBS CARE 2/35MIN Diagnoses HFrEF (heart failure with reduced ejection fraction) I50.20 Wide-complex tachycardia R00.0 Pneumonia J18.9 Generalized weakness R53.1 Pleural effusion J90 Acute kidney injury N17.9 Paroxysmal A-fib I48.0 Gross hematuria R31.0
--- NOTE | 2024-10-01 14:11 | Palliative Family Discussion ---
Date of Service October 01, 2024 Patient Directed Conference Time of Meetin:00 - 12:40 Participants: Adriana Bower AGACNP Patient participation: yes Patient Support System: Other Healthcare Provider Participation: None Meeting Location: bedside Advanced Directive available: no If yes, descriptors: The patient's surrogate medical decision maker participated: yes spouse was present Legally authorized health care proxy: spouse LNOK proxy Luis Vanegas Other surrogate: n/a A family meeting was held for MADISYN VANEGAS. This meeting was necessary for determining the appropriate course of treatment. Topics of Discussion Topics of Discussion: 1. GOC/values 2. hospice 3. plan of care Other Content of Meetin. Opportunity given for participants to speak and ask questions. 2. Participants were assured of attention to patient comfort. 3. Reassurance provided. 4. Support was provided for informed, good-ciaran decisions. 5. Emotions expressed by family were acknowledged and addressed. 6. Follow-up Outpatient: n/a 7. Plan of Care: DNR/DNI, pt would like to continue to attempt to optimize hemodynamics over weekend with hope for home hospice early next week Lengthy conversation at bedside with the pt and his . we discussed pt's current health and improvements necessary to afford pt opportunity to discharge home. He expressed understanding that his HFrEF is end stage and again expressed that all treatments are simply "bandaid therapy" at this time. He shared that he would like most to go home on hospice, but that if he "would within a couple days of discharge" it might be too disruptive and better for him to remain in hospital for ongoing comfort directed care. His expressed concern that she feels she may be "too squeamish" to provide nursing care at home. She shared that she was a SW by profession and has a basic understanding ans accepts hospice, but worries that she may not be able to provide proper care at home. Discussed option of paid caretakers to help out at home, pt shared that he has been considering this. Discussed hospice benefit: an interdisciplinary program offered by nurses, nurses aides, social workers, chaplains and a biomedical instrument technician for patients with a terminal condition and a life expectancy of less than 6 months. This is covered by Medicare at 100%/no out of pocket expense to patient and all meds/supplies needed by patient for the reason they are on hospice are paid for/covered by hospice. The goal is assure quality of life of the patient in their home setting (home, fpc, inpatient hospice setting) by providing symptoms management, psychosocial and spiritual support. However, they cannot offer 24 hours care and if the family is unable to provide that care, they will have to consider personal care with out of pocket cost vs. fpc placement. We discussed the goals of hospice as a patient service and the goals of care; we discussed EOL trajectories and transitions kb the emotional impact of realizing mortality as a concrete reality from prior abstract considerations. Pt was reassured that no matter where they are along this trajectory, they are not alone - their medical team will remain by their side through their journey. Discussed the pros/cons of accepting help when especially weakened and distressed by pain-which would also help provide relief/decrease caregiver burden/strain. We discussed that in order to be safe to discharge to home, pt would need to be weaned off of his dopamine drip and to LFNC. Discussed concern for the pt's ORTEGA even with conversing or assisting nurses with ALDs. Discussed that pt has been restricted to bed through out this admission and shared concern that with minimal exertion he continues to have SOB and hypotension. Pt expressed that he also is concerned that to go home and not be able to function is not his hope. He shared that he would not want to be completely dependent for all ADLs at home. Suggested option of PT evaluation prior to discharge if pt is able to be weaned safely off of dopamine infusion. agreeable and remains hopeful for continued weaning of dopamine drip over weekend. Palliative care will readdress goals with pt on Friday. Time Involved in Meeting: I spent 60 minutes overall addressing this case: 10 in medical data review/discussion with referring provider(s) and/or preparation for the visit 40 in direct interaction with the patient and spouse 40 Advance Care Planning/Goals of Care discussions as detailed above in note (must be >16min) 5 in subsequent review and synthesis of assessment and plan 5 in communicating with other providers regarding the patient's case: NAKIA, attending
[2024-10-02 08:01] LABS: Anion Gap 4 (3-11); BUN Creatinine Ratio 28.9 (10-20); Blood Urea Nitrogen 26 mg/dl (6-23); Calcium 8.7 mg/dl (8.6-10.3); Carbon Dioxide 35 mmol/L (21-32); Chloride 101 mmol/L (98-107); Creatinine Clr Calc Pharmacy 81.3 ml/min; Glucose 97 mg/dl (70-99(Fasting)); Sodium 140 mmol/L (136-145)
[2024-10-02 08:55] LABS: Magnesium 1.8 mg/dl (1.7-2.4); Potassium 4.1 mmol/L (3.5-5.1)
--- NOTE | 2024-10-02 12:35 | Hospitalist Progress Note ---
Date of Service October 02, 2024 Assessment & Plan (1) HFrEF (heart failure with reduced ejection fraction): Plan: EF 15-20% 2nd ischemic cardiomyopathy acute/chronic continue diuresis continue dopamine but wean to 3mcg/kg/min today all cardiac meds are on hold due to shock except for small dose of aldactone 12.5mg daily BMP am (2) Wide-complex tachycardia: Plan: VT vs atrial-based rhythm with LBBB morphology either way the # of episodes has decreased with initiation of amiodarone had been on IV infusion, now PO load with 400mg BID ultimately will decrease to 200mg daily recent Eliquis was stopped due to gross hematuria and likely transition to palliative care pathway (3) Cardiogenic shock: Plan: 2nd to end-stage HFrEF / ischemic cardiomyopathy remains on dopamine 4mcg/kg/min weaning to 3mcg/kg/min today tolerating the wean creatinine stable diuresing (4) Generalized weakness: Plan: 2nd to endstage heart disease (5) Pleural effusion: Plan: 2nd to #1 no plans for thoracentesis - simply diurese (6) Acute kidney injury: Plan: 2nd cardiorenal syndrome/cardiogenic shock. Cr peaked 1.3 now <1 BMP am (7) Paroxysmal A-fib: Plan: Eliquis has been discontinued On amiodarone for wide-complex rhythm suppression & amiodarone will also help maintain NSR in setting of PAF (8) Gross hematuria: Plan: resolved likely 2nd to siegel trauma Plan after much discussion I ordered a small dose of roxanol to use prn for dyspnea/air hunger patient aware it is available to him disposition - uncertain left message for pt's 10/02/24 on voicemail care d/w Dr Bertrand, cardiology, via [employer] Text Admission and Anticipated Discharge Date Admission Date: September 25, 2024 Subjective patient was sleeping upon arrival easily wakes up reports occasional dyspnea just laying in bed no chest pain no abd pain appetite fair-good we had lengthy discussion about going home with hospice vs staying comfortable in the hospital he would prefer home if it can be done safely tele overnight - wide-complex tachycardia, 7 beats; otherwise paced remains on dopamine 4mcg/kg/min Review of Systems Review of Systems: cv - no chest pain; no edema pulm - no cough GI - no N/V Physical Exam Physical Exam: gen - NAD, very weak; pleasant neck - no JVD mouth - MM slightly dry heart - RRR, s1 s2, no murmur lungs - decreased BS bases but no wheezes or rales; no increased work of breathing abd - soft NT ND BS+ ext - pulses b/l feet 2+; scant edema b/l feet psych - a/o x 3 Results & Data Results & Data Vital Signs (Past 12 Hours) Vital Signs Temp Pulse Pulse Resp BP BP Pulse Ox 10/02/24 10:49 36.5 C 78 16 85/54 L 96 10/02/24 08:00 36.6 C 79 16 91/61 L 97 10/02/24 07:37 10/02/24 04:00 79 22 90/55 L 10/02/24 02:50 77 19 85/49 L 97 O2 Del Method O2 Flow Rate 10/02/24 10:49 Nasal Cannula 3 10/02/24 08:00 Nasal Cannula 3 10/02/24 07:37 Nasal Cannula 3 10/02/24 04:00 10/02/24 02:50 Nasal Cannula 4 Laboratory Results Laboratory Results - last 24 hr 10/02/24 10/02/24 07:18 08:25 Sodium 140 Potassium TNP 4.1 Chloride 101 Carbon Dioxide 35 H Anion Gap 4 BUN 26 H Creatinine 0.90 Est Cr Clr Drug Dosing 81.3 eGFR 89.07 BUN/Creatinine Ratio 28.9 H Glucose 97 Calcium 8.7 Magnesium 1.8 PG Care Time/CCT Total # of Minutes Spent Total Time Spent with Patient: Total time spent is greater than 50% in coordination of care (as documented) at patient's floor/unit and/or counseling patient: Coding Level of Care Code 70610 SUB INP/OBS CARE 3/50MIN Diagnoses HFrEF (heart failure with reduced ejection fraction) I50.20 Wide-complex tachycardia R00.0 Cardiogenic shock R57.0 Generalized weakness R53.1 Pleural effusion J90 Acute kidney injury N17.9 Paroxysmal A-fib I48.0 Gross hematuria R31.0
[2024-10-02] MEDS: MoRPHine SULFATE 10 MG/0.5 ML UDP PO PRN (21:43)
[2024-10-03 08:20] LABS: BUN Creatinine Ratio 29.5 (10-20); Calcium 8.7 mg/dl (8.6-10.3); Creatinine Clr Calc Pharmacy 83.1 ml/min; Potassium 4.2 mmol/L (3.5-5.1)
--- NOTE | 2024-10-03 19:42 | Hospitalist Progress Note ---
Date of Service October 03, 2024 Assessment & Plan (1) HFrEF (heart failure with reduced ejection fraction): Plan: end-stage systolic CHF EF 15-20% 2nd ischemic cardiomyopathy acute/chronic, with cardiogenic shock earlier in the stay continue diuresis; tolerating 40mg BID IV, and Creatinine stable on labs today continue dopamine at 3mcg/kg/min today then plan to stop it tomorrow on 10/04 all cardiac meds are on hold due to shock except for small dose of aldactone 12.5mg daily BMP am (2) Wide-complex tachycardia: Plan: VT vs atrial-based rhythm with LBBB morphology either way the # of episodes have decreased considerably with initiation of amiodarone had been on IV infusion, then PO load with 400mg BID, and will decrease to 200mg daily starting 10/04 recent Eliquis was stopped due to gross hematuria and likely transition to palliative care pathway (3) Cardiogenic shock: Plan: 2nd to end-stage HFrEF / ischemic cardiomyopathy remains on dopamine 3mcg/kg/min cont dopamine at 3mcg today then stop on 10/04 creatinine stable diuresing (4) Generalized weakness: Plan: 2nd to endstage heart disease (5) Pleural effusion: Plan: 2nd to #1 no plans for thoracentesis - cont to diurese (6) Acute kidney injury: Plan: 2nd cardiorenal syndrome/cardiogenic shock. Cr peaked 1.3 now <1 BMP am (7) Paroxysmal A-fib: Plan: Eliquis has been discontinued On amiodarone for wide-complex rhythm suppression & amiodarone will also help maintain NSR in setting of PAF (8) Gross hematuria: Plan: resolved likely 2nd to siegel trauma Plan I spoke with the pt's by phone this evening discussed events of weekend, plan for d/c of dopamine drip tomorrow, and then we can re-evaluate things following such his disposition is very unclear - ideally he wants to return home but at this time that is uncertain (he lives with and his daughter is also present) will work on disposition next couple of days he is adamant he does not want to go to SNF Admission and Anticipated Discharge Date Admission Date: September 25, 2024 Subjective patient used the roxanol at bedtime last pm he did sleep very well with such he had taken it because of dyspnea not insomnia no significant dyspnea today denies pain in any location eating fair at best minimal amounts of wide complex tachycardia on monitors mostly paced patient today told me that he realizes he is dying and he is accepting of such he is adamant that he "doesn't want to go into a assisted" Review of Systems Review of Systems: CV - no chest pain pulm - no cough GI - no abd pain or N/V Physical Exam Physical Exam: gen - NAD; awake/alert; pleasant neck - no JVD heart - RRR, s1 s2, no murmur lungs - decreased BS bases but no wheezes or rales; no increased work of breathing - exam similar to yesterday abd - soft NT ND BS+ ext - pulses b/l feet 2+; no edema psych - a/o x 3, restricted affect Results & Data Results & Data Vital Signs (Past 12 Hours) Vital Signs Temp Pulse Pulse Resp BP Pulse Ox O2 Del Method 10/03/24 16:06 36.3 C L 77 18 92/61 L 99 Nasal Cannula 10/03/24 14:41 77 10/03/24 11:29 36.7 C 76 18 91/59 L 96 Nasal Cannula 10/03/24 08:00 Nasal Cannula 10/03/24 07:59 36.9 C 76 20 88/59 L 96 Nasal Cannula O2 Flow Rate 10/03/24 16:06 3 10/03/24 14:41 10/03/24 11:29 3 10/03/24 08:00 3 10/03/24 07:59 3 Laboratory Results Laboratory Results - last 24 hr 10/03/24 06:43 Sodium 140 Potassium 4.2 Chloride 100 Carbon Dioxide 35 H Anion Gap 5 BUN 26 H Creatinine 0.88 Est Cr Clr Drug Dosing 83.1 eGFR 89.67 BUN/Creatinine Ratio 29.5 H Glucose 94 Calcium 8.7 PG Care Time/CCT Total # of Minutes Spent Total Time Spent with Patient: Total time spent is greater than 50% in coordination of care (as documented) at patient's floor/unit and/or counseling patient: Coding Level of Care Code 10221 SUB INP/OBS CARE 2/35MIN Diagnoses HFrEF (heart failure with reduced ejection fraction) I50.20 Wide-complex tachycardia R00.0 Cardiogenic shock R57.0 Generalized weakness R53.1 Pleural effusion J90 Acute kidney injury N17.9 Paroxysmal A-fib I48.0 Gross hematuria R31.0
[2024-10-04 07:06] LABS: BUN Creatinine Ratio 26.3 (10-20); Potassium 4.1 mmol/L (3.5-5.1)
--- NOTE | 2024-10-04 08:24 | Palliative Care Progress Note ---
Date of Service October 04, 2024 Assessment & Plan (1) Palliative care by specialist: Plan: Palliative care will continue to follow for ongoing GOC discussions and family support. (2) Encounter for end of life education, guidance and counseling: Plan: reinforced previous discussion of changes pt may move through in the dying process including but not limited to sleeping more, disorientation when awake, restlessness, diminished senses/inability to respond to stimulus although ability to be aware of them remains intact longer, and changes in body temperatures, skin changes/mottling/cyanosis, respiratory pattern changes, and oral secretions. Pt verbalized understanding. The goal is to assure a peaceful . Pt shared that although he does prefer to at home, he remains "on the fence" due to the logistics of 24hr caretakers at home. He shared that he is "taking it day by day" and wishes to continue trying to wean off of the dopamine and take it from there. Plan continue current level of care, pt would likely transition to [employer] with any further hemodynamic decline. Palliative will continue to follow loosely, please call with any questions or concerns regarding this consultation. Admission and Anticipated Discharge Date Admission Date: September 25, 2024 Subjective Assessed pt at bedside. JULIO. He remains dependent on dopamine infusion with most recent BP 86/4 (75). He has had less frequent VT with dopamine weaned to 3mcg/kg/min over weekend. He is lying in bed and denies current dyspnea or discomfort. No visitors present at bedside. He shared hope that dopamine can be weaned off today so that he may return home to spend quality time with family/dogs. He again expressed strong desire to be at home when he dies. Review of Systems Constitutional: + fatigue, + malaise and + weakness Respiratory: + dyspnea and + dyspnea on exertion Gastrointestinal: + early satiety Neurologic: + generalized weakness Physical Exam Constitutional: + ill appearing, + thin and cooperative Eyes: PERRL, conjunctivae normal, anicteric sclerae ENMT: external ear and nose normal, oropharynx normal Neck: trachea midline, no thyromegaly Respiratory: able to speak in complete sentences and + tachypneic Auscultation: + diminished lung sounds and + crackles Cardiovascular: Extremities: + edema hypotensive on dopamine drip with frequent runs of VT and multifocal PVCs Musculoskeletal: generalized weakness, PERDOMO Skin: no rashes, warm and dry + pallor Neurologic: PERRL, EOMI, accommodation nl, no face palsy, no dysarthria Psychiatric: A+Ox3, euthymic affect Results & Data Vital Signs (Past 12 Hours) Vital Signs Temp Pulse Pulse Resp BP BP Pulse Ox 10/04/24 07:32 36.6 C 79 20 96/51 L 96 10/04/24 07:16 75 10/04/24 04:02 36.5 C 76 17 83/45 L 95 10/03/24 23:44 36.4 C L 77 16 93/51 L 95 O2 Del Method O2 Flow Rate 10/04/24 07:32 Nasal Cannula 10/04/24 07:16 10/04/24 04:02 High Flow Nasal Cannula 10/03/24 23:44 High Flow Nasal Cannula 2 Laboratory Results Abnormal lab results 10/04/24 Range/Units 05:46 Carbon Dioxide 36 H (21-32) mmol/L BUN 25 H (6-23) mg/dl BUN/Creatinine Ratio 26.3 H (10-20) Diagnostic Findings Chest X-Ray 10/01/24 09:43 XR chest 1V portable CLINICAL HISTORY: CHF COMPARISON STUDY: 09/25/2024 FINDINGS: The patient continues to show cardiomegaly with pulmonary vascular congestion. Bilateral perihilar haziness. Bilateral pleural effusions have increased slightly in size. Bibasilar opacities are most likely compressive atelectasis. Pacemaker leads remain in place. IMPRESSION: Enlarging bilateral pleural effusions most likely on the basis of CHF ACT 112: Negative or not required by law. Electronically signed by: Autumn Holman M.D. 10/01/2024 9:57 AM Medications Administered Current Inpatient Medications Acetaminophen (Acetaminophen 325 Mg Tab) 650 mg PO Q4H PRN PRN Reason: Pain or Fever Stop: 10/25/24 23:22 Albuterol (Albut/Ipratrop 3mg/0.5mg Neb 3 Ml Vial) 3 ml NEB Q2H PRN; Protocol PRN Reason: dyspnea Stop: 10/25/24 20:56 Amiodarone HCl (Amiodarone 200 Mg Tab) 200 mg PO DAILY@0800 [facility] Stop: 11/03/24 07:59 Last Admin: 10/04/24 09:13 Dose: 200 mg Furosemide (Furosemide 40 Mg/4 Ml Vial) 40 mg IV BID [facility] Stop: 10/27/24 11:14 Last Admin: 10/04/24 09:13 Dose: 40 mg Guaifenesin (Guaifenesin 600 Mg Tabcr) 600 mg PO Q12 [facility] Stop: 10/25/24 20:59 Last Admin: 10/04/24 09:13 Dose: 600 mg Morphine Sulfate (Morphine Sulfate 10 Mg/0.5 Ml Udp) 2.5 mg PO Q4H PRN PRN Reason: Pain or dyspnea/air hunger Stop: 10/16/24 12:31 Last Admin: 10/02/24 21:43 Dose: 2.5 mg Nystatin (Nystatin Powder 15gm Btl) 1 appln EXT DAILY PRN PRN Reason: Rash Stop: 10/26/24 00:27 Last Admin: 09/26/24 01:28 Dose: 1 appln Ondansetron HCl (Ondansetron Inj 2 Mg/Ml 2 Ml Vial) 4 mg IV Q6H PRN PRN Reason: Nausea Stop: 10/25/24 23:22 Potassium Chloride (Potassium Chloride Crtab 20 Meq Tabcr) 40 meq PO QAM [facility] Stop: 10/31/24 08:59 Last Admin: 10/04/24 09:13 Dose: 40 meq Spironolactone (Spironolactone 12.5 Mg Tab) 12.5 mg PO DAILY [facility] Stop: 10/29/24 08:59 Last Admin: 10/04/24 09:13 Dose: 12.5 mg PG Care Time/CCT Total # of Minutes Spent Total Time Spent with Patient: Total time spent is greater than 50% in coordination of care (as documented) at patient's floor/unit and/or counseling patient: Coding [place] [address] SUB INP/OBS CARE 25MIN Patient Type Established History Problem Focused Exam Problem Focused Medical Decision Making Low Complexity Diagnoses Palliative care by specialist Z51.5 Encounter for end of life education, guidance and counseling
[2024-10-04] MEDS: AMIODARONE 200 MG TAB PO SCH (09:13)
--- NOTE | 2024-10-04 19:21 | Hospitalist Progress Note ---
Date of Service October 04, 2024 Assessment & Plan (1) HFrEF (heart failure with reduced ejection fraction): Plan: end-stage systolic CHF EF 15-20% 2nd ischemic cardiomyopathy acute/chronic, with cardiogenic shock earlier in the stay continue diuresis; tolerating 40mg BID IV, and Creatinine once again stable on labs today still stop dopamine infusion today all cardiac meds are on hold due to prior shock except for small dose of aldactone 12.5mg daily BMP am (2) Wide-complex tachycardia: Plan: VT vs atrial-based rhythm with LBBB morphology either way the # of episodes have decreased considerably with initiation of amiodarone had been on IV infusion, then PO load with 400mg BID, and now 200mg daily recent Eliquis was stopped due to gross hematuria and likely transition to palliative care pathway (3) Cardiogenic shock: Plan: 2nd to end-stage HFrEF / ischemic cardiomyopathy did not respond to dobutamine earlier in the stay thus changed to dopamine & had good response to such was as high as 7 or 8 mcg slowly weaned down to 3mcg yesterday will shut drip off today (4) Generalized weakness: Plan: 2nd to endstage heart disease (5) Pleural effusion: Plan: 2nd to #1 no plans for thoracentesis - cont to diurese (6) Acute kidney injury: Plan: 2nd cardiorenal syndrome/cardiogenic shock. Cr peaked 1.3 now <1 BMP am (7) Paroxysmal A-fib: Plan: Eliquis has been discontinued On amiodarone for wide-complex rhythm suppression & amiodarone will also help maintain NSR in setting of PAF (8) Gross hematuria: Plan: resolved likely 2nd to siegel trauma Plan pt's updated by phone 10/03 plan of care d/w palliative care will attempt a PT session tomorrow at his request his overall clinical status, how he does with PT, etc will dictate plan of care for the rest of his stay Admission and Anticipated Discharge Date Admission Date: September 25, 2024 Subjective overnight on tele - mainly pacing, occasional brief runs of NSVT/wide complex tachycardia slept ok overnight ate decent breakfast during my visit with him he was sleepy but arousable he stated he wanted to try to work with PT tomorrow reported some mild dyspnea & orthopnea no cough no chest pain Review of Systems Review of Systems: GI - no abd pain or N/V pulm - no wheezing, mild dyspnea at rest CV - no edema Physical Exam Physical Exam: gen - NAD; sleepy today but arousable neck - no JVD heart - RRR, s1 s2, no murmur lungs - improved airation b; bases; no wheezes or rales; no increased work of breathing abd - soft NT ND BS+ ext - pulses b/l feet 2+; no edema psych - a/o x 3 but sleepy Results & Data Results & Data Vital Signs (Past 12 Hours) Vital Signs Temp Pulse Pulse Resp BP Pulse Ox O2 Del Method 10/04/24 15:13 37.0 C 75 18 86/57 L 100 Nasal Cannula 10/04/24 14:54 75 10/04/24 10:34 37.0 C 77 16 84/59 L 96 Nasal Cannula 10/04/24 08:00 Nasal Cannula 10/04/24 07:32 36.6 C 79 20 96/51 L 96 Nasal Cannula O2 Flow Rate 10/04/24 15:13 10/04/24 14:54 10/04/24 10:34 2 10/04/24 08:00 2 10/04/24 07:32 Laboratory Results Laboratory Results - last 24 hr 10/04/24 05:46 Sodium 140 Potassium 4.1 Chloride 98 Carbon Dioxide 36 H Anion Gap 6 BUN 25 H Creatinine 0.95 Est Cr Clr Drug Dosing 77.0 eGFR 83.47 BUN/Creatinine Ratio 26.3 H Glucose 92 Calcium 9.0 PG Care Time/CCT Total # of Minutes Spent Total Time Spent with Patient: Total time spent is greater than 50% in coordination of care (as documented) at patient's floor/unit and/or counseling patient: Coding Level of Care Code 82324 SUB INP/OBS CARE 2/35MIN Diagnoses HFrEF (heart failure with reduced ejection fraction) I50.20 Wide-complex tachycardia R00.0 Cardiogenic shock R57.0 Generalized weakness R53.1 Pleural effusion J90 Acute kidney injury N17.9 Paroxysmal A-fib I48.0 Gross hematuria R31.0
[2024-10-05 07:01] LABS: BUN Creatinine Ratio 27.1 (10-20); Creatinine Clr Calc Pharmacy 68.3 ml/min; Potassium 4.6 mmol/L (3.5-5.1)
--- NOTE | 2024-10-05 10:47 | Palliative Care Progress Note ---
Date of Service October 05, 2024 Assessment & Plan (1) Palliative care by specialist: Plan: Palliative care will continue to follow for ongoing [facility] discussions and family support. (2) Encounter for end of life education, guidance and counseling: Plan: Spoke with pt at bedside this morning. Pt shared that he is "taking it day by day" and wishes to attempt to be more mobile today so that he might better gauge his strength and ability to go home with hospice vs. vs [facility] at hospital. Reinforced previous discussion of changes pt may move through in the dying process including but not limited to sleeping more, disorientation when awake, restlessness, diminished senses/inability to respond to stimulus although ability to be aware of them remains intact longer, and changes in body temperatu res, skin changes/mottling/cyanosis, respiratory pattern changes, and oral secretions. Pt verbalized understanding. The goal is to assure a peaceful . Briefly discussed hospice care at home vs in hospital. Later in morning pt's and daughter approached me in hallway. They shared that pt is encouraged after working with PT this morning. He would like to work with them again tomorrow and hope to go home with hospice in upcoming days. Luis (pt's ) shared that they are meeting with both [facility] hospice and [facility] hospice teams today and will be making decision on which will best meet their needs at home. They will require DME delivery including hospital bed and bedside commode prior to discharge. CM and attending made aware. Plan continue current level of care, pt would likely transition to [facility] [employer] with any further hemodynamic decline. Palliative will continue to follow, please call with any questions or concerns regarding this consultation. Admission and Anticipated Discharge Date Admission Date: September 25, 2024 Subjective Assessed pt at bedside. JULIO. He was weaned off dopamine infusion yesterday with most recent BP 88/51 (76). He continues to have occasional runs of VT but tolerates well. He is lying in bed and denies current dyspnea or discomfort. No visitors present at bedside. Review of Systems Constitutional: + fatigue and + weakness Respiratory: + dyspnea on exertion Gastrointestinal: + early satiety Neurologic: + generalized weakness Physical Exam Constitutional: + ill appearing, + thin and cooperative Eyes: PERRL, conjunctivae normal, anicteric sclerae ENMT: external ear and nose normal, oropharynx normal Neck: trachea midline, no thyromegaly Respiratory: able to speak in complete sentences and + tachypneic Auscultation: + diminished lung sounds and + crackles Cardiovascular: Extremities: + edema Musculoskeletal: generalized weakness, PERDOMO Skin: no rashes, warm and dry + pallor Neurologic: PERRL, EOMI, accommodation nl, no face palsy, no dysarthria Psychiatric: A+Ox3, euthymic affect Results & Data Vital Signs (Past 12 Hours) Vital Signs Temp Pulse Pulse Resp BP BP Pulse Ox 10/05/24 07:37 36.6 C 76 20 88/51 L 98 10/05/24 07:37 75 10/05/24 07:37 10/05/24 02:56 36.5 C 77 18 92/57 L 100 10/04/24 23:11 36.5 C 75 18 90/60 L 100 O2 Del Method O2 Flow Rate 10/05/24 07:37 Nasal Cannula 3.5 10/05/24 07:37 10/05/24 07:37 High Flow Nasal Cannula 3.5 10/05/24 02:56 Nasal Cannula 3 10/04/24 23:11 Nasal Cannula 3 Laboratory Results Abnormal lab results 10/05/24 Range/Units 05:45 Carbon Dioxide 33 H (21-32) mmol/L BUN 29 H (6-23) mg/dl BUN/Creatinine Ratio 27.1 H (10-20) Diagnostic Findings Chest X-Ray 10/01/24 09:43 XR chest 1V portable CLINICAL HISTORY: CHF COMPARISON STUDY: 09/25/2024 FINDINGS: The patient continues to show cardiomegaly with pulmonary vascular congestion. Bilateral perihilar haziness. Bilateral pleural effusions have increased slightly in size. Bibasilar opacities are most likely compressive atelectasis. Pacemaker leads remain in place. IMPRESSION: Enlarging bilateral pleural effusions most likely on the basis of CHF ACT 112: Negative or not required by law. Electronically signed by: Autumn Holman M.D. 10/01/2024 9:57 AM Medications Administered Current Inpatient Medications Acetaminophen (Acetaminophen 325 Mg Tab) 650 mg PO Q4H PRN PRN Reason: Pain or Fever Stop: 10/25/24 23:22 Albuterol (Albut/Ipratrop 3mg/0.5mg Neb 3 Ml Vial) 3 ml NEB Q2H PRN; Protocol PRN Reason: dyspnea Stop: 10/25/24 20:56 Amiodarone HCl (Amiodarone 200 Mg Tab) 200 mg PO DAILY@0800 [facility] Stop: 11/03/24 07:59 Last Admin: 10/05/24 10:18 Dose: 200 mg Furosemide (Furosemide 40 Mg/4 Ml Vial) 40 mg IV BID [facility] Stop: 10/27/24 11:14 Last Admin: 10/04/24 20:20 Dose: 40 mg Guaifenesin (Guaifenesin 600 Mg Tabcr) 600 mg PO Q12 [facility] Stop: 10/25/24 20:59 Last Admin: 10/05/24 09:34 Dose: Not Given Morphine Sulfate (Morphine Sulfate 10 Mg/0.5 Ml Udp) 2.5 mg PO Q4H PRN PRN Reason: Pain or dyspnea/air hunger Stop: 10/16/24 12:31 Last Admin: 10/02/24 21:43 Dose: 2.5 mg Nystatin (Nystatin Powder 15gm Btl) 1 appln EXT DAILY PRN PRN Reason: Rash Stop: 10/26/24 00:27 Last Admin: 09/26/24 01:28 Dose: 1 appln Ondansetron HCl (Ondansetron Inj 2 Mg/Ml 2 Ml Vial) 4 mg IV Q6H PRN PRN Reason: Nausea Stop: 10/25/24 23:22 Potassium Chloride (Potassium Chloride Crtab 20 Meq Tabcr) 40 meq PO QAM [facility] Stop: 10/31/24 08:59 Last Admin: 10/05/24 10:19 Dose: 40 meq Spironolactone (Spironolactone 12.5 Mg Tab) 12.5 mg PO DAILY [facility] Stop: 10/29/24 08:59 Last Admin: 10/05/24 10:18 Dose: 12.5 mg PG Care Time/CCT Total # of Minutes Spent Total Time Spent with Patient: Total time spent is greater than 50% in coordination of care (as documented) at patient's floor/unit and/or counseling patient: Coding [place] [address] SUB INP/OBS CARE 2/35MIN Patient Type Established History Problem Focused Exam Problem Focused Medical Decision Making Straight Forward Diagnoses Palliative care by specialist Z51.5 Encounter for end of life education, guidance and counseling
--- NOTE | 2024-10-05 13:16 | Hospitalist Progress Note ---
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% 2nd ischemic cardiomyopathy acute/chronic, with cardiogenic shock earlier in the stay patient appears relatively euvolemic today was diuresed close to 8-9 days will stop IV lasix today convert to PO lasix tomorrow - start with 40mg BID has been off dopamine infusion for nearly 30 hours with stable BPs and stable creatinine all cardiac meds have been stopped due to prior shock except for small dose of aldactone 12.5mg daily and amiodarone will just use lasix moving forward, can always add back the aldactone if needed cont amiodarone (see below) with transition to hospice will stop checking labs at this point (2) Wide-complex tachycardia: Plan: VT vs atrial-based rhythm with LBBB morphology either way the # of episodes have decreased considerably with initiation of amiodarone last week had been on IV infusion, then PO load with 400mg BID, and now 200mg daily recent Eliquis was stopped due to gross hematuria and likely transition to palliative care pathway/Hospice will not resume anticoagulation I WOULD continue amiodarone 200mg daily to avoid long runs of wide-complex tachycardia which could cause considerable symptoms of course patient has ICD - before discharge would have EP/cardiology deactivate the device to avoid shocks (3) Cardiogenic shock: Plan: 2nd to end-stage HFrEF / ischemic cardiomyopathy did not respond to dobutamine earlier in the stay thus changed to dopamine & had good response to such was as high as 7 or 8 mcg, then weaned slowly to 3mcg, then shut off on AM of 10/04 BPs are remaining acceptable off the dopamine (4) Generalized weakness: Plan: 2nd to endstage heart disease and severe deconditioning (5) Pleural effusion: Plan: 2nd to #1 no plans for thoracentesis transition to hospice (6) Acute kidney injury: Plan: 2nd cardiorenal syndrome/cardiogenic shock. Cr peaked 1.3 now <1 stop BMP checks (7) Paroxysmal A-fib: Plan: Eliquis has been discontinued On amiodarone for wide-complex rhythm suppression & amiodarone will also help maintain NSR in setting of PAF as well Would continue the amiodarone at discharge (8) Gross hematuria: Plan: resolved likely was 2nd to siegel trauma Plan pt's updated by phone 10/03 pt's & daughter extensively updated at bedside today, 10/05 pt had 2 hospice companies visit with him & his family today --> [facility] & [facility] the hope is for patient to return home with hospice --> his & daughter would be present to assist him at home they are going to discuss all of this as a family today patient wants to work with physical therapy one more time - he asked to do this on Friday will have to reach out to PT tomorrow to ask them to re-eval d/c tele move to med/surg care d/w palliative care provider Admission and Anticipated Discharge Date Admission Date: September 25, 2024 Subjective during the visit today his and daughter were present earlier in the AM physical therapy worked with Mr Vanegas he was able to sit at the side of the bed - felt a little dizzy with such by report he was able to stand and remained standing for several minutes took a couple of steps as well PT feels that he may be able to return home (with Hospice) based on today's eval during my visit patient states he "wants to see how things go again" [with PT] tomorrow long discussion with pt and his /daughter about plan of care --- tolerating being off the dopamine drip, still with copious urine output (although slowing - likely euvolemic), stable labs, etc. 2 hospice companies came today to evaluate the patient -- [facility], and [address] [place] [address] family is beginning to feel more comfortable (patient as well) with the prospect of him returning home with hospice at discharge he previously has stated he would NOT go to SNF post-d/c we discussed home hospice in detail patient and his family plan to discuss everything today - which hospice company to choose, is home with hospice feasible, etc. tele overnight - pacing, just occasional brief runs of NSVT/wide-complex tachycardia Review of Systems Review of Systems: CV - some intermittent dyspnea/orthopnea but no chest pain pulm - dyspnea; no cough GI - no abd pain; +stool; no N/V Physical Exam Physical Exam: gen - NAD; awake, alert today neck - no JVD heart - RRR, s1 s2, no murmur lungs - mildly decreased BS b/l bases; no wheezes or rales; no increased work of breathing abd - soft NT ND BS+ ext - pulses b/l feet 2+; no edema peripherally psych - a/o x 3 Results & Data Results & Data Vital Signs (Past 12 Hours) Vital Signs Temp Pulse Pulse Resp BP Pulse Ox O2 Del Method 10/05/24 10:42 36.3 C L 75 19 82/55 L 98 Nasal Cannula 10/05/24 07:37 36.6 C 76 20 88/51 L 98 Nasal Cannula 10/05/24 07:37 75 10/05/24 07:37 High Flow Nasal Cannula 10/05/24 02:56 36.5 C 77 18 92/57 L 100 Nasal Cannula O2 Flow Rate 10/05/24 10:42 3.5 10/05/24 07:37 3.5 10/05/24 07:37 10/05/24 07:37 3.5 10/05/24 02:56 3 Laboratory Results Laboratory Results - last 24 hr 10/05/24 05:45 Sodium 138 Potassium 4.6 Chloride 98 Carbon Dioxide 33 H Anion Gap 7 BUN 29 H Creatinine 1.07 Est Cr Clr Drug Dosing 68.3 eGFR 72.37 BUN/Creatinine Ratio 27.1 H Glucose 82 Calcium 9.0 PG Care Time/CCT Total # of Minutes Spent Total Time Spent with Patient: Total time spent is greater than 50% in coordination of care (as documented) at patient's floor/unit and/or counseling patient: Coding Level of Care Code 36668 SUB INP/OBS CARE 3/50MIN Diagnoses HFrEF (heart failure with reduced ejection fraction) I50.20 Wide-complex tachycardia R00.0 Cardiogenic shock R57.0 Generalized weakness R53.1 Pleural effusion J90 Acute kidney injury N17.9 Paroxysmal A-fib I48.0 Gross hematuria R31.0
[2024-10-05] MEDS: FUROSEMIDE 40 MG/4 ML VIAL IV ONE (18:22)
[2024-10-06] MEDS: SERTRALINE HCL 50 MG TABLET PO SCH (07:58)
[2024-10-06] MEDS: FUROSEMIDE 40 MG TAB PO SCH (07:59)
--- NOTE | 2024-10-06 15:45 | Hospitalist Progress Note ---
Date of Service October 06, 2024 Assessment & Plan (1) HFrEF (heart failure with reduced ejection fraction): Plan: Acute on chronic heart failure with reduced ejection fraction (end-stage) with LVEF 15 to 20%, cardiogenic shock earlier in stay right now resolved 2nd ischemic cardiomyopathy Patient remains euvolemic and will continue p.o. Lasix 40 mg BID Since he is transitioning to hospice care no plans on repeating labs (2) Wide-complex tachycardia: Plan: VT vs atrial-based rhythm with LBBB morphology either way the # of episodes have decreased considerably with initiation of amiodarone last week had been on IV infusion, then PO load with 400mg BID, and now 200mg daily Plan to continue amiodarone daily to avoid long runs of wide-complex tachycardia patient has ICD - before discharge would have EP/cardiology deactivate the device to avoid shocks (3) Cardiogenic shock: Plan: 2nd to end-stage HFrEF / ischemic cardiomyopathy did not respond to dobutamine earlier in the stay thus changed to dopamine & had good response to such was as high as 7 or 8 mcg, then weaned slowly to 3mcg, then shut off on AM of 10/04 BPs are remaining acceptable off the dopamine (4) Generalized weakness: Plan: 2nd to endstage heart disease and severe deconditioning (5) Pleural effusion: Plan: 2nd to #1 no plans for thoracentesis transition to hospice (6) Acute kidney injury: Plan: Resolved (7) Paroxysmal A-fib: Plan: On amiodarone for wide-complex rhythm suppression & amiodarone will also help maintain NSR in setting of PAF as well Discussed Horace with the patient today and he wishes to continue this but will start at half normal dose and monitor for bleeding (8) Gross hematuria: Plan: resolved likely was 2nd to siegel trauma Continue Siegel catheter on discharge and follow-up with urology as an outpatient Plan Planning for discharge on home hospice on Friday Admission and Anticipated Discharge Date Admission Date: September 25, 2024 Subjective Patient understandably concerned about his safety of discharge. Has now elected to go [facility] later this week. Doing well with physical therapy. Chronic shortness of breath at baseline. No chest pain. Discussed Siegel catheter. No mention of urine retention from previous notes however he is now off the tamsulosin and finasteride as he cannot tolerate these with his current blood pressure. Per patient recollection he is due to follow-up with urology at the end of this month and therefore shared decision making decided to keep the Siegel catheter in for now. Discussed restarting pantoprazole and previously on this due to silent reflux and declines going back onto it at this time as he is not felt that it has made any difference to his symptoms of hoarse voice. No current gastrointestinal side effects with restarting sertra line. We discussed benefits (stroke risk reduction) and risks of restarting apixaban (increased risk of bleeding including hematuria that was noticed earlier in the admission) and he wishes to get back on this. Physical Exam Constitutional: WD/WN, vitals as above Respiratory: normal respiratory effort, lungs clear to auscultation Cardiovascular: RRR, no murmur, no edema Gastrointestinal (Abdomen): normal bowel sounds, soft, nontender, no hepatosplenomegaly Results & Data Results & Data Vital Signs (Past 12 Hours) Vital Signs Temp Pulse Pulse Resp BP BP Pulse Ox 10/06/24 15:42 36.9 C 73 18 94/60 L 100 10/06/24 12:11 36.6 C 77 20 92/58 L 100 10/06/24 10:22 10/06/24 07:33 36.4 C L 76 22 90/58 L 98 O2 Del Method O2 Flow Rate 10/06/24 15:42 Nasal Cannula 3.0 10/06/24 12:11 Nasal Cannula 2 10/06/24 10:22 Nasal Cannula 2 10/06/24 07:33 Nasal Cannula 2 PG Care Time/CCT Total # of Minutes Spent Total Time Spent with Patient: Total time spent is greater than 50% in coordination of care (as documented) at patient's floor/unit and/or counseling patient: Coding Level of Care Code 10587 SUB INP/OBS CARE 2/35MIN Diagnoses HFrEF (heart failure with reduced ejection fraction) I50.20 Wide-complex tachycardia R00.0 Cardiogenic shock R57.0 Generalized weakness R53.1 Pleural effusion J90 Acute kidney injury N17.9 Paroxysmal A-fib I48.0 Gross hematuria R31.0
--- NOTE | 2024-10-06 16:05 | Palliative Care Progress Note ---
Date of Service October 06, 2024 Assessment & Plan (1) Palliative care by specialist: Plan: Palliative care will continue to follow for ongoing GOC discussions and family support. Plan Plan for discharge to home with [facility] later this week, pending DME delivery. continue current level of care through discharge to optimize strength/health. Palliative will continue to follow, please call with any questions or concerns regarding this consultation. Admission and Anticipated Discharge Date Admission Date: September 25, 2024 Subjective Assessed pt at bedside. JULIO. He continues to have occasional runs of VT but tolerates well with MAPs in 60-70s. He is sitting up in chair denies current dyspnea or discomfort but shared he does still get winded with exertion. He shared plan to work with PT to get back to bed when his is here and then plan for home with hospice. CM aware. No visitors present at bedside. Review of Systems Constitutional: + weakness Respiratory: + dyspnea on exertion Gastrointestinal: + early satiety Neurologic: + generalized weakness Physical Exam Constitutional: + ill appearing, + thin and cooperative Eyes: PERRL, conjunctivae normal, anicteric sclerae ENMT: external ear and nose normal, oropharynx normal Neck: trachea midline, no thyromegaly Respiratory: able to speak in complete sentences and + tachypneic Auscultation: + diminished lung sounds and + crackles Cardiovascular: Extremities: + edema Musculoskeletal: generalized weakness, PERDOMO Skin: no rashes, warm and dry + pallor Neurologic: PERRL, EOMI, accommodation nl, no face palsy, no dysarthria Psychiatric: A+Ox3, euthymic affect Results & Data Vital Signs (Past 12 Hours) Vital Signs Temp Pulse Pulse Resp BP BP Pulse Ox 10/06/24 15:42 36.9 C 73 18 94/60 L 100 10/06/24 12:11 36.6 C 77 20 92/58 L 100 10/06/24 10:22 10/06/24 07:33 36.4 C L 76 22 90/58 L 98 O2 Del Method O2 Flow Rate 10/06/24 15:42 Nasal Cannula 3.0 10/06/24 12:11 Nasal Cannula 2 10/06/24 10:22 Nasal Cannula 2 10/06/24 07:33 Nasal Cannula 2 Diagnostic Findings Chest X-Ray 10/01/24 09:43 XR chest 1V portable CLINICAL HISTORY: CHF COMPARISON STUDY: 09/25/2024 FINDINGS: The patient continues to show cardiomegaly with pulmonary vascular congestion. Bilateral perihilar haziness. Bilateral pleural effusions have increased slightly in size. Bibasilar opacities are most likely compressive atelectasis. Pacemaker leads remain in place. IMPRESSION: Enlarging bilateral pleural effusions most likely on the basis of CHF ACT 112: Negative or not required by law. Electronically signed by: Autumn Holman M.D. 10/01/2024 9:57 AM Medications Administered Current Inpatient Medications Acetaminophen (Acetaminophen 325 Mg Tab) 650 mg PO Q4H PRN PRN Reason: Pain or Fever Stop: 10/25/24 23:22 Albuterol (Albut/Ipratrop 3mg/0.5mg Neb 3 Ml Vial) 3 ml NEB Q2H PRN; Protocol PRN Reason: dyspnea Stop: 10/25/24 20:56 Amiodarone HCl (Amiodarone 200 Mg Tab) 200 mg PO DAILY@0800 PADMINI Stop: 11/03/24 07:59 Last Admin: 10/06/24 07:58 Dose: 200 mg Apixaban (Apixaban 2.5 Mg Tab) 2.5 mg PO BID PADMINI Stop: 11/05/24 20:59 Furosemide (Furosemide 40 Mg Tab) 40 mg PO BID17 PADMINI Stop: 11/05/24 08:59 Last Admin: 10/06/24 07:59 Dose: 40 mg Guaifenesin (Guaifenesin 600 Mg Tabcr) 600 mg PO Q12 PADMINI Stop: 10/25/24 20:59 Last Admin: 10/06/24 07:58 Dose: 600 mg Morphine Sulfate (Morphine Sulfate 10 Mg/0.5 Ml Udp) 2.5 mg PO Q4H PRN PRN Reason: Pain or dyspnea/air hunger Stop: 10/16/24 12:31 Last Admin: 10/02/24 21:43 Dose: 2.5 mg Nystatin (Nystatin Powder 15gm Btl) 1 appln EXT DAILY PRN PRN Reason: Rash Stop: 10/26/24 00:27 Last Admin: 09/26/24 01:28 Dose: 1 appln Ondansetron HCl (Ondansetron Inj 2 Mg/Ml 2 Ml Vial) 4 mg IV Q6H PRN PRN Reason: Nausea Stop: 10/25/24 23:22 Sertraline HCl (Sertraline Hcl 50 Mg Tablet) 50 mg PO QAM PADMINI Stop: 11/05/24 08:59 Last Admin: 10/06/24 07:58 Dose: 50 mg PG Care Time/CCT Total # of Minutes Spent Total Time Spent with Patient: Total time spent is greater than 50% in coordination of care (as documented) at patient's floor/unit and/or counseling patient: Coding [place] [address] SUB INP/OBS CARE 08/14MIN Patient Type Established History Problem Focused Exam Problem Focused Medical Decision Making Low Complexity Diagnoses Palliative care by specialist Z51.5
[2024-10-06] MEDS: APIXABAN 2.5 MG TAB PO SCH (21:04)
--- NOTE | 2024-10-07 14:46 | Hospitalist Progress Note ---
Date of Service October 07, 2024 Assessment & Plan (1) HFrEF (heart failure with reduced ejection fraction): Plan: Acute on chronic heart failure with reduced ejection fraction (end-stage) with LVEF 15 to 20%, cardiogenic shock earlier in stay right now resolved 2nd ischemic cardiomyopathy Patient remains euvolemic and will continue p.o. Lasix 40 mg BID Since he is transitioning to hospice care no plans on repeating labs Plan discharge for tomorrow on hospice care (2) Wide-complex tachycardia: Plan: VT vs atrial-based rhythm with LBBB morphology either way the # of episodes have decreased considerably with initiation of amiodarone last week had been on IV infusion, then PO load with 400mg BID, and now 200mg daily Plan to continue amiodarone daily to avoid long runs of wide-complex tachycardia patient has ICD - before discharge would have EP/cardiology deactivate the device to avoid shocks (3) Cardiogenic shock: Plan: Now resolved (4) Generalized weakness: Plan: 2nd to endstage heart disease and severe deconditioning (5) Pleural effusion: Plan: 2nd to #1 no plans for thoracentesis transition to hospice (6) Acute kidney injury: Plan: Resolved (7) Paroxysmal A-fib: Plan: On amiodarone for wide-complex rhythm suppression & amiodarone will also help maintain NSR in setting of PAF as well Discussed Horace with the patient today and he wishes to continue this but will start at half normal dose and monitor for bleeding (8) Gross hematuria: Plan: resolved likely was 2nd to siegel trauma Continue Siegel catheter on discharge and follow-up with urology as an outpatient Plan Planning for discharge on home hospice on Friday Admission and Anticipated Discharge Date Admission Date: September 25, 2024 Subjective No new changes from yesterday. Plan for discharge tomorrow once hospice bed is delivered. He notes shortness of breath while lying down flat but notes this is not getting any worse than usual. Review of Systems Review of Systems: All systems reviewed & are unremarkable except as noted in HPI & below Physical Exam Constitutional: WD/WN, vitals as above Respiratory: normal respiratory effort, lungs clear to auscultation Cardiovascular: Rate/Rhythm: regular rate and regular rhythm Heart Sounds: no murmur Extremities: + pedal edema (trace b/l equal) Gastrointestinal (Abdomen): normal bowel sounds, soft, nontender, no hepatosplenomegaly Results & Data Results & Data Vital Signs (Past 12 Hours) Vital Signs Temp Pulse Resp BP Pulse Ox O2 Del Method O2 Flow Rate 10/07/24 14:38 36.2 C L 75 18 96/65 L 100 Nasal Cannula 1.0 10/07/24 09:00 Nasal Cannula 2 10/07/24 07:36 36.4 C L 76 18 100/64 100 Nasal Cannula 2.0 PG Care Time/CCT Total # of Minutes Spent Total Time Spent with Patient: Total time spent is greater than 50% in coordination of care (as documented) at patient's floor/unit and/or counseling patient: Coding Level of Care Code 20519 SUB INP/OBS CARE 2/35MIN Diagnoses HFrEF (heart failure with reduced ejection fraction) I50.20 Wide-complex tachycardia R00.0 Cardiogenic shock R57.0 Generalized weakness R53.1 Pleural effusion J90 Acute kidney injury N17.9 Paroxysmal A-fib I48.0 Gross hematuria R31.0
[2024-10-07 19:29] VITALS: TEMP 97.5
[2024-10-08 08:09] VITALS: RESP 14; O2SAT 96
--- NOTE | 2024-10-08 08:58 | Discharge Summary ---
Discharge Summary Date of Service October 08, 2024 Principal Dx & Hospital Course #1 = Principal Diagnosis (1) HFrEF (heart failure with reduced ejection fraction): (2) Wide-complex tachycardia: (3) Cardiogenic shock: Now resolved (4) Generalized weakness: (5) Pleural effusion: (6) Acute kidney injury: (7) Paroxysmal A-fib: (8) Gross hematuria: Plan Luis Vanegas is a 73 year old male admitted to [facility] from September 25 - 2024 due to weakness, low blood pressure and urine retention. He was diagnosed with acute on chronic congestive heart failure with cardiogenic shock. He was treated with dopamine and Lasix and stopping all other anti- hypertensives. His blood pressure improved to the point where dopamine could be discontinued and he is now more at your baseline weight and will continue Lasix to maintain this. On discussion with palliative care he wished to be discharged to hospice care. Therefore all nonessential medications have been discontinued. He will continue on Lasix 40 mg twice a day to maintain current weight. Amiodarone was started due to wide-complex tachycardia and should be continued indefinitely. Bey catheter was placed on admission and will continue on discharge until follow-up with urology as an outpatient. Notes For Next Care Provider Patient transitioned to hospice care Admission HPI Per Admitting Provider The patient is a 73-year-old male with a past medical history including wide- complex tachycardia status post recent cardioversion, presence of biventricular AICD, ischemic cardiomyopathy, hypertension, CAD, HFrEF 20-25%, paroxysmal atrial fibrillation, orthostatic hypotension, paralysis of right upper extremity, bilateral arm weakness, obesity, BPH and LUTS, bipolar 1 disorder, and depression. The patient presents to the emergency department with multiple issues as noted, and has been progressive over the past 3 to 4 months. He does note a more recent issue with shortness of breath and dyspnea on exertion. He has been utilizing furosemide at the direction of the heart failure clinic, when he feels he needs to have additional diuresis. Admission Exam Per Admitting Provider Furosemide started for heart failure 40 mg twice a day Amiodarone started for wide-complex tachycardia Discontinued potassium, sildenafil, pantoprazole, metoprolol, atorvastatin, Entresto, Jardiance, tamsulosin, finasteride, aspirin as nonessential on palliative care He has a Bey catheter in place therefore does not require the tamsulosin and finasteride and likely cannot tolerate these with his blood pressure Discharge Exam Constitutional WD/WN, vitals as above Respiratory normal respiratory effort, lungs clear to auscultation Cardiovascular RRR, no murmur, no edema Rate/Rhythm: regular rate and regular rhythm Heart Sounds: no murmur Extremities: + pedal edema (trace b/l equal) Gastrointestinal (Abdomen) normal bowel sounds, soft, nontender, no hepatosplenomegaly Discharge Plan Discharge Items Patient Disposition: Hospice - Home Reason For Visit: PNEUMOS,WEAKMENESS Discharge Diagnosis: Acute on chronic heart failure with reduced ejection fraction Activity: Resume your previous activity Non-emergency contact: Primary Care Provider Call non-emergency contact if: you have any medication questions and your symptoms worsen Follow-up/Referrals: Frederic Pena, [Primary Care Provider] - Diet: Heart Healthy Addtl Attending Provider Instructions: You were admitted to [facility] from September 25 - 2024 due to weakness, low blood pressure and urine retention. Diagnosed with acute on chronic congestive heart failure with cardiogenic shock. He was treated with dopamine and Lasix. Your blood pressure improved to the point where dopamine could be discontinued and are now more at your baseline weight and will continue Lasix to maintain this. On discussion with palliative care you wish to be discharged to hospice care. Therefore all nonessential medications have been discontinued. He will continue on Lasix 40 mg twice a day to maintain current weight. Amiodarone was started due to wide-complex tachycardia and should be continued. Bey catheter was placed on admission and will continue on discharge until follow-up with urology as an outpatient. Pending Studies at Discharge: No Stand-Alone Forms: My [facility] Medications and DC Order Prescriptions: New furosemide 40 mg Tablet 40 mg PO BID17 Qty: 60 0RF amiodarone 200 mg Tablet 200 mg PO QAM Qty: 30 0RF Continued nitroglycerin 0.4 mg tablet, sublingual 0.4 mg SL ONCE PRN (Reason: Chest Pain) Qty: 25 5RF Rx Instructions: Can take before exercising also. ferrous sulfate 325 mg (65 mg iron) tablet 325 mg PO Q OTHER DAY Qty: 30 0RF Eliquis 5 mg tablet 5 mg PO BID Qty: 60 2RF sertraline 100 mg tablet 100 mg PO QPM Qty: 90 3RF Rx Instructions: TAKE WITH 50MG = 15OMG DAILY IN THE PM sertraline 50 mg tablet 50 mg PO DAILY Rx Instructions: TAKE WITH 100MG = 150MG DAILY. Discontinued potassium chloride 20 mEq tablet extended release 20 meq PO DAILY PRN (Reason: Edema) Qty: 90 3RF Rx Instructions: Take 1 tablet by mouth along with Lasix. Use daily until breathing is at baseline then use together as needed. sildenafil 100 mg tablet 100 mg PO DAILY PRN (Reason: sexual activity) Qty: 18 5RF Rx Instructions: administer 30 minutes to 4 hours before activity> Stop Isordil 48 hours before using. pantoprazole 40 mg tablet,delayed release (DR/EC) 40 mg PO DAILY Qty: 30 5RF furosemide [Lasix] 40 mg tablet 40 mg PO DAILY PRN (Reason: Edema) Qty: 90 0RF Rx Instructions: Take 1 tablet by mouth along with potassium. Use together daily until breathing is at baseline then use together as needed. metoprolol succinate 25 mg tablet extended release 24 hr 25 mg PO BID Qty: 180 3RF atorvastatin 40 mg tablet 40 mg PO QAM Qty: 90 3RF Entresto 24-26 mg tablet 1 tab PO BID Qty: 180 3RF Jardiance 10 mg tablet 10 mg PO DAILY Qty: 90 3RF tamsulosin [Flomax] 0.4 mg capsule 0.4 mg PO HS Qty: 90 1RF finasteride 5 mg tablet 5 mg PO DAILY Qty: 90 3RF aspirin 81 mg Tablet,Delayed Release (Dr/Ec) 81 mg PO QAM Discharge Orders: Discharge Order (Routine); Ordered 10/08/24 Ordered By: John Dawkins Admission Data Admit Date/Time: 09/25/24 21:07 Attending Provider: John Dawkins Admit Provider: Yoel Shah Primary Care Provider: Frederic Pena Other Providers: Josh Early; Ramon Barron; Vinod Lawrence Other Interventions: Discharge Summary Assessment (RN) Last Done: 10/08/24 10:08 Hospital Stay Data Consultations 09/25/24 19:59 ED Decision to Admit Stat 09/26/24 05:18 Consult Cardiology Routine 03/09/25 14:05 Consult Palliative Care Routine Pending Results Patient Have Any Pending Studies at Discharge: No Discharge Instructions Given to Patient (Per Discharging Provider) You were admitted to [facility] from September 25 - 2024 due to weakness, low blood pressure and urine retention. Diagnosed with acute on chronic congestive heart failure with cardiogenic shock. He was treated with dopamine and Lasix. Your blood pressure improved to the point where dopamine could be discontinued and are now more at your baseline weight and will continue Lasix to maintain this. On discussion with palliative care you wish to be discharged to hospice care. Therefore all nonessential medications have been discontinued. He will continue on Lasix 40 mg twice a day to maintain current weight. Amiodarone was started due to wide-complex tachycardia and should be continued. Bey catheter was placed on admission and will continue on discharge until follow-up with urology as an outpatient. Total Time Total Time Spent Total Time Spent (In Minutes): 50 Coding Level of Care Code 10476 INP/OBS DISCH >30 MIN Diagnoses HFrEF (heart failure with reduced ejection fraction) I50.20 Wide-complex tachycardia R00.0 Cardiogenic shock R57.0 Generalized weakness R53.1 Pleural effusion J90 Acute kidney injury N17.9 Paroxysmal A-fib I48.0 Gross hematuria R31.0
[2024-10-08 11:18] VITALS: BP 94/58; PULSE 76
== END 2024-10-08 15:13 | disposition hospice, home (50) | DRG 291 ==
LOC: ED 18:17 → SUATTDRO 21:07 → 2E 21:07 → 3E 10-05 18:26
DX: Z79.82 Long term (current) use of aspirin; Z79.899 Other long term (current) drug therapy; I50.84 End stage heart failure; R00.8 Other abnormalities of heart beat; Y73.2 Prosthetic and other implants, materials and accessory gastroenterology and urology devices associated with adverse incidents; F32.A Depression, unspecified; K21.9 Gastro-esophageal reflux disease without esophagitis; I11.0 Hypertensive heart disease with heart failure; I25.5 Ischemic cardiomyopathy; R57.0 Cardiogenic shock; Z79.01 Long term (current) use of anticoagulants; Z66 Do not resuscitate; N40.1 Benign prostatic hyperplasia with lower urinary tract symptoms; T83.83XA Hemorrhage due to genitourinary prosthetic devices, implants and grafts, initial encounter; I48.0 Paroxysmal atrial fibrillation; Z95.810 Presence of automatic (implantable) cardiac defibrillator; Z51.5 Encounter for palliative care; F31.9 Bipolar disorder, unspecified; Z86.16 Personal history of COVID-19; I25.2 Old myocardial infarction; S37.90XA Unspecified injury of unspecified urinary and pelvic organ, initial encounter; R33.9 Retention of urine, unspecified; Z87.891 Personal history of nicotine dependence; E87.6 Hypokalemia; S90.811A Abrasion, right foot, initial encounter; E78.5 Hyperlipidemia, unspecified; G83.21 Monoplegia of upper limb affecting right dominant side; I25.10 Atherosclerotic heart disease of native coronary artery without angina pectoris; Z79.84 Long term (current) use of oral hypoglycemic drugs; N17.9 Acute kidney failure, unspecified; X58.XXXA Exposure to other specified factors, initial encounter; S90.812A Abrasion, left foot, initial encounter; I50.23 Acute on chronic systolic (congestive) heart failure; I95.9 Hypotension, unspecified